=== PATIENT | female | born 1970 | race Caucasian/White ===

== ENCOUNTER → 2017-03-22 | Outpatient (CLI) | payer BC ==
--- NOTE | 2017-03-23 10:38 | MM ---
Reason for exam: screening (asymptomatic). Last mammogram was performed 1 year and 6 months ago. History: Family history of breast cancer in paternal aunt. Physical Findings: A clinical breast exam by your physician is recommended on an annual basis and results should be correlated with mammographic findings. MG Screening Mammo w CAD Bilateral CC and MLO view(s) were taken. Prior study comparison: September 10, 2015, bilateral MG screening mammo w CAD. February 26, 2014, bilateral MG screening mammo w CAD. The breast tissue is heterogeneously dense. This may lower the sensitivity of mammography. No significant changes when compared with prior studies. ASSESSMENT: Benign, BI-RAD 2 RECOMMENDATION: Routine screening mammogram of both breasts in 1 year.
== END | disposition home or self-care (01) ==
LOC: RADMAMWWP 16:04
PROVIDERS: ATTEND Obstetrics & Gynecology
DX: Z12.31 Encounter for screening mammogram for malignant neoplasm of breast (principal); Z80.3 Family history of malignant neoplasm of breast

== ENCOUNTER → 2018-05-26 | Outpatient (CLI) | payer BC ==
--- NOTE | 2018-05-31 09:01 | MM ---
Reason for exam: screening (asymptomatic). Last mammogram was performed 1 year and 2 months ago. History: Family history of breast cancer in paternal aunt. Physical Findings: A clinical breast exam by your physician is recommended on an annual basis and results should be correlated with mammographic findings. MG 3D Screening Mammo W/Cad Bilateral CC and MLO view(s) were taken. Prior study comparison: March 22, 2017, bilateral MG screening mammo w CAD. September 10, 2015, bilateral MG screening mammo w CAD. There are scattered fibroglandular densities. There is chronic nodularity in the right breast. No significant changes when compared with prior studies. ASSESSMENT: Negative, BI-RAD 1 RECOMMENDATION: Routine screening mammogram of both breasts in 1 year.
== END | disposition home or self-care (01) ==
LOC: RADMAMWWP 09:39
PROVIDERS: ATTEND Obstetrics & Gynecology
DX: Z12.31 Encounter for screening mammogram for malignant neoplasm of breast (principal); Z80.3 Family history of malignant neoplasm of breast
CPT/HCPCS: 77063; 77067

== ENCOUNTER → 2020-04-08 | Outpatient (CLI) | payer OTHER ==
--- NOTE | 2020-04-09 08:29 | MM ---
Reason for exam: screening (asymptomatic). Last mammogram was performed 1 year and 10 months ago. History: Family history of breast cancer in paternal aunt. Physical Findings: A clinical breast exam by your physician is recommended on an annual basis and results should be correlated with mammographic findings. MG 3D Screening Mammo W/Cad Bilateral CC and MLO view(s) were taken. Prior study comparison: May 26, 2018, bilateral MG 3d screening mammo w/cad. March 22, 2017, bilateral MG screening mammo w CAD. The breast tissue is heterogeneously dense. This may lower the sensitivity of mammography. There is no discrete abnormality. No significant changes when compared with prior studies. ASSESSMENT: Negative, BI-RAD 1 RECOMMENDATION: Routine screening mammogram of both breasts in 1 year.
== END | disposition home or self-care (01) ==
LOC: WWCWWP 09:13
PROVIDERS: ATTEND Obstetrics & Gynecology
DX: Z12.31 Encounter for screening mammogram for malignant neoplasm of breast (principal)
CPT/HCPCS: 77063; 77067

== ENCOUNTER → 2020-05-27 | Outpatient (CLI) | payer OTHER ==
--- NOTE | 2020-05-27 10:11 | P.HPOB ---
History of Present Illness H&P Date: 05/27/20 Chief Complaint: The patient is here for her routine gynecologic exam. This is a 49-year-old with an LMP of 05/21/2020. The patient states her menstrual periods have become more irregular over the past year. They previously were regular up until one year ago. She did have a 6 month period where she was amenorrheic except for infrequent spotting. The last 2 months have been fairly regular every month but have been heavier than usual. She is otherwise without complaints. She denies any significant hot flashes. Her is status post vasectomy. Review of Systems She has gained about 7 pounds over the past 5 years. She denies respiratory, cardiac, or GI problems. Past Medical History Past Medical History: GERD/Reflux Additional Past Medical History / Comment(s): PAST MONEY MANAGER HISTORY: She has no history of STDs. History of Any Multi-Drug Resistant Organisms: None Reported Additional Past Surgical History / Comment(s): oral surgery. Colonoscopy 2014(next age 52) Past Anesthesia/Blood Transfusion Reactions: Motion Sickness Past Psychological History: No Psychological Hx Reported Smoking Status: Never smoker Past Alcohol Use History: Occasional (0-1 per month) Past Drug Use History: None Reported Additional History: She has been since 1991 and works at [employer] with her . - Past Family History Brother(s) Family Medical History: Cancer Additional Family Medical History / Comment(s): Beavers sarcoma. Father Family Medical History: Cancer Additional Family Medical History / Comment(s): Lung cancer. An uncle had lung cancer as well. Aunt Family Medical History: Cancer Additional Family Medical History / Comment(s): Breast cancer. Medications and Allergies Home Medications Medication Instructions Recorded Confirmed Type Claritin(Dose Unknown) 1 tab PO DAILY 10/08/14 05/27/20 History Ascorbic Acid [Vitamin C] 500 mg PO DAILY 05/27/20 05/27/20 History Cholecalciferol [Vitamin D3 (25 1,000 unit PO DAILY 05/27/20 05/27/20 History Mcg = 1000 Iu)] Multivitamin [Multivitamins Adult 1 each PO DAILY 05/27/20 05/27/20 History Gummies] Zinc 50 mg PO DAILY 05/27/20 05/27/20 History atenoloL [Atenolol] 25 mg PO DAILY 05/27/20 05/27/20 History Allergies Allergy/AdvReac Type Severity Reaction Status Date / Time No Known Allergies Allergy Verified 05/27/20 09:18 Exam Vital Signs Temp Pulse Resp BP Pulse Ox 05/27/20 09:20 98.3 F 84 18 138/91 99 Intake and Output 05/26/20 05/27/20 05/27/20 22:59 06:59 14:59 Other: Weight 98.883 kg Height 5 feet 3-1/2 inches, weight 218 pounds, BMI 38.0. This is a well-developed well-nourished heavyset white female who is alert and oriented times 3 in no acute distress. HEENT: Within normal limits. NECK: Supple without mass or thyromegaly. CHEST AND LUNGS: Clear to auscultation. HEART: Regular rate and rhythm. BREASTS: Are without mass or discharge. AXILLARY EXAM: Negative for adenopathy. BACK: Negative for CVA tenderness. ABDOMEN: Soft, nontender, without palpable masses. PELVIC EXAM: Normal external genitalia. Cervix and vagina appear normal. There is a small amount of old menstrual blood at the cervix. There is no unusual discharge. There is no evidence of prolapse. The uterus is midposition, multiparous, nongravid size and nontender. There are no palpable adnexal masses or tenderness. RECTAL EXAM: Rectovaginal exam is negative for mass or tenderness and is negative for occult blood. EXTREMITIES: Nontender. IMPRESSION: 1. 49-year-old perimenopausal female with normal gynecologic exam whose is status post vasectomy. 2. Mildly elevated blood pressure. PLAN: 1. Pap smear cotest was performed. 2. Self breast awareness was discussed with the patient. 3. Screening mammogram was done on 04/08/2020 and was benign. 4. Osteoporosis prevention was discussed. I have stressed the importance of adequate calcium, vitamin D and regular exercise. Recommended amounts of calcium and vitamin D were also discussed. 5. The patient will keep a menstrual calendar and call if she is having menstrual problems. 6. I have recommended that she check her own blood pressure at home on a regular basis since she does have a blood pressure cuff. She will follow up with her primary health care provider for blood pressure elevations. 7. She was advised to return in one year for her annual well woman exam.
--- NOTE | 2020-06-04 12:51 | P.PN ---
Progress Note - Text Progress Note Date: 06/04/20 OUTPATIENT FOLLOW-UP NOTE TEST(S)/RESULTS: Test results from 05/27/2020 include negative Pap smear and negative high risk HPV testing. METHOD OF NOTIFICATION: The patient was notified by phone. PATIENT COMMENTS: The patient is happy to hear these results. DIAGNOSIS: Negative Pap smear coTest. DISCUSSION: PLAN: She was advised to return in one year for her annual well woman exam. Pap smear cotest will be done in approximately 4-5 years.
== END | disposition home or self-care (01) ==
DX: Z53.9 Procedure and treatment not carried out, unspecified reason (principal)

== ENCOUNTER 2020-06-23 19:41 | Emergency (ER) | payer OTHER ==
[2020-06-23 19:47] VITALS: RESP 18; TEMP 98.9
[2020-06-23] MEDS ORDERED: SODIUM CHLORIDE 0.9% 1,000 ML IV STA (20:07)
[2020-06-23] MEDS ORDERED: ONDANSETRON 4 MG/2 ML VIAL IVP STA (20:07)
--- NOTE | 2020-06-23 20:12 | ED ---
General Adult HPI - General Chief complaint: Nausea/Vomiting/Diarrhea Stated complaint: ABD pain,nausea Time Seen by Provider: 06/23/20 19:53 Source: patient, RN notes reviewed Mode of arrival: ambulatory Limitations: no limitations - History of Present Illness Initial comments: 49-year-old female with a past medical history of GERD presents to the emergency room for a chief complaint of nausea. Patient reports she has been nauseous for the past 1.5 weeks. States initially when she had the nausea she had diarrhea accompanied with this for about 3 days. She states since that time she really is unable to eat. She has not been vomiting. Patient has tried two oral Zofran it does not seem to help. She stands has some right upper quadrant pain r adiating to the right side of her back. She denies fevers or chills. She states she has seen her doctor who is treating her for anxiety. She had an ultrasound scheduled however states that it seems to be worsening so she wanted to be seen earlier. Patient does not have any abdominal surgeries.Patient has no other complaints at this time including shortness of breath, chest pain, headache, or visual changes. - Related Data Home Medications Medication Instructions Recorded Confirmed atenoloL [Atenolol] 25 mg PO DAILY 05/27/20 06/23/20 ALPRAZolam [Xanax] 0.5 mg PO BID PRN 06/23/20 06/23/20 Calcium Carbonate [Tums] 500 mg PO QID PRN 06/23/20 06/23/20 Ibuprofen [Motrin] 800 mg PO Q8H PRN 06/23/20 06/23/20 Omeprazole Magnesium [PriLOSEC OTC] 20 mg PO DAILY 06/23/20 06/23/20 Ondansetron [Zofran] 4 mg PO Q12HR PRN 06/23/20 06/23/20 Sertraline [Zoloft] 25 mg PO DAILY 06/23/20 06/23/20 Previous Rx's Medication Instructions Recorded Metoclopramide [Reglan] 10 mg PO TID PRN #12 tab 06/23/20 Allergies Allergy/AdvReac Type Severity Reaction Status Date / Time No Known Allergies Allergy Verified 06/23/20 20:44 Review of Systems ROS Statement: Those systems with pertinent positive or pertinent negative responses have been documented in the HPI. ROS Other: All systems not noted in ROS Statement are negative. Past Medical History Past Medical History: GERD/Reflux Additional Past Medical History / Comment(s): kidney stones History of Any Multi-Drug Resistant Organisms: None Reported Additional Past Surgical History / Comment(s): oral surgery. Colonoscopy 2015(next age 52) Past Anesthesia/Blood Transfusion Reactions: Motion Sickness Past Psychological History: Anxiety Smoking Status: Never smoker Past Alcohol Use History: Occasional Past Drug Use History: None Reported - Past Family History Father Family Medical History: Cancer Additional Family Medical History / Comment(s): Lung cancer. An uncle had lung cancer as well. Brother(s) Family Medical History: Cancer Additional Family Medical History / Comment(s): Beavers sarcoma. Aunt Family Medical History: Cancer Additional Family Medical History / Comment(s): Breast cancer. General Exam Limitations: no limitations General appearance: alert Head exam: Present: atraumatic Eye exam: Present: normal appearance, PERRL, EOMI. Absent: scleral icterus ENT exam: Present: normal exam, mucous membranes moist Neck exam: Present: normal inspection, full ROM. Absent: tenderness Respiratory exam: Present: normal lung sounds bilaterally. Absent: respiratory distress, wheezes Cardiovascular Exam: Present: regular rate, normal rhythm, normal heart sounds GI/Abdominal exam: Present: soft, tenderness (minimal RUQ tenderness), normal bowel sounds. Absent: distended, guarding, rebound, rigid Back exam: Absent: CVA tenderness (R) Neurological exam: Present: alert Course Vital Signs 06/23/20 06/23/20 19:42 22:00 Temperature 98.9 F Pulse Rate 89 79 Respiratory 18 18 Rate Blood Pressure 145/89 131/79 O2 Sat by Pulse 99 100 Oximetry Medical Decision Making - Medical Decision Making Vitals are stable. CBC CMP unremarkable. Urinalysis unremarkable. Ultrasound does show large gallstone at the gallbladder neck that measures 16 mm without dilated ducts. X-ray is nonacute. Patient was given Zofran and Reglan in the emergency room. She has not had any episodes of vomiting. She states Regranex and made her feel much better. Patient will be discharged home with Reglan and recommended she take Benadryl with this. She will follow up with general surgery. Referral given. She'll return here for any worsening symptoms. - Lab Data Result diagrams: 06/23/20 20:10 06/23/20 20:10 Lab Results 06/23/20 06/23/20 06/23/20 Range/Units 20:10 20:10 20:10 WBC 8.3 (3.8-10.6) k/uL RBC 4.70 (3.80-5.40) m/uL Hgb 14.6 (11.4-16.0) gm/dL Hct 41.5 (34.0-46.0) % MCV 88.3 (80.0-100.0) fL MCH 31.1 (25.0-35.0) pg MCHC 35.2 (31.0-37.0) g/dL RDW 12.5 (11.5-15.5) % Plt Count 277 (150-450) k/uL MPV 7.4 Neutrophils % 70 % Lymphocytes % 22 % Monocytes % 5 % Eosinophils % 1 % Basophils % 1 % Neutrophils # 5.8 (1.3-7.7) k/uL Lymphocytes # 1.8 (1.0-4.8) k/uL Monocytes # 0.4 (0-1.0) k/uL Eosinophils # 0.1 (0-0.7) k/uL Basophils # 0.1 (0-0.2) k/uL Sodium (137-145) mmol/L Potassium (3.5-5.1) mmol/L Chloride (98-107) mmol/L Carbon Dioxide (22-30) mmol/L Anion Gap mmol/L BUN (7-17) mg/dL Creatinine (0.52-1.04) mg/dL Est GFR (CKD-EPI)AfAm (>60 ml/min/1.73 sqM) Est GFR (CKD-EPI)NonAf (>60 ml/min/1.73 sqM) Glucose (74-99) mg/dL Calcium (8.4-10.2) mg/dL Total Bilirubin (0.2-1.3) mg/dL AST (14-36) U/L ALT (4-34) U/L Alkaline Phosphatase (38-126) U/L Total Protein (6.3-8.2) g/dL Albumin (3.5-5.0) g/dL Amylase (30-110) U/L Lipase (23-300) U/L Urine Color Yellow Urine Appearance Cloudy H (Clear) Urine pH 6.0 (5.0-8.0) Ur Specific [place] 1.019 (1.001-1.035) Urine Protein Trace H (Negative) Urine Glucose (UA) Negative (Negative) Urine Ketones 1+ H (Negative) Urine Blood Negative (Negative) Urine Nitrite Negative (Negative) Urine Bilirubin Negative (Negative) Urine Urobilinogen 2.0 (<2.0) mg/dL Ur Leukocyte Esterase Small H (Negative) Urine RBC 2 (0-5) /hpf Urine WBC 6 H (0-5) /hpf Ur Squamous Epith Cells 2 (0-4) /hpf Urine Bacteria Rare H (None) /hpf Hyaline Casts 7 H (0-2) /lpf Urine Mucus Many H (None) /hpf Urine HCG, Qual Not Detected (Not Detectd) 06/23/20 Range/Units 20:10 WBC (3.8-10.6) k/uL RBC (3.80-5.40) m/uL Hgb (11.4-16.0) gm/dL Hct (34.0-46.0) % MCV (80.0-100.0) fL MCH (25.0-35.0) pg MCHC (31.0-37.0) g/dL RDW (11.5-15.5) % Plt Count (150-450) k/uL MPV Neutrophils % % Lymphocytes % % Monocytes % % Eosinophils % % Basophils % % Neutrophils # (1.3-7.7) k/uL Lymphocytes # (1.0-4.8) k/uL Monocytes # (0-1.0) k/uL Eosinophils # (0-0.7) k/uL Basophils # (0-0.2) k/uL Sodium 139 (137-145) mmol/L Potassium 4.0 (3.5-5.1) mmol/L Chloride 101 (98-107) mmol/L Carbon Dioxide 26 (22-30) mmol/L Anion Gap 12 mmol/L BUN 7 (7-17) mg/dL Creatinine 0.65 (0.52-1.04) mg/dL Est GFR (CKD-EPI)AfAm >90 (>60 ml/min/1.73 sqM) Est GFR (CKD-EPI)NonAf >90 (>60 ml/min/1.73 sqM) Glucose 95 (74-99) mg/dL Calcium 9.8 (8.4-10.2) mg/dL Total Bilirubin 0.9 (0.2-1.3) mg/dL AST 30 (14-36) U/L ALT 20 (4-34) U/L Alkaline Phosphatase 67 (38-126) U/L Total Protein 8.2 (6.3-8.2) g/dL Albumin 4.9 (3.5-5.0) g/dL Amylase 48 (30-110) U/L Lipase 71 (23-300) U/L Urine Color Urine Appearance (Clear) Urine pH (5.0-8.0) Ur Specific [place] (1.001-1.035) Urine Protein (Negative) Urine Glucose (UA) (Negative) Urine Ketones (Negative) Urine Blood (Negative) Urine Nitrite (Negative) Urine Bilirubin (Negative) Urine Urobilinogen (<2.0) mg/dL Ur Leukocyte Esterase (Negative) Urine RBC (0-5) /hpf Urine WBC (0-5) /hpf Ur Squamous Epith Cells (0-4) /hpf Urine Bacteria (None) /hpf Hyaline Casts (0-2) /lpf Urine Mucus (None) /hpf Urine HCG, Qual (Not Detectd) Disposition Clinical Impression: Gallstones, Nausea Disposition: HOME SELF-CARE Condition: Good Instructions (If sedation given, give patient instructions): Gallstones (ED), Low Fat Diet (ED) Additional Instructions: Please take to a low-fat diet. Take Zofran and Reglan as needed for nausea. Take Benadryl with the Reglan. Follow-up with general surgery. Return to the emergency room for any worsening symptoms. Prescriptions: Metoclopramide [Reglan] 10 mg PO TID PRN #12 tab PRN Reason: Nausea Is patient prescribed a controlled substance at d/c from ED?: No Referrals: August Bermudez MD [Primary Care Provider] - 1-2 days Keyshawn Caldwell MD [STAFF PHYSICIAN] - 1-2 days Time of Disposition: 22:34
[2020-06-23 20:22] LABS: Appearance,Urine Cloudy (Clear); Bacteria,Urine Rare /hpf; Bilirubin,Urine Negative (Negative); Blood,Urine Negative (Negative); Color,Urine Yellow; Glucose,Urine (UA) Negative (Negative); Hyaline Casts,Urine 7 /lpf (0-2); Ketones,Urine 1+ (Negative); Leukocyte Esterase,Urine Small (Negative); Mucus,Urine Many /hpf; Nitrite,Urine Negative (Negative); Protein,Urine Trace (Negative); RBC,Urine 2 /hpf (0-5); Specific Gravity,Urine 1.019 (1.001-1.035); Squamous Epithelial Cell,Urine 2 /hpf (0-4); WBC,Urine 6 /hpf (0-5)
[2020-06-23 20:31] LABS: Basophils # (A) 0.1 k/uL (0-0.2); Basophils % (A) 1 %; Eosinophils # (A) 0.1 k/uL (0-0.7); Eosinophils % (A) 1 %; HCT 41.5 % (34.0-46.0); HGB 14.6 gm/dL (11.4-16.0); Lymphocytes # (A) 1.8 k/uL (1.0-4.8); Lymphocytes % (A) 22 %; MCH 31.1 pg (25.0-35.0); MCHC 35.2 g/dL (31.0-37.0); MCV 88.3 fL (80.0-100.0); Mean Platelet Volume 7.4; Monocytes # (A) 0.4 k/uL (0-1.0); Monocytes % (A) 5 %; Neutrophils # (A) 5.8 k/uL (1.3-7.7); Neutrophils % (A) 70 %; Platelet Count 277 k/uL (150-450); RDW 12.5 % (11.5-15.5); WBC 8.3 k/uL (3.8-10.6)
[2020-06-23 20:43] LABS: ALT 20 U/L (4-34); AST 30 U/L (14-36); African American GFR (CKD) >90 (>60 ml/min/1.73 sqM); Albumin 4.9 g/dL (3.5-5.0); Alkaline Phosphatase 67 U/L (38-126); Amylase 48 U/L (30-110); Anion Gap 12 mmol/L; Blood Urea Nitrogen 7 mg/dL (7-17); Calcium 9.8 mg/dL (8.4-10.2); Carbon Dioxide 26 mmol/L (22-30); Chloride 101 mmol/L (98-107); Glucose 95 mg/dL (74-99); Lipase 71 U/L (23-300); Non-African American GFR(CKD) >90 (>60 ml/min/1.73 sqM); Sodium 139 mmol/L (137-145); Total Bilirubin 0.9 mg/dL (0.2-1.3); Total Protein 8.2 g/dL (6.3-8.2)
[2020-06-23] MEDS ORDERED: METOCLOPRAMIDE 5 MG/ML 2 ML VIAL IVP STA (21:39)
[2020-06-23] MEDS ORDERED: diphenhydrAMINE 50 MG/ML 1 ML VIAL IVP STA (21:39)
--- NOTE | 2020-06-23 22:02 | XR ---
EXAMINATION TYPE: XR KUB DATE OF EXAM: 06/23/2020 COMPARISON: NONE HISTORY: Right upper quadrant pain TECHNIQUE: 2 views FINDINGS: Bowel gas pattern is normal. There is no sign of intestinal obstruction or pneumoperitoneum . Fecal pattern is no sign of a mass. Lung bases are clear. IMPRESSION: Nonacute abdomen.
[2020-06-23 22:03] VITALS: BP 131/79; PULSE 79
--- NOTE | 2020-06-23 22:04 | US ---
EXAMINATION TYPE: US abdomen limited DATE OF EXAM: 06/23/2020 COMPARISON: NONE CLINICAL HISTORY: ruq, . RUQ pain x 1 week. Hx kidney stones. EXAM MEASUREMENTS: Liver Length: 15.9 cm Gallbladder Wall: 0.24 cm CBD: 0.38 cm Right Kidney: 11.5 x 6.3 x 5.5 cm Limited due to gas. Pancreas: Tail not visualized. Liver: Hypoechoic area seen within the right lobe adjacent to the gallbladder measuring 2.4 x 1.8 x 1.0 cm. Gallbladder: Hyperechoic focus with posterior shadowing seen within the gallbladder measuring 1.6 x 1.3 x 0.7 cm. Gallbladder measures 4.07 cm in width. Evidence for sonographic Joyner's sign: Patient felt discomfort in RUQ while scanning. CBD: Portion seen appears wnl. Right Kidney: No hydronephrosis or masses seen IMPRESSION: There is large gallstone at the gallbladder neck that measures 16 mm. No dilated ducts. No focal live r defect. Gated hypoechoic area in the liver adjacent to the gallbladder is of doubtful significance.
== END 2020-06-23 22:43 | disposition home or self-care (01) ==
LOC: EC 19:41
DX: K80.20 Calculus of gallbladder without cholecystitis without obstruction (principal); R11.0 Nausea; K21.9 Gastro-esophageal reflux disease without esophagitis; F41.9 Anxiety disorder, unspecified; Z79.899 Other long term (current) drug therapy
CPT/HCPCS: 36415; 80053; 82150; 83690; 85025; 81001; 81025; 74018; 76705; 99284; 96374; 96375 ×2; 96361; J1200; J2765; J2405

== ENCOUNTER 2020-06-25 14:38 | Observation (INO) | payer OTHER ==
[2020-06-25] MEDS ORDERED: HYDROmorphone 0.5 MG/0.5 ML SYRINGE IVP STA (15:10)
[2020-06-25] MEDS ORDERED: SODIUM CHLORIDE 0.9% 2,000 ML IV STA (15:10)
[2020-06-25] MEDS ORDERED: ONDANSETRON 4 MG/2 ML VIAL IVP STA (15:10)
[2020-06-25 15:37] LABS: Basophils # (A) 0.1 k/uL (0-0.2); Basophils % (A) 1 %; Eosinophils # (A) 0.1 k/uL (0-0.7); Eosinophils % (A) 1 %; HCT 43.2 % (34.0-46.0); HGB 15.3 gm/dL (11.4-16.0); Lymphocytes # (A) 1.4 k/uL (1.0-4.8); Lymphocytes % (A) 17 %; MCH 31.2 pg (25.0-35.0); MCHC 35.5 g/dL (31.0-37.0); MCV 87.8 fL (80.0-100.0); Mean Platelet Volume 7.5; Monocytes # (A) 0.4 k/uL (0-1.0); Monocytes % (A) 5 %; Neutrophils # (A) 6.1 k/uL (1.3-7.7); Neutrophils % (A) 75 %; Platelet Count 257 k/uL (150-450); RBC 4.92 m/uL (3.80-5.40); RDW 12.4 % (11.5-15.5); WBC 8.1 k/uL (3.8-10.6)
[2020-06-25 15:46] LABS: ALT 26 U/L (4-34); AST 29 U/L (14-36); African American GFR (CKD) >90 (>60 ml/min/1.73 sqM); Albumin 4.8 g/dL (3.5-5.0); Alkaline Phosphatase 67 U/L (38-126); Anion Gap 13 mmol/L; Blood Urea Nitrogen 7 mg/dL (7-17); Calcium 10.1 mg/dL (8.4-10.2); Carbon Dioxide 25 mmol/L (22-30); Chloride 102 mmol/L (98-107); Glucose 91 mg/dL (74-99); Lipase 59 U/L (23-300); Non-African American GFR(CKD) >90 (>60 ml/min/1.73 sqM); Potassium 3.7 mmol/L (3.5-5.1); Sodium 140 mmol/L (137-145); Total Bilirubin 0.9 mg/dL (0.2-1.3); Total Protein 7.8 g/dL (6.3-8.2)
[2020-06-25 16:06] LABS: Appearance,Urine Clear (Clear); Bacteria,Urine Rare /hpf; Bilirubin,Urine Negative (Negative); Blood,Urine Trace (Negative); Color,Urine Yellow; Glucose,Urine (UA) Negative (Negative); Ketones,Urine 4+ (Negative); Leukocyte Esterase,Urine Small (Negative); Mucus,Urine Few /hpf; Nitrite,Urine Negative (Negative); PH, Urine 5.5 (5.0-8.0); Protein,Urine Negative (Negative); RBC,Urine 1 /hpf (0-5); Squamous Epithelial Cell,Urine 4 /hpf (0-4); WBC,Urine 4 /hpf (0-5)
--- NOTE | 2020-06-25 16:12 | ED ---
Abdominal Pain HPI - General Chief Complaint: Abdominal Pain Stated Complaint: Abd Pain Time Seen by Provider: 06/25/20 14:53 Source: patient, RN notes reviewed Mode of arrival: ambulatory Limitations: no limitations - History of Present Illness Initial Comments: Case discussed with Dr. Caldwell. Patient will be admitted for pain control, possible surgery. Patient with Antiemetics Will Be Given a Dose of IV Antibiotics. - Related Data Home Medications Medication Instructions Recorded Confirmed atenoloL [Atenolol] 25 mg PO DAILY 05/27/20 06/25/20 ALPRAZolam [Xanax] 0.5 mg PO BID PRN 06/23/20 06/25/20 Ibuprofen [Motrin] 800 mg PO Q8H PRN 06/23/20 06/25/20 Ondansetron [Zofran] 4 mg PO Q12HR PRN 06/23/20 06/25/20 Sertraline [Zoloft] 25 mg PO DAILY 06/23/20 06/25/20 Calcium Carbonate [Tums] 1,000 mg PO TID PRN 06/25/20 06/25/20 Omeprazole 40 mg PO DAILY 06/25/20 06/25/20 Allergies Allergy/AdvReac Type Severity Reaction Status Date / Time No Known Allergies Allergy Verified 06/25/20 15:52 Review of Systems ROS Statement: Those systems with pertinent positive or pertinent negative responses have been documented in the HPI. ROS Other: All systems not noted in ROS Statement are negative. Past Medical History Past Medical History: GERD/Reflux Additional Past Medical History / Comment(s): kidney stones History of Any Multi-Drug Resistant Organisms: None Reported Additional Past Surgical History / Comment(s): oral surgery. Colonoscopy 2014(next age 52) Past Anesthesia/Blood Transfusion Reactions: Motion Sickness Past Psychological History: Anxiety Smoking Status: Never smoker Past Alcohol Use History: Occasional Past Drug Use History: None Reported - Past Family History Father Family Medical History: Cancer Additional Family Medical History / Comment(s): Lung cancer. An uncle had lung cancer as well. Brother(s) Family Medical History: Cancer Additional Family Medical History / Comment(s): Beavers sarcoma. Aunt Family Medical History: Cancer Additional Family Medical History / Comment(s): Breast cancer. General Exam Limitations: no limitations Course Vital Signs 06/25/20 14:48 Temperature 98.7 F Pulse Rate 77 Respiratory 16 Rate Blood Pressure 143/82 O2 Sat by Pulse 99 Oximetry Medical Decision Making - Lab Data Result diagrams: 06/25/20 15:21 06/25/20 15:21 Lab Results 06/25/20 06/25/20 06/25/20 Range/Units 15:21 15:21 15:21 WBC 8.1 (3.8-10.6) k/uL RBC 4.92 (3.80-5.40) m/uL Hgb 15.3 (11.4-16.0) gm/dL Hct 43.2 (34.0-46.0) % MCV 87.8 (80.0-100.0) fL MCH 31.2 (25.0-35.0) pg MCHC 35.5 (31.0-37.0) g/dL RDW 12.4 (11.5-15.5) % Plt Count 257 (150-450) k/uL MPV 7.5 Neutrophils % 75 % Lymphocytes % 17 % Monocytes % 5 % Eosinophils % 1 % Basophils % 1 % Neutrophils # 6.1 (1.3-7.7) k/uL Lymphocytes # 1.4 (1.0-4.8) k/uL Monocytes # 0.4 (0-1.0) k/uL Eosinophils # 0.1 (0-0.7) k/uL Basophils # 0.1 (0-0.2) k/uL Sodium 140 (137-145) mmol/L Potassium 3.7 (3.5-5.1) mmol/L Chloride 102 (98-107) mmol/L Carbon Dioxide 25 (22-30) mmol/L Anion Gap 13 mmol/L BUN 7 (7-17) mg/dL Creatinine 0.64 (0.52-1.04) mg/dL Est GFR (CKD-EPI)AfAm >90 (>60 ml/min/1.73 sqM) Est GFR (CKD-EPI)NonAf >90 (>60 ml/min/1.73 sqM) Glucose 91 (74-99) mg/dL Plasma Lactic Acid R[place] (0.7-2.0) mmol/L Calcium 10.1 (8.4-10.2) mg/dL Total Bilirubin 0.9 (0.2-1.3) mg/dL AST 29 (14-36) U/L ALT 26 (4-34) U/L Alkaline Phosphatase 67 (38-126) U/L Total Protein 7.8 (6.3-8.2) g/dL Albumin 4.8 (3.5-5.0) g/dL Lipase 59 (23-300) U/L Urine Color Yellow Urine Appearance Clear (Clear) Urine pH 5.5 (5.0-8.0) Ur Specific [place] 1.020 (1.001-1.035) Urine Protein Negative (Negative) Urine Glucose (UA) Negative (Negative) Urine Ketones 4+ H (Negative) Urine Blood Trace H (Negative) Urine Nitrite Negative (Negative) Urine Bilirubin Negative (Negative) Urine Urobilinogen 2.0 (<2.0) mg/dL Ur Leukocyte Esterase Small H (Negative) Urine RBC 1 (0-5) /hpf Urine WBC 4 (0-5) /hpf Ur Squamous Epith Cells 4 (0-4) /hpf Urine Bacteria Rare H (None) /hpf Urine Mucus Few H (None) /hpf Urine HCG, Qual (Not Detectd) 06/25/20 06/25/20 Range/Units 15:21 15:30 WBC (3.8-10.6) k/uL RBC (3.80-5.40) m/uL Hgb (11.4-16.0) gm/dL Hct (34.0-46.0) % MCV (80.0-100.0) fL MCH (25.0-35.0) pg MCHC (31.0-37.0) g/dL RDW (11.5-15.5) % Plt Count (150-450) k/uL MPV Neutrophils % % Lymphocytes % % Monocytes % % Eosinophils % % Basophils % % Neutrophils # (1.3-7.7) k/uL Lymphocytes # (1.0-4.8) k/uL Monocytes # (0-1.0) k/uL Eosinophils # (0-0.7) k/uL Basophils # (0-0.2) k/uL Sodium (137-145) mmol/L Potassium (3.5-5.1) mmol/L Chloride (98-107) mmol/L Carbon Dioxide (22-30) mmol/L Anion Gap mmol/L BUN (7-17) mg/dL Creatinine (0.52-1.04) mg/dL Est GFR (CKD-EPI)AfAm (>60 ml/min/1.73 sqM) Est GFR (CKD-EPI)NonAf (>60 ml/min/1.73 sqM) Glucose (74-99) mg/dL Plasma Lactic Acid Rory 1.3 (0.7-2.0) mmol/L Calcium (8.4-10.2) mg/dL Total Bilirubin (0.2-1.3) mg/dL AST (14-36) U/L ALT (4-34) U/L Alkaline Phosphatase (38-126) U/L Total Protein (6.3-8.2) g/dL Albumin (3.5-5.0) g/dL Lipase (23-300) U/L Urine Color Urine Appearance (Clear) Urine pH (5.0-8.0) Ur Specific [place] (1.001-1.035) Urine Protein (Negative) Urine Glucose (UA) (Negative) Urine Ketones (Negative) Urine Blood (Negative) Urine Nitrite (Negative) Urine Bilirubin (Negative) Urine Urobilinogen (<2.0) mg/dL Ur Leukocyte Esterase (Negative) Urine RBC (0-5) /hpf Urine WBC (0-5) /hpf Ur Squamous Epith Cells (0-4) /hpf Urine Bacteria (None) /hpf Urine Mucus (None) /hpf Urine HCG, Qual Not Detected (Not Detectd) Disposition Clinical Impression: Symptomatic cholelithiasis Disposition: ADMITTED IP TO THIS [facility] Referrals: August Bermudez MD [Primary Care Provider] - 1-2 days
[2020-06-25] MEDS ORDERED: PIPERACILLIN-TAZOBACTAM 3.375 GM in SODIUM CHLORIDE 0.9% 100 ML IVPB STA (16:13)
[2020-06-25] MEDS ORDERED: NALOXONE 0.4 MG/ML 1 ML VIAL IV PRN (16:13)
[2020-06-25] MEDS: SODIUM CHLORIDE 0.9% 1,000 ML IV SCH (16:49)
[2020-06-25] MEDS ORDERED: atenoloL 25 MG TAB PO SCH (20:47)
[2020-06-25] MEDS ORDERED: ALPRAZolam 0.5 MG TAB PO PRN (20:50)
[2020-06-25] MEDS: ONDANSETRON 4 MG/2 ML VIAL IVP PRN (23:48)
[2020-06-26] MEDS: SODIUM CHLORIDE 0.9% 1,000 ML IV SCH ×3 (01:38→19:03)
[2020-06-26 08:44] LABS: Basophils % (A) 1 %; Eosinophils % (A) 1 %; HCT 40.7 % (34.0-46.0); HGB 14.2 gm/dL (11.4-16.0); Lymphocytes % (A) 16 %; MCH 31.3 pg (25.0-35.0); MCV 89.6 fL (80.0-100.0); Mean Platelet Volume 7.4; Monocytes # (A) 0.3 k/uL (0-1.0); Monocytes % (A) 5 %; Neutrophils % (A) 78 %; Platelet Count 229 k/uL (150-450); RBC 4.54 m/uL (3.80-5.40); RDW 12.4 % (11.5-15.5); WBC 6.5 k/uL (3.8-10.6)
[2020-06-26 08:54] LABS: ALT 23 U/L (4-34); AST 24 U/L (14-36); African American GFR (CKD) >90 (>60 ml/min/1.73 sqM); Albumin 4.4 g/dL (3.5-5.0); Alkaline Phosphatase 61 U/L (38-126); Anion Gap 11 mmol/L; Blood Urea Nitrogen 4 mg/dL (7-17); Calcium 9.1 mg/dL (8.4-10.2); Carbon Dioxide 24 mmol/L (22-30); Chloride 103 mmol/L (98-107); Glucose 94 mg/dL (74-99); Non-African American GFR(CKD) >90 (>60 ml/min/1.73 sqM); Potassium 4.3 mmol/L (3.5-5.1); Sodium 138 mmol/L (137-145); Total Bilirubin 0.9 mg/dL (0.2-1.3); Total Protein 7.3 g/dL (6.3-8.2)
[2020-06-26] MEDS: HYDROmorphone 0.5 MG/0.5 ML SYRINGE IVP PRN (08:54)
[2020-06-26] MEDS: ONDANSETRON 4 MG/2 ML VIAL IVP PRN (08:56)
[2020-06-26] MEDS: SERTRALINE 25 MG TAB PO SCH (08:56)
[2020-06-26] MEDS: PANTOPRAZOLE 40 MG/10 ML VIAL IV SCH (08:56)
[2020-06-26] MEDS: PIPERACILLIN-TAZOBACTAM 3.375 GM in SODIUM CHLORIDE 0.9% 100 ML IVPB SCH ×3 (09:38→23:41)
--- NOTE | 2020-06-26 09:46 | P.GSHP ---
History of Present Illness H&P Date: 06/26/20 CHIEF COMPLAINT: Right upper quadrant abdominal pain HISTORY OF PRESENT ILLNESS: This is a 49-year-old female with a known history of GERD, kidney stones, hypertension and anxiety. Patient presents to the hospital with complaints of right upper quadrant pain and nausea for the past 10 days. She initially had come in to the ER on Tuesday at that time she had an abdominal ultrasound completed that showed large gallstone at the gallbladder neck that measures 16 mm. No dilated ducts. No focal liver defect. Gated hypoechoic area in the liver adjacent to the gallbladder is doubtful of significance. And she was discharged home and have follow-up with surgeon outpatient. However, patient's symptoms continued to worsen and she presented back to the ER. Patient has had decreased appetite. She also reports having low-grade fevers and chills at home. She describes the pain is very severe in that right upper quadrant radiates the right side of her back. She denies any vomiting. PAST MEDICAL HISTORY: See list. PAST SURGICAL HISTORY: See list. MEDICATIONS: See list. ALLERGIES: See list. SOCIAL HISTORY: No illicit drug use. REVIEW OF SYSTEMS: CONSTITUTIONAL: Denies fever or chills. HEENT: Denies blurred vision, vision changes, or eye pain. Denies hemoptysis CARDIOVASCULAR: Denies chest pain or pressure. RESPIRATORY: No shortness of breath. GASTROINTESTINAL: See HPI for pertinent findings HEMATOLOGIC: Denies bleeding disorders. GENITOURINARY: Denies any blood in urine or increased urinary frequency. SKIN: Denies pruitis. Denies rash. PHYSICAL EXAM: VITAL SIGNS: Reviewed GENERAL: Well-developed in no acute distress. HEENT: No sclera icterus. Extraocular movements grossly intact. Moist buccal mucosa. Head is atraumatic, normocephalic. No nasal drainage. ABDOMEN: Soft. Nondistended. Right upper quadrant tenderness with palpation NEUROLOGIC: Alert and oriented. Cranial nerves II through XII grossly intact. LABORATORY DATA: WBC 6.5 hemoglobin 14.2 LFTs normal Lipase normal IMAGING: abdominal ultrasound completed that showed large gallstone at the gallbladder neck that measures 16 mm. No dilated ducts. No focal liver defect. Gated hypoechoic area in the liver adjacent to the gallbladder is doubtful of significance. ASSESSMENT: 1. Acute cholecystitis with abdominal ultrasound showing large gallstone at the gallbladder neck that measures 16 mm PLAN: -Patient scheduled for laparoscopic cholecystectomy today with Dr. Caldwell -Keep patient nothing by mouth -Continue IV antibiotics -Continue IV fluids -Continue pain medication as needed -Continue antiemetics as needed Physician Tufter note has been reviewed by physician. Signing provider agrees with the documented findings, assessment, and plan of care. Past Medical History Past Medical History: GERD/Reflux, Hypertension Additional Past Medical History / Comment(s): kidney stones History of Any Multi-Drug Resistant Organisms: None Reported Past Surgical History: No Surgical Hx Reported Additional Past Surgical History / Comment(s): oral surgery. Colonoscopy 2014(next age 52) Past Anesthesia/Blood Transfusion Reactions: Motion Sickness Past Psychological History: Anxiety Smoking Status: Never smoker Past Alcohol Use History: Occasional Past Drug Use History: None Reported - Past Family History Father Family Medical History: Cancer Additional Family Medical History / Comment(s): Lung cancer. An uncle had lung cancer as well. Brother(s) Family Medical History: Cancer Additional Family Medical History / Comment(s): Beavers sarcoma. Aunt Family Medical History: Cancer Additional Family Medical History / Comment(s): Breast cancer. Medications and Allergies Home Medications Medication Instructions Recorded Confirmed Type atenoloL [Atenolol] 25 mg PO DAILY 05/27/20 06/25/20 History ALPRAZolam [Xanax] 0.5 mg PO BID PRN 06/23/20 06/25/20 History Ibuprofen [Motrin] 800 mg PO Q8H PRN 06/23/20 06/25/20 History Ondansetron [Zofran] 4 mg PO Q12HR PRN 06/23/20 06/25/20 History Sertraline [Zoloft] 25 mg PO DAILY 06/23/20 06/25/20 History Calcium Carbonate [Tums] 1,000 mg PO TID PRN 06/25/20 06/25/20 History Omeprazole 40 mg PO DAILY 06/25/20 06/25/20 History Allergies Allergy/AdvReac Type Severity Reaction Status Date / Time No Known Allergies Allergy Verified 06/25/20 15:52 Surgical - Exam Vital Signs Temp Pulse Resp BP Pulse Ox 98.7 F 77 16 143/82 99 06/25/20 14:48 06/25/20 14:48 06/25/20 14:48 06/25/20 14:48 06/25/20 14:48 Results - Labs 06/26/20 08:25 06/26/20 08:25 Abnormal Lab Results - Last 24 Hours (Table) 06/25/20 06/26/20 Range/Units 15: 08:25 BUN 4 L (7-17) mg/dL Urine Ketones 4+ H (Negative) Urine Blood Trace H (Negative) Ur Leukocyte Esterase Small H (Negative) Urine Bacteria Rare H (None) /hpf Urine Mucus Few H (None) /hpf Diabetes panel 06/25/20 06/26/20 Range/Units 15:21 08:25 Sodium 140 138 (137-145) mmol/L Potassium 3.7 4.3 (3.5-5.1) mmol/L Chloride 102 103 (98-107) mmol/L Carbon Dioxide 25 24 (22-30) mmol/L BUN 7 4 L (7-17) mg/dL Creatinine 0.64 0.60 (0.52-1.04) mg/dL Glucose 91 94 (74-99) mg/dL Calcium 10.1 9.1 (8.4-10.2) mg/dL AST 29 24 (14-36) U/L ALT 26 23 (4-34) U/L Alkaline Phosphatase 67 61 (38-126) U/L Total Protein 7.8 7.3 (6.3-8.2) g/dL Albumin 4.8 4.4 (3.5-5.0) g/dL Calcium panel 06/25/20 06/26/20 Range/Units 15:21 08:25 Calcium 10.1 9.1 (8.4-10.2) mg/dL Albumin 4.8 4.4 (3.5-5.0) g/dL Pituitary panel 06/25/20 06/26/20 Range/Units 15:21 08:25 Sodium 140 138 (137-145) mmol/L Potassium 3.7 4.3 (3.5-5.1) mmol/L Chloride 102 103 (98-107) mmol/L Carbon Dioxide 25 24 (22-30) mmol/L BUN 7 4 L (7-17) mg/dL Creatinine 0.64 0.60 (0.52-1.04) mg/dL Glucose 91 94 (74-99) mg/dL Calcium 10.1 9.1 (8.4-10.2) mg/dL Adrenal panel 06/25/20 06/26/20 Range/Units 15:21 08:25 Sodium 140 138 (137-145) mmol/L Potassium 3.7 4.3 (3.5-5.1) mmol/L Chloride 102 103 (98-107) mmol/L Carbon Dioxide 25 24 (22-30) mmol/L BUN 7 4 L (7-17) mg/dL Creatinine 0.64 0.60 (0.52-1.04) mg/dL Glucose 91 94 (74-99) mg/dL Calcium 10.1 9.1 (8.4-10.2) mg/dL Total Bilirubin 0.9 0.9 (0.2-1.3) mg/dL AST 29 24 (14-36) U/L ALT 26 23 (4-34) U/L Alkaline Phosphatase 67 61 (38-126) U/L Total Protein 7.8 7.3 (6.3-8.2) g/dL Albumin 4.8 4.4 (3.5-5.0) g/dL
--- NOTE | 2020-06-26 10:55 | P.PN ---
Progress Note - Text Progress Note Date: 06/26/20 medically stable for surgery. full consult to follow
[2020-06-26] MEDS ORDERED: LORazepam 2 MG/ML INJ IV PRN (13:38)
[2020-06-26] MEDS: atenoloL 25 MG TAB PO SCH (17:23)
[2020-06-26] MEDS ORDERED: WATER FOR INJECTION, STERILE 10 ML IV ONE (22:20)
--- NOTE | 2020-06-26 23:49 | P.CONS ---
History of Present Illness - Reason for Consult Consult date: 06/26/20 Medical management Requesting physician: Keyshawn Caldwell - Chief Complaint Abdominal pain - History of Present Illness Consultation: This is a 49-year-old patient of Dr. Bermudez. Chronic stable medical conditions include GERD, hypertension, kidney stones. For about 2 weeks patient with having right upper quadrant pain. Progressively getting worse. Pain what she worked and radiated to the right back. Started developing nausea. Yesterday patient also developed fever. Normally has a bowel movement once a day. Admitted with acute cholecystitis. Patient pending to go down for surgery. This afternoon. No cardiac history. Review of systems: GEN.: Tired fever EYES: None HEENT: None NECK: None RESPIRATORY: None CARDIOVASCULAR: None GASTROINTESTINAL: As above] GENITOURINARY: None MUSCULOSKELETAL: None LYMPHATICS: None HEMATOLOGICAL: None PSYCHIATRY: None NEUROLOGICAL: None Past medical history to include: GERD, hypertension, kidney stones Social history: . Works as a legal secretary. Does not smoke or drink alcohol Physical examination: VITAL SIGNS: 98.7, 77, 16, 140 extremity 2, 99% room air GENERAL: BMI 35.2, laying in bed, awake. EYES: Pupils equal. Conjunctiva normal. HEENT: External appearance of nose and ears normal, oral cavity grossly normal. NECK: JVD not raised; masses not palpable. HEART: First and second heart sounds are normal; no edema. LUNGS: Respiratory rate normal; clear to auscultation. ABDOMEN: Soft, right upper quadrant tenderness with a positive Joyner sign, no guarding rigidity, liver spleen not palpable, no masses palpable. PSYCH: Alert and oriented x3; mood and affect normal. NEUROLOGICAL: Cranial nerves grossly intact; no facial asymmetry, power and sensation grossly intact. LYMPHATICS: No lymph nodes palpable in the axilla and neck INVESTIGATIONS, reviewed in the clinical context: White count 6.5 hemoglobin 14.2 platelets 2.9 potassium 4.3 creatinine 0.60 Urine hCG-not detected Abdominal ultrasound from June 23: Large gallstone in the neck of the gallbladder. No dilated ducts. Assessment: -Gallstones with acute cholecystitis -GERD -Essential hypertension -Kidney stones -Obesity BMI 35.2 Plan: Patient is nothing by mouth this morning. Getting IV fluids. Going on for surgery this afternoon. Home medications to be resumed. DVT prophylaxis. Patient is medically stable to proceed for surgery. Low cardiovascular risk Thank you Dr. Caldwell Past Medical History Past Medical History: GERD/Reflux, Hypertension Additional Past Medical History / Comment(s): kidney stones History of Any Multi-Drug Resistant Organisms: None Reported Past Surgical History: No Surgical Hx Reported Additional Past Surgical History / Comment(s): oral surgery. Colonoscopy 2015(next age 52) Past Anesthesia/Blood Transfusion Reactions: Motion Sickness Past Psychological History: Anxiety Smoking Status: Never smoker Past Alcohol Use History: Occasional Past Drug Use History: None Reported - Past Family History Father Family Medical History: Cancer Additional Family Medical History / Comment(s): Lung cancer. An uncle had lung cancer as well. Brother(s) Family Medical History: Cancer Additional Family Medical History / Comment(s): Beavers sarcoma. Aunt Family Medical History: Cancer Additional Family Medical History / Comment(s): Breast cancer. Medications and Allergies Home Medications Medication Instructions Recorded Confirmed Type atenoloL [Atenolol] 25 mg PO DAILY 05/27/20 06/25/20 History ALPRAZolam [Xanax] 0.5 mg PO BID PRN 06/23/20 06/25/20 History Ibuprofen [Motrin] 800 mg PO Q8H PRN 06/23/20 06/25/20 History Ondansetron [Zofran] 4 mg PO Q12HR PRN 06/23/20 06/25/20 History Sertraline [Zoloft] 25 mg PO DAILY 06/23/20 06/25/20 History Calcium Carbonate [Tums] 1,000 mg PO TID PRN 06/25/20 06/25/20 History Omeprazole 40 mg PO DAILY 06/25/20 06/25/20 History Allergies Allergy/AdvReac Type Severity Reaction Status Date / Time No Known Allergies Allergy Verified 06/25/20 15:52 Physical Exam Vitals: Vital Signs Temp Pulse Pulse Resp BP BP Pulse Ox 06/26/20 08:10 98.6 F 64 20 127/80 99 06/26/20 01:40 97.6 F 55 L 16 103/68 96 06/25/20 22:27 59 L 128/68 96 06/25/20 21:13 62 113/74 06/25/20 19:53 97.5 F L 58 L 20 126/84 95 06/25/20 17:28 98.3 F 57 L 20 133/83 99 06/25/20 16:57 98.3 F 76 18 119/83 98 06/25/20 14:48 98.7 F 77 16 143/82 99 Intake and Output 06/25/20 06/26/20 06/26/20 22:59 06:59 14:59 Intake Total 1000 Balance 1000 Intake: Intake, IV Titration 1000 Amount Sodium Chloride 0.9% 1, 1000 000 ml @ 100 mls/hr IV . Q10H [facility] Rx#:[id number] Other: Voiding Method Toilet # Voids 1 3 Weight 92.986 kg Results CBC & Chem 7: 06/26/20 08:25 06/26/20 08:25 Labs: Abnormal Lab Results - Last 24 Hours (Table) 06/25/20 06/26/20 Range/Units 15:21 08:25 BUN 4 L (7-17) mg/dL Urine Ketones 4+ H (Negative) Urine Blood Trace H (Negative) Ur Leukocyte Esterase Small H (Negative) Urine Bacteria Rare H (None) /hpf Urine Mucus Few H (None) /hpf
[2020-06-27] MEDS: HYDROmorphone 0.5 MG/0.5 ML SYRINGE IVP PRN (04:08)
[2020-06-27] MEDS: HYDROmorphone 1 MG/ML 1 ML SYRINGE IVP PRN ×2 (06:45→16:30)
[2020-06-27] MEDS: PANTOPRAZOLE 40 MG/10 ML VIAL IV SCH (08:24)
[2020-06-27] MEDS: PIPERACILLIN-TAZOBACTAM 3.375 GM in SODIUM CHLORIDE 0.9% 100 ML IVPB SCH ×3 (08:25→23:37)
[2020-06-27] MEDS ORDERED: LIDOCAINE 1% (10MG/ML) FOR IV START INTRADERMA PRN (09:06)
[2020-06-27] MEDS ORDERED: ONDANSETRON 4 MG/2 ML VIAL IVP ONE (09:06)
[2020-06-27] MEDS ORDERED: DEXAMETHASONE SOD PHOSPHATE 4 MG/ML 1 ML VIAL IV ONE (09:06)
[2020-06-27] MEDS ORDERED: IV FLUID CONTINUATION 1,000 ML IV ONE (10:48)
[2020-06-27] MEDS ORDERED: SCOPOLAMINE 1.5MG/72HR PATCH TRANSDERM ONE (11:13)
[2020-06-27] MEDS ORDERED: MIDAZOLAM 2 MG/2 ML VIAL IVP ONE (11:38)
[2020-06-27] MEDS ORDERED: BUPIVACAINE (PF) 0.25% 30 ML VIAL SQ ONE ×2 (12:38→13:24)
[2020-06-27] MEDS ORDERED: MIDAZOLAM 2 MG/2 ML VIAL ONE (13:01)
[2020-06-27] MEDS ORDERED: PROPOFOL 10 MG/ML 20 ML VIAL IV ONE (13:01)
[2020-06-27] MEDS ORDERED: SUCCINYLCHOLINE CHLORIDE 100 MG/5 ML SYR IV ONE (13:01)
[2020-06-27] MEDS ORDERED: KETOROLAC 15 MG/ML 1 ML VIAL ONE (13:01)
[2020-06-27] MEDS ORDERED: fentaNYL (PF) 50 MCG/ML 2 ML AMP ONE (13:01)
[2020-06-27] MEDS ORDERED: LIDOCAINE 1% INJ 10MG/ML (20 ML MDV) ONE (13:01)
[2020-06-27] MEDS ORDERED: ROCURONIUM 10 MG/ML (10 ML VIAL) IV ONE (13:01)
[2020-06-27] MEDS ORDERED: LACTATED RINGERS 1,000 ML IV ONE (13:24)
--- NOTE | 2020-06-27 13:53 | P.OP ---
Date of Procedure: 06/27/20 Preoperative Diagnosis: Cholecystitis Postoperative Diagnosis: Cholecystitis Procedure(s) Performed: Laparoscopic cholecystectomy Anesthesia: NEW Surgeon: Keyshawn Caldwell Estimated Blood Loss (ml): 10 Pathology: other (Gallbladder) Condition: stable Disposition: PACU Description of Procedure: The patient was placed on the operating table. The patient received a general endotracheal tube anesthesia. The patients abdomen was prepped and draped in the usual sterile fashion. Through an infraumbilical stab incision, the fascia of the anterior abdominal wall was grasped with a pair of Kochers and then the Veress needle was placed in the peritoneal cavity. Position of the Veress needle was confirmed with positive drop test. The abdomen was then insufflated. After adequate insufflation, the 10 mm trocar was placed in the peritoneal cavity. Following this the laparoscope was placed in the peritoneal cavity. The patient was placed in the head-up, right side up position and then a 5 mm trocar was placed in the right lateral and right subcostal position under direct visualization. A 8 mm trocar was placed in the epigastric position. The gallbladder was grasped in the fundus and infundibulum. Traction on the gallbladder was placed in the lateral and the cephalad positions. The triangle of Calot was visualized.. The cystic duct was bluntly dissected until the union of the cystic duct and common bile duct was seen. A critical view of safety was achieved. The cystic duct was then divided and sealed with the Harmonic scissors. A PDS Endoloop was then placed throughout the cystic duct stump. The cystic artery divided and sealed with the Harmonic scissors. The gallbladder was then removed from the liver bed using Harmonic scissors. The gallbladder was then extracted through the epigastric port site. Operative field was checked for any bleeding spots and Harmonic scissors was used to coagulate the liver bed. The abdomen was irrigated. The trocars were removed. The skin was closed using interrupted 3-0 Vicryl suture. Dermabond dressing were applied. The patient tolerated the procedure well.
[2020-06-27] MEDS: LACTATED RINGERS 1,000 ML IV SCH ×2 (14:10→14:58)
--- NOTE | 2020-06-27 14:45 | PN ---
PROGRESS NOTE DATE OF SERVICE: 06/27/2020. This 49-year-old woman was admitted with acute cholecystitis and cholelithiasis, being closely monitored. Dr. Caldwell is planning laparoscopic cholecystectomy today. No chest pain. No palpitations. No fever. PHYSICAL EXAMINATION: On exam, alert and oriented x3. Pulse 71, blood pressure 151/76, respiration 18, temperature 98.2 pulse ox 100% on room air. HEENT: Conjunctivae normal. NECK: No jugular venous distention. CARDIOVASCULAR: S1, S2 muffled. RESPIRATORY: Breath sounds are diminished at the bases. No rhonchi, no crackles. ABDOMEN: Soft, obese. Mild diffuse discomfort. No tenderness. No guarding or rigidity. LEGS: No edema. No swelling. NERVOUS SYSTEM: No focal deficits. LABS: CBC, CMP within normal limits. ASSESSMENT: 1. Acute cholelithiasis and cholecystitis for laparoscopic cholecystectomy. 2. History of gastroesophageal reflux disease. 3. Hypertension. 4. History of nephrolithiasis. 5. Obesity with body mass index of 35.2. RECOMMENDATIONS AND DISCUSSION: Continue the current medications, continue symptomatic treatment, incentive spirometry and DVT prophylaxis. Otherwise, closely follow with Surgery laparoscopic cholecystectomy. Further recommendations to follow. Resume the home medications. Empiric antibiotics. MMODL / IJN: [id number] /
[2020-06-27] MEDS: SODIUM CHLORIDE 0.9% 1,000 ML IV SCH ×2 (16:29→19:32)
[2020-06-27] MEDS: SERTRALINE 25 MG TAB PO SCH (16:30)
[2020-06-27] MEDS: atenoloL 25 MG TAB PO SCH (20:23)
[2020-06-27] MEDS: HEPARIN SODIUM,PORCINE 5,000 UNIT/ML 1 ML VIAL SQ SCH (20:23)
[2020-06-28] MEDS: SODIUM CHLORIDE 0.9% 1,000 ML IV SCH (04:03)
[2020-06-28] MEDS ORDERED: HYDROmorphone 0.5 MG/0.5 ML SYRINGE IVP PRN (07:00)
[2020-06-28 07:52] VITALS: BP 103/64; PULSE 57; RESP 16; TEMP 98
[2020-06-28] MEDS: SERTRALINE 25 MG TAB PO SCH (08:31)
[2020-06-28] MEDS: PIPERACILLIN-TAZOBACTAM 3.375 GM in SODIUM CHLORIDE 0.9% 100 ML IVPB SCH (08:31)
[2020-06-28] MEDS: HEPARIN SODIUM,PORCINE 5,000 UNIT/ML 1 ML VIAL SQ SCH (08:31)
[2020-06-28] MEDS: PANTOPRAZOLE 40 MG/10 ML VIAL IV SCH (08:31)
[2020-06-28] MEDS: LACTATED RINGERS 1,000 ML IV SCH (10:27)
--- NOTE | 2020-06-28 15:31 | PN ---
PROGRESS NOTE DATE OF SERVICE: 06/28/2020 49-year-old woman who was admitted with acute cholelithiasis underwent laparoscopic cholecystectomy. No chest pain. No palpitations. No fever. PHYSICAL EXAMINATION: Alert and oriented times three. Pulse 57, blood pressure 100/62, respirations 16. Temperature 98 degrees, pulse ox 99% on room air. HEENT: Conjunctivae normal. NECK: No JVD. CARDIOVASCULAR: S1, S2. RESPIRATORY: Breath sounds diminished in the bases. No rhonchi. No crackles. ABDOMEN: Soft, nontender. LEGS are no edema. No swelling. NERVOUS SYSTEM: No focal deficits. LABS: CBC, BMP noted. ASSESSMENT: 1. Acute cholelithiasis and cholecystitis, status post laparoscopic cholecystectomy. 2. History of gastroesophageal reflux disease. 3. Hypertension. 4. History of nephrolithiasis. 5. Obesity with body mass index 35.2. RECOMMENDATIONS AND DISCUSSION: I recommend to continue current medications, management and symptomatic treatment. Resume the home medications. Incentive spirometry. Closely follow with primary physician after discharge. The rest of the recommendations per Surgery. Further recommendations to follow. MMODL / IJN: [id number] /
== END 2020-06-28 11:42 | disposition home or self-care (01) ==
LOC: EC 14:38 → 6PED 16:23 → 6NMEDSUR 06-27 13:35
PROVIDERS: ADMIT Surgery; ATTEND Surgery
DX: K80.12 Calculus of gallbladder with acute and chronic cholecystitis without obstruction (principal); K21.9 Gastro-esophageal reflux disease without esophagitis; I10 Essential (primary) hypertension; F41.9 Anxiety disorder, unspecified; Z87.442 Personal history of urinary calculi; E66.9 Obesity, unspecified; Z68.35 Body mass index [BMI] 35.0-35.9, adult; Z79.899 Other long term (current) drug therapy; Z79.1 Long term (current) use of non-steroidal anti-inflammatories (NSAID); Z80.1 Family history of malignant neoplasm of trachea, bronchus and lung; Z80.8 Family history of malignant neoplasm of other organs or systems; Z80.3 Family history of malignant neoplasm of breast
CPT/HCPCS: 96366; 96376; 96361; 96365; 96375; 99284; 36415; 81025 ×2; 88304; 80053 ×2; 83605; 83690; 85025 ×2; 81001; 47562; G0378 ×4; J2543 ×4; J2250; J2060; J1644 ×2; J1100; J2405 ×3; J2001; J3010; J1170 ×4; J1885; J0330; J2704; C9113 ×3

== ENCOUNTER → 2020-10-10 | Outpatient (CLI) | payer OTHER ==
--- NOTE | 2020-10-10 19:12 | XR ---
EXAMINATION TYPE: XR Hip Complete RT DATE OF EXAM: 10/10/2020 COMPARISON: NONE HISTORY: Pain TECHNIQUE: 2 views submitted FINDINGS: There is no evidence of erosive change or acute fracture. IMPRESSION: 1. No evidence of acute fracture or dislocation.
== END | disposition home or self-care (01) ==
LOC: RADXRMAIN 15:52
PROVIDERS: ATTEND Internal Medicine
DX: M25.551 Pain in right hip (principal)
CPT/HCPCS: 73502

== ENCOUNTER 2021-01-25 09:14 | Emergency (ER) | payer OTHER ==
[2021-01-25 09:19] VITALS: RESP 18
[2021-01-25 09:55] LABS: Glucose,Whole Blood 88 mg/dL (75-99)
[2021-01-25] MEDS ORDERED: SODIUM CHLORIDE 0.9% 1,000 ML IV STA ×2 (10:07→10:51)
[2021-01-25] MEDS ORDERED: ONDANSETRON 4 MG/2 ML VIAL IVP STA (10:07)
[2021-01-25 10:23] LABS: Basophils % (A) 1 %; Eosinophils # (A) 0.1 k/uL (0-0.7); Eosinophils % (A) 1 %; Lymphocytes % (A) 15 %; MCH 31.4 pg (25.0-35.0); MCHC 34.6 g/dL (31.0-37.0); MCV 90.6 fL (80.0-100.0); Mean Platelet Volume 6.9; Monocytes # (A) 0.2 k/uL (0-1.0); Monocytes % (A) 3 %; Neutrophils # (A) 5.5 k/uL (1.3-7.7); Neutrophils % (A) 79 %; Platelet Count 180 k/uL (150-450); RBC 6.12 m/uL (3.80-5.40); RDW 12.9 % (11.5-15.5); WBC 6.9 k/uL (3.8-10.6)
[2021-01-25 10:36] LABS: ALT 12 U/L (4-34); African American GFR (CKD) >90 (>60 ml/min/1.73 sqM); Albumin 5.1 g/dL (3.5-5.0); Anion Gap 11 mmol/L; Blood Urea Nitrogen 8 mg/dL (7-17); Calcium 9.9 mg/dL (8.4-10.2); Carbon Dioxide 27 mmol/L (22-30); Chloride 101 mmol/L (98-107); Glucose 89 mg/dL (74-99); Lipase 60 U/L (23-300); Non-African American GFR(CKD) >90 (>60 ml/min/1.73 sqM); Sodium 139 mmol/L (137-145); Total Bilirubin 0.9 mg/dL (0.2-1.3); Total Protein 8.1 g/dL (6.3-8.2)
[2021-01-25 10:39] LABS: HCT 55.4 % (34.0-46.0); HGB 19.2 gm/dL (11.4-16.0)
--- NOTE | 2021-01-25 10:39 | ED ---
General Adult HPI - General Chief complaint: Nausea/Vomiting/Diarrhea Stated complaint: Nausea Time Seen by Provider: 01/25/21 09:29 Source: patient Mode of arrival: ambulatory Limitations: no limitations - History of Present Illness Initial comments: 50-year-old female with a past medical history of GERD, hypertension, kidney stones, cholecystectomy in May presents to the emergency room for a chief complaint of nausea. She reports that she has had mild nausea since her gallbladder was removed almost 9 months ago. However over the past 3 weeks her nausea has worsened. States she does not feel like eating as much but has been able to drink plenty of fluids. She denies any abdominal pain. She also had a headache yesterday but that has since resolved.Patient has no other complaints at this time including shortness of breath, chest pain, abdominal pain, headache, or visual changes. - Related Data Home Medications Medication Instructions Recorded Confirmed Sertraline [Zoloft] 25 mg PO DAILY 06/23/20 01/25/21 Previous Rx's Medication Instructions Recorded Metoclopramide [Reglan] 10 mg PO TID PRN #20 tab 01/25/21 Allergies Allergy/AdvReac Type Severity Reaction Status Date / Time No Known Allergies Allergy Verified 01/25/21 12:24 Review of Systems ROS Statement: Those systems with pertinent positive or pertinent negative responses have been documented in the HPI. ROS Other: All systems not noted in ROS Statement are negative. Past Medical History Past Medical History: GERD/Reflux, Hypertension Additional Past Medical History / Comment(s): kidney stones History of Any Multi-Drug Resistant Organisms: None Reported Past Surgical History: Cholecystectomy Additional Past Surgical History / Comment(s): oral surgery. Colonoscopy 2014(next age 52) Past Anesthesia/Blood Transfusion Reactions: Motion Sickness Past Psychological History: Anxiety Smoking Status: Never smoker Past Alcohol Use History: Occasional Past Drug Use History: None Reported - Past Family History Father Family Medical History: Cancer Additional Family Medical History / Comment(s): Lung cancer. An uncle had lung cancer as well. Brother(s) Family Medical History: Cancer Additional Family Medical History / Comment(s): Beavers sarcoma. Aunt Family Medical History: Cancer Additional Family Medical History / Comment(s): Breast cancer. General Exam Limitations: no limitations General appearance: alert, in no apparent distress Head exam: Present: atraumatic Eye exam: Present: normal appearance, PERRL, EOMI. Absent: scleral icterus ENT exam: Present: normal exam, mucous membranes moist Neck exam: Present: normal inspection, full ROM. Absent: tenderness Respiratory exam: Present: normal lung sounds bilaterally. Absent: respiratory distress, wheezes Cardiovascular Exam: Present: regular rate, normal rhythm, normal heart sounds GI/Abdominal exam: Present: soft, normal bowel sounds. Absent: distended, tenderness Course Vital Signs 01/25/21 01/25/21 09:15 11:56 Temperature 98.2 F Pulse Rate 82 77 Respiratory 18 18 Rate Blood Pressure 133/86 119/79 O2 Sat by Pulse 100 100 Oximetry Medical Decision Making - Medical Decision Making Vitals are stable. She is well-appearing. Episodes of vomiting in the emergency room. CBC does show a hemoglobin of 19.2 which is likely secondary to chemo concentration. Ketones are 1+ in the urine. Patient was given Reglan and Zofran and did have significant improvement in symptoms. She was given 2 L of fluid. At this time patient is stable for discharge home. She needs to follow up with Dr. Caldwell for her nausea as this started after her cholecystectomy. She will also follow up with primary care to repeat a CBC. She will return here for any worsening symptoms. - Lab Data Result diagrams: 01/25/21 10:09 01/25/21 10:09 Lab Results 01/25/21 01/25/21 01/25/21 Range/Units 09:46 10:09 10:09 WBC 6.9 (3.8-10.6) k/uL RBC 6.12 H (3.80-5.40) m/uL Hgb 19.2 H* D (11.4-16.0) gm/dL Hct 55.4 H (34.0-46.0) % MCV 90.6 (80.0-100.0) fL MCH 31.4 (25.0-35.0) pg MCHC 34.6 (31.0-37.0) g/dL RDW 12.9 (11.5-15.5) % Plt Count 180 (150-450) k/uL MPV 6.9 Neutrophils % 79 % Lymphocytes % 15 % Monocytes % 3 % Eosinophils % 1 % Basophils % 1 % Neutrophils # 5.5 (1.3-7.7) k/uL Lymphocytes # 1.0 (1.0-4.8) k/uL Monocytes # 0.2 (0-1.0) k/uL Eosinophils # 0.1 (0-0.7) k/uL Basophils # 0.0 (0-0.2) k/uL Sodium (137-145) mmol/L Potassium (3.5-5.1) mmol/L Chloride (98-107) mmol/L Carbon Dioxide (22-30) mmol/L Anion Gap mmol/L BUN (7-17) mg/dL Creatinine (0.52-1.04) mg/dL Est GFR (CKD-EPI)AfAm (>60 ml/min/1.73 sqM) Est GFR (CKD-EPI)NonAf (>60 ml/min/1.73 sqM) Glucose (74-99) mg/dL POC Glucose (mg/dL) 88 (75-99) mg/dL POC Glu Manager [employer] ID Nitin Cardenas Calcium (8.4-10.2) mg/dL Total Bilirubin (0.2-1.3) mg/dL AST (14-36) U/L ALT (4-34) U/L Alkaline Phosphatase (38-126) U/L Total Protein (6.3-8.2) g/dL Albumin (3.5-5.0) g/dL Lipase (23-300) U/L Urine Color Light Yellow Urine Appearance Clear (Clear) Urine pH 6.5 (5.0-8.0) Ur Specific [place] 1.010 (1.001-1.035) Urine Protein Negative (Negative) Urine Glucose (UA) Negative (Negative) Urine Ketones 1+ H (Negative) Urine Blood Negative (Negative) Urine Nitrite Negative (Negative) Urine Bilirubin Negative (Negative) Urine Urobilinogen <2.0 (<2.0) mg/dL Ur Leukocyte Esterase Negative (Negative) 01/25/21 Range/Units 10:09 WBC (3.8-10.6) k/uL RBC (3.80-5.40) m/uL Hgb (11.4-16.0) gm/dL Hct (34.0-46.0) % MCV (80.0-100.0) fL MCH (25.0-35.0) pg MCHC (31.0-37.0) g/dL RDW (11.5-15.5) % Plt Count (150-450) k/uL MPV Neutrophils % % Lymphocytes % % Monocytes % % Eosinophils % % Basophils % % Neutrophils # (1.3-7.7) k/uL Lymphocytes # (1.0-4.8) k/uL Monocytes # (0-1.0) k/uL Eosinophils # (0-0.7) k/uL Basophils # (0-0.2) k/uL Sodium 139 (137-145) mmol/L Potassium 4.1 (3.5-5.1) mmol/L Chloride 101 (98-107) mmol/L Carbon Dioxide 27 (22-30) mmol/L Anion Gap 11 mmol/L BUN 8 (7-17) mg/dL Creatinine 0.65 (0.52-1.04) mg/dL Est GFR (CKD-EPI)AfAm >90 (>60 ml/min/1.73 sqM) Est GFR (CKD-EPI)NonAf >90 (>60 ml/min/1.73 sqM) Glucose 89 (74-99) mg/dL POC Glucose (mg/dL) (75-99) mg/dL POC Glu Manager [employer] ID Calcium 9.9 (8.4-10.2) mg/dL Total Bilirubin 0.9 (0.2-1.3) mg/dL AST 24 (14-36) U/L ALT 12 (4-34) U/L Alkaline Phosphatase 83 (38-126) U/L Total Protein 8.1 (6.3-8.2) g/dL Albumin 5.1 H (3.5-5.0) g/dL Lipase 60 (23-300) U/L Urine Color Urine Appearance (Clear) Urine pH (5.0-8.0) Ur Specific [place] (1.001-1.035) Urine Protein (Negative) Urine Glucose (UA) (Negative) Urine Ketones (Negative) Urine Blood (Negative) Urine Nitrite (Negative) Urine Bilirubin (Negative) Urine Urobilinogen (<2.0) mg/dL Ur Leukocyte Esterase (Negative) Disposition Clinical Impression: Nausea & vomiting Disposition: HOME SELF-CARE Condition: Good Instructions (If sedation given, give patient instructions): Acute Nausea and Vomiting (ED) Additional Instructions: Take medications as directed. Please repeat your blood work including your CBC at your primary care doctors office. Return to the emergency room for any wor sening symptoms. Prescriptions: Metoclopramide [Reglan] 10 mg PO TID PRN #20 tab PRN Reason: Nausea Is patient prescribed a controlled substance at d/c from ED?: No Referrals: Hamzah Weeks MD [Primary Care Provider] - 1-2 days Time of Disposition: 12:45
[2021-01-25 10:47] LABS: AST 24 U/L (14-36); Alkaline Phosphatase 83 U/L (38-126); Potassium 4.1 mmol/L (3.5-5.1)
[2021-01-25 10:49] LABS: Appearance,Urine Clear (Clear); Bilirubin,Urine Negative (Negative); Blood,Urine Negative (Negative); Color,Urine Light Yellow; Glucose,Urine (UA) Negative (Negative); Ketones,Urine 1+ (Negative); Leukocyte Esterase,Urine Negative (Negative); Nitrite,Urine Negative (Negative); PH, Urine 6.5 (5.0-8.0); Protein,Urine Negative (Negative); Urobilinogen,Urine <2.0 mg/dL (<2.0)
[2021-01-25] MEDS ORDERED: METOCLOPRAMIDE 5 MG/ML 2 ML VIAL IVP STA (11:49)
[2021-01-25] MEDS ORDERED: diphenhydrAMINE 50 MG/ML 1 ML VIAL IVP STA (11:49)
[2021-01-25 13:01] VITALS: BP 118/73; PULSE 73; TEMP 98
== END 2021-01-25 13:01 | disposition home or self-care (01) ==
LOC: EC 09:14
DX: R11.2 Nausea with vomiting, unspecified (principal); I10 Essential (primary) hypertension; K21.9 Gastro-esophageal reflux disease without esophagitis; F41.9 Anxiety disorder, unspecified; Z87.442 Personal history of urinary calculi; Z90.49 Acquired absence of other specified parts of digestive tract
CPT/HCPCS: 99284; 96374; 96375 ×2; 96361 ×3; 36415; 80053; 83690; 85025; 81003; J1200; J2765; J2405

== ENCOUNTER → 2021-01-30 | Outpatient (CLI) | payer OTHER ==
[2021-01-30 18:28] LABS: Basophils # (A) 0.02 X 10*3/uL (0.00-0.10); Basophils % (A) 0.3 %; Eosinophils # (A) 0.02 X 10*3/uL (0.04-0.35); Eosinophils % (A) 0.3 %; HCT 42.5 % (37.2-46.3); HGB 14.3 g/dL (12.0-15.0); Lymphocytes # (A) 1.27 X 10*3/uL (0.90-5.00); Lymphocytes % (A) 18.5 %; MCH 30.5 pg (27.0-32.0); MCHC 33.6 g/dL (32.0-37.0); MCV 90.6 fL (80.0-97.0); Mean Platelet Volume 11.2 fL (9.5-12.2); Monocytes # (A) 0.41 X 10*3/uL (0.20-1.00); Neutrophils # (A) 5.12 X 10*3/uL (1.80-7.70); Neutrophils % (A) 74.5 %; Platelet Count 267 X 10*3/uL (140-440); RBC 4.69 X 10*6/uL (4.10-5.20); RDW 12.4 % (11.5-14.5); WBC 6.87 X 10*3/uL (4.50-10.00)
[2021-01-31 18:56] LABS: African American GFR (CKD) 118.7 (60.0-200.0); Albumin 5.4 g/dL (3.80-4.90); Albumin/Globulin Ratio 2.35 (1.60-3.17); Anion Gap 20.5 mmol/L (4.00-12.00); BUN/Creat Ratio 12.86 Ratio (12.00-20.00); Carbon Dioxide 17.5 mmol/L (21.6-31.8); Globulin 2.3 g/dL (1.6-3.3); Non-African American GFR(CKD) 102.5 (60.0-200.0); Total Bilirubin 0.6 mg/dL (0.3-1.2); Total Protein 7.7 g/dL (6.2-8.2)
== END | disposition home or self-care (01) ==
LOC: LABWHC1 10:10
PROVIDERS: ATTEND Internal Medicine
DX: R19.7 Diarrhea, unspecified (principal)
CPT/HCPCS: 36415; 80053; 85025

== ENCOUNTER 2021-02-01 09:03 | Emergency (ER) | payer OTHER ==
[2021-02-01 09:07] VITALS: TEMP 97.8
[2021-02-01] MEDS ORDERED: SODIUM CHLORIDE 0.9% 1,000 ML IV STA (09:23)
[2021-02-01] MEDS ORDERED: METOCLOPRAMIDE 5 MG/ML 2 ML VIAL IVP STA (09:23)
[2021-02-01 09:36] LABS: Basophils % (A) 0 %; Eosinophils # (A) 0.1 k/uL (0-0.7); Eosinophils % (A) 1 %; HCT 43.8 % (34.0-46.0); Lymphocytes # (A) 1.5 k/uL (1.0-4.8); Lymphocytes % (A) 19 %; MCH 31.2 pg (25.0-35.0); MCHC 34.9 g/dL (31.0-37.0); MCV 89.3 fL (80.0-100.0); Mean Platelet Volume 7.3; Monocytes # (A) 0.3 k/uL (0-1.0); Monocytes % (A) 4 %; Neutrophils % (A) 76 %; Platelet Count 252 k/uL (150-450); RDW 12.9 % (11.5-15.5)
[2021-02-01 09:38] LABS: HGB 15.3 gm/dL (11.4-16.0)
--- NOTE | 2021-02-01 09:40 | ED ---
Abdominal Pain HPI - General Chief Complaint: Abdominal Pain Stated Complaint: diarrhea, vomiting Time Seen by Provider: 02/01/21 09:11 Source: patient Mode of arrival: ambulatory Limitations: no limitations - History of Present Illness Initial Comments: Patient is a 50-year-old female with history of anxiety, presenting to emergency Department with complaints of nausea and right-sided abdominal discomfort over the past 2 weeks. She states she was started on new anxiety medication at the beginning of month, started having some nausea symptoms, it was switched back to Zoloft which she has been on the past however her nausea symptoms have continued . She has been going to see her PCP regarding this. She's had normal blood work, normal urine and stool sample was also normal. She was never tested for C. diff. She states over the past 2 days the pain in her right side has increased. The pain is described near her right flank which does wrap around underneath her right rib. She admits to history of cholecystectomy, no other abdominal surgeries. She is continuing to have nausea and about 5-6 stools daily. She denies any fevers or chills, no chest pain or shortness of breath, no dysuria. She has no further complaints at this time. Upon arrival to the ER, her vitals are stable. - Related Data Home Medications Medication Instructions Recorded Confirmed Sertraline [Zoloft] 25 mg PO DAILY 06/23/20 02/01/21 Allergies Allergy/AdvReac Type Severity Reaction Status Date / Time No Known Allergies Allergy Verified 02/01/21 10:13 Review of Systems ROS Statement: Those systems with pertinent positive or pertinent negative responses have been documented in the HPI. ROS Other: All systems not noted in ROS Statement are negative. Past Medical History Past Medical History: GERD/Reflux, Hypertension Additional Past Medical History / Comment(s): kidney stones History of Any Multi-Drug Resistant Organisms: None Reported Past Surgical History: Cholecystectomy Additional Past Surgical History / Comment(s): oral surgery. Colonoscopy 2015(next age 52) Past Anesthesia/Blood Transfusion Reactions: Motion Sickness Past Psychological History: Anxiety Smoking Status: Never smoker Past Alcohol Use History: None Reported Past Drug Use History: Marijuana - Past Family History Father Family Medical History: Cancer Additional Family Medical History / Comment(s): Lung cancer. An uncle had lung cancer as well. Brother(s) Family Medical History: Cancer Additional Family Medical History / Comment(s): Beavers sarcoma. Aunt Family Medical History: Cancer Additional Family Medical History / Comment(s): Breast cancer. General Exam - General Exam Comments Initial Comments: GENERAL: Patient is well-developed and well-nourished. Patient is nontoxic and in no acute distress. HEAD: Atraumatic, normocephalic. EYES: Pupils equal round and reactive to light, extraocular movements intact, sclera anicteric, conjunctiva are normal. Eyelids were unremarkable. ENT: Nares patent, oropharynx clear without exudates. Moist mucous membranes. NECK: Normal range of motion, supple without lymphadenopathy or JVD. LUNGS: Unlabored respirations. Breath sounds clear to auscultation bilaterally and equal. No wheezes rales or rhonchi. HEART: Regular rate and rhythm without murmurs, rubs or gallops. ABDOMEN: Soft, nontender, normoactive bowel sounds. No guarding, no rebound. No masses appreciated. : Deferred MUSCULOSKELETAL: Normal extremities with adequate strength and normal range of motion, no pitting or edema. No clubbing or cyanosis. NEUROLOGICAL: Patient is alert and oriented x 3. SKIN: Warm, Dry, normal turgor, no rashes or lesions noted. Limitations: no limitations Course Vital Signs 02/01/21 02/01/21 09:04 10:48 Temperature 97.8 F Pulse Rate 82 70 Respiratory 16 18 Rate Blood Pressure 139/85 137/86 O2 Sat by Pulse 98 100 Oximetry Medical Decision Making - Medical Decision Making Patient is a 42-year-old female here for nausea, right-sided flank pain over the past few days. The nausea has been going on for at least 2 weeks. She's had normal workup through her PCPs office including normal lab work, normal urine and normal stool culture. Vital signs are stable today. Labs are unremarkable including a normal lipase, urine shows no evidence of infection, C. diff is negative today. His CT of the abdomen and pelvis, no acute findings. Patient was given fluids and Zofran, does report improvement in her symptoms. I discussed the patient and she is to follow-up with her GI doctor, she has seen Dr. Dorantes in the past. She is agreeable to this and is stable for discharge. Return parameters were discussed with her and she verbalized understanding. Case discussed with Dr. Jones. - Lab Data Result diagrams: 02/01/21 09:28 02/01/21 09:28 Lab Results 02/01/21 02/01/21 02/01/21 Range/Units 09:28 09:28 09:38 WBC 8.0 (3.8-10.6) k/uL RBC 4.90 (3.80-5.40) m/uL Hgb 15.3 D (11.4-16.0) gm/dL Hct 43.8 (34.0-46.0) % MCV 89.3 (80.0-100.0) fL MCH 31.2 (25.0-35.0) pg MCHC 34.9 (31.0-37.0) g/dL RDW 12.9 (11.5-15.5) % Plt Count 252 (150-450) k/uL MPV 7.3 Neutrophils % 76 % Lymphocytes % 19 % Monocytes % 4 % Eosinophils % 1 % Basophils % 0 % Neutrophils # 6.0 (1.3-7.7) k/uL Lymphocytes # 1.5 (1.0-4.8) k/uL Monocytes # 0.3 (0-1.0) k/uL Eosinophils # 0.1 (0-0.7) k/uL Basophils # 0.0 (0-0.2) k/uL Sodium 139 (137-145) mmol/L Potassium 3.9 (3.5-5.1) mmol/L Chloride 102 (98-107) mmol/L Carbon Dioxide 23 (22-30) mmol/L Anion Gap 14 mmol/L BUN 7 (7-17) mg/dL Creatinine 0.61 (0.52-1.04) mg/dL Est GFR (CKD-EPI)AfAm >90 (>60 ml/min/1.73 sqM) Est GFR (CKD-EPI)NonAf >90 (>60 ml/min/1.73 sqM) Glucose 94 (74-99) mg/dL Calcium 9.6 (8.4-10.2) mg/dL Total Bilirubin 0.7 (0.2-1.3) mg/dL AST 22 (14-36) U/L ALT 12 (4-34) U/L Alkaline Phosphatase 71 (38-126) U/L Total Protein 7.5 (6.3-8.2) g/dL Albumin 4.6 (3.5-5.0) g/dL Amylase 54 (30-110) U/L Lipase 68 (23-300) U/L Urine Color Colorless Urine Appearance Clear (Clear) Urine pH 6.5 (5.0-8.0) Ur Specific Payette 1.002 (1.001-1.035) Urine Protein Negative (Negative) Urine Glucose (UA) Negative (Negative) Urine Ketones 1+ H (Negative) Urine Blood Negative (Negative) Urine Nitrite Negative (Negative) Urine Bilirubin Negative (Negative) Urine Urobilinogen <2.0 (<2.0) mg/dL Ur Leukocyte Esterase Negative (Negative) C. difficile (EIA) Intrp (Negative) 02/01/21 Range/Units 10:12 WBC (3.8-10.6) k/uL RBC (3.80-5.40) m/uL Hgb (11.4-16.0) gm/dL Hct (34.0-46.0) % MCV (80.0-100.0) fL MCH (25.0-35.0) pg MCHC (31.0-37.0) g/dL RDW (11.5-15.5) % Plt Count (150-450) k/uL MPV Neutrophils % % Lymphocytes % % Monocytes % % Eosinophils % % Basophils % % Neutrophils # (1.3-7.7) k/uL Lymphocytes # (1.0-4.8) k/uL Monocytes # (0-1.0) k/uL Eosinophils # (0-0.7) k/uL Basophils # (0-0.2) k/uL Sodium (137-145) mmol/L Potassium (3.5-5.1) mmol/L Chloride (98-107) mmol/L Carbon Dioxide (22-30) mmol/L Anion Gap mmol/L BUN (7-17) mg/dL Creatinine (0.52-1.04) mg/dL Est GFR (CKD-EPI)AfAm (>60 ml/min/1.73 sqM) Est GFR (CKD-EPI)NonAf (>60 ml/min/1.73 sqM) Glucose (74-99) mg/dL Calcium (8.4-10.2) mg/dL Total Bilirubin (0.2-1.3) mg/dL AST (14-36) U/L ALT (4-34) U/L Alkaline Phosphatase (38-126) U/L Total Protein (6.3-8.2) g/dL Albumin (3.5-5.0) g/dL Amylase (30-110) U/L Lipase (23-300) U/L Urine Color Urine Appearance (Clear) Urine pH (5.0-8.0) Ur Specific [place] (1.001-1.035) Urine Protein (Negative) Urine Glucose (UA) (Negative) Urine Ketones (Negative) Urine Blood (Negative) Urine Nitrite (Negative) Urine Bilirubin (Negative) Urine Urobilinogen (<2.0) mg/dL Ur Leukocyte Esterase (Negative) C. difficile (EIA) Intrp Negative (Negative) Disposition Clinical Impression: Nausea & vomiting, Right sided abdominal pain Disposition: HOME SELF-CARE Condition: Stable Instructions (If sedation given, give patient instructions): Abdominal Pain (ED) Additional Instructions: Please return to the Emergency Department if symptoms worsen or any other concerns. Continue to increase your fluid intake, may take a Benadryl, Reglan and/or Zofran for any nausea, every 8 hours as needed. Please follow up with your GI doctor. Is patient prescribed a controlled substance at d/c from ED?: No Referrals: Hamzah Weeks MD [Primary Care Provider] - 1-2 days Renae Dorantes MD [STAFF PHYSICIAN] - 1-2 days Time of Disposition: 11:41
[2021-02-01 09:49] LABS: Appearance,Urine Clear (Clear); Bilirubin,Urine Negative (Negative); Blood,Urine Negative (Negative); Color,Urine Colorless; Glucose,Urine (UA) Negative (Negative); Ketones,Urine 1+ (Negative); Leukocyte Esterase,Urine Negative (Negative); Nitrite,Urine Negative (Negative); PH, Urine 6.5 (5.0-8.0); Protein,Urine Negative (Negative); Specific Gravity,Urine 1.002 (1.001-1.035); Urobilinogen,Urine <2.0 mg/dL (<2.0)
[2021-02-01 09:51] LABS: ALT 12 U/L (4-34); AST 22 U/L (14-36); African American GFR (CKD) >90 (>60 ml/min/1.73 sqM); Albumin 4.6 g/dL (3.5-5.0); Alkaline Phosphatase 71 U/L (38-126); Amylase 54 U/L (30-110); Anion Gap 14 mmol/L; Blood Urea Nitrogen 7 mg/dL (7-17); Calcium 9.6 mg/dL (8.4-10.2); Carbon Dioxide 23 mmol/L (22-30); Chloride 102 mmol/L (98-107); Glucose 94 mg/dL (74-99); Lipase 68 U/L (23-300); Non-African American GFR(CKD) >90 (>60 ml/min/1.73 sqM); Potassium 3.9 mmol/L (3.5-5.1); Sodium 139 mmol/L (137-145); Total Bilirubin 0.7 mg/dL (0.2-1.3); Total Protein 7.5 g/dL (6.3-8.2)
[2021-02-01] MEDS ORDERED: KETOROLAC 15 MG/ML 1 ML VIAL IVP STA (09:57)
--- NOTE | 2021-02-01 10:28 | CT ---
EXAMINATION TYPE: CT abdomen pelvis w con DATE OF EXAM: 02/01/2021 COMPARISON: None HISTORY: Right sided pain with diarrhea and nausea CT DLP: 1073 mGycm Automated exposure control for dose reduction was used. TECHNIQUE: Helical acquisition of images was performed from the lung bases through the pelvis. CONTRAST: Performed without Oral Contrast and with IV Contrast, patient injected with 100 mL of Isovue 300. FINDINGS: LUNG BASES: No significant abnormality is appreciated. LIVER/GB: No significant abnormality is appreciated. Cholecystectomy. PANCREAS: No significant abnormality is seen. SPLEEN: No significant abnormality is seen. ADRENALS: No significant abnormality is seen. KIDNEYS: No significant abnormality is seen. FREE AIR: No free air is visualized. RETROPERITONEAL ADENOPATHY: None visualized REPRODUCTIVE ORGANS: No significant abnormality is seen URINARY BLADDER: No significant abnormality is seen. PELVIC ADENOPATHY: None visualized. OSSEOUS STRUCTURES: No significant abnormality is seen. BOWEL: Nondilated bowel. No wall thickening. The appendix is visualized and is normal. OTHER: None. IMPRESSION: NO ACUTE PROCESS IN THE ABDOMEN OR PELVIS.
[2021-02-01] MEDS ORDERED: diphenhydrAMINE 50 MG/ML 1 ML VIAL IVP STA (10:32)
[2021-02-01] MEDS ORDERED: ONDANSETRON 4 MG/2 ML VIAL IVP STA (10:32)
[2021-02-01 10:49] VITALS: BP 137/86; PULSE 70; RESP 18
== END 2021-02-01 11:48 | disposition home or self-care (01) ==
LOC: EC 09:03
DX: R11.2 Nausea with vomiting, unspecified (principal); R10.9 Unspecified abdominal pain; I10 Essential (primary) hypertension; Z90.49 Acquired absence of other specified parts of digestive tract; Z87.442 Personal history of urinary calculi
CPT/HCPCS: 36415; 80053; 82150; 83690; 85025; 81003; 87324; 74177; 99284; 96374; 96375; 96361; J1200; J2765; J2405; J1885; Q9967

== ENCOUNTER → 2021-03-24 | Outpatient (CLI) | payer OTHER ==
[2021-03-24 11:24] LABS: Basophils % (A) 0 %; Eosinophils # (A) 0.1 k/uL (0-0.7); Eosinophils % (A) 1 %; HCT 40.6 % (34.0-46.0); Lymphocytes # (A) 1.6 k/uL (1.0-4.8); Lymphocytes % (A) 23 %; MCH 30.6 pg (25.0-35.0); MCHC 34.4 g/dL (31.0-37.0); MCV 89.2 fL (80.0-100.0); Mean Platelet Volume 7.5; Monocytes # (A) 0.3 k/uL (0-1.0); Monocytes % (A) 4 %; Neutrophils # (A) 4.8 k/uL (1.3-7.7); Neutrophils % (A) 70 %; Platelet Count 299 k/uL (150-450); RBC 4.56 m/uL (3.80-5.40); RDW 13.4 % (11.5-15.5); WBC 6.8 k/uL (3.8-10.6)
== END | disposition home or self-care (01) ==
LOC: LABPAT 09:54
PROVIDERS: ATTEND Obstetrics & Gynecology
DX: Z01.812 Encounter for preprocedural laboratory examination (principal); N92.0 Excessive and frequent menstruation with regular cycle; N94.6 Dysmenorrhea, unspecified
CPT/HCPCS: 36415; 85025

== ENCOUNTER 2021-04-20 08:07 | Day surgery (SDC) | payer OTHER ==
[2021-04-16 08:51] VITALS: BMI 30.9
--- NOTE | 2021-04-16 10:47 | HP ---
HISTORY AND PHYSICAL DATE OF SURGERY: 04/20/2021 This is a 50-year-old, 4, para 4-0-0-4 whose partner has had a vasectomy. Patient presents for endometrial ablation and hysteroscopy for heavy crampy menstrual cycles. Endometrial biopsy has been performed in the office and reveals benign tissue. We have thoroughly discussed risks and benefits of the procedure. PAST MEDICAL HISTORY: Significant for renal lithiasis and anxiety. PAST SURGICAL HISTORY: Cholecystectomy 2020. CURRENT MEDICATIONS: Trazodone 50 mg daily. ALLERGIES: Environmental seasonal allergies only; NO KNOWN MEDICAL ALLERGIES. FAMILY HISTORY: Significant for lung cancer in the patient's father. OBSTETRIC HISTORY: Significant for normal spontaneous vaginal deliveries, no issues or concerns. SOCIAL HISTORY: Patient is a blood bank specialist. She has never been a smoker. She is . , as noted, has had a vasectomy. She denies alcohol or drug use. PHYSICAL EXAMINATION: Patient is 5 feet 4 inches, 193 pounds, pulse 75, blood pressure 128/84, BMI 33. HEENT exam reveals no thyromegaly, good dentition,. Trachea midline. Chest is clear to auscultation in all covington anteriorly and posteriorly. Cardiac exam reveals regular rate and rhythm with no murmur, click or rub. Abdomen is soft and non-tender, no organosplenomegaly, active bowel sounds. Extremities reveal normal reflexes, good peripheral pulses, no edema. Good range of motion. Pelvic exam reveals multiparous cervix, small anteverted anteflexed uterus, adnexa negative to palpation. Rectal is negative. IMPRESSION: Longstanding history of dysmenorrhea and menorrhagia, requesting endometrial ablation. Will proceed with hysteroscopy, endometrial ablation. Risks, benefits and alternatives have all been thoroughly discussed, all questions answered. Risks of anesthesia, bleeding, infection, perforation or damage to the uterus or cervix have all been reviewed. Second opinion is offered and declined. MMODL / IJN: [id number] /
[~2021-04-20 08:07] MED LIST: DEXAMETHASONE SOD PHOSPHATE 4 MG/ML 1 ML VIAL IV ONE; HYDROmorphone 0.5 MG/0.5 ML SYRINGE IVP PRN; LACTATED RINGERS 1,000 ML IV SCH; ONDANSETRON 4 MG/2 ML VIAL IVP ONE; Pre Op ABX Message 1 EACH MISC MISCELLANE ONE
[2021-04-20] MEDS ORDERED: LIDOCAINE 1% INJ 10MG/ML (20 ML MDV) ONE (10:08)
[2021-04-20] MEDS ORDERED: fentaNYL (PF) 50 MCG/ML 2 ML AMP ONE (10:08)
[2021-04-20] MEDS ORDERED: PROPOFOL 10 MG/ML 20 ML VIAL IV ONE (10:08)
[2021-04-20] MEDS ORDERED: MIDAZOLAM 2 MG/2 ML VIAL ONE (10:08)
[2021-04-20] MEDS ORDERED: KETOROLAC 15 MG/ML 1 ML VIAL ONE (10:08)
[2021-04-20 10:46] VITALS: RESP 16; TEMP 97.5
--- NOTE | 2021-04-20 10:46 | P.OP ---
Date of Procedure: 04/20/21 Preoperative Diagnosis: Menorrhagia, dysmenorrhea Postoperative Diagnosis: Same, grade 2-3 rectocele, grade 2-3 uterine prolapse Procedure(s) Performed: Hysteroscopy, uterine curettage, Keyana endometrial ablation Anesthesia: NEW Surgeon: Smita Rutherford Estimated Blood Loss (ml): 10 IV fluids (ml): 200 Urine output (ml): 150 Pathology: other (Uterine curettings) Condition: stable Disposition: PACU Operative Findings: Moderate amount of shaggy endometrial tissue, questionable polypoid material Description of Procedure: Patient is brought to the operating suite where a general anesthetic is administered without difficulty. She's placed in the dorsal lithotomy position. The cervix, vagina, perineal body are all prepped and draped in the usual sterile fashion. The appropriate timeout is performed to assure proper patient and procedural identification. Urine hCG is negative. Bladder is drained for approximately 150 mL of clear yellow urine. Weighted speculum was placed into the vagina. A grade 2-3 rectocele as well as a grade 2-3 uterine prolapse are noted. Anterior lip of the cervix is grasped with a double-tooth tenaculum. Uterus sounds to a depth of 9 cm in the anteverted position. The cervix is then gently and systematically dilated using Hanks dilators. Hysteroscope was placed and the cavity is infused with sterile saline. There is a moderate amount of shaggy-appearing tissue, possibly small polyps. For this reason a medium curette is used and the cavity is curettaged, specimen sent to pathology for evaluation. The cervical sound is then used and a cervical length of 3 cm is noted. The Keyana wand is prepared properly, suction removing air from the tip. The wand is placed to the fundus and opened. The cervical balloon is then insufflated with 10 mL's. The machine allows an adequate checked 2. The procedure is then carried out for 120 seconds. Upon completion the cervical balloon is deflated. The wand is removed. Hysteroscope was once again placed and the cavity appears to be uniformly blanched. Tenaculum is removed from the cervix which is clean and dry. All sponge needle and enhancement counts are correct. Patient is brought back to the recovery room in very good condition with stable vital signs including blood pressure 117/75, pulse 56. Toradol is given prior to leaving the operative suite. Patient will follow-up with me in the office in 2 weeks.
[2021-04-20 12:04] VITALS: BP 137/83; PULSE 62
== END 2021-04-20 12:16 | disposition home or self-care (01) ==
LOC: OR 08:07
PROVIDERS: ATTEND Obstetrics & Gynecology
DX: N92.0 Excessive and frequent menstruation with regular cycle (principal); N94.6 Dysmenorrhea, unspecified; F41.9 Anxiety disorder, unspecified; K21.9 Gastro-esophageal reflux disease without esophagitis; Z87.442 Personal history of urinary calculi; Z79.899 Other long term (current) drug therapy
CPT/HCPCS: 58563; 81025; 88305; J2250; J1100; J2405; J2001; J3010; J1885; J2704; J1170

== ENCOUNTER → 2021-05-04 | Outpatient (CLI) | payer OTHER ==
--- NOTE | 2021-05-05 14:19 | MM ---
Reason for exam: screening (asymptomatic). Last mammogram was performed 1 year and 1 month ago. History: Patient is postmenopausal. Family history of breast cancer in paternal aunt. Physical Findings: A clinical breast exam by your physician is recommended on an annual basis and results should be correlated with mammographic findings. MG 3D Screening Mammo W/Cad Bilateral CC and MLO view(s) were taken. Prior study comparison: April 08, 2020, bilateral MG 3d screening mammo w/cad. May 26, 2018, bilateral MG 3d screening mammo w/cad. There are scattered fibroglandular densities. No significant changes when compared with prior studies. ASSESSMENT: Benign, BI-RAD 2 RECOMMENDATION: Routine screening mammogram of both breasts in 1 year.
== END | disposition home or self-care (01) ==
LOC: RADMAMWWP 12:43
PROVIDERS: ATTEND Internal Medicine
DX: Z12.31 Encounter for screening mammogram for malignant neoplasm of breast (principal); Z78.0 Asymptomatic menopausal state; Z80.3 Family history of malignant neoplasm of breast
CPT/HCPCS: 77063; 77067

== ENCOUNTER → 2022-06-02 | Outpatient (CLI) | payer OTHER ==
--- NOTE | 2022-06-03 08:41 | MM ---
Reason for Exam: Screening (asymptomatic). Last mammogram was performed 1 year(s) and 1 month(s) ago. Patient History: Menarche at age 13. First Full-Term at age 21. Paternal aunt had breast cancer, age 68. Risk Values: Vaishnavi 5 year model risk: 0.7%. NCI Lifetime model risk: 7.3%. Prior Study Comparison: 04/08/2020 Bilateral Screening Mammogram, [facility]. 05/04/2021 Bilateral Screening Mammogram, [facility]. 07/20/2021 Left Diagnostic Mammogram, [facility]. Tissue Density: The breast tissue is heterogeneously dense. This may lower the sensitivity of mammography. Findings: Analyzed By CAD. There is no suspicious group of microcalcifications or new suspicious mass in either breast. No significant change from prior exams. Overall Assessment: Negative, BI-RAD 1 Management: Screening Mammogram of both breasts in 1 year. A clinical breast exam by your physician is recommended on an annual basis and results should be correlated with mammographic findings. Electronically signed and approved by: Tarun Graves D.O.
== END | disposition home or self-care (01) ==
LOC: RADMAMWWP 07:28
PROVIDERS: ATTEND Obstetrics & Gynecology
DX: Z12.31 Encounter for screening mammogram for malignant neoplasm of breast (principal); Z80.3 Family history of malignant neoplasm of breast
CPT/HCPCS: 77063; 77067

== ENCOUNTER → 2022-06-04 | Outpatient (CLI) | payer OTHER ==
[2022-06-04 14:56] LABS: Basophils # (A) 0.03 X 10*3/uL (0.00-0.10); Basophils % (A) 0.5 %; Eosinophils # (A) 0.05 X 10*3/uL (0.04-0.35); Eosinophils % (A) 0.8 %; HGB 14.7 g/dL (12.0-15.0); Immature Grans, Automated 0.3 %; Lymphocytes # (A) 1.72 X 10*3/uL (0.90-5.00); Lymphocytes % (A) 26.5 %; MCH 30.9 pg (27.0-32.0); MCHC 34.2 g/dL (32.0-37.0); MCV 90.5 fL (80.0-97.0); Mean Platelet Volume 10.7 fL (9.5-12.2); Monocytes # (A) 0.42 X 10*3/uL (0.20-1.00); Monocytes % (A) 6.5 %; NRBC Per 100 WBC 0 /100 WBCS (0.0-0.0); Neutrophils # (A) 4.25 X 10*3/uL (1.80-7.70); Neutrophils % (A) 65.4 %; Platelet Count 257 X 10*3/uL (140-440); RBC 4.75 X 10*6/uL (4.10-5.20); RDW 12.1 % (11.5-14.5); WBC 6.49 X 10*3/uL (4.50-10.00)
[2022-06-04 16:18] LABS: Chol/HDL Ratio 3.79 Ratio; LDL Cholesterol,Calculated 119.7 mg/dL (0.0-131.0)
== END | disposition home or self-care (01) ==
LOC: LABWHC1 07:28
PROVIDERS: ATTEND Internal Medicine
DX: K21.9 Gastro-esophageal reflux disease without esophagitis (principal); E53.8 Deficiency of other specified B group vitamins; E55.9 Vitamin D deficiency, unspecified
CPT/HCPCS: 36415; 80053; 80061; 82306; 82607; 82746; 83735; 84443; 85025

== ENCOUNTER → 2022-06-08 | Outpatient (CLI) | payer OTHER ==
[2022-06-08 14:44] LABS: African American GFR (CKD) 117.9 (60.0-200.0); Albumin/Globulin Ratio 2.17 (1.60-3.17); Anion Gap 11.6 mmol/L (10.00-18.00); BUN/Creat Ratio 8.86 Ratio (12.00-20.00); Blood Urea Nitrogen 6.2 mg/dL (9.0-27.0); Calcium 9.6 mg/dL (8.7-10.3); Carbon Dioxide 24.4 mmol/L (20.0-27.5); Globulin 2.3 g/dL (1.6-3.3); Non-African American GFR(CKD) 101.7 (60.0-200.0); Potassium 4.3 mmol/L (3.5-5.5); Total Bilirubin 0.5 mg/dL (0.30-1.20); Total Protein 7.3 g/dL (6.2-8.2)
== END | disposition home or self-care (01) ==
LOC: LABWHC1 09:45
PROVIDERS: ATTEND Internal Medicine
DX: E53.8 Deficiency of other specified B group vitamins (principal); E55.9 Vitamin D deficiency, unspecified; K21.9 Gastro-esophageal reflux disease without esophagitis
CPT/HCPCS: 36415; 80053; 83735

== ENCOUNTER → 2022-09-28 | Outpatient (CLI) | payer OTHER ==
[2022-09-28 15:00] LABS: Basophils # (A) 0.04 X 10*3/uL (0.00-0.10); Basophils % (A) 0.7 %; Eosinophils # (A) 0.06 X 10*3/uL (0.04-0.35); HCT 43.6 % (37.2-46.3); HGB 14.4 g/dL (12.0-15.0); Immature Grans, Automated 0.3 %; Lymphocytes # (A) 1.67 X 10*3/uL (0.90-5.00); Lymphocytes % (A) 28.5 %; MCH 29.9 pg (27.0-32.0); MCV 90.5 fL (80.0-97.0); Mean Platelet Volume 10.4 fL (9.5-12.2); Monocytes % (A) 6.8 %; NRBC Per 100 WBC 0 /100 WBCS (0.0-0.0); Neutrophils # (A) 3.67 X 10*3/uL (1.80-7.70); Neutrophils % (A) 62.7 %; Platelet Count 305 X 10*3/uL (140-440); RBC 4.82 X 10*6/uL (4.10-5.20); RDW 12.7 % (11.5-14.5); WBC 5.86 X 10*3/uL (4.50-10.00)
[2022-09-28 15:33] LABS: African American GFR (CKD) 111.7 (60.0-200.0); Blood Urea Nitrogen 6.8 mg/dL (9.0-27.0); Carbon Dioxide 27.2 mmol/L (20.0-27.5); Magnesium 1.8 mg/dL (1.5-2.4); Non-African American GFR(CKD) 96.4 (60.0-200.0); Potassium 4.2 mmol/L (3.5-5.5)
== END | disposition home or self-care (01) ==
LOC: LABPAT 08:44
PROVIDERS: ATTEND Obstetrics & Gynecology
DX: Z01.812 Encounter for preprocedural laboratory examination (principal); N81.4 Uterovaginal prolapse, unspecified
CPT/HCPCS: 80051; 82565; 82947; 83735; 84520; 85025; 87086

== ENCOUNTER → 2022-09-30 | Outpatient (CLI) | payer OTHER | END | disposition home or self-care (01) | LOC: LABPAT 14:08 | PROVIDERS: ATTEND Obstetrics & Gynecology | DX: Z01.812 Encounter for preprocedural laboratory examination (principal); R94.31 Abnormal electrocardiogram [ECG] [EKG] | CPT/HCPCS: 93005 ==

== ENCOUNTER 2022-10-04 06:11 | Observation (INO) | payer OTHER ==
[2022-09-29 08:37] VITALS: BMI 31.6
--- NOTE | 2022-09-30 13:38 | HP ---
HISTORY AND PHYSICAL For surgery next week on . HISTORY OF PRESENT ILLNESS: This is a 52-year-old female, 3, para 3-0-0-3, who presented to the office for evaluation of increasing vulvar pressure and bulge, needing to splint to fully defecate. Her examination was consistent with an advanced uterine prolapse, cystocele, and rectocele. After thorough consultation, the patient is requesting surgical repair. She denies unusual vaginal bleeding. No other issues to report. REVIEW OF SYMPTOMS: Otherwise, negative. PAST MEDICAL HISTORY: Significant for anxiety, kidney stones, uterine prolapse and rectocele evolving over the past several years. PAST SURGICAL HISTORY: Cholecystectomy in 2020, and Keyana endometrial ablation in 2020. CURRENT MEDICATIONS: 1. Multivitamin daily. 2. Pepcid 20 mg b.i.d. 3. Dicyclomine 10 mg twice a day. ALLERGIES: Seasonal allergies only. No known medical allergies. FAMILY HISTORY: Significant for lung cancer in her father. REPRODUCTIVE HISTORY: Normal spontaneous vaginal deliveries x3, 7-pound 2-ounce to 8-pound 5-ounce infants. SOCIAL HISTORY: The patient has never been a smoker. She denies alcohol or drug use. She is . PHYSICAL EXAMINATION: VITAL SIGNS: The patient is 184 pounds, pulse 87, blood pressure 120/70. She is 5 feet 4 inches. HEENT: Exam reveals no thyromegaly. No cervical lymphadenopathy. Trachea midline. CHEST: Clear to auscultation in all covington anteriorly and posteriorly. BREASTS: Exam reveals no discernible lesions or masses. No skin changes. No lymphadenopathy. No nipple discharge. CARDIAC: Reveals regular rate and rhythm with no murmur, click, or rub. ABDOMEN: Soft and nontender with active bowel sounds noted. EXTREMITIES: Reveal no edema. Good range of motion in all 4 extremities. Good peripheral pulses. PELVIC: There is a grade 3 to 4 uterine prolapse noted along with a grade 2 cystocele and a grade 3 rectocele. FIT exam reveals negative stool sample. Good rectal tone. Adnexa are negative bilaterally with no masses or tenderness to palpation. IMPRESSION: Increasingly symptomatic grade 3 to 4 uterine prolapse, grade 3 rectocele, and grade 2 cystocele. The patient is declining pessary use and wishing surgical palliation. PLAN: We will proceed with vaginal hysterectomy and anterior and posterior colporrhaphies. The risks of surgery including bleeding, infection, perforation or damage to the bowel, bladder, ureters, blood vessels all discussed. The risks of anesthesia, aspiration, nerve damage, or even again all discussed thoroughly. All questions were answered. The ACOG pamphlet on this procedure had been given to the patient for her review. MMMARCY / RAFAEL: [id number] /
[2022-10-04] MEDS ORDERED: LACTATED RINGERS 1,000 ML IV SCH (06:33)
[2022-10-04] MEDS ORDERED: DEXAMETHASONE SOD PHOSPHATE 4 MG/ML 1 ML VIAL IV ONE (06:33)
[2022-10-04] MEDS ORDERED: ONDANSETRON 4 MG/2 ML VIAL IVP ONE (06:33)
[2022-10-04] MEDS ORDERED: MIDAZOLAM 2 MG/2 ML VIAL IVP ONE (07:30)
[2022-10-04] MEDS ORDERED: diphenhydrAMINE 50 MG/ML 1 ML VIAL ONE (07:39)
[2022-10-04] MEDS ORDERED: SUCCINYLCHOLINE CHLORIDE 200 MG/10 ML VIAL IV ONE (07:54)
[2022-10-04] MEDS ORDERED: fentaNYL (PF) 50 MCG/ML 2 ML AMP ONE (07:54)
[2022-10-04] MEDS ORDERED: PROPOFOL 10 MG/ML 20 ML VIAL IV ONE (07:54)
[2022-10-04] MEDS ORDERED: LIDOCAINE 2% INJ 20 MG/ML (2 ML VIAL) ONE (07:54)
[2022-10-04] MEDS ORDERED: VASOPRESSIN 20 UNIT/ML 1 ML VIAL IM ONE ×2 (08:20)
[2022-10-04] MEDS ORDERED: BACITRACIN ZINC 500 UNIT/GM OINT 28.4 GM TUBE TOPICAL ONE ×2 (08:28→09:20)
[2022-10-04] MEDS ORDERED: METOCLOPRAMIDE 5 MG/ML 2 ML VIAL IVP PRN (09:54)
[2022-10-04] MEDS ORDERED: diphenhydrAMINE 50 MG/ML 1 ML VIAL IVP PRN (09:54)
[2022-10-04] MEDS ORDERED: ONDANSETRON 4 MG/2 ML VIAL IVP PRN (09:54)
[2022-10-04] MEDS ORDERED: SIMETHICONE 80 MG CHEWABLE PO PRN (09:54)
--- NOTE | 2022-10-04 09:54 | P.OP ---
Date of Procedure: 10/04/22 Preoperative Diagnosis: Symptomatic uterine prolapse, cystocele and rectocele Postoperative Diagnosis: Same, normal-appearing ovaries bilaterally Procedure(s) Performed: Vaginal hysterectomy, anterior and posterior colporrhaphy's Anesthesia: MAISHAA Surgeon: Smita Rutherford Aerial Tram Operator #1: Nikita Pedersen Estimated Blood Loss (ml): 150 IV fluids (ml): 600 Urine output (ml): 800 Pathology: other (Cervix and uterus) Condition: stable Disposition: PACU Operative Findings: Normal-appearing atrophic ovaries, high in the pelvis bilaterally Description of Procedure: Patient is brought to the operating suite where a general anesthetic is administered after the spinal with Duramorph was given preoperatively. Antibiotics given. Patient is placed in the dorsal lithotomy position. The cer vix, vagina, perineum, and lower abdominal areas are all prepped and draped in usual sterile fashion. HCG is negative. The appropriate timeout is performed to assure proper patient and procedural identification. Bladder is drained for approximately 700 mL of clear yellow urine. Weighted speculum was placed into the vagina. Anterior lip of the cervix is grasped with a double-tooth tenaculum. Cervix is injected circumferentially with a dilute Pitressin solution. A [place] blade scalpel is used to incise the mucosa circumferentially, with a V positioning at 6:00. Sponge rolled finger is used to sweep the mucosa at all times well from the operative field to avoid bladder and/or ureteral injury. Peritoneum is entered at 6:00 with Metzenbaum scissors, suture tied with 2-0 Vicryl. The large billed speculum is then placed into the peritoneal cavity. The right uterosacral ligament complex is identified, clamped cut and suture ligated, held with a hemostat laterally. Same procedure is carried out contralaterally. Again, mucosa is swept well away from our surgical field. Uterine vasculature is identified, clamped cut and suture ligated bilaterally. 2 additional pedicles are taken superior to the vessels. The peritoneum is entered at 12:00. Uterus is "walked out" posteriorly. Keesha clamps are used across the final pedicles and the cervix and uterus are removed and sent to pathology. 0 Vicryl sutures used to tie these pedicles, flashed, and retied for excellent hemostasis. Bilateral ovaries are inspected with a sponge stick and noted to be normal, left in situ per the patient's wishes. The 2-0 Vicryl suture at 6:00 is now brought around circumferentially to close the peritoneum. The uterosacral cardinal ligaments are brought across to incorporate the opposite ligament as well as vaginal mucosa. 2 additional [id number] sutures of 0 Vicryl are used in the vagina is closed. Allis clamps are used now anteriorly, the anterior vaginal wall is injected with the same dilute Pitressin solution and opened with Metzenbaum scissors in the midline to approximately 1.5 cm inferior to the urethra. A sponge rolled finger is used to sweep the mucosa off of the underlying fascial plane bilaterally, the mucosa held with Allis clamps and a fanlike fashion. 2-0 Vicryl suture is used now in the midline to bring the fascial edges together thereby completely michelle minating the cystocele after the Zamudio catheter is once again placed in the urine is noted to be clear. When the defect is resolved, Metzenbaum scissors are used to trim the redundant mucosa and 2-0 Vicryl suture is used in a running locking stitch to close the anterior vaginal mucosa. Rectocele repair is then commenced. A triangular portion of tissue is removed from the perineal body. The posterior vaginal mucosa is injected with the same dilute Pitressin solution in the midline. It is undermined and opened with Metzenbaum scissors, the edges held with Allis clamps and a fanlike fashion. Sponge rolled finger is used to sweep the mucosa from the underlying fascial planes. 2-0 Vicryl sutures used in the midline now to bring the fascial edges together in the midline to completely reduce the rectocele. This portion of the procedure is slightly bloody and surgical powder is used to assist with hemostasis with excellent results. Metzenbaum scissors are used to trim the redundant mucosa and a 2-0 Vicryl stitch is used now in a running locking manner to complete the repair with an episiotomy-like closure to complete. Vagina is clean and dry. It is packed with one-inch iodophor gauze with basic tracing. Zamudio is noted to be draining clear urine. Rectal exam reveals smooth mucosa with no defects. All sponge needle and enhancement counts are correct. Patient is brought back to recovery room in very good condition with stable vital signs including blood pressure 109/57, pulse 69, 98% O2 saturation. Total estimated blood loss 150 mL, fluid replacement 600 mL, total urine 800 mL's.
[2022-10-04] MEDS: HYDROmorphone 0.5 MG/0.5 ML SYRINGE IVP PRN ×2 (10:02→10:29)
[2022-10-04] MEDS ORDERED: HYDROmorphone 0.5 MG/0.5 ML SYRINGE IVP ONE (10:16)
[2022-10-04] MEDS: KETOROLAC 15 MG/ML 1 ML VIAL IVP PRN ×2 (12:24→20:20)
[2022-10-04 16:02] VITALS: RESP 16
--- NOTE | 2022-10-04 16:36 | P.ANPRN ---
Procedure Note - Anesthesia - Epidural/Spinal Spinal Time Out Performed: Yes Date of Procedure: 10/04/22 Procedure Start Time: :29 Procedure Stop Time: 07:35 Location of Patient: PreOp Indication: Acute Post-Operative Pain, Requested by Surgeon Sedation Type: Sedate with meaningful contact maintained Preparation: Sterile Prep Position: Sitting Needle Guage: 25 Blood Aspirated: No Pain Paresthesia on Injection Noted: No Events: Uneventful and Well Tolerated (duramorph 300 mics plus fentanyl 25 mics)
[2022-10-05] MEDS: KETOROLAC 15 MG/ML 1 ML VIAL IVP PRN (04:02)
[2022-10-05 07:56] VITALS: BP 104/70; PULSE 84; TEMP 98.4
--- NOTE | 2022-10-05 08:06 | P.DS ---
Providers Date of admission: 10/04/22 Expected date of discharge: 10/05/22 Attending physician: Smita Rutherford Primary care physician: Hamzah Weeks MD Hospital Course: This is a 52-year-old female who presented with increasingly symptomatic uterine prolapse, cystocele and rectocele, requesting surgical repair. Please see my dictated history and physical for details. Yesterday under my care she underwent a vaginal hysterectomy, anterior and posterior colporrhaphy. Vagina was packed with iodoform gauze, Zamudio catheter placed, patient did receive spinal with Duramorph prior to surgery. She did well intraoperatively with an estimated blood loss of 150 mL, ovaries appeared normal and were left in situ per her wishes. Please see my dictated operative note for details. This morning the patient is doing well. She is passing flatus, ambulating, vaginal packing and Zamudio catheter had been removed, we are awaiting spontaneous void. Pending successful void and postvoid residual of less than 100 mL, I plan is for discharge home later today. She will use [id number] Advil or Aleve, or Motrin as needed for pain. She will call me with any vaginal bleeding, issues with defecation or urination, with any issues or complaints. She is reminded no intercourse tampons or douching, no heavy lifting greater than a gallon of milk, no driving for 2 weeks. All questions answered, patient is judged to be in very good condition for discharge home later today. Assessment: Doing well postoperative day #1 Patient Condition at Discharge: Good Plan - Discharge Summary Discharge Rx Participant: No New Discharge Prescriptions: No Action Famotidine [Pepcid] 20 mg PO QAM Mirtazapine 7.5 mg PO HS Discharge Medication List Famotidine [Pepcid] 20 mg PO QAM 04/16/21 [History] Mirtazapine 7.5 mg PO HS 04/16/21 [History] Follow up Appointment(s)/Referral(s): Smita Rutherford MD [STAFF PHYSICIAN] - 2 Weeks Discharge Disposition: HOME SELF-CARE
[2022-10-05] MEDS ORDERED: FAMOTIDINE 20 MG TAB PO SCH (09:00)
[2022-10-05] MEDS ORDERED: ACETAMINOPHEN TAB 325 MG TAB PO PRN (09:56)
--- NOTE | 2022-10-06 12:59 | P.PN ---
Progress Note - Text 10/05/22 630am 52-year-old female status post vaginal hysterectomy with spinal Duramorph. Patient seen and evaluated postop pain control she has a VAS of 2 with complaints of mild pruritus. Doing well
== END 2022-10-05 09:48 | disposition home or self-care (01) ==
LOC: OR 06:11 → 4FBP 09:30 → OR 10-05 07:42
PROVIDERS: ADMIT Obstetrics & Gynecology; ATTEND Obstetrics & Gynecology
DX: N81.3 Complete uterovaginal prolapse (principal); N81.2 Incomplete uterovaginal prolapse; F41.9 Anxiety disorder, unspecified; Z87.442 Personal history of urinary calculi; Z90.49 Acquired absence of other specified parts of digestive tract; Z98.890 Other specified postprocedural states; Z80.1 Family history of malignant neoplasm of trachea, bronchus and lung; I10 Essential (primary) hypertension; K21.9 Gastro-esophageal reflux disease without esophagitis; Z79.899 Other long term (current) drug therapy; J30.2 Other seasonal allergic rhinitis
CPT/HCPCS: 58260; 57260; 81025; 62322; 86900; 86901; 86850; 88307; G0378; J2250; J0330; J1200; J1100; J0690; J2405; J3010; J1885 ×2; J2704; J1170; J2001

== ENCOUNTER 2022-10-08 22:41 | Observation (INO) | payer OTHER ==
[2022-10-08] MEDS ORDERED: SODIUM CHLORIDE 0.9% 1,000 ML IV STA (23:06)
[2022-10-08] MEDS ORDERED: ONDANSETRON 4 MG/2 ML VIAL IVP STA (23:23)
[2022-10-08] MEDS ORDERED: HYDROmorphone 0.5 MG/0.5 ML SYRINGE IVP STA (23:23)
[2022-10-09 00:11] LABS: HGB 10.6 gm/dL (11.4-16.0); MCH 30.3 pg (25.0-35.0); MCHC 34.3 g/dL (31.0-37.0); MCV 88.1 fL (80.0-100.0); Mean Platelet Volume 7.9; Platelet Count 333 k/uL (150-450); RBC 3.51 m/uL (3.80-5.40); RDW 13.2 % (11.5-15.5); WBC 11.9 k/uL (3.8-10.6)
[2022-10-09 00:21] LABS: Appearance,Urine Cloudy (Clear); Bacteria,Urine Rare /hpf; Bilirubin,Urine Negative (Negative); Blood,Urine Moderate (Negative); Color,Urine Yellow; Glucose,Urine (UA) Negative (Negative); Ketones,Urine Negative (Negative); Leukocyte Esterase,Urine Large (Negative); Mucus,Urine Many /hpf; Nitrite,Urine Negative (Negative); Protein,Urine 1+ (Negative); RBC,Urine 97 /hpf (0-5); Squamous Epithelial Cell,Urine 8 /hpf (0-4); Urobilinogen,Urine <2.0 mg/dL (<2.0); WBC,Urine 46 /hpf (0-5)
[2022-10-09 00:26] LABS: ALT 17 U/L (4-34); African American GFR (CKD) >90 (>60 ml/min/1.73 sqM); Albumin 4.3 g/dL (3.5-5.0); Anion Gap 14 mmol/L; Blood Urea Nitrogen 10 mg/dL (7-17); Calcium 8.7 mg/dL (8.4-10.2); Carbon Dioxide 22 mmol/L (22-30); Chloride 102 mmol/L (98-107); Glucose 112 mg/dL (74-99); Lipase 40 U/L (23-300); Non-African American GFR(CKD) >90 (>60 ml/min/1.73 sqM); Sodium 138 mmol/L (137-145); Total Protein 7.2 g/dL (6.3-8.2)
[2022-10-09 00:29] LABS: Band Neutrophils % 18 %; Lymphocytes # (M) 0.95 k/uL (1.0-4.8); Monocytes # (M) 0.83 k/uL (0-1.0); Neutrophils % (M) 67 %; Nucleated Red Blood Cells 0 /100 WBC (0-0)
[2022-10-09 00:30] LABS: AST 30 U/L (14-36); Alkaline Phosphatase 65 U/L (38-126); Potassium 4.2 mmol/L (3.5-5.1); Total Cells Counted 200
[2022-10-09 00:31] LABS: Toxic Vacuolation Present
--- NOTE | 2022-10-09 01:13 | CT ---
ADDENDUM - Added by Glendy Mehta M.D. on 10/09/2022 2:30 AM (-05:00) The curvilinear hyperdensity is overall nonspecific. While a small amount of active bleeding is a possibility, differential consideration includes radiodense material related to surgical technique. Continued clinical follow-up recommended, with repeat imaging as indicated. EXAM: CT Abdomen and Pelvis With Intravenous Contrast CLINICAL HISTORY: ITS.REASON CT Reason: pain s/p hysterectomy TECHNIQUE: Axial computed tomography images of the abdomen and pelvis with intravenous contrast. CTDI is 22.4 mGy and DLP is 1494.8 mGy-cm. This CT exam was performed using one or more of the following dose reduction techniques: automated exposure control, adjustment of the mA and/or kV according to patient size, and/or use of iterative reconstruction technique. COMPARISON: CT abdomen and pelvis 02/01/21 FINDINGS: Lung bases are clear. Gallbladder surgically absent. There is no biliary dilatation. Liver, spleen, pancreas, adrenal glands, and kidneys are unremarkable. Aorta is normal in caliber. There is no adenopathy. Patient is status post hysterectomy. There is hyperdense free fluid in the lower abdomen and pelvis compatible with hemorrhagic fluid. Hemorrhagic fluid extends to the right paracolic gutter to the inferior right hepatic lobe. Some curvilinear hyperdensity in the pelvis superior to the urinary bladder (sagittal images 57-62) may represent ongoing active bleeding. Small bilateral adnexal cyst/follicles are suggested. No free air is visible. Appendix is not identified. There is no bowel obstruction or inflammation. Urinary bladder is incompletely distended and suboptimally evaluated. Regional skeleton appears intact. IMPRESSION: Status post hysterectomy with hemorrhagic fluid in the lower abdomen and pelvis. Hemorrhagic fluid extends cephalad through the right paracolic gutter to the inferior right hepatic lobe. Volume of hemorrhagic fluid is greater than expected for postoperative state. There is possible subtle active bleeding near the vaginal cuff. Correlation with hemoglobin level is recommended. <MYCVCSECTION> Communications: 10/09/22 01:17 Call Doctor Regarding Other, called Dr. Dennis on 10/09 01:17 (-04:00) 10/09/22 02:[address] Rutherford on 10/09 01:46 (-04:00) 10/09/22 02:17 Call From [facility] DR Rutherford on 10/09 02:16 (-04:00)
[2022-10-09] MEDS ORDERED: HYDROmorphone 0.5 MG/0.5 ML SYRINGE IVP STA (01:32)
[2022-10-09] MEDS ORDERED: NALOXONE 0.4 MG/ML 1 ML VIAL IV PRN (01:49)
--- NOTE | 2022-10-09 02:10 | ED ---
Abdominal Pain HPI - General Source: patient, family Mode of arrival: wheelchair Limitations: no limitations <Sharona Jim - Last Filed: 10/09/22 01:58> <Earle Dennis - Last Filed: 10/09/22 06:17> - General Chief Complaint: Abdominal Pain Stated Complaint: Post Op complications - Pain Time Seen by Provider: 10/08/22 23:05 - History of Present Illness Initial Comments: Patient is a 52-year-old female who presents to the emergency department for abdominal pain. Patient had a transvaginal hysterectomy and repair of bladder/rectal prolapse on 10/[address] Rutherford. Patient states on Tuesday she started to have increased pain, mostly in her lower abdomen. Taking Tylenol and Motrin with little relief. Patient feels very nauseous no vomiting. States she was able to have a bowel movement on Tuesday but since then has only had diarrhea. She reports 5-10 episodes per day, watery, nonbloody. No recent antibiotic use. No history of c. diff. She denies fever and chills. Patient reports minimal vaginal bleeding which has been slowing down since surgery. She is not wearing any pads or tampons. (Sharona Jim) - Related Data Home Medications Medication Instructions Recorded Confirmed Famotidine [Pepcid] 20 mg PO QAM 04/16/21 09/29/22 Mirtazapine 7.5 mg PO HS 04/16/21 09/29/22 Allergies Allergy/AdvReac Type Severity Reaction Status Date / Time No Known Allergies Allergy Verified 10/08/22 22:50 Review of Systems ROS Other: All systems not noted in ROS Statement are negative. <Sharona Jim - Last Filed: 10/09/22 01:58> ROS Other: All systems not noted in ROS Statement are negative. <Earle Dennis - Last Filed: 10/09/22 06:17> ROS Statement: Those systems with pertinent positive or pertinent negative responses have been documented in the HPI. Past Medical History Past Medical History: GERD/Reflux, Hypertension Additional Past Medical History / Comment(s): kidney stones History of Any Multi-Drug Resistant Organisms: None Reported Past Surgical History: Cholecystectomy, Hysterectomy, Uterine Ablation Additional Past Surgical History / Comment(s): oral surgery. Colonoscopy 2014(next age 52) Past Anesthesia/Blood Transfusion Reactions: Motion Sickness Past Psychological History: Anxiety Smoking Status: Former smoker Past Alcohol Use History: None Reported Past Drug Use History: Marijuana - Past Family History Father Family Medical History: Cancer Additional Family Medical History / Comment(s): Lung cancer. An uncle had lung cancer as well. Brother(s) Family Medical History: Cancer Additional Family Medical History / Comment(s): Beavers sarcoma. Mother Family Medical History: Pulmonary Embolus Aunt Family Medical History: Cancer Additional Family Medical History / Comment(s): Breast cancer. <DiandraSharona - Last Filed: 10/09/22 01:58> General Exam Limitations: no limitations General appearance: alert, in no apparent distress Head exam: Present: atraumatic, normocephalic, normal inspection Respiratory exam: Present: normal lung sounds bilaterally. Absent: respiratory distress, wheezes, rales, rhonchi, stridor Cardiovascular Exam: Present: regular rate, normal rhythm, normal heart sounds. Absent: systolic murmur, diastolic murmur, rubs, gallop, clicks GI/Abdominal exam: Present: soft, tenderness (RUQ, RLQ, LLQ), rebound (lower abdomen), normal bowel sounds. Absent: distended, guarding, rigid Extremities exam: Present: normal inspection Neurological exam: Present: alert, oriented X3, CN II-XII intact Psychiatric exam: Present: normal affect, normal mood Skin exam: Present: warm, dry, intact, normal color. Absent: rash <DiandraSharona - Last Filed: 10/09/22 01:58> Course Vital Signs 10/08/22 10/09/22 10/09/22 22:50 00:30 01:30 Temperature 98.6 F Pulse Rate 91 103 H 98 Respiratory 18 16 16 Rate Blood Pressure 116/74 106/56 112/76 O2 Sat by Pulse 100 95 98 Oximetry 10/09/22 02:43 Temperature 98.3 F Pulse Rate 97 Respiratory 16 Rate Blood Pressure 115/78 O2 Sat by Pulse 98 Oximetry Medical Decision Making - Lab Data Result diagrams: 10/08/22 23:46 10/08/22 23:46 <DiandraSharona - Last Filed: 10/09/22 01:58> - Lab Data Result diagrams: 10/08/22 23:46 10/08/22 23:46 <Earle Dennis - Last Filed: 10/09/22 06:17> - Medical Decision Making Was pt. sent in by a medical professional or institution ([facility], [facility], urgent care, hospital, or shelter...) When possible be specific @ -No Did you speak to anyone other than the patient for history (EMS, parent, family, police, friend...)? What history was obtained from this source @ -No Did you review nursing and triage notes (agree or disagree)? Why? @ -I reviewed and agree with nursing and triage notes Were old charts reviewed (outside hosp., previous admission, EMS record, old EKG, old radiological studies, urgent care reports/EKG's, shelter records)? Report findings @ -No old charts were reviewed Differential Diagnosis (chest pain, altered mental status, abdominal pain women, abdominal pain men, vaginal bleeding, weakness, fever, dyspnea, syncope, headache, dizziness, GI bleed, back pain, seizure, CVA, palpatations, mental health)? @ -Differential Abdominal Pain Women: Postoperative problem, Appendicitis, Cholecystitis, diverticulosis, ischemic bowel, pancreatitis, hepatitis, UTI, gastroenteritis, AAA, incarcerated hernia, bowel obstruction, constipation, inflammatory bowel, hepatitis, peptic ulcer disease, splenic infarction, perforated viscus, vulvitis, ovarian torsion, PID, kidney stone, placenta abruption, this is not meant to be an all-inclusive list EKG interpreted by me (3pts min.). @ -As above X-rays interpreted by me (1pt min.). @ -None done CT interpreted by me (1pt min.). @ -Yes, CT shows status post hysterectomy with hemorrhagic fluid in the lower abdomen and pelvis. Volume is greater than expected of postop state. Possible subtle active bleeding in the vaginal cuff U/S interpreted by me (1pt. min.). @ -None done What testing was considered but not performed or refused? (CT, X-rays, U/S, labs)? Why? @ -None What meds were considered but not given or refused? Why? @ -None Did you discuss the management of the patient with other professionals (professionals i.e. [facility], MACHINE STUFFER, lab, RT, psych nurse, clinical social worker, virtual classroom manager, teacher, commissioned defence force officer, senior case manager)? Give summary @ -Yes, Dr. Rutherford. See hospital course. Was smoking cessation discussed for >3mins.? @ -No Was critical care preformed (if so, how long)? @ -No Were there social determinants of health that impacted care today? How? (Homelessness, low income, unemployed, alcoholism, drug addiction, transportation, low edu. Level, literacy, decrease access to med. care, prison, rehab)? @ -No Was there de-escalation of care discussed even if they declined (Discuss DNR or withdrawal of care, Hospice)? DNR status @ -No What co-morbidities impacted this encounter? (DM, HTN, Smoking, COPD, CAD, Cancer, CVA, ARF, Chemo, Hep., AIDS, mental health diagnosis, sleep apnea, morbid obesity)? @ -None Was patient admitted / discharged? Hospital course, mention meds given and route, prescriptions, significant lab abnormalities, going to OR and other pertinent info. @ -Patient presenting with abdominal pain status post surgical procedure with Dr. Rutherford. Patient appears to be in pain she is hemodynamically stable. There is rebound tenderness in the lower abdomen without guarding. The abdomen is soft no distention.Laboratory studies obtained. There is mild leukocytosis at 11.9. Hemoglobin is low at 10.6. There is no postsurgical hemoglobin to compare with. Last hemoglobin was 14.4 on 09/28. Lactate is elevated at 2.7. Urinalysis reveals 97 rbc's and 46 wbc's likely related to postsurgical state. There is rare bacteria. CT of the abdomen and pelvis shows hemorrhagic fluid in the lower abdomen and pelvis with a value greater than expected postop state. There is possible subtle active bleeding the vaginal cuff. Case discussed with Dr. Rutherford who suggests admission to mother-baby floor with repeat CBC at 8 AM. Patient is NPO and will be monitored closely. Kefzol given for possible urinary tract infection. Pain is controlled and patient is admitted in stable medical condition Undiagnosed new problem with uncertain prognosis? @ -No Drug Therapy requiring intensive monitoring for toxicity (Heparin, Nitro, In sulin, Cardizem)? @ -No Were any procedures done? @ -No Diagnosis/symptom? @ -Postop pain Acute, or Chronic, or Acute on Chronic? @ -Acute Uncomplicated (without systemic symptoms) or Complicated (systemic symptoms)? @ -Uncomplicated Side effects of treatment? @ -No Exacerbation, Progression, or Severe Exacerbation? @ -No Poses a threat to life or bodily function? How? (Chest pain, [place], [place], pneumonia, PE, COPD, DKA, ARF, appy, cholecystitis, CVA, Diverticulitis, Homicidal, Suicidal, threat to staff... and all critical care pts) @ -No Dr. Dennis is my attending (Sharona Jim) Discussed the case at length with both the mid-level provider Felisa as well as Dr. Rutherford. Personally updated the patient multiple times as well as Dr. Rutherford over the phone. Decision eventually made to observe the patient, repeat CBC in 8 hours, repeat lactic acid, and admit the patient for observation. Straight cath of the urine will also be obtained to evaluate for any hematuria v ersus vaginal bleeding. Vital signs remained within acceptable limits. Patient was in agreement this plan. Patient eventually admitted under Dr. Rutherford. Placed on maintenance fluids, and patient is nothing by mouth. (Earle Dennis) - Lab Data Lab Results 10/08/22 10/08/22 10/08/22 Range/Units 23:46 23:46 23:46 WBC 11.9 H (3.8-10.6) k/uL RBC 3.51 L (3.80-5.40) m/uL Hgb 10.6 L (11.4-16.0) gm/dL Hct 31.0 L (34.0-46.0) % MCV 88.1 (80.0-100.0) fL MCH 30.3 (25.0-35.0) pg MCHC 34.3 (31.0-37.0) g/dL RDW 13.2 (11.5-15.5) % Plt Count 333 (150-450) k/uL MPV 7.9 Neutrophils % Not Reportable Neutrophils % (Manual) 67 % Band Neuts % (Manual) 18 % Lymphocytes % Not Reportable Lymphocytes % (Manual) 8 % Monocytes % Not Reportable Monocytes % (Manual) 7 % Eosinophils % Not Reportable Basophils % Not Reportable Neutrophils # Not Reportable Neutrophils # (Manual) 10.10 H (1.3-7.7) k/uL Lymphocytes # Not Reportable Lymphocytes # (Manual) 0.95 L (1.0-4.8) k/uL Monocytes # Not Reportable Monocytes # (Manual) 0.83 (0-1.0) k/uL Eosinophils # Not Reportable Basophils # Not Reportable Nucleated RBCs 0 (0-0) /100 WBC Manual Slide Review Performed Toxic Vacuolation Present Sodium 138 (137-145) mmol/L Potassium 4.2 (3.5-5.1) mmol/L Chloride 102 (98-107) mmol/L Carbon Dioxide 22 (22-30) mmol/L Anion Gap 14 mmol/L BUN 10 (7-17) mg/dL Creatinine 0.50 L (0.52-1.04) mg/dL Est GFR (CKD-EPI)AfAm >90 (>60 ml/min/1.73 sqM) Est GFR (CKD-EPI)NonAf >90 (>60 ml/min/1.73 sqM) Glucose 112 H (74-99) mg/dL Lactic Ac Sepsis Rflx Plasma Lactic Acid Rory 2.7 H* (0.7-2.0) mmol/L Calcium 8.7 (8.4-10.2) mg/dL Total Bilirubin 1.0 (0.2-1.3) mg/dL AST 30 (14-36) U/L ALT 17 (4-34) U/L Alkaline Phosphatase 65 (38-126) U/L Total Protein 7.2 (6.3-8.2) g/dL Albumin 4.3 (3.5-5.0) g/dL Lipase 40 (23-300) U/L Urine Color Urine Appearance (Clear) Urine pH (5.0-8.0) Ur Specific [place] (1.001-1.035) Urine Protein (Negative) Urine Glucose (UA) (Negative) Urine Ketones (Negative) Urine Blood (Negative) Urine Nitrite (Negative) Urine Bilirubin (Negative) Urine Urobilinogen (<2.0) mg/dL Ur Leukocyte Esterase (Negative) Urine RBC (0-5) /hpf Urine WBC (0-5) /hpf Ur Squamous Epith Cells (0-4) /hpf Urine Bacteria (None) /hpf Urine Mucus (None) /hpf Blood Type Blood Type Recheck Bld Type Recheck Status Antibody Screen Spec Expiration Date 10/08/22 10/09/22 10/09/22 Range/Units 23:57 00:31 01:25 WBC (3.8-10.6) k/uL RBC (3.80-5.40) m/uL Hgb (11.4-16.0) gm/dL Hct (34.0-46.0) % MCV (80.0-100.0) fL MCH (25.0-35.0) pg MCHC (31.0-37.0) g/dL RDW (11.5-15.5) % Plt Count (150-450) k/uL MPV Neutrophils % Neutrophils % (Manual) % Band Neuts % (Manual) % Lymphocytes % Lymphocytes % (Manual) % Monocytes % Monocytes % (Manual) % Eosinophils % Basophils % Neutrophils # Neutrophils # (Manual) (1.3-7.7) k/uL Lymphocytes # Lymphocytes # (Manual) (1.0-4.8) k/uL Monocytes # Monocytes # (Manual) (0-1.0) k/uL Eosinophils # Basophils # Nucleated RBCs (0-0) /100 WBC Manual Slide Review Toxic Vacuolation Sodium (137-145) mmol/L Potassium (3.5-5.1) mmol/L Chloride (98-107) mmol/L Carbon Dioxide (22-30) mmol/L Anion Gap mmol/L BUN (7-17) mg/dL Creatinine (0.52-1.04) mg/dL Est GFR (CKD-EPI)AfAm (>60 ml/min/1.73 sqM) Est GFR (CKD-EPI)NonAf (>60 ml/min/1.73 sqM) Glucose (74-99) mg/dL Lactic Ac Sepsis Rflx Y Plasma Lactic Acid Rory (0.7-2.0) mmol/L Calcium (8.4-10.2) mg/dL Total Bilirubin (0.2-1.3) mg/dL AST (14-36) U/L ALT (4-34) U/L Alkaline Phosphatase (38-126) U/L Total Protein (6.3-8.2) g/dL Albumin (3.5-5.0) g/dL Lipase (23-300) U/L Urine Color Yellow Urine Appearance Cloudy H (Clear) Urine pH 6.0 (5.0-8.0) Ur Specific [place] 1.030 (1.001-1.035) Urine Protein 1+ H (Negative) Urine Glucose (UA) Negative (Negative) Urine Ketones Negative (Negative) Urine Blood Moderate H (Negative) Urine Nitrite Negative (Negative) Urine Bilirubin Negative (Negative) Urine Urobilinogen <2.0 (<2.0) mg/dL Ur Leukocyte Esterase Large H (Negative) Urine RBC 97 H (0-5) /hpf Urine WBC 46 H (0-5) /hpf Ur Squamous Epith Cells 8 H (0-4) /hpf Urine Bacteria Rare H (None) /hpf Urine Mucus Many H (None) /hpf Blood Type O Positive Blood Type Recheck O Pos Bld Type Recheck Status No Antibody Screen NEGATIVE Spec Expiration Date 10/12/20222319 Critical Care Time Critical Care Time: Yes Total Critical Care Time: 35 <Earle Dennis - Last Filed: 10/09/22 06:17> Disposition <Sharona Jim - Last Filed: 10/09/22 01:58> <Earle Dennis - Last Filed: 10/09/22 06:17> Clinical Impression: Post-op pain Disposition: ADMITTED IP TO THIS HOSP Condition: Stable
[2022-10-09] MEDS ORDERED: ONDANSETRON 4 MG/2 ML VIAL IVP PRN (02:11)
[2022-10-09] MEDS: SODIUM CHLORIDE 0.9% 1,000 ML IV SCH ×2 (02:57→17:30)
[2022-10-09 03:13] LABS: Appearance,Urine Clear (Clear); Bilirubin,Urine Negative (Negative); Blood,Urine Negative (Negative); Color,Urine Yellow; Glucose,Urine (UA) Negative (Negative); Ketones,Urine Negative (Negative); Leukocyte Esterase,Urine Negative (Negative); Nitrite,Urine Negative (Negative); Protein,Urine Trace (Negative); Urobilinogen,Urine <2.0 mg/dL (<2.0)
[2022-10-09 03:35] LABS: Specific Gravity,Urine >1.050 (1.001-1.035)
[2022-10-09] MEDS: HYDROmorphone 0.5 MG/0.5 ML SYRINGE IVP PRN ×3 (05:39→14:44)
[2022-10-09] MEDS ORDERED: FAMOTIDINE 20 MG TAB PO SCH (06:45)
[2022-10-09] MEDS: FAMOTIDINE 20 MG TAB PO SCH (06:59)
[2022-10-09 07:07] LABS: Basophils % (A) 0 %; Eosinophils % (A) 0 %; HCT 28.9 % (34.0-46.0); HGB 9.8 gm/dL (11.4-16.0); Lymphocytes # (A) 0.7 k/uL (1.0-4.8); Lymphocytes % (A) 6 %; MCH 29.9 pg (25.0-35.0); MCHC 33.9 g/dL (31.0-37.0); MCV 88.1 fL (80.0-100.0); Mean Platelet Volume 7.6; Monocytes # (A) 0.5 k/uL (0-1.0); Monocytes % (A) 4 %; Neutrophils # (A) 10.4 k/uL (1.3-7.7); Neutrophils % (A) 89 %; Platelet Count 307 k/uL (150-450); RBC 3.28 m/uL (3.80-5.40); RDW 13.4 % (11.5-15.5); WBC 11.7 k/uL (3.8-10.6)
[2022-10-09] MEDS ORDERED: HYDROmorphone 0.5 MG/0.5 ML SYRINGE IM STA (07:14)
--- NOTE | 2022-10-09 08:20 | P.HPOB ---
History of Present Illness H&P Date: 10/09/22 Chief Complaint: Abdominal pain This is a 52-year-old white female status post vaginal hysterectomy, anterior and posterior colporrhaphy's 5 days ago. Patient states that after discharge home 4 days ago, she felt well. However, 3 days ago on Tuesday she had a large bowel movement that was uncomfortable pelvic's pressing the stool. She had taken a stool softener 1. Since that time she has had mild diarrhea. No urinary complaints. No unusual vaginal bleeding. Yesterday patient began complaining of lower abdominal pain in the midline, slightly to the right. The pain intensified and therefore she presented to the emergency room. Computed tomography scan suggests a blood collection anterior to the vaginal cough, consistent with postoperative bleed. Admitting hemoglobin 10.6. Patient's pain is controlled with dilated 0.5-1 mg. She is passing flatus. She admits to weight of nausea, no emesis. Past medical history is significant for GERD, hypertension, kidney stones. Past surgical history status post vaginal hysterectomy, anterior and posterior colporrhaphy's 5 days ago, cholecystectomy in the past. Family history is significant for PE, Beavers's sarcoma. Current medications Prilosec, vitamin daily. Social history patient has never been a tobacco smoker, she does smoke marijuana. Minimal alcohol use, she is , she is employed locally. ALLERGIES none known. On exam patient is 5 foot 4 inches, 83 kg, vital signs are stable this morning blood pressure 110-120 over 70s to 80s, pulse 92. Chest is clear in all [place]. Extremities reveal no edema and no tenderness. Abdomen is soft, nondistended, no guarding, minimal rebound mostly in the right lower quadrant. No CVA tenderness noted. Hypoactive bowel sounds noted. Vaginal cuff appears clean and dry. Impression: Status post vaginal hysterectomy and anterior and posterior col porrhaphy's 5 days ago, intra-abdominal bleed. Repeat hemoglobin 9.8. Patient is tender and in mild to moderate distress. She is hemodynamically stable at this time. Catheterized urine specimen is negative for blood. Plan: We will proceed with serial CBCs. We will place an abdominal binder for support. Sequential MICHELLE stockings to the legs to prevent PE. Ancef 2 g IV piggyback given 1 prophylactically. Remain nothing by mouth at this time, likely advance of diet if hemoglobin remained stable. Continue observation today. Consider repeat visit to the operating room to evacuate the blood and potentially surgically correct and active bleed. At this point patient is stable, understands and agrees with our plan. Review of Systems Constitutional: Reports as per HPI Past Medical History Past Medical History: GERD/Reflux, Hypertension Additional Past Medical History / Comment(s): kidney stones History of Any Multi-Drug Resistant Organisms: None Reported Past Surgical History: Cholecystectomy, Hysterectomy, Uterine Ablation Additional Past Surgical History / Comment(s): oral surgery. Colonoscopy 2014 (next age 52) Past Anesthesia/Blood Transfusion Reactions: Motion Sickness Past Psychological History: Anxiety Smoking Status: Former smoker Past Alcohol Use History: None Reported Past Drug Use History: Marijuana Additional Drug Use History / Comment(s): Edibles for sleep, none in over 2 weeks. - Past Family History Father Family Medical History: Cancer Additional Family Medical History / Comment(s): Lung cancer. An uncle had lung cancer as well. Brother(s) Family Medical History: Cancer Additional Family Medical History / Comment(s): Beavers sarcoma. Mother Family Medical History: Pulmonary Embolus Aunt Family Medical History: Cancer Additional Family Medical History / Comment(s): Breast cancer. Medications and Allergies Home Medications Medication Instructions Recorded Confirmed Type Famotidine [Pepcid] 20 mg PO QAM 04/16/21 09/29/22 History Mirtazapine 7.5 mg PO HS 04/16/21 09/29/22 History Allergies Allergy/AdvReac Type Severity Reaction Status Date / Time No Known Allergies Allergy Verified 10/08/22 22:50 Exam Vital Signs Temp Pulse Pulse Resp BP BP Pulse Ox 10/09/22 03:11 99.1 F 99 16 110/72 97 10/09/22 02:43 98.3 F 97 16 115/78 98 10/09/22 01:30 98 16 112/76 98 10/09/22 00:30 103 H 16 106/56 95 10/08/22 22:50 98.6 F 91 18 116/74 100 Intake and Output 10/08/22 10/09/22 10/09/22 22:59 06:59 14:59 Other: # Voids 1 Weight 83.461 kg 83.461 kg See dictation under HPI please Results Result Diagrams: 10/09/22 06:42 10/08/22 23:46 Abnormal Lab Results - Last 24 Hours (Table) 10/08/22 10/08/22 10/08/22 Range/Units 23:46 23:46 23:46 WBC 11.9 H (3.8-10.6) k/uL RBC 3.51 L (3.80-5.40) m/uL Hgb 10.6 L (11.4-16.0) gm/dL Hct 31.0 L (34.0-46.0) % Neutrophils # (1.3-7.7) k/uL Neutrophils # (Manual) 10.10 H (1.3-7.7) k/uL Lymphocytes # (1.0-4.8) k/uL Lymphocytes # (Manual) 0.95 L (1.0-4.8) k/uL Creatinine 0.50 L (0.52-1.04) mg/dL Glucose 112 H (74-99) mg/dL Plasma Lactic Acid Rory 2.7 H* (0.7-2.0) mmol/L Urine Appearance (Clear) Ur Specific [place] (1.001-1.035) Urine Protein (Negative) Urine Blood (Negative) Ur Leukocyte Esterase (Negative) Urine RBC (0-5) /hpf Urine WBC (0-5) /hpf Ur Squamous Epith Cells (0-4) /hpf Urine Bacteria (None) /hpf Urine Mucus (None) /hpf 10/08/22 10/09/22 10/09/22 Range/Units 23:57 02:41 06:42 WBC 11.7 H (3.8-10.6) k/uL RBC 3.28 L (3.80-5.40) m/uL Hgb 9.8 L (11.4-16.0) gm/dL Hct 28.9 L (34.0-46.0) % Neutrophils # 10.4 H (1.3-7.7) k/uL Neutrophils # (Manual) (1.3-7.7) k/uL Lymphocytes # 0.7 L (1.0-4.8) k/uL Lymphocytes # (Manual) (1.0-4.8) k/uL Creatinine (0.52-1.04) mg/dL Glucose (74-99) mg/dL Plasma Lactic Acid Rory (0.7-2.0) mmol/L Urine Appearance Cloudy H (Clear) Ur Specific [place] >1.050 H (1.001-1.035) Urine Protein 1+ H Trace H (Negative) Urine Blood Moderate H (Negative) Ur Leukocyte Esterase Large H (Negative) Urine RBC 97 H (0-5) /hpf Urine WBC 46 H (0-5) /hpf Ur Squamous Epith Cells 8 H (0-4) /hpf Urine Bacteria Rare H (None) /hpf Urine Mucus Many H (None) /hpf Assessment and Plan Assessment: Status post vaginal hysterectomy, anterior and posterior colporrhaphy's 5 days ago. Suspect intra-abdominal bleed, clinically stable. Plan: Serial CBCs today. Remain nothing by mouth until next blood draw. Sequential teds to the legs to prevent PE. Abdominal binder for support. Dilated for pain management at this time. Possible return to operating room later today versus conservative management pending hemoglobin and clinical status. Patient is hemodynamically stable and understands our plan. Time with Patient: Greater than 30
[2022-10-09 12:01] LABS: Basophils % (A) 0 %; Eosinophils % (A) 0 %; HCT 28.2 % (34.0-46.0); HGB 9.7 gm/dL (11.4-16.0); Lymphocytes # (A) 1.2 k/uL (1.0-4.8); Lymphocytes % (A) 11 %; MCH 30.3 pg (25.0-35.0); MCHC 34.3 g/dL (31.0-37.0); MCV 88.4 fL (80.0-100.0); Mean Platelet Volume 7.3; Monocytes # (A) 0.4 k/uL (0-1.0); Monocytes % (A) 4 %; Neutrophils # (A) 8.9 k/uL (1.3-7.7); Neutrophils % (A) 83 %; Platelet Count 318 k/uL (150-450); RBC 3.19 m/uL (3.80-5.40); RDW 13.4 % (11.5-15.5); WBC 10.7 k/uL (3.8-10.6)
[2022-10-09] MEDS: HYDROcodone/APAP 5-325MG 1 EACH TAB PO PRN (18:25)
[2022-10-10] MEDS: HYDROcodone/APAP 5-325MG 1 EACH TAB PO PRN ×3 (00:17→10:56)
[2022-10-10 06:16] LABS: Basophils % (A) 0 %; Eosinophils % (A) 0 %; HCT 29.7 % (34.0-46.0); Lymphocytes # (A) 0.9 k/uL (1.0-4.8); Lymphocytes % (A) 7 %; MCH 29.9 pg (25.0-35.0); MCHC 33.7 g/dL (31.0-37.0); MCV 88.7 fL (80.0-100.0); Mean Platelet Volume 7.5; Monocytes # (A) 0.5 k/uL (0-1.0); Monocytes % (A) 4 %; Neutrophils # (A) 10.5 k/uL (1.3-7.7); Neutrophils % (A) 87 %; Platelet Count 312 k/uL (150-450); RBC 3.35 m/uL (3.80-5.40); RDW 13.3 % (11.5-15.5)
[2022-10-10] MEDS: FAMOTIDINE 20 MG TAB PO SCH (06:22)
[2022-10-10] MEDS: SODIUM CHLORIDE 0.9% 1,000 ML IV SCH (06:24)
[2022-10-10 07:42] VITALS: BP 108/70; PULSE 99; RESP 18; TEMP 100
--- NOTE | 2022-10-10 08:00 | P.DS ---
Providers Date of admission: 10/09/22 02:02 Expected date of discharge: 10/10/22 Attending physician: Smita Rutherford Primary care physician: Hamzah Weeks MD Hospital Course: This is a 52-year-old female who underwent vaginal hysterectomy, anterior and posterior colporrhaphy under my care on 10/04/2022. She did well intraoperatively and was discharged home on the first postoperative day. On 10/06/2022 she had a large slightly painful bowel movement. After this time she had probe progressively increased abdominal pain, and presented to the emergency room on 10/08/2021. Computed tomography scan revealed the presence of an intraperitoneal bleed. Patient was admitted with hemoglobin at 10.6, serial hemoglobins performed, 9.8, 9.7, and this morning 10.0. Please see my dictated history and physical for details. This morning the patient is feeling improved. Her pain is 2 out of 10. The abdomen is soft, active bowel sounds, no CVA tenderness. Straight cath urine analysis is negative. She is having only scant vaginal drainage. She is tolerating food this morning, and pain is well-controlled with [place] 5/325. She is judged to be in good condition for discharge home. She is reminded no heavy lifting, no intercourse, to keep the bowels moving with increased water, vegetables and fruits. I have given her prescription for [place] 5/325 to be used every 4-6 hours for pain. I've also given her prescription for Keflex 500 mg to be used twice daily for 1 week. The patient has occasional sweats while in bed, white count is 12. She will follow-up with me in the office next Tuesday. I've asked her to call me with any issues, fevers shakes or chills, pain not alleviated by the [place], or indeed with any additional concerns. Assessment: Intraperitoneal bleed status post hysterectomy, clinically stable Patient Condition at Discharge: Good Plan - Discharge Summary Discharge Rx Participant: No New Discharge Prescriptions: No Action Famotidine [Pepcid] 20 mg PO QAM Mirtazapine 7.5 mg PO HS Discharge Medication List Famotidine [Pepcid] 20 mg PO QAM 04/16/21 [History] Mirtazapine 7.5 mg PO HS 04/16/21 [History] Discharge Disposition: HOME SELF-CARE
[2022-10-10] MEDS ORDERED: ACETAMINOPHEN TAB 325 MG TAB PO PRN ×2 (10:41→10:43)
== END 2022-10-10 11:55 | disposition home or self-care (01) ==
LOC: EC 22:41 → 4FBP 10-09 02:02 → INTOOBSV 10-09 02:02 → UNDODISIN 10-10 11:55
PROVIDERS: ADMIT Obstetrics & Gynecology; ATTEND Obstetrics & Gynecology
DX: N99.89 Other postprocedural complications and disorders of genitourinary system (principal); K66.1 Hemoperitoneum; K21.9 Gastro-esophageal reflux disease without esophagitis; I10 Essential (primary) hypertension; Z87.442 Personal history of urinary calculi; Z90.710 Acquired absence of both cervix and uterus; Z90.49 Acquired absence of other specified parts of digestive tract; Z98.890 Other specified postprocedural states; F41.9 Anxiety disorder, unspecified; Z87.891 Personal history of nicotine dependence; Z80.1 Family history of malignant neoplasm of trachea, bronchus and lung; Z80.8 Family history of malignant neoplasm of other organs or systems; Z82.49 Family history of ischemic heart disease and other diseases of the circulatory system; Z80.3 Family history of malignant neoplasm of breast; Z79.899 Other long term (current) drug therapy
CPT/HCPCS: 96376 ×2; 96361 ×4; 96365; 96372; 96368; 96375; 99285; 36415; 86900; 86901; 80053; 83605; 83690; 85025 ×2; 86850; 81003; 81001; 74177; G0378 ×3; J0690; J2405; J1170 ×2; Q9967; 96367

== ENCOUNTER 2022-10-11 21:23 | Observation (INO) | payer OTHER ==
--- NOTE | 2022-10-11 22:00 | ED ---
Abdominal Pain HPI - General Source: patient, RN notes reviewed Mode of arrival: ambulatory Limitations: no limitations <Prasad Coughlin - Last Filed: 10/11/22 22:00> <Chin Senior - Last Filed: 10/12/22 00:19> - General Chief Complaint: Abdominal Pain Stated Complaint: ABD PAIN Time Seen by Provider: 10/11/22 22:00 - History of Present Illness Initial Comments: Patient is a 52-year-old female presenting with chief complaint of increasing abdominal pain. Patient had a transvaginal hysterectomy and repair of bladder/rectal prolapse performed on 10/[address] Rutherford. She was recently readmitted on 10/09 for possible postoperative bleeding. She was discharged on 514 on antibiotics and more close. States that she is having increasing right lower quadrant pain. (Prasad Coughlin) This is a 52-year-old female with a past medical history including recent hysterectomy presents emergency department for worsening abdominal pain. The patient did state that she was recently discharged from the hospital 2 days ago and was feeling improved however had worsening right-sided abdominal pain over the last 1 day. The patient stated that she now had moderate vaginal bleeding which was new. The patient stated that the narcotics that she has been taken at home is not helping her pain and she is in severe discomfort and playing about worsening abdominal pain. The patient denied nausea or vomiting as well as any fevers and chills but stated that the pain is become so severe that she needed to come to the emergency department. The patient denied any other acute pain or complaints at this time. The patient was however resting in bed comfortably. The patient stated that anytime she moves the pain becomes worse. (Chin Senior) - Related Data Home Medications Medication Instructions Recorded Confirmed Famotidine [Pepcid] 20 mg PO QAM 04/16/21 09/29/22 Mirtazapine 7.5 mg PO HS 04/16/21 09/29/22 Allergies Allergy/AdvReac Type Severity Reaction Status Date / Time No Known Allergies Allergy Verified 10/11/22 21:58 Review of Systems ROS Other: All systems not noted in ROS Statement are negative. <Prasad Coughlin - Last Filed: 10/11/22 22:00> ROS Other: All systems not noted in ROS Statement are negative. <Chin Senior - Last Filed: 10/12/22 00:19> ROS Statement: Those systems with pertinent positive or pertinent negative responses have been documented in the HPI. Past Medical History Past Medical History: GERD/Reflux, Hypertension Additional Past Medical History / Comment(s): kidney stones History of Any Multi-Drug Resistant Organisms: None Reported Past Surgical History: Cholecystectomy, Hysterectomy, Uterine Ablation Additional Past Surgical History / Comment(s): oral surgery. Colonoscopy 2015(next age 52) Past Anesthesia/Blood Transfusion Reactions: Motion Sickness Past Psychological History: Anxiety Smoking Status: Former smoker Past Alcohol Use History: None Reported Past Drug Use History: Marijuana - Past Family History Father Family Medical History: Cancer Additional Family Medical History / Comment(s): Lung cancer. An uncle had lung cancer as well. Brother(s) Family Medical History: Cancer Additional Family Medical History / Comment(s): Beavers sarcoma. Mother Family Medical History: Pulmonary Embolus Aunt Family Medical History: Cancer Additional Family Medical History / Comment(s): Breast cancer. <Prasad Coughlin - Last Filed: 10/11/22 22:00> General Exam Limitations: no limitations <Prasad Coughlin - Last Filed: 10/11/22 22:00> Limitations: no limitations General appearance: alert, in no apparent distress Head exam: Present: atraumatic, normocephalic, normal inspection Eye exam: Present: normal appearance, PERRL Pupils: Present: normal accommodation ENT exam: Present: normal exam, normal oropharynx, mucous membranes moist Neck exam: Present: normal inspection, full ROM Respiratory exam: Present: normal lung sounds bilaterally Cardiovascular Exam: Present: regular rate, normal rhythm, normal heart sounds GI/Abdominal exam: Present: soft, tenderness (Tenderness noted in all quadrants, worsening over the right upper and right lower quadrant), guarding, normal bowel sounds Extremities exam: Present: normal inspection, full ROM Back exam: Present: normal inspection, full ROM Neurological exam: Present: alert, oriented X3, CN II-XII intact Psychiatric exam: Present: normal affect, normal mood Skin exam: Present: warm, dry <Chin Senior - Last Filed: 10/12/22 00:19> - General Exam Comments Initial Comments: Visual Physical Exam Vital signs reviewed General: Well-appearing, nontoxic, no acute distress. Head: Normocephalic, atraumatic Eyes: PERRLA, EOMI ENT: Airway patent Chest: Nonlabored breathing Skin: No visual rash, normal skin tone Neuro: Alert and oriented 3 Musculoskeletal: No gross abnormalities (Prasad Coughlin) Course Vital Signs 10/11/22 10/11/22 21:54 23:08 Temperature 99.2 F Pulse Rate 101 H Respiratory 20 Rate Blood Pressure 126/70 130/80 O2 Sat by Pulse 98 Oximetry Medical Decision Making - Lab Data Result diagrams: 10/11/22 22:07 10/11/22 22:07 <Chin Senior - Last Filed: 10/12/22 00:19> - Medical Decision Making Was pt. sent in by a medical professional or institution (, PA, WAGE AND SALARY ADMINISTRATOR, urgent care, hospital, or assisted...) When possible be specific @ -No Did you speak to anyone other than the patient for history (EMS, parent, family, police, friend...)? What history was obtained from this source @ -No Did you review nursing and triage notes (agree or disagree)? Why? @ -I reviewed and agree with nursing and triage notes Were old charts reviewed (outside hosp., previous admission, EMS record, old EKG, old radiological studies, urgent care reports/EKG's, assisted records)? Report findings @ -No old charts were reviewed Differential Diagnosis (chest pain, altered mental status, abdominal pain women, abdominal pain men, vaginal bleeding, weakness, fever, dyspnea, syncope, headache, dizziness, GI bleed, back pain, seizure, CVA, palpatations, mental health)? @ -Intra-abdominal hemorrhage, intra-abdominal abscess, vaginal bleeding EKG interpreted by me (3pts min.). @ -None X-rays interpreted by me (1pt min.). @ -None done CT interpreted by me (1pt min.). @ -CT abdomen and pelvis with IV contrast was obtained and was interpreted by myself showing moderate to large amount of non-simple fluid or hemorrhage in the pelvis extending into the abdomen which is slightly more prominent from the previous CT. There was no source of active bleeding clearly seen. U/S interpreted by me (1pt. min.). @ -None done What testing was considered but not performed or refused? (CT, X-rays, U/S, labs)? Why? @ -None What meds were considered but not given or refused? Why? @ -None Did you discuss the management of the patient with other professionals (professionals i.e. , PA, WAGE AND SALARY ADMINISTRATOR, lab, RT, psych nurse, addiction social worker, investment advisor, teacher, forest fire management officer, nurse case management)? Give summary @ -Yes, Dr. Alba was contacted regarding the patient and she did recommend placement patient observation for Dr. Rutherford to see and evaluate the patient the morning. She did recommend continued pain control overnight. Was smoking cessation discussed for >3mins.? @ -No Was critical care preformed (if so, how long)? @ -No Were there social determinants of health that impacted care today? How? (Homele ssness, low income, unemployed, alcoholism, drug addiction, transportation, low edu. Level, literacy, decrease access to med. care, fpc, rehab)? @ -No Was there de-escalation of care discussed even if they declined (Discuss DNR or withdrawal of care, Hospice)? DNR status @ -No What co-morbidities impacted this encounter? (DM, HTN, Smoking, COPD, CAD, Cancer, CVA, ARF, Chemo, Hep., AIDS, mental health diagnosis, sleep apnea, morbid obesity)? @ -None Was patient admitted / discharged? Hospital course, mention meds given and route, prescriptions, significant lab abnormalities, going to OR and other pertinent info. @ -The patient was seen and evaluated emergency department. Physical exam, the patient was resting in bed without any acute complaints. Vital signs were stable. Laboratory workup was obtained and hemoglobin was stable. CT abdomen and pelvis with IV contrast was also obtained that showed worsening bleeding from previous exams. The patient was given morphine for pain control. Due to the patient's worsening pain, unresponsive to narcotics at home as well as worsening bleeding on computed tomography scan, MUNICIPAL SERVICES MANAGER on-call, was contacted and did accept the patient for observation in order to have the patient evaluated by Dr. Rutherford in the morning. The patient was agreeable to this plan and all of her questions were answered. The patient was placed in observation in stable condition. Undiagnosed new problem with uncertain prognosis? @ -No Drug Therapy requiring intensive monitoring for toxicity (Heparin, Nitro, Insulin, Cardizem)? @ -No Were any procedures done? @ -No Diagnosis/symptom? @ -Intractable abdominal pain, worsening abdominal bleeding status post hystere ctomy Acute, or Chronic, or Acute on Chronic? @ -Acute on chronic Uncomplicated (without systemic symptoms) or Complicated (systemic symptoms)? @ -Complicated Side effects of treatment? @ -No Exacerbation, Progression, or Severe Exacerbation? @ -No Poses a threat to life or bodily function? How? (Chest pain, [place], [place], pneumonia, PE, COPD, DKA, ARF, appy, cholecystitis, CVA, Diverticulitis, Homicidal, Suicidal, threat to staff... and all critical care pts) @ -Yes, continue bleeding can lead to permanent damage and possible . (Chin Senior) - Lab Data Lab Results 10/11/22 10/11/22 10/11/22 Range/Units 22:07 22:07 22:14 WBC 13.7 H (3.8-10.6) k/uL RBC 3.52 L (3.80-5.40) m/uL Hgb 10.7 L (11.4-16.0) gm/dL Hct 31.6 L (34.0-46.0) % MCV 89.8 (80.0-100.0) fL MCH 30.3 (25.0-35.0) pg MCHC 33.8 (31.0-37.0) g/dL RDW 12.7 (11.5-15.5) % Plt Count 485 H (150-450) k/uL MPV 7.0 Neutrophils % 86 % Lymphocytes % 7 % Monocytes % 4 % Eosinophils % 1 % Basophils % 1 % Neutrophils # 11.8 H (1.3-7.7) k/uL Lymphocytes # 1.0 (1.0-4.8) k/uL Monocytes # 0.5 (0-1.0) k/uL Eosinophils # 0.1 (0-0.7) k/uL Basophils # 0.1 (0-0.2) k/uL PT (9.0-12.0) sec INR (<1.2) APTT (22.0-30.0) sec Sodium 134 L (137-145) mmol/L Potassium 3.8 (3.5-5.1) mmol/L Chloride 95 L (98-107) mmol/L Carbon Dioxide 28 (22-30) mmol/L Anion Gap 11 mmol/L BUN 11 (7-17) mg/dL Creatinine 0.44 L (0.52-1.04) mg/dL Est GFR (CKD-EPI)AfAm >90 (>60 ml/min/1.73 sqM) Est GFR (CKD-EPI)NonAf >90 (>60 ml/min/1.73 sqM) Glucose 99 (74-99) mg/dL Plasma Lactic Acid Rory (0.7-2.0) mmol/L Calcium 8.4 (8.4-10.2) mg/dL Total Bilirubin 2.0 H (0.2-1.3) mg/dL AST 41 H (14-36) U/L ALT 19 (4-34) U/L Alkaline Phosphatase 101 (38-126) U/L Total Protein 6.6 (6.3-8.2) g/dL Albumin 3.7 (3.5-5.0) g/dL Urine Color Yellow Urine Appearance Cloudy H (Clear) Urine pH 6.0 (5.0-8.0) Ur Specific [place] 1.026 (1.001-1.035) Urine Protein 2+ H (Negative) Urine Glucose (UA) Negative (Negative) Urine Ketones 3+ H (Negative) Urine Blood Large H (Negative) Urine Nitrite Negative (Negative) Urine Bilirubin Negative (Negative) Urine Urobilinogen 6.0 (<2.0) mg/dL Ur Leukocyte Esterase Large H (Negative) Urine RBC 166 H (0-5) /hpf Urine WBC 136 H (0-5) /hpf Urine WBC Clumps Rare H (None) /hpf Ur Squamous Epith Cells 6 H (0-4) /hpf Urine Bacteria Occasional H (None) /hpf Hyaline Casts 13 H (0-2) /lpf Urine Mucus Many H (None) /hpf 10/11/22 10/11/22 Range/Units 22:34 22:40 WBC (3.8-10.6) k/uL RBC (3.80-5.40) m/uL Hgb (11.4-16.0) gm/dL Hct (34.0-46.0) % MCV (80.0-100.0) fL MCH (25.0-35.0) pg MCHC (31.0-37.0) g/dL RDW (11.5-15.5) % Plt Count (150-450) k/uL MPV Neutrophils % % Lymphocytes % % Monocytes % % Eosinophils % % Basophils % % Neutrophils # (1.3-7.7) k/uL Lymphocytes # (1.0-4.8) k/uL Monocytes # (0-1.0) k/uL Eosinophils # (0-0.7) k/uL Basophils # (0-0.2) k/uL PT 10.8 (9.0-12.0) sec INR 1.0 (<1.2) APTT 27.8 (22.0-30.0) sec Sodium (137-145) mmol/L Potassium (3.5-5.1) mmol/L Chloride (98-107) mmol/L Carbon Dioxide (22-30) mmol/L Anion Gap mmol/L BUN (7-17) mg/dL Creatinine (0.52-1.04) mg/dL Est GFR (CKD-EPI)AfAm (>60 ml/min/1.73 sqM) Est GFR (CKD-EPI)NonAf (>60 ml/min/1.73 sqM) Glucose (74-99) mg/dL Plasma Lactic Acid Rory 1.1 (0.7-2.0) mmol/L Calcium (8.4-10.2) mg/dL Total Bilirubin (0.2-1.3) mg/dL AST (14-36) U/L ALT (4-34) U/L Alkaline Phosphatase (38-126) U/L Total Protein (6.3-8.2) g/dL Albumin (3.5-5.0) g/dL Urine Color Urine Appearance (Clear) Urine pH (5.0-8.0) Ur Specific [place] (1.001-1.035) Urine Protein (Negative) Urine Glucose (UA) (Negative) Urine Ketones (Negative) Urine Blood (Negative) Urine Nitrite (Negative) Urine Bilirubin (Negative) Urine Urobilinogen (<2.0) mg/dL Ur Leukocyte Esterase (Negative) Urine RBC (0-5) /hpf Urine WBC (0-5) /hpf Urine WBC Clumps (None) /hpf Ur Squamous Epith Cells (0-4) /hpf Urine Bacteria (None) /hpf Hyaline Casts (0-2) /lpf Urine Mucus (None) /hpf Disposition <Prasad Coughlin - Last Filed: 10/11/22 22:00> Is patient prescribed a controlled substance at d/c from ED?: No Time of Disposition: 23:50 Decision to Admit Reason: Admit from EC Decision Date: 10/11/22 Decision Time: 23:50 <Chin Senior - Last Filed: 10/12/22 00:19> Clinical Impression: Abdominal pain, Intraabdominal hemorrhage Disposition: ADMITTED IP TO THIS HOSP Condition: Stable Referrals: Hamzah Weeks MD [Primary Care Provider] - 1-2 days
[2022-10-11 22:21] LABS: Basophils # (A) 0.1 k/uL (0-0.2); Basophils % (A) 1 %; Eosinophils # (A) 0.1 k/uL (0-0.7); Eosinophils % (A) 1 %; HCT 31.6 % (34.0-46.0); HGB 10.7 gm/dL (11.4-16.0); Lymphocytes % (A) 7 %; MCH 30.3 pg (25.0-35.0); MCHC 33.8 g/dL (31.0-37.0); MCV 89.8 fL (80.0-100.0); Monocytes # (A) 0.5 k/uL (0-1.0); Monocytes % (A) 4 %; Neutrophils # (A) 11.8 k/uL (1.3-7.7); Neutrophils % (A) 86 %; Platelet Count 485 k/uL (150-450); RBC 3.52 m/uL (3.80-5.40); RDW 12.7 % (11.5-15.5); WBC 13.7 k/uL (3.8-10.6)
[2022-10-11 22:45] LABS: Appearance,Urine Cloudy (Clear); Bacteria,Urine Occasional /hpf; Bilirubin,Urine Negative (Negative); Blood,Urine Large (Negative); Color,Urine Yellow; Glucose,Urine (UA) Negative (Negative); Hyaline Casts,Urine 13 /lpf (0-2); Ketones,Urine 3+ (Negative); Leukocyte Esterase,Urine Large (Negative); Mucus,Urine Many /hpf; Nitrite,Urine Negative (Negative); Protein,Urine 2+ (Negative); RBC,Urine 166 /hpf (0-5); Specific Gravity,Urine 1.026 (1.001-1.035); Squamous Epithelial Cell,Urine 6 /hpf (0-4); WBC,Urine 136 /hpf (0-5)
[2022-10-11 22:46] LABS: ALT 19 U/L (4-34); AST 41 U/L (14-36); African American GFR (CKD) >90 (>60 ml/min/1.73 sqM); Albumin 3.7 g/dL (3.5-5.0); Alkaline Phosphatase 101 U/L (38-126); Anion Gap 11 mmol/L; Blood Urea Nitrogen 11 mg/dL (7-17); Calcium 8.4 mg/dL (8.4-10.2); Carbon Dioxide 28 mmol/L (22-30); Chloride 95 mmol/L (98-107); Glucose 99 mg/dL (74-99); Non-African American GFR(CKD) >90 (>60 ml/min/1.73 sqM); Sodium 134 mmol/L (137-145); Total Protein 6.6 g/dL (6.3-8.2)
[2022-10-11 23:12] LABS: Potassium 3.8 mmol/L (3.5-5.1)
[2022-10-11] MEDS ORDERED: MORPHINE SULFATE 4 MG/ML SYRINGE IVP STA (23:16)
--- NOTE | 2022-10-11 23:22 | CT ---
EXAMINATION TYPE: CT abdomen pelvis w con DATE OF EXAM: 10/11/2022 HISTORY: Abdominal pain, recent hysterectomy CT DLP: 1091mGycm Automated Exposure Control for Dose Reduction was Utilized. CONTRAST: CT scan of the abdomen and pelvis is performed without oral but with IV Contrast, patient injected wi th 100 mL of Isovue 300. COMPARISON: Prior CT 2 days ago FINDINGS: LUNG BASES: New mild to moderate bibasilar linear atelectasis. LIVER/GB: Cholecystectomy clip is redemonstrated. Small amount of nonsimple fluid or hemorrhage adjac ent to the liver again seen similar to prior PANCREAS: No significant abnormality is seen. SPLEEN: No significant abnormality is seen. ADRENALS: No significant abnormality is seen. KIDNEYS: Symmetric cortical medullary uptake and excretion on current study with new beaf-vb-uvcimiae right-sided hydronephrosis. Unable to follow the distal right ureter. Proximal hydroureter is noted. BOWEL: Suboptimal evaluation without enteric contrast. No suspicious bowel dilatation is seen. UTERUS/ADNEXA: Uterus is surgically absent. Heterogeneous hyperdense fluid redemonstrated throughout the pelvis extending into the lower abdomen and through the mesentery. Fluid is slightly more promine nt from prior CT. Tiny focus of air axial image 71 is decreased in size from prior study LYMPH NODES: No greater than 1cm abdominal or pelvic lymph nodes are appreciated. OSSEOUS STRUCTURES: Spine remains straightened on sagittal images. OTHER: No significant additional abnormality is seen. IMPRESSION: Moderate to large amount of nonsimple fluid or hemorrhage in the pelvis extending into th e abdomen is slightly more prominent from prior CT. No source of active bleed clearly seen on this st udy.
[2022-10-11 23:40] LABS: Partial Thromboplastin Time 27.8 sec (22.0-30.0); Prothrombin Time 10.8 sec (9.0-12.0)
[2022-10-12] MEDS ORDERED: MORPHINE SULFATE 4 MG/ML SYRINGE IV PRN (00:08)
[2022-10-12] MEDS ORDERED: NALOXONE 0.4 MG/ML 1 ML VIAL IV PRN (00:08)
[2022-10-12] MEDS: SODIUM CHLORIDE 0.9% 1,000 ML IV SCH ×2 (00:17→19:33)
[2022-10-12] MEDS ORDERED: MORPHINE SULFATE 2 MG/ML SYRINGE IVP PRN (01:10)
[2022-10-12] MEDS: ACETAMINOPHEN TAB 500 MG TAB PO PRN ×3 (01:21→23:47)
[2022-10-12] MEDS: KETOROLAC 15 MG/ML 1 ML VIAL IVP SCH ×4 (04:00→21:10)
--- NOTE | 2022-10-12 08:15 | P.HPOB ---
History of Present Illness H&P Date: 10/12/22 Chief Complaint: Persistent abdominal pain This is a 52-year-old female status post vaginal hysterectomy with anterior and posterior colporrhaphy under my care 8 days ago at our institution. She was discharged home on postoperative day without issue. On the second postoperative day she had a rather forceful bowel movement at home, at which time abdominal pain commenced. The pain worsened and she was admitted over the weekend with a computed tomography scan diagnosis of pelvic hematoma, largest dimension 9 cm. Serial hemoglobins were followed and were stable. She was discharged home 2 days ago. Last night she was readmitted with abdominal pain not being alleviated by oral narcotics. Hemoglobin is stable, 10.7, pulse 92. After thorough discussion we have elected to proceed with diagnostic laparoscopy and suction irrigation of the pelvis to evacuate the hematoma. Past medical history is significant for kidney stones in the past, otherwise essentially negative. Past surgical history as above, cholecystectomy. Family history significant for PE in Beavers sarcoma. Social history patient is a nonsmoker, she denies alcohol or drug use. She is and lives locally. Current medications Fidelity 5/325 as needed for pain. On exam patient is 5 foot 4 inches, 84 kg, vital signs are stable and she is afebrile. Chest is clear in all [place]. Extremities are negative. Abdomen is softly distended, mild rebound, minimal guarding. No CVA tenderness. Scant vaginal bleeding noted. Impression: 8 days postop from vaginal hysterectomy anterior posterior colporrhaphy, with the pelvic hematoma. Second admission for abdominal pain. Patient is hemodynamically stable. Plan: After thorough discussion we've elected to proceed with diagnostic laparoscopy, irrigation of the pelvis and evacuation of any blood in the pelvis, and surgery as indicated. All risks benefits and alternatives of the surgery are discussed, including possible damage to the bowel, bladder, blood vessels, ureters. All questions answered. Anesthesia aware. Past Medical History Past Medical History: GERD/Reflux, Hypertension Additional Past Medical History / Comment(s): kidney stones 20 years ago, no medication for hypertension History of Any Multi-Drug Resistant Organisms: None Reported Past Surgical History: Cholecystectomy, Hysterectomy, Uterine Ablation Additional Past Surgical History / Comment(s): oral surgery. Colonoscopy 2 015(next age 52) Past Anesthesia/Blood Transfusion Reactions: Motion Sickness Past Psychological History: Anxiety Smoking Status: Former smoker Past Alcohol Use History: None Reported Past Drug Use History: Marijuana Additional Drug Use History / Comment(s): Edibles for sleep, none in over 3 weeks. - Past Family History Father Family Medical History: Cancer Additional Family Medical History / Comment(s): Lung cancer. An uncle had lung cancer as well. Brother(s) Family Medical History: Cancer Additional Family Medical History / Comment(s): Beavers sarcoma. Mother Family Medical History: Pulmonary Embolus Aunt Family Medical History: Cancer Additional Family Medical History / Comment(s): Breast cancer. Medications and Allergies Home Medications Medication Instructions Recorded Confirmed Type Famotidine [Pepcid] 20 mg PO QAM 04/16/21 09/29/22 History Mirtazapine 7.5 mg PO HS 04/16/21 09/29/22 History Allergies Allergy/AdvReac Type Severity Reaction Status Date / Time No Known Allergies Allergy Verified 10/11/22 21:58 Exam Vital Signs Temp Pulse Pulse Resp BP BP Pulse Ox 10/12/22 04:00 98.6 F 87 16 114/74 96 10/12/22 02:30 99.0 F 103 H 16 122/78 96 10/12/22 00:42 100.5 F H 113 H 16 120/83 98 10/11/22 23:08 130/80 10/11/22 21:54 99.2 F 101 H 20 126/70 98 Intake and Output 10/11/22 10/12/22 10/12/22 22:59 06:59 14:59 Other: # Voids 2 Weight 84.368 kg 84.368 kg See dictation under HPI please Results Result Diagrams: 10/11/22 22:07 10/11/22 22:07 Abnormal Lab Results - Last 24 Hours (Table) 10/11/22 10/11/22 10/11/22 Range/Units 22:07 22:07 22:14 WBC 13.7 H (3.8-10.6) k/uL RBC 3.52 L (3.80-5.40) m/uL Hgb 10.7 L (11.4-16.0) gm/dL Hct 31.6 L (34.0-46.0) % Plt Count 485 H (150-450) k/uL Neutrophils # 11.8 H (1.3-7.7) k/uL Sodium 134 L (137-145) mmol/L Chloride 95 L (98-107) mmol/L Creatinine 0.44 L (0.52-1.04) mg/dL Total Bilirubin 2.0 H (0.2-1.3) mg/dL AST 41 H (14-36) U/L Urine Appearance Cloudy H (Clear) Urine Protein 2+ H (Negative) Urine Ketones 3+ H (Negative) Urine Blood Large H (Negative) Ur Leukocyte Esterase Large H (Negative) Urine RBC 166 H (0-5) /hpf Urine WBC 136 H (0-5) /hpf Urine WBC Clumps Rare H (None) /hpf Ur Squamous Epith Cells 6 H (0-4) /hpf Urine Bacteria Occasional H (None) /hpf Hyaline Casts 13 H (0-2) /lpf Urine Mucus Many H (None) /hpf Assessment and Plan Assessment: 8 days status post vaginal hysterectomy and anterior and posterior colpo rrhaphy's, pelvic hematoma. Plan: For diagnostic laparoscopy, irrigation of the pelvis and evacuation of hematoma. All risks benefits and alternatives of surgery have been discussed in detail. All questions answered. Time with Patient: Less than 30
[2022-10-12] MEDS ORDERED: IV FLUID CONTINUATION 600 ML IV ONE (09:18)
[2022-10-12] MEDS ORDERED: ONDANSETRON 4 MG/2 ML VIAL ONE (09:28)
[2022-10-12] MEDS ORDERED: ONDANSETRON 4 MG/2 ML VIAL IVP ONE (09:32)
[2022-10-12] MEDS ORDERED: DEXAMETHASONE SOD PHOSPHATE 4 MG/ML 1 ML VIAL IVP ONE (09:32)
[2022-10-12] MEDS ORDERED: MIDAZOLAM 2 MG/2 ML VIAL IVP ONE (09:32)
[2022-10-12] MEDS ORDERED: LIDOCAINE 2% INJ 20 MG/ML (2 ML VIAL) ONE (10:19)
[2022-10-12] MEDS ORDERED: HYDROmorphone (PF) 1 MG/ML ONE (10:19)
[2022-10-12] MEDS ORDERED: fentaNYL (PF) 50 MCG/ML 2 ML AMP ONE (10:19)
[2022-10-12] MEDS ORDERED: NEOSTIGMINE 1 MG/ML 10 ML VIAL ONE (10:19)
[2022-10-12] MEDS ORDERED: PROPOFOL 10 MG/ML 20 ML VIAL IV ONE (10:19)
[2022-10-12] MEDS ORDERED: SUCCINYLCHOLINE CHLORIDE 200 MG/10 ML VIAL IV ONE (10:19)
[2022-10-12] MEDS ORDERED: GLYCOPYRROLATE 0.2 MG/ML 2 ML VIAL ONE (10:19)
[2022-10-12] MEDS ORDERED: MIDAZOLAM 2 MG/2 ML VIAL ONE (10:19)
[2022-10-12] MEDS ORDERED: ROCURONIUM 10 MG/ML (5 ML VIAL) IV ONE (10:19)
[2022-10-12] MEDS ORDERED: BUPIVACAINE (PF) 0.25% 30 ML VIAL SQ ONE ×2 (10:50)
[2022-10-12] MEDS ORDERED: LACTATED RINGERS 1,000 ML IV ONE ×2 (10:50→11:10)
[2022-10-12] MEDS ORDERED: IBUPROFEN 600 MG TAB PO PRN (11:19)
[2022-10-12] MEDS ORDERED: KETOROLAC 15 MG/ML 1 ML VIAL IVP PRN (11:19)
[2022-10-12] MEDS ORDERED: diphenhydrAMINE 50 MG/ML 1 ML VIAL IVP PRN (11:19)
[2022-10-12] MEDS ORDERED: ONDANSETRON 4 MG/2 ML VIAL IVP PRN (11:19)
[2022-10-12] MEDS ORDERED: METOCLOPRAMIDE 5 MG/ML 2 ML VIAL IVP PRN (11:19)
--- NOTE | 2022-10-12 11:19 | P.OP ---
Date of Procedure: 10/12/22 Preoperative Diagnosis: Hematoma in the pelvis, increased abdominal pain Postoperative Diagnosis: Same, normal-appearing tubes and ovaries, normal-appearing vaginal cough, no active bleeding. Procedure(s) Performed: Diagnostic laparoscopy, irrigation of pelvic hematoma. Partial evacuation of hematoma. Anesthesia: GETA Surgeon: Smita Rutherford Estimated Blood Loss (ml): 10 IV fluids (ml): 600 Urine output (ml): 50 Pathology: none sent Condition: stable Disposition: PACU Operative Findings: There was a broad based shallow hematoma noted along the lower pelvis. Generalized inflammation. No obvious bleeding from any source. Description of Procedure: Patient is brought to the operating room, 2 g of Ancef given preoperatively. She's placed in the dorsal lithotomy position after a general anesthetic is administered without difficulty. The pelvis and abdomen are prepped and draped in usual sterile fashion. Bladder is drained with a red Anaya catheter. A small Vernon speculum is used into the vagina to inspect the vaginal cough. The cuff appears intact with a small amount of bleeding. A [id number] suture is placed on the perineal body for a slight opening of tissue at that point. Attention is now drawn to the abdomen. Veress needle is placed and the abdomen is insufflated under low filling pressures of 6-12 mmHg for a total of 2 L of CO2 gas. Veress needle was removed. Trochars placed under direct visualization. A second incision is made in the right lower quadrant and a second trocar is placed under direct visualization. The pelvis is now inspected and noted to contain a shallow but broad-based collection of blood. There is no active bleeding noted from any source. Bilateral ovaries and tubes appear normal. The scope is brought into the upper abdomen as well, no defects or issues are noted to inspection. Bisque Grader is used to irrigate hematoma and partially break it up. It is then suctioned out. There is a layer of old blood that remains in situ. Surgical "smell" is placed over the vaginal cough and lower pelvis globally. This is done prophylactically. Trochars are removed under direct visualization. Fascial defects are clean and dry. 3-0 undyed Vicryl is used in a subcuticular manner and the 2 small incisions, Steri-Strips and Mastisol applied. Zamudio catheter is placed to direct drainage, urine is clear. All sponge needle and enhancement counts are correct. Patient brought back to recovery room in good condition with stable vital signs including blood pressure 101/61, pulse 89, 100% O2 saturation. Picture documentation is taken for reference. Complications: None
[2022-10-12] MEDS ORDERED: HYDROmorphone 0.5 MG/0.5 ML SYRINGE IVP ONE ×2 (11:36→11:46)
[2022-10-12] MEDS: SIMETHICONE 80 MG CHEWABLE PO PRN ×2 (16:33→21:10)
[2022-10-13] MEDS: KETOROLAC 15 MG/ML 1 ML VIAL IVP SCH (05:31)
[2022-10-13 07:21] LABS: Basophils % (A) 0 %; Eosinophils % (A) 0 %; HCT 28.4 % (34.0-46.0); HGB 9.5 gm/dL (11.4-16.0); Lymphocytes # (A) 1.2 k/uL (1.0-4.8); Lymphocytes % (A) 8 %; MCH 29.8 pg (25.0-35.0); MCHC 33.2 g/dL (31.0-37.0); MCV 89.8 fL (80.0-100.0); Mean Platelet Volume 7.6; Monocytes # (A) 0.7 k/uL (0-1.0); Monocytes % (A) 4 %; Neutrophils # (A) 13.1 k/uL (1.3-7.7); Neutrophils % (A) 86 %; Platelet Count 552 k/uL (150-450); RBC 3.17 m/uL (3.80-5.40); RDW 13.4 % (11.5-15.5); WBC 15.2 k/uL (3.8-10.6)
--- NOTE | 2022-10-13 07:30 | P.DS ---
Providers Date of admission: 10/12/22 00:08 Expected date of discharge: 10/13/22 Attending physician: Smita Rutherford Consults: 10/12/22 07:33 Consult Physician Routine Consulting Provider: [facility] Consult Reason/Comments: [facility] Do you want consulting provider notified?: Yes Primary care physician: Hamzah Weeks MD Hospital Course: This is a 52-year-old female status post vaginal hysterectomy, anterior and posterior colporrhaphy's who was readmitted for the second time early yesterday morning with abdominal pain. She had a postoperative intraperitoneal bleed that was noted per CAT scan. She was initially seen and evaluated, was judged to be hemodynamically stable and discharged home again over the weekend. She read presented complaining of abdominal pain and anxiety. Decision was made to proceed with diagnostic laparoscopy. This was performed yesterday, no active bleeding was noted, there was old blood in the pelvis that was irrigated and suctioned. Patient did well intraoperatively. Please see my dictated history and physical as well as operative notes. This morning the patient feels greatly improved. Her vital signs are stable and she is afebrile. Morning hemoglobin is pending, hemoglobin 10.7 on admission. Incisions are clean and dry. She is passing flatus and voiding. She is judged to be in good condition for discharge home. She has a prescription for [place] that was given over the weekend that she will use sparingly as needed, Motrin or Advil are preferred modalities at this point. She will call with any vaginal bleeding, pain not alleviated by [place] or Advil, with any difficulties urination or with defecation, or indeed with any concerns. She will follow-up with me in the office in 2 weeks. Assessment: Doing well postoperative day #1 Patient Condition at Discharge: Good Plan - Discharge Summary Discharge Rx Participant: No New Discharge Prescriptions: No Action Famotidine [Pepcid] 20 mg PO QAM Mirtazapine 7.5 mg PO HS Discharge Medication List Famotidine [Pepcid] 20 mg PO QAM 04/16/21 [History] Mirtazapine 7.5 mg PO HS 04/16/21 [History] Follow up Appointment(s)/Referral(s): Smita Rutherford MD [STAFF PHYSICIAN] - 2 Weeks Discharge Disposition: HOME SELF-CARE
[2022-10-13 08:26] VITALS: BP 120/77; PULSE 90; RESP 14; TEMP 98.7
== END 2022-10-13 08:28 | disposition home or self-care (01) ==
LOC: EC 21:23 → 4FBP 10-12 00:08
PROVIDERS: ADMIT Obstetrics & Gynecology; ATTEND Obstetrics & Gynecology
DX: N94.89 Other specified conditions associated with female genital organs and menstrual cycle (principal); K21.9 Gastro-esophageal reflux disease without esophagitis; F41.9 Anxiety disorder, unspecified; I10 Essential (primary) hypertension; J98.11 Atelectasis; N13.30 Unspecified hydronephrosis; Z90.710 Acquired absence of both cervix and uterus; Z79.899 Other long term (current) drug therapy; Z90.49 Acquired absence of other specified parts of digestive tract; Z80.1 Family history of malignant neoplasm of trachea, bronchus and lung; Z80.8 Family history of malignant neoplasm of other organs or systems; Z80.3 Family history of malignant neoplasm of breast; Z83.2 Family history of diseases of the blood and blood-forming organs and certain disorders involving the immune mechanism; Z87.442 Personal history of urinary calculi
CPT/HCPCS: 36415; 74177; 80053; 81001; 83605; 85025; 85610; 85730; 96365; 96375; 96376; 99285

== ENCOUNTER 2022-10-13 21:31 | Inpatient (IN) | payer OTHER ==
--- NOTE | 2022-10-13 22:28 | ED ---
General Adult HPI - General Stated complaint: Post-Op Vaginal Bleeding, Pain Time Seen by Provider: 10/13/22 22:26 Source: patient, RN notes reviewed Mode of arrival: ambulatory Limitations: no limitations - History of Present Illness Initial comments: Patient is a 52-year-old female who presents to the emergency department for abdominal pain. Patient had a hysterectomy with Dr. Rutherford on 10/04. This is patient's third visit for abdominal pain postoperative. Patient states during her last visit she was taken back into the OR where the bleed was addressed. She was discharged today. Since discharge she has had vaginal increased bleeding and pain soaking 4-5 pads. She reports nausea with multiple episodes of vomiting. No fever but does admit to chills. - Related Data Home Medications Medication Instructions Recorded Confirmed Famotidine [Pepcid] 20 mg PO QAM 04/16/21 09/29/22 Mirtazapine 7.5 mg PO HS 04/16/21 09/29/22 Allergies Allergy/AdvReac Type Severity Reaction Status Date / Time No Known Allergies Allergy Verified 10/13/22 22:26 Review of Systems ROS Statement: Those systems with pertinent positive or pertinent negative responses have been documented in the HPI. ROS Other: All systems not noted in ROS Statement are negative. Past Medical History Past Medical History: GERD/Reflux, Hypertension Additional Past Medical History / Comment(s): kidney stones 20 years ago, no medication for hypertension History of Any Multi-Drug Resistant Organisms: None Reported Past Surgical History: Cholecystectomy, Hysterectomy, Uterine Ablation Additional Past Surgical History / Comment(s): oral surgery. Colonoscopy 2014(next age 52) Past Anesthesia/Blood Transfusion Reactions: Motion Sickness Past Psychological History: Anxiety Smoking Status: Former smoker Past Alcohol Use History: None Reported Past Drug Use History: Marijuana - Past Family History Father Family Medical History: Cancer Additional Family Medical History / Comment(s): Lung cancer. An uncle had lung cancer as well. Brother(s) Family Medical History: Cancer Additional Family Medical History / Comment(s): Beavers sarcoma. Mother Family Medical History: Pulmonary Embolus Aunt Family Medical History: Cancer Additional Family Medical History / Comment(s): Breast cancer. General Exam - General Exam Comments Initial Comments: Visual Physical Exam Vital signs reviewed General: Well-appearing, nontoxic, appears to be in pain Head: Normocephalic, atraumatic Eyes: PERRLA, EOMI ENT: Airway patent Chest: Nonlabored breathing Skin: No visual rash, normal skin tone Neuro: Alert and oriented 3 Musculoskeletal: No gross abnormalities Limitations: no limitations General appearance: alert, in distress (pain) Head exam: Present: atraumatic, normocephalic, normal inspection Respiratory exam: Present: normal lung sounds bilaterally. Absent: respiratory distress, wheezes, rales, rhonchi, stridor Cardiovascular Exam: Present: regular rate, normal rhythm, normal heart sounds. Absent: systolic murmur, diastolic murmur, rubs, gallop, clicks GI/Abdominal exam: Present: soft, tenderness (Significant generalized worse in right abdomen), guarding, rebound (Right abdomen), normal bowel sounds. Absent: distended, rigid Neurological exam: Present: alert, oriented X3, CN II-XII intact Psychiatric exam: Present: normal affect, normal mood Skin exam: Present: warm, dry, intact, normal color. Absent: rash Course Vital Signs 10/13/22 10/14/22 22:22 02:18 Temperature 98.7 F 99.9 F H Pulse Rate 125 H 100 Respiratory 20 18 Rate Blood Pressure 117/70 140/60 O2 Sat by Pulse 96 95 Oximetry Medical Decision Making - Medical Decision Making Was pt. sent in by a medical professional or institution (, ROD, INFORMATION TECHNOLOGY COORDINATOR, urgent care, hospital, or skilled nursing...) When possible be specific @ -No Did you speak to anyone other than the patient for history (EMS, parent, family, police, friend...)? What history was obtained from this source @ -No Did you review nursing and triage notes (agree or disagree)? Why? @ -I reviewed and agree with nursing and triage notes Were old charts reviewed (outside hosp., previous admission, EMS record, old EKG, old radiological studies, urgent care reports/EKG's, skilled nursing records)? Report findings @ -Yes, but Dr. Rutherford's operative note. During the laparoscopic procedure there is no active bleeding and existing blood was suctioned. Differential Diagnosis (chest pain, altered mental status, abdominal pain women, abdominal pain men, vaginal bleeding, weakness, fever, dyspnea, syncope, headache, dizziness, GI bleed, back pain, seizure, CVA, palpatations, mental health)? @ -Differential Abdominal Pain Women: Appendicitis, Cholecystitis, diverticulosis, ischemic bowel, pancreatitis, hepatitis, UTI, gastroenteritis, AAA, incarcerated hernia, bowel obstruction, constipation, inflammatory bowel, hepatitis, peptic ulcer disease, splenic infarction, perforated viscus, vulvitis, ovarian torsion, PID, kidney stone, pl acenta abruption, abscess this is not meant to be an all-inclusive list EKG interpreted by me (3pts min.). @ -As above X-rays interpreted by me (1pt min.). @ -None done CT interpreted by me (1pt min.). @ -CT of the abdomen and pelvis with contrast shows a postoperative intra- abdominal abscess measuring at least 19 cm. No perforation. There is enteritis with reactive thickening secondary to abscess. U/S interpreted by me (1pt. min.). @ -None done What testing was considered but not performed or refused? (CT, X-rays, U/S, l abs)? Why? @ -None What meds were considered but not given or refused? Why? @ -None Did you discuss the management of the patient with other professionals (professionals i.e. , PA, INFORMATION TECHNOLOGY COORDINATOR, lab, RT, psych nurse, case management social worker, electric tool repairer, teacher, parole or probation officer, child welfare caseworker)? Give summary @ -No Was smoking cessation discussed for >3mins.? @ -[No] Was critical care preformed (if so, how long)? @ -[No] Were there social determinants of health that impacted care today? How? (Homelessness, low income, unemployed, alcoholism, drug addiction, transportation, low edu. Level, literacy, decrease access to med. care, care home, rehab)? @ -[No] Was there de-escalation of care discussed even if they declined (Discuss DNR or withdrawal of care, Hospice)? DNR status @ -[No] What co-morbidities impacted this encounter? (DM, HTN, Smoking, COPD, CAD, Cancer, CVA, ARF, Chemo, Hep., AIDS, mental health diagnosis, sleep apnea, morbid obesity)? @ -[None] Was patient admitted / discharged? Hospital course, mention meds given and route, prescriptions, significant lab abnormalities, going to OR and other pertinent info. @ Patient presenting for postoperative, pain and vaginal bleeding. Patient appears to be in significant pain. The abdomen is soft there is generalized tenderness with significant right-sided tenderness including rebound. Patient is tachycardic at 125. Initially afebrile. Blood cultures obtained.Labs obtained significant for leukocytosis at 17.3, increased from 15.2 this morning. Hemoglobin is actually increased from 9.5 this morning to 10.5 currently. There is thrombocytosis at 689, increased from 552 this morning. There is hypokalemia at 3.0, suspect secondary to poor oral intake and vomiting. Other laboratory studies are relatively unremarkable. Patient did spike a fever during visit which was treated with Offirmev. CT shows a postoperative intra-abdominal abscess measuring at least 19 cm. No perforation. IV Zosyn initiated. Sepsis diagnosis made at 02:00 secondary to postoperative abscess. Case discussed with Dr. Turner patient will be a dmitted to her for further evaluation and treatment of abscess. Interventional radiology consulted. Pain and vomiting controlled patient admitted in stable condition Undiagnosed new problem with uncertain prognosis? @ -[No] Drug Therapy requiring intensive monitoring for toxicity (Heparin, Nitro, Insulin, Cardizem)? @ -[No] Were any procedures done? @ -[No] Diagnosis/symptom? @ -Postoperative intra-abdominal abscess Acute, or Chronic, or Acute on Chronic? @ -Acute Uncomplicated (without systemic symptoms) or Complicated (systemic symptoms)? @ -complicated Side effects of treatment? @ -[No] Exacerbation, Progression, or Severe Exacerbation? @ -[No] Poses a threat to life or bodily function? How? (Chest pain, USA, ID, pneumonia, PE, COPD, DKA, ARF, appy, cholecystitis, CVA, Diverticulitis, Homicidal, Suicidal, threat to staff... and all critical care pts) @ -Yes Dr. Senior is my attending - Lab Data Result diagrams: 10/13/22 23:05 10/13/22 23:05 Lab Results 10/13/22 10/13/22 10/13/22 Range/Units 23:05 23:05 23:05 WBC 17.3 H (3.8-10.6) k/uL RBC 3.51 L (3.80-5.40) m/uL Hgb 10.5 L (11.4-16.0) gm/dL Hct 31.3 L (34.0-46.0) % MCV 89.3 (80.0-100.0) fL MCH 30.0 (25.0-35.0) pg MCHC 33.6 (31.0-37.0) g/dL RDW 13.3 (11.5-15.5) % Plt Count 689 H (150-450) k/uL MPV 6.8 Neutrophils % 87 % Lymphocytes % 7 % Monocytes % 3 % Eosinophils % 1 % Basophils % 0 % Neutrophils # 15.2 H (1.3-7.7) k/uL Lymphocytes # 1.3 (1.0-4.8) k/uL Monocytes # 0.6 (0-1.0) k/uL Eosinophils # 0.2 (0-0.7) k/uL Basophils # 0.0 (0-0.2) k/uL Sodium 136 L (137-145) mmol/L Potassium 3.0 L (3.5-5.1) mmol/L Chloride 95 L (98-107) mmol/L Carbon Dioxide 28 (22-30) mmol/L Anion Gap 13 mmol/L BUN 10 (7-17) mg/dL Creatinine 0.46 L (0.52-1.04) mg/dL Est GFR (CKD-EPI)AfAm >90 (>60 ml/min/1.73 sqM) Est GFR (CKD-EPI)NonAf >90 (>60 ml/min/1.73 sqM) Glucose 116 H (74-99) mg/dL Plasma Lactic Acid Rory 0.8 (0.7-2.0) mmol/L Calcium 8.5 (8.4-10.2) mg/dL Total Bilirubin 0.9 (0.2-1.3) mg/dL AST 26 (14-36) U/L ALT 17 (4-34) U/L Alkaline Phosphatase 128 H (38-126) U/L Total Protein 6.1 L (6.3-8.2) g/dL Albumin 3.4 L (3.5-5.0) g/dL Lipase 61 (23-300) U/L Blood Type Blood Type Recheck Bld Type Recheck Status Antibody Screen Spec Expiration Date 10/13/22 Range/Units 23:05 WBC (3.8-10.6) k/uL RBC (3.80-5.40) m/uL Hgb (11.4-16.0) gm/dL Hct (34.0-46.0) % MCV (80.0-100.0) fL MCH (25.0-35.0) pg MCHC (31.0-37.0) g/dL RDW (11.5-15.5) % Plt Count (150-450) k/uL MPV Neutrophils % % Lymphocytes % % Monocytes % % Eosinophils % % Basophils % % Neutrophils # (1.3-7.7) k/uL Lymphocytes # (1.0-4.8) k/uL Monocytes # (0-1.0) k/uL Eosinophils # (0-0.7) k/uL Basophils # (0-0.2) k/uL Sodium (137-145) mmol/L Potassium (3.5-5.1) mmol/L Chloride (98-107) mmol/L Carbon Dioxide (22-30) mmol/L Anion Gap mmol/L BUN (7-17) mg/dL Creatinine (0.52-1.04) mg/dL Est GFR (CKD-EPI)AfAm (>60 ml/min/1.73 sqM) Est GFR (CKD-EPI)NonAf (>60 ml/min/1.73 sqM) Glucose (74-99) mg/dL Plasma Lactic Acid Rory (0.7-2.0) mmol/L Calcium (8.4-10.2) mg/dL Total Bilirubin (0.2-1.3) mg/dL AST (14-36) U/L ALT (4-34) U/L Alkaline Phosphatase (38-126) U/L Total Protein (6.3-8.2) g/dL Albumin (3.5-5.0) g/dL Lipase (23-300) U/L Blood Type O Positive Blood Type Recheck O Pos Bld Type Recheck Status No Antibody Screen NEGATIVE Spec Expiration Date 10/16/20222304 Critical Care Time Critical Care Time: Yes Total Critical Care Time: 32 (sepsis workup, reading CT, reporting case to Dr. Turner, treatment) Disposition Clinical Impression: Postoperative intra-abdominal abscess Disposition: ADMITTED IP TO THIS HOSP Condition: Stable
[2022-10-13 23:23] LABS: Basophils % (A) 0 %; Eosinophils # (A) 0.2 k/uL (0-0.7); Eosinophils % (A) 1 %; HCT 31.3 % (34.0-46.0); HGB 10.5 gm/dL (11.4-16.0); Lymphocytes # (A) 1.3 k/uL (1.0-4.8); Lymphocytes % (A) 7 %; MCHC 33.6 g/dL (31.0-37.0); MCV 89.3 fL (80.0-100.0); Mean Platelet Volume 6.8; Monocytes # (A) 0.6 k/uL (0-1.0); Monocytes % (A) 3 %; Neutrophils # (A) 15.2 k/uL (1.3-7.7); Neutrophils % (A) 87 %; Platelet Count 689 k/uL (150-450); RBC 3.51 m/uL (3.80-5.40); RDW 13.3 % (11.5-15.5); WBC 17.3 k/uL (3.8-10.6)
[2022-10-13 23:37] LABS: ALT 17 U/L (4-34); AST 26 U/L (14-36); African American GFR (CKD) >90 (>60 ml/min/1.73 sqM); Albumin 3.4 g/dL (3.5-5.0); Alkaline Phosphatase 128 U/L (38-126); Anion Gap 13 mmol/L; Blood Urea Nitrogen 10 mg/dL (7-17); Calcium 8.5 mg/dL (8.4-10.2); Carbon Dioxide 28 mmol/L (22-30); Chloride 95 mmol/L (98-107); Glucose 116 mg/dL (74-99); Lipase 61 U/L (23-300); Non-African American GFR(CKD) >90 (>60 ml/min/1.73 sqM); Sodium 136 mmol/L (137-145); Total Bilirubin 0.9 mg/dL (0.2-1.3); Total Protein 6.1 g/dL (6.3-8.2)
[2022-10-14] MEDS ORDERED: SODIUM CHLORIDE 0.9% 1,000 ML IV STA ×2 (00:13→01:41)
[2022-10-14] MEDS ORDERED: HYDROmorphone 0.5 MG/0.5 ML SYRINGE IVP STA ×2 (00:13→01:17)
[2022-10-14] MEDS ORDERED: POTASSIUM CHLORIDE ER 20 MEQ TAB.ER PO STA (00:13)
[2022-10-14] MEDS ORDERED: ONDANSETRON 4 MG/2 ML VIAL IVP STA (00:23)
--- NOTE | 2022-10-14 02:03 | CT ---
EXAM: CT Abdomen and Pelvis With Intravenous Contrast CLINICAL HISTORY: ITS.REASON CT Reason: post op TECHNIQUE: Axial computed tomography images of the abdomen and pelvis with intravenous contrast. CTDI is 26 mGy and DLP is 1592 mGy-cm. This CT exam was performed using one or more of the following dose reduction techniques: automated exposure control, adjustment of the mA and/or kV according to patient size, and/or use of iterative reconstruction technique. COMPARISON: No relevant prior studies available. FINDINGS: Lung bases: Unremarkable. No mass. No consolidation. ABDOMEN: Liver: Unremarkable. No mass. Gallbladder and bile ducts: Unremarkable. No calcified stones. No ductal dilation. Pancreas: Unremarkable. No mass. No ductal dilation. Spleen: Unremarkable. No splenomegaly. Adrenals: Unremarkable. No mass. Kidneys and ureters: Unremarkable. No solid mass. No hydronephrosis. Stomach and bowel: Large collection of air and fluid within the anterior abdomen extending from the right mid abdomen in an oblique fashion towards the pelvis measuring roughly 6.8 x 19 cm. There are a number of hyperemic thick-walled loops of small bowel consistent with enteritis. The etiology of the above mentioned fluid collection is not clearly appreciated on this study. The appendix is unremarkable uterus is surgically absent. PELVIS: Appendix: See above. Bladder: Unremarkable. No mass. Reproductive: Unremarkable as visualized. ABDOMEN and PELVIS: Intraperitoneal space: Unremarkable. No free air. No significant fluid collection. Bones/joints: No acute fracture. No dislocation. Soft tissues: Unremarkable. Vasculature: Unremarkable. No abdominal aortic aneurysm. Lymph nodes: Unremarkable. No enlarged lymph nodes. IMPRESSION: 1. Postoperative intra-abdominal abscess as described above measuring at least 19 cm. This would be amenable to percutaneous drainage. 2. Enteritis with reactive wall thickening secondary to the above- mentioned fluid collection. 3. Normal appearing appendix
[2022-10-14] MEDS ORDERED: PIPERACILLIN-TAZOBACTAM 3.375 GM in SODIUM CHLORIDE 0.9% 100 ML IVPB STA (02:05)
[2022-10-14] MEDS ORDERED: PROCHLORPERAZINE INJ 10 MG/2 ML VIAL IVP STA (02:15)
[2022-10-14] MEDS ORDERED: HYDROmorphone 1 MG/ML 1 ML SYRINGE IVP PRN (02:21)
[2022-10-14] MEDS ORDERED: NALOXONE 0.4 MG/ML 1 ML VIAL IV PRN (02:22)
[2022-10-14] MEDS ORDERED: ONDANSETRON 4 MG/2 ML VIAL IVP PRN (02:22)
[2022-10-14] MEDS ORDERED: ACETAMINOPHEN IV (For NPO) 1,000 MG in EMPTY BAG 1 BAG IVPB STA (02:26)
[2022-10-14] MEDS: SODIUM CHLORIDE 0.9% 1,000 ML IV SCH ×3 (03:32→16:30)
[2022-10-14] MEDS: ACETAMINOPHEN IV (For NPO) 1,000 MG in EMPTY BAG 1 BAG IVPB SCH ×3 (08:41→21:02)
[2022-10-14] MEDS: HYDROmorphone 1 MG/ML 1 ML SYRINGE IVP PRN ×4 (08:42→20:58)
--- NOTE | 2022-10-14 08:47 | P.HPOB ---
History of Present Illness H&P Date: 10/14/22 Chief Complaint: Abdominal pain and vaginal bleeding This is a 52-year-old postop day 10 status post total vaginal hysterectomy with anterior and posterior colporrhaphy and postop day 2 status post exploratory laparoscopy with evacuation of hematoma with Dr. Rutherford who re-presents with worsening severe on right lower quadrant pain and generalized abdominal pain and vaginal bleeding. Computed tomography scan of the abdomen and pelvis show a 6.8 x 19 cm complex fluid and air collection in the abdomen of uncertain etiology but consistent with possible abscess. There is hyperemic thick walled loops of bowel consistent with enteritis. The appendix is unremarkable. The patient currently is complaining of nausea, vomiting and pain. She is having dark red vaginal bleeding. She is able to spontaneously void small amounts but has not had a bowel movement for several days. She has also not eaten consistently for several days and her appetite is decreased. Review of computed tomography scan in comparison dated 10/11/2022 also noted at that time right hydronephrosis and right hydroureter. The course of the ureter could not be followed on that study. Findings at the time of the laparoscopy did not show obvious source of postoperative bleeding abdominally or vaginally. This was not noted on current computed tomography scan. Her Bun and creatinine are normal. Her labs otherwise were significant for an elevated white blood cell count of 17.3, hemoglobin 10.5, potassium 3.0. Review of Systems Constitutional: Reports fatigue, Reports weakness Cardiovascular: Denies chest pain, Denies irregular heart beat, Denies shortness of breath Respiratory: Denies cough Gastrointestinal: Reports abdominal pain, Reports belching, Reports bloating, R eports diarrhea, Reports nausea, Reports vomiting, Denies hematemesis Genitourinary: Reports abnormal vaginal bleeding, Denies dysuria Neurological: Reports as per HPI Psychiatric: Reports as per HPI Past Medical History Past Medical History: GERD/Reflux, Hypertension Additional Past Medical History / Comment(s): kidney stones 20 years ago, no medication for hypertension History of Any Multi-Drug Resistant Organisms: None Reported Past Surgical History: Cholecystectomy, Hysterectomy, Uterine Ablation Additional Past Surgical History / Comment(s): oral surgery. Colonoscopy 2014( next age 52) Past Anesthesia/Blood Transfusion Reactions: Motion Sickness Past Psychological History: Anxiety Smoking Status: Former smoker Past Alcohol Use History: None Reported Past Drug Use History: Marijuana Additional Drug Use History / Comment(s): Edibles for sleep, none in over 3 weeks. - Past Family History Father Family Medical History: Cancer Additional Family Medical History / Comment(s): Lung cancer. An uncle had lung cancer as well. Brother(s) Family Medical History: Cancer Additional Family Medical History / Comment(s): Beavers sarcoma. Mother Family Medical History: Pulmonary Embolus Aunt Family Medical History: Cancer Additional Family Medical History / Comment(s): Breast cancer. Medications and Allergies Home Medications Medication Instructions Recorded Confirmed Type Famotidine [Pepcid] 20 mg PO QAM 04/16/21 09/29/22 History Mirtazapine 7.5 mg PO HS 04/16/21 09/29/22 History Allergies Allergy/AdvReac Type Severity Reaction Status Date / Time No Known Allergies Allergy Verified 10/13/22 22:26 Exam Vital Signs Temp Pulse Pulse Resp BP BP Pulse Ox 10/14/22 08:00 98.9 F 109 H 17 144/87 93 L 10/14/22 02:18 99.9 F H 100 18 140/60 95 10/13/22 22:22 98.7 F 125 H 20 117/70 96 Intake and Output 10/13/22 10/14/22 10/14/22 22:59 06:59 14:59 Other: Voiding Method Toilet # Voids 1 Weight 84.368 kg 84.368 kg This is an acutely ill appearing female in some distress. HEENT exam is unremarkable. Her breathing is unlabored and her heart is regular rhythm but mildly tachycardic. The abdomen is distended and tense in all 4 quadrants. She has intact dressings 2 from recent laparoscopy which are dry. On external pelvic examination she has a trickle of dark red vaginal bleeding. The extremities show no edema or erythema. Neurologically she is grossly intact alert and oriented. Results Result Diagrams: 10/13/22 23:05 10/13/22 23:05 Abnormal Lab Results - Last 24 Hours (Table) 10/13/22 10/13/22 Range/Units 23:05 23:05 WBC 17.3 H (3.8-10.6) k/uL RBC 3.51 L (3.80-5.40) m/uL Hgb 10.5 L (11.4-16.0) gm/dL Hct 31.3 L (34.0-46.0) % Plt Count 689 H (150-450) k/uL Neutrophils # 15.2 H (1.3-7.7) k/uL Sodium 136 L (137-145) mmol/L Potassium 3.0 L (3.5-5.1) mmol/L Chloride 95 L (98-107) mmol/L Creatinine 0.46 L (0.52-1.04) mg/dL Glucose 116 H (74-99) mg/dL Alkaline Phosphatase 128 H (38-126) U/L Total Protein 6.1 L (6.3-8.2) g/dL Albumin 3.4 L (3.5-5.0) g/dL CT scan - abdomen: report reviewed CT scan - pelvis: report reviewed Assessment and Plan (1) Postoperative intra-abdominal abscess Current Visit: Yes Status: Acute Code(s): T81.43XA - INFCT FOL A PROCEDURE, ORGAN AND SPACE SURGICAL SITE, INIT SNOMED Code(s): 7322682 (2) Abdominal pain Current Visit: No Status: Acute Code(s): R10.9 - UNSPECIFIED ABDOMINAL PAIN SNOMED Code(s): 41409480 (3) Ileus Current Visit: Yes Status: Acute Code(s): K56.7 - ILEUS, UNSPECIFIED SNOMED Code(s): 416747076 Plan: 52 year old woman postop day 10 status post total vaginal hysterectomy with anterior and posterior colporrhaphy, postop day 2 status post laparoscopy and evacuation of pelvic hematoma. Presents with reaccumulation of large intraperitoneal fluid collection consistent with possible hematoma and or abscess. This is amenable to percutaneous drainage and consultation with [facility] radiology has been made for drainage and cultures of the fluid. She is currently on Zosyn and blood cultures are pending. She is a probable postoperative ileus and will remain nothing by mouth with supportive care. consult sound physicians for additional medical management.
[2022-10-14] MEDS: PIPERACILLIN-TAZOBACTAM 3.375 GM in SODIUM CHLORIDE 0.9% 100 ML IVPB SCH ×2 (09:21→16:28)
[2022-10-14] MEDS: PANTOPRAZOLE 40 MG/10 ML VIAL IVP SCH ×2 (09:21→20:55)
[2022-10-14 09:33] LABS: HCT 31.3 % (34.0-46.0); HGB 10.2 gm/dL (11.4-16.0); Hypochromasia Slight; MCHC 32.7 g/dL (31.0-37.0); MCV 91.9 fL (80.0-100.0); Mean Platelet Volume 7.3; Platelet Count 657 k/uL (150-450); RDW 13.5 % (11.5-15.5); WBC 18.5 k/uL (3.8-10.6)
[2022-10-14 09:47] LABS: African American GFR (CKD) >90 (>60 ml/min/1.73 sqM); Anion Gap 13 mmol/L; Blood Urea Nitrogen 9 mg/dL (7-17); Calcium 7.8 mg/dL (8.4-10.2); Carbon Dioxide 24 mmol/L (22-30); Chloride 100 mmol/L (98-107); Glucose 108 mg/dL (74-99); Magnesium 1.9 mg/dL (1.6-2.3); Non-African American GFR(CKD) >90 (>60 ml/min/1.73 sqM); Phosphorus 4.3 mg/dL (2.5-4.5); Potassium 3.5 mmol/L (3.5-5.1); Sodium 137 mmol/L (137-145)
[2022-10-14 10:23] LABS: Appearance,Urine Cloudy (Clear); Bilirubin,Urine Negative (Negative); Blood,Urine Large (Negative); Color,Urine Red; Glucose,Urine (UA) Negative (Negative); Ketones,Urine 4+ (Negative); Leukocyte Esterase,Urine Large (Negative); Mucus,Urine Rare /hpf; Nitrite,Urine Negative (Negative); PH, Urine 6.5 (5.0-8.0); Protein,Urine 2+ (Negative); RBC,Urine >182 /hpf (0-5); Squamous Epithelial Cell,Urine 8 /hpf (0-4); Urobilinogen,Urine <2.0 mg/dL (<2.0); WBC,Urine >182 /hpf (0-5)
[2022-10-14 10:24] LABS: Specific Gravity,Urine >1.050 (1.001-1.035)
[2022-10-14] MEDS ORDERED: HYDROmorphone 0.5 MG/0.5 ML SYRINGE IVP PRN (10:36)
[2022-10-14] MEDS: ONDANSETRON 4 MG/2 ML VIAL IVP PRN ×3 (11:25→20:53)
[2022-10-14] MEDS ORDERED: CALCIUM CARBONATE 500 MG CHEWABLE PO PRN (11:35)
--- NOTE | 2022-10-14 11:39 | CT ---
EXAMINATION TYPE: CT guided abscess drainage DATE OF EXAM: 10/14/2022 COMPARISON: 10/14/2022 HISTORY: abscess drainage CT DLP: 2082 mGycm The procedure is discussed with the patient, the risks, complications, benefits and alternatives, wer e discussed and any questions were answered. Informed consent was obtained. The patient is placed s upine on the CT table, prepped and draped in the usual sterile fashion. Utilizing a 22-gauge Chiba needle access into the abdominal collection was achieved with digital 0.01 8 wire. There is conversion to a 0.035 system and serial dilation 8 Cymro and placement of an 8 Fren ch drainage catheter. Approximately 200 cc of bloody serous material was aspirated and sent to pathol crystal for analysis. Repeat imaging demonstrated placement of a drainage catheter. Pathology confirmed adequate sample. All elements of maximal barrier technique were utilized. The patient remained stab le throughout the procedure with no immediate postprocedural complication. IMPRESSION: 1. Successful CT guided drainage tube insertion for suspected postoperative abscess.
--- NOTE | 2022-10-14 12:27 | P.PN ---
Subjective Progress Note Date: 10/14/22 Principal diagnosis: Intra-abdominal abscess, postoperative ileus Patient underwent percutaneous drain placement this morning. Findings at the time of procedure were notable for drainage of approximate 200 mL of bloody serous fluid. The patient reports that her pain is significantly better. She also had an episode of emesis which also improved her pain. At this point she c omplains only of mild nausea. She described decreasing vaginal bleeding last up to the bathroom. Objective - Vital Signs Vital signs: Vital Signs Temp 98.9 F 10/14/22 08:00 Pulse 90 10/14/22 10:45 Resp 16 10/14/22 10:45 BP 123/75 10/14/22 10:45 Pulse Ox 95 10/14/22 10:45 FiO2 Intake & Output 10/13/22 10/14/22 10/14/22 18:59 06:59 18:59 Weight 84.368 kg Other: Voiding Method Toilet # Voids 1 - Exam Targeted exam performed: Abdomen is mildly distended and softer than previous. There is a central drain located that is draining scant dark bloody fluid. Perhaps 20 mL in the bag. External vaginal exam is negative for any active vagi nal bleeding at this time. - Labs CBC & Chem 7: 10/14/22 08:49 10/14/22 08:49 Labs: Abnormal Lab Results - Last 24 Hours (Table) 10/13/22 10/13/22 10/14/22 Range/Units 23:05 23:05 00:08 WBC 17.3 H (3.8-10.6) k/uL RBC 3.51 L (3.80-5.40) m/uL Hgb 10.5 L (11.4-16.0) gm/dL Hct 31.3 L (34.0-46.0) % Plt Count 689 H (150-450) k/uL Neutrophils # 15.2 H (1.3-7.7) k/uL Sodium 136 L (137-145) mmol/L Potassium 3.0 L (3.5-5.1) mmol/L Chloride 95 L (98-107) mmol/L Creatinine 0.46 L (0.52-1.04) mg/dL Glucose 116 H (74-99) mg/dL Calcium (8.4-10.2) mg/dL Alkaline Phosphatase 128 H (38-126) U/L Total Protein 6.1 L (6.3-8.2) g/dL Albumin 3.4 L (3.5-5.0) g/dL Urine Appearance Cloudy H (Clear) Ur Specific [place] >1.050 H (1.001-1.035) Urine Protein 2+ H (Negative) Urine Ketones 4+ H (Negative) Urine Blood Large H (Negative) Ur Leukocyte Esterase Large H (Negative) Urine RBC >182 H (0-5) /hpf Urine WBC >182 H (0-5) /hpf Urine WBC Clumps Many H (None) /hpf Ur Squamous Epith Cells 8 H (0-4) /hpf Urine Mucus Rare H (None) /hpf 10/14/22 10/14/22 Range/Units 08:49 08:49 WBC 18.5 H (3.8-10.6) k/uL RBC 3.40 L (3.80-5.40) m/uL Hgb 10.2 L (11.4-16.0) gm/dL Hct 31.3 L (34.0-46.0) % Plt Count 657 H (150-450) k/uL Neutrophils # (1.3-7.7) k/uL Sodium (137-145) mmol/L Potassium (3.5-5.1) mmol/L Chloride (98-107) mmol/L Creatinine 0.39 L (0.52-1.04) mg/dL Glucose 108 H (74-99) mg/dL Calcium 7.8 L (8.4-10.2) mg/dL Alkaline Phosphatase (38-126) U/L Total Protein (6.3-8.2) g/dL Albumin (3.5-5.0) g/dL Urine Appearance (Clear) Ur Specific [place] (1.001-1.035) Urine Protein (Negative) Urine Ketones (Negative) Urine Blood (Negative) Ur Leukocyte Esterase (Negative) Urine RBC (0-5) /hpf Urine WBC (0-5) /hpf Urine WBC Clumps (None) /hpf Ur Squamous Epith Cells (0-4) /hpf Urine Mucus (None) /hpf Assessment and Plan (1) Postoperative intra-abdominal abscess Current Visit: Yes Status: Acute Code(s): T81.43XA - INFCT FOL A PROCEDURE, ORGAN AND SPACE SURGICAL SITE, INIT SNOMED Code(s): 6894098 (2) Abdominal pain Current Visit: No Status: Acute Code(s): R10.9 - UNSPECIFIED ABDOMINAL PAIN SNOMED Code(s): 57327429 (3) Ileus Current Visit: Yes Status: Acute Code(s): K56.7 - ILEUS, UNSPECIFIED SNOMED Code(s): 351780790 Plan: 52 year old woman postop day 10 status post total vaginal hysterectomy with anterior and posterior colporrhaphy, postop day 2 status post laparoscopy and evacuation of pelvic hematoma. Presents with reaccumulation of large intraperit sawyer fluid collection consistent with possible hematoma and or abscess. This is amenable to percutaneous drainage and consultation with interventional radiology has been made for drainage and cultures of the fluid. She is currently on Zosyn and blood cultures are pending. She is a probable posto perative ileus and will remain nothing by mouth with supportive care. consult sound physicians for additional medical management. Interval history: 200 mL of bloody serous fluid drained via interventional radiology. Patient symptomatically somewhat improved. She did have a large emesis and is suspicious for postoperative ileus. We discussed the potential for NG tube. Repeats CBC this afternoon and tomorrow. Hospitalist consult pending. Will monitor closely for any signs of active intra-abdominal or pelvic bleeding that may necessitate return to the operating room. In this event, gene ral surgery will be consulted as well. All the above findings discussed again with the patient and her and questions are answered.
--- NOTE | 2022-10-14 13:59 | P.CONS ---
History of Present Illness - Reason for Consult Consult date: 10/14/22 (delayed charting seen at 1115) Sepsis Requesting physician: Laura Turner - Chief Complaint abdominal pain - History of Present Illness Patient is a 52-year-old female with GERD, hypertension not requiring medications, and recent hysterectomy complicated by pelvic hematoma who presented to the hospital due to increasing abdominal pain. In the ER she underwent an extensive evaluation. Initial laboratory analysis showed white blood cell count 17.3, hemoglobin 10.5, platelets 696, sodium 136, potassium 3, albumin 3.4. CT abdomen and pelvis demonstrated a postoperative intra-abdominal abscess at least 19 cm that would be amenable to percutaneous drainage as well as enteritis. She was given a dose of Zosyn. She was started on IV fluids. She was admitted to [facility] for management of her post hysterectomy associated abscess. We're consulted for medical management. Patient seen and examined at bedside. She has just returned from percutaneous drainage of the fluid collection. Per verbal report 250 mL were aspirated. She has a drain in place with serosanguineous fluid noted. She continues to have some lower pelvic abdominal pain but it is better than yesterday. She states she had mild fevers at home with a T-max of 99.9. She is having some nausea, she was having this at home but has not had any vomiting today. She did have 1 large emesis yesterday. She has had a low appetite for the last few days. She has not had a bowel movement in 5 days. She denies any chest pain or shortness of breath. She denies any dysuria but states it is hard to start her urinary stream. She does report significant complaints of heartburn. Vital signs reviewed General: nontoxic, no distress, appears at stated age Derm: warm, dry Eyes: EOMI, no lid lag, anicteric sclera ENT: Nose and ears atraumatic Cardiovascular: S1S2 reg, no murmur, positive posterior tibial pulse bilateral, no edema, capillary refill less than 2 seconds Lungs: clear to auscultation bilateral, no rhonchi, no rales, no wheeze, no accessory muscle use Abdominal: soft, + tender to palpation diffusely, no guarding, no appreciable organomegaly, normal bowel sounds-midline suprapubic drain with serosanguineous drainage Ext: no gross muscle atrophy, no contractures Neuro: CN II-XII grossly intact, no gross focal motor deficits Psych: Alert, oriented, appropriate affect Assessment: Postoperative intra-abdominal abscess with sepsis Acute blood loss anemia and his anticipated outcome of the procedure GERD Thrombocytosis, suspect reactive Possible postoperative ileus Hypokalemia Hypertension GERD Abnormal urinalysis, suspect related to post surgical state patient without dysuria. Imaging: As above per HPI Data Review: As above per HPI Pulse 90, respirations 16, blood pressure 123/75, O2 sat 95% on room air Plan: -Resume Zosyn 3.375 g every 8 hours -Await culture from fluid collection -Check CBC at 1700 and again in a.m. -Continue with Dilaudid 0.5-1 mg as needed for pain -Continue with Protonix 40 mg IV push twice daily. Add Tums patient may take one dose if she does have postoperative ileus but the Protonix is currently not controlling her acid reflux symptoms -Continue with normal saline at 130 mL/h - check iron studies Thank you for allowing us to participate in the care of this pleasant patient. Do not hesitate to contact us with questions. Someone can be reached from the [facility] hospitalist group all hours of the day at [phone] or via [employer]. This dictation was prepared using [employer] voice recognition software. Though every attempt is made to correct errors during during dictation some may still exist. Past Medical History Past Medical History: GERD/Reflux, Hypertension Additional Past Medical History / Comment(s): kidney stones 20 years ago, no medication for hypertension History of Any Multi-Drug Resistant Organisms: None Reported Past Surgical History: Cholecystectomy, Hysterectomy, Uterine Ablation Additional Past Surgical History / Comment(s): oral surgery. Colonoscopy 20 15(next age 52) Past Anesthesia/Blood Transfusion Reactions: Motion Sickness Past Psychological History: Anxiety Smoking Status: Former smoker Past Alcohol Use History: None Reported Past Drug Use History: Marijuana Additional Drug Use History / Comment(s): Edibles for sleep, none in over 3 weeks. - Past Family History Father Family Medical History: Cancer Additional Family Medical History / Comment(s): Lung cancer. An uncle had lung cancer as well. Brother(s) Family Medical History: Cancer Additional Family Medical History / Comment(s): Beavers sarcoma. Mother Family Medical History: Pulmonary Embolus Aunt Family Medical History: Cancer Additional Family Medical History / Comment(s): Breast cancer. Medications and Allergies Home Medications Medication Instructions Recorded Confirmed Type Famotidine [Pepcid] 20 mg PO DAILY 04/16/21 10/14/22 History Acetaminophen Tab [Tylenol] 325 mg PO Q6H PRN 10/14/22 10/14/22 History HYDROcodone/APAP 5-325MG [[place] 1 tab PO Q4-6H PRN 10/14/22 10/14/22 History 5-325] Allergies Allergy/AdvReac Type Severity Reaction Status Date / Time cephalexin [From Keflex] AdvReac Nausea & Verified 10/14/22 08:59 Vomiting Physical Exam Osteopathic Statement: *. No significant issues noted on an osteopathic structural exam other than those noted in the History and Physical/Consult. Vitals: Vital Signs Temp Pulse Pulse Resp BP BP Pulse Ox 10/14/22 13:42 98.9 F 93 17 134/80 94 L 10/14/22 13:08 75 185/90 95 10/14/22 13:07 71 142/82 93 L 10/14/22 13:06 99 125/85 93 L 10/14/22 12:55 99 125/85 93 L 10/14/22 12:45 98 122/83 90 L 10/14/22 12:30 96 131/83 93 L 10/14/22 12:15 121 H 140/83 93 L 10/14/22 12:00 100 137/90 98 10/14/22 10:45 90 16 123/75 95 10/14/22 10:30 89 16 133/73 95 10/14/22 10:15 68 16 134/76 97 10/14/22 08:00 98.9 F 109 H 17 144/87 93 L 10/14/22 02:18 99.9 F H 100 18 140/60 95 10/13/22 22:22 98.7 F 125 H 20 117/70 96 Intake and Output 10/13/22 10/14/22 10/14/22 22:59 06:59 14:59 Other: Voiding Method Toilet # Voids 1 Weight 84.368 kg 84.368 kg Results CBC & Chem 7: 10/14/22 08:49 10/14/22 08:49 Labs: Abnormal Lab Results - Last 24 Hours (Table) 10/13/22 10/13/22 10/14/22 Range/Units 23:05 23:05 00:08 WBC 17.3 H (3.8-10.6) k/uL RBC 3.51 L (3.80-5.40) m/uL Hgb 10.5 L (11.4-16.0) gm/dL Hct 31.3 L (34.0-46.0) % Plt Count 689 H (150-450) k/uL Neutrophils # 15.2 H (1.3-7.7) k/uL Sodium 136 L (137-145) mmol/L Potassium 3.0 L (3.5-5.1) mmol/L Chloride 95 L (98-107) mmol/L Creatinine 0.46 L (0.52-1.04) mg/dL Glucose 116 H (74-99) mg/dL Calcium (8.4-10.2) mg/dL Alkaline Phosphatase 128 H (38-126) U/L Total Protein 6.1 L (6.3-8.2) g/dL Albumin 3.4 L (3.5-5.0) g/dL Urine Appearance Cloudy H (Clear) Ur Specific [place] >1.050 H (1.001-1.035) Urine Protein 2+ H (Negative) Urine Ketones 4+ H (Negative) Urine Blood Large H (Negative) Ur Leukocyte Esterase Large H (Negative) Urine RBC >182 H (0-5) /hpf Urine WBC >182 H (0-5) /hpf Urine WBC Clumps Many H (None) /hpf Ur Squamous Epith Cells 8 H (0-4) /hpf Urine Mucus Rare H (None) /hpf 10/14/22 10/14/22 Range/Units 08:49 08:49 WBC 18.5 H (3.8-10.6) k/uL RBC 3.40 L (3.80-5.40) m/uL Hgb 10.2 L (11.4-16.0) gm/dL Hct 31.3 L (34.0-46.0) % Plt Count 657 H (150-450) k/uL Neutrophils # (1.3-7.7) k/uL Sodium (137-145) mmol/L Potassium (3.5-5.1) mmol/L Chloride (98-107) mmol/L Creatinine 0.39 L (0.52-1.04) mg/dL Glucose 108 H (74-99) mg/dL Calcium 7.8 L (8.4-10.2) mg/dL Alkaline Phosphatase (38-126) U/L Total Protein (6.3-8.2) g/dL Albumin (3.5-5.0) g/dL Urine Appearance (Clear) Ur Specific [place] (1.001-1.035) Urine Protein (Negative) Urine Ketones (Negative) Urine Blood (Negative) Ur Leukocyte Esterase (Negative) Urine RBC (0-5) /hpf Urine WBC (0-5) /hpf Urine WBC Clumps (None) /hpf Ur Squamous Epith Cells (0-4) /hpf Urine Mucus (None) /hpf
[2022-10-14 15:00] LABS: HGB 10.3 gm/dL (11.4-16.0); Hypochromasia Slight; MCH 29.6 pg (25.0-35.0); MCHC 32.3 g/dL (31.0-37.0); MCV 91.8 fL (80.0-100.0); Mean Platelet Volume 6.8; Platelet Count 708 k/uL (150-450); RBC 3.49 m/uL (3.80-5.40); RDW 13.6 % (11.5-15.5); WBC 14.5 k/uL (3.8-10.6)
[2022-10-14 16:10] LABS: Partial Thromboplastin Time 26.3 sec (22.0-30.0); Prothrombin Time 10.8 sec (9.0-12.0)
[2022-10-14 22:20] LABS: Appearance,Urine Clear (Clear); Bilirubin,Urine Negative (Negative); Blood,Urine Negative (Negative); Color,Urine Yellow; Glucose,Urine (UA) Negative (Negative); Leukocyte Esterase,Urine Negative (Negative); Mucus,Urine Rare /hpf; Nitrite,Urine Negative (Negative); Protein,Urine 1+ (Negative); RBC,Urine 2 /hpf (0-5); Specific Gravity,Urine 1.039 (1.001-1.035); Squamous Epithelial Cell,Urine <1 /hpf (0-4); Urobilinogen,Urine <2.0 mg/dL (<2.0); WBC,Urine 2 /hpf (0-5)
[2022-10-14 22:29] LABS: Ketones,Urine 4+ (Negative)
[2022-10-15] MEDS: HYDROmorphone 1 MG/ML 1 ML SYRINGE IVP PRN ×11 (00:01→23:00)
[2022-10-15] MEDS: PIPERACILLIN-TAZOBACTAM 3.375 GM in SODIUM CHLORIDE 0.9% 100 ML IVPB SCH ×4 (00:15→23:24)
[2022-10-15] MEDS: ONDANSETRON 4 MG/2 ML VIAL IVP PRN ×3 (00:50→09:40)
[2022-10-15] MEDS: SODIUM CHLORIDE 0.9% 1,000 ML IV SCH ×5 (04:07→23:24)
[2022-10-15] MEDS: ACETAMINOPHEN IV (For NPO) 1,000 MG in EMPTY BAG 1 BAG IVPB SCH (04:08)
[2022-10-15 07:49] LABS: HCT 29.2 % (34.0-46.0); HGB 9.4 gm/dL (11.4-16.0); Hypochromasia Slight; MCH 29.5 pg (25.0-35.0); MCHC 32.1 g/dL (31.0-37.0); Mean Platelet Volume 6.6; Platelet Count 728 k/uL (150-450); RBC 3.17 m/uL (3.80-5.40); RDW 13.9 % (11.5-15.5); WBC 11.4 k/uL (3.8-10.6)
--- NOTE | 2022-10-15 08:06 | XR ---
EXAMINATION TYPE: XR abdomen 2V DATE OF EXAM: 10/15/2022 CLINICAL DATA: 52-year-old female postoperative ileus, [facility] COMPARISON: 06/23/2020 FINDINGS: No evidence for free intraperitoneal air. Dilated small bowel loops with air-fluid levels. Dilatation measures up to 4.5 cm versus 3.3 cm on the patient's 10/14/2022 CT [place] image. Interval placement of a drainage catheter in the pelvis. IMPRESSION: Interval placement of a drainage catheter in the pelvis. Small bowel loops show progressi ve dilatation, now up to 4.5 cm versus 3.3 cm on 10/14/2022.
[2022-10-15 08:09] LABS: African American GFR (CKD) >90 (>60 ml/min/1.73 sqM); Anion Gap 10 mmol/L; Blood Urea Nitrogen 11 mg/dL (7-17); Calcium 7.9 mg/dL (8.4-10.2); Carbon Dioxide 28 mmol/L (22-30); Chloride 102 mmol/L (98-107); Glucose 91 mg/dL (74-99); Non-African American GFR(CKD) >90 (>60 ml/min/1.73 sqM); Potassium 3.4 mmol/L (3.5-5.1); Sodium 140 mmol/L (137-145)
--- NOTE | 2022-10-15 09:30 | P.PN ---
Subjective Progress Note Date: 10/15/22 Principal diagnosis: Intra-abdominal abscess, postoperative ileus Is feeling significantly better this morning. Pain improved. She is voiding without difficulty. Her vaginal bleeding has decreased significantly and is scant at this time. She passed gas yesterday evening however nothing since that time. She had 2 episodes of emesis last night but nothing this morning. A.m. x-ray reveals significant dilated loops of bowel consistent with ileus. Total approximately 100 mL's of dark serous sanguinous fluid in the abdominal drain since placement yesterday. Objective - Vital Signs Vital signs: Vital Signs Temp 98.0 F 10/15/22 07:11 Pulse 88 10/15/22 07:11 Resp 15 10/15/22 07:11 BP 148/84 10/15/22 07:11 Pulse Ox 96 10/15/22 07:11 FiO2 Intake & Output 10/14/22 10/15/22 10/15/22 18:59 06:59 18:59 Output Total 60 344 Balance -60 -344 Output: Drainage 60 42 Abdomen 60 42 Urine 302 Uretheral (Zamudio) 300 Other: # Voids 4 - Exam Pleasant and comfortable appearing female. Targeted physical exam is performed. The abdomen is soft with minimal distention. No rebound or gua rding. Nontender. Absent bowel sounds. The drainage site is intact with scant serosanguineous fluid in the bag. - Labs CBC & Chem 7: 10/15/22 07:21 10/15/22 07:21 Labs: Abnormal Lab Results - Last 24 Hours (Table) 10/14/22 10/14/22 10/14/22 Range/Units 00:08 08:49 08:49 WBC 18.5 H (3.8-10.6) k/uL RBC 3.40 L (3.80-5.40) m/uL Hgb 10.2 L (11.4-16.0) gm/dL Hct 31.3 L (34.0-46.0) % Plt Count 657 H (150-450) k/uL Fibrinogen (200-500) mg/dL Potassium (3.5-5.1) mmol/L Creatinine 0.39 L (0.52-1.04) mg/dL Glucose 108 H (74-99) mg/dL Calcium 7.8 L (8.4-10.2) mg/dL Urine Appearance Cloudy H (Clear) Ur Specific [place] >1.050 H (1.001-1.035) Urine Protein 2+ H (Negative) Urine Ketones 4+ H (Negative) Urine Blood Large H (Negative) Ur Leukocyte Esterase Large H (Negative) Urine RBC >182 H (0-5) /hpf Urine WBC >182 H (0-5) /hpf Urine WBC Clumps Many H (None) /hpf Ur Squamous Epith Cells 8 H (0-4) /hpf Urine Mucus Rare H (None) /hpf 10/14/22 10/14/22 10/14/22 Range/Units 14:41 14:41 21:25 WBC 14.5 H (3.8-10.6) k/uL RBC 3.49 L (3.80-5.40) m/uL Hgb 10.3 L (11.4-16.0) gm/dL Hct 32.0 L (34.0-46.0) % Plt Count 708 H (150-450) k/uL Fibrinogen 762 H (200-500) mg/dL Potassium (3.5-5.1) mmol/L Creatinine (0.52-1.04) mg/dL Glucose (74-99) mg/dL Calcium (8.4-10.2) mg/dL Urine Appearance (Clear) Ur Specific [place] 1.039 H (1.001-1.035) Urine Protein 1+ H (Negative) Urine Ketones 4+ H (Negative) Urine Blood (Negative) Ur Leukocyte Esterase (Negative) Urine RBC (0-5) /hpf Urine WBC (0-5) /hpf Urine WBC Clumps (None) /hpf Ur Squamous Epith Cells (0-4) /hpf Urine Mucus Rare H (None) /hpf 10/15/22 10/15/22 Range/Units 07:21 07:21 WBC 11.4 H (3.8-10.6) k/uL RBC 3.17 L (3.80-5.40) m/uL Hgb 9.4 L (11.4-16.0) gm/dL Hct 29.2 L (34.0-46.0) % Plt Count 728 H (150-450) k/uL Fibrinogen (200-500) mg/dL Potassium 3.4 L (3.5-5.1) mmol/L Creatinine (0.52-1.04) mg/dL Glucose (74-99) mg/dL Calcium 7.9 L (8.4-10.2) mg/dL Urine Appearance (Clear) Ur Specific [place] (1.001-1.035) Urine Protein (Negative) Urine Ketones (Negative) Urine Blood (Negative) Ur Leukocyte Esterase (Negative) Urine RBC (0-5) /hpf Urine WBC (0-5) /hpf Urine WBC Clumps (None) /hpf Ur Squamous Epith Cells (0-4) /hpf Urine Mucus (None) /hpf Microbiology - Last 24 Hours (Table) 10/14/22 11:00 Anaerobic Culture - Preliminary Aspirate Assessment and Plan (1) Postoperative intra-abdominal abscess Current Visit: Yes Status: Acute Code(s): T81.43XA - INFCT FOL A PROCEDURE, ORGAN AND SPACE SURGICAL SITE, INIT SNOMED Code(s): 3495546 (2) Abdominal pain Current Visit: No Status: Acute Code(s): R10.9 - UNSPECIFIED ABDOMINAL PAIN SNOMED Code(s): 80593503 (3) Ileus Current Visit: Yes Status: Acute Code(s): K56.7 - ILEUS, UNSPECIFIED SNOMED Code(s): 554307400 Plan: 10/15/22: Postop day 11 status post TVH, APR, postop day 3 status post exploratory laparoscopy with evacuation of pelvic hematoma. Intra-abdominal drain placed yesterday with total of 250 mL clear fluid at the time of procedure and approximate 100 mL's ongoing serosanguineous drainage since placement. No evidence of miladys bright red blood from the drain. Her white blood cell counts continues to improve on IV Zosyn and she is afebrile. Clinically she is feeling much improved however x-ray shows worsening dilated loops of bowel and ileus. She will remain nothing by mouth. With any further emesis will consider NG tube placement. 52 year old woman postop day 10 status post total vaginal hysterectomy with anterior and posterior colporrhaphy, postop day 2 status post laparoscopy and evacuation of pelvic hematoma. Presents with reaccumulation of large intraperitoneal fluid collection consistent with possible hematoma and or abscess. This is amenable to percutaneous drainage and consultation with interventional radiology has been made for drainage and cultures of the fluid. She is currently on Zosyn and blood cultures are pending. She is a probable postoperative ileus and will remain nothing by mouth with supportive care. consult sound physicians for additional medical management. Interval history: 200 mL of bloody serous fluid drained via interventional ra diology. Patient symptomatically somewhat improved. She did have a large emesis and is suspicious for postoperative ileus. We discussed the potential for NG tube. Repeats CBC this afternoon and tomorrow. Hospitalist consult pending. Will monitor closely for any signs of active intra-abdominal or pelvic bleeding that may necessitate return to the operating room. In this event, general surgery will be consulted as well. All the above findings discussed again with the patient and her and questions are answered. Time with Patient: Less than 30
[2022-10-15] MEDS: PANTOPRAZOLE 40 MG/10 ML VIAL IVP SCH ×2 (09:40→20:28)
[2022-10-15] MEDS ORDERED: POTASSIUM CHLORIDE 20 MEQ in WATER FOR INJECTION 1 100ML.BAG IVPB STA (15:44)
--- NOTE | 2022-10-15 19:03 | P.PN ---
Subjective Progress Note Date: 10/15/22 (delayed charting seen around 8 am ) Patient is a 52-year-old female with GERD, hypertension not requiring medications, and recent hysterectomy complicated by pelvic hematoma who presented to the hospital due to increasing abdominal pain. In the ER she underwent an extensive evaluation. Initial laboratory analysis showed white blood cell count 17.3, hemoglobin 10.5, platelets 696, sodium 136, potassium 3, albumin 3.4. CT abdomen and pelvis demonstrated a postoperative intra-abdominal abscess at least 19 cm that would be amenable to percutaneous drainage as well as enteritis. She was given a dose of Zosyn. She was started on IV fluids. She was admitted to [facility] services for management of her post hysterectomy associated abscess. We're consulted for medical management. She was considered on Zosyn and IV fluids. X-ray confirmed persistent ileus. Patient seen and examined at bedside. Feeling much better than yesterday. She denies any current nausea and had no additional episodes of vomiting overnight. She denies any chest pain or shortness of breath. She did pass a small amount of gas this morning. Vital signs reviewed General: nontoxic, no distress, appears at stated age Cardiovascular: S1S2 reg, no murmur, positive posterior tibial pulse bilateral, Lungs: CTA bilateral, no rhonchi, no rales , no accessory muscle use Abdominal: soft, tender to palpation diffusely, no guarding, no appreciable organomegaly, suprapubic drain with serosanganous fluid Ext: no gross muscle atrophy, no edema, no contractures Neuro: CN II-XI grossly intact, no focal neuro deficits Psych: Alert, oriented, appropriate affect Assessment: Postoperative intra-abdominal abscess with sepsis Acute blood loss anemia and his anticipated outcome of the procedure GERD Thrombocytosis, suspect reactive Possible postoperative ileus Hypokalemia Hypertension GERD Abnormal urinalysis, suspect related to post surgical state patient without dysuria. Imaging: Abdominal x-rays reviewed by myself and with continued ileus Data Review: Vitals reviewed and temperature 90.8, pulse 88, respirations 15, blood pressure 140/84, O2 sat 96% on room air Laboratory analysis reviewed 11.4, hemoglobin 9.4, hematocrit 29.2, sodium 140 potassium 3.4 Repeat urinalysis benign Plan: Patient was seen along with Dr. Turner at bedside. She will remain nothing by mouth. We'll continue on antibiotics and await cultures to come back. Likely will be able to discontinue the drain tomorrow. -Encourage patient to chew gum and ambulate as able -Zosyn 3 g IV every 8 hours d #2 -Repeat CBC and basic metabolic profile in a.m. given nothing by mouth status -Potassium 20 mEq IV piggyback -Recheck abdominal x-ray in a.m. -continue with Dilaudid 1 mg IV every 4 hours DVT prophylaxis: SCDs This dictation was prepared using [employer] voice recognition software. Though every attempt is made to correct errors during during dictation some may still exist. Objective - Vital Signs Vital signs: Vital Signs Temp 98.4 F 10/15/22 13:57 Pulse 94 10/15/22 13:57 Resp 16 10/15/22 13:57 BP 106/72 10/15/22 13:57 Pulse Ox 93 L 10/15/22 13:57 FiO2 Intake & Output 10/15/22 10/15/22 10/16/22 06:59 18:59 06:59 Output Total 344 Balance -344 Output: Drainage 42 Abdomen 42 Urine 302 Uretheral (Zamudio) 300 Other: # Voids 3 - Labs CBC & Chem 7: 10/15/22 07:21 10/15/22 07:21 Labs: Abnormal Lab Results - Last 24 Hours (Table) 10/14/22 10/15/22 10/15/22 Range/Units 21:25 07:21 07:21 WBC 11.4 H (3.8-10.6) k/uL RBC 3.17 L (3.80-5.40) m/uL Hgb 9.4 L (11.4-16.0) gm/dL Hct 29.2 L (34.0-46.0) % Plt Count 728 H (150-450) k/uL Potassium 3.4 L (3.5-5.1) mmol/L Calcium 7.9 L (8.4-10.2) mg/dL Ur Specific [place] 1.039 H (1.001-1.035) Urine Protein 1+ H (Negative) Urine Ketones 4+ H (Negative) Urine Mucus Rare H (None) /hpf Microbiology - Last 24 Hours (Table) 10/14/22 11:00 Gram Stain - Preliminary Aspirate Body Fluid Culture - Preliminary 10/14/22 11:00 Anaerobic Culture - Preliminary Aspirate
[2022-10-16] MEDS: HYDROmorphone 1 MG/ML 1 ML SYRINGE IVP PRN ×7 (02:13→23:45)
[2022-10-16 06:38] LABS: HCT 28.2 % (34.0-46.0); HGB 9.1 gm/dL (11.4-16.0); Hypochromasia Slight; MCH 29.9 pg (25.0-35.0); MCHC 32.2 g/dL (31.0-37.0); MCV 92.8 fL (80.0-100.0); Mean Platelet Volume 6.7; Platelet Count 732 k/uL (150-450); RBC 3.04 m/uL (3.80-5.40); WBC 12.1 k/uL (3.8-10.6)
[2022-10-16 06:50] LABS: African American GFR (CKD) >90 (>60 ml/min/1.73 sqM); Anion Gap 10 mmol/L; Blood Urea Nitrogen 7 mg/dL (7-17); Calcium 7.9 mg/dL (8.4-10.2); Carbon Dioxide 27 mmol/L (22-30); Chloride 103 mmol/L (98-107); Glucose 76 mg/dL (74-99); Non-African American GFR(CKD) >90 (>60 ml/min/1.73 sqM); Potassium 3.5 mmol/L (3.5-5.1); Sodium 140 mmol/L (137-145)
--- NOTE | 2022-10-16 07:00 | XR ---
EXAMINATION TYPE: XR abdomen 2V DATE OF EXAM: 10/16/2022 CLINICAL HISTORY: Ileus. TECHNIQUE: Supine and upright views of the abdomen are obtained. COMPARISON: Abdominal x-ray one day earlier. CT study 2 days earlier FINDINGS: Persistent gas prominent and dilated small bowel loops with air-fluid levels in the central abdomen. Nephrostomy tube or drainage catheter overlies the right pelvis similar to prior. New bibas ilar opacities consistent with small pleural effusions and developing atelectasis and/or infiltrate. No free air. Osseous structures are intact. IMPRESSION: Overall nonspecific bowel gas pattern remains present. Distal small bowel obstruction re rosa in the differential.
[2022-10-16] MEDS: PIPERACILLIN-TAZOBACTAM 3.375 GM in SODIUM CHLORIDE 0.9% 100 ML IVPB SCH ×3 (08:15→23:45)
[2022-10-16] MEDS: SODIUM CHLORIDE 0.9% 1,000 ML IV SCH ×3 (08:15→23:47)
[2022-10-16] MEDS: PANTOPRAZOLE 40 MG/10 ML VIAL IVP SCH ×2 (08:15→21:26)
[2022-10-16] MEDS: ONDANSETRON 4 MG/2 ML VIAL IVP PRN (08:15)
--- NOTE | 2022-10-16 08:57 | P.PN ---
Subjective Progress Note Date: 10/16/22 Principal diagnosis: Intra-abdominal abscess, postoperative ileus Patient is doing slightly better. She states she did feel better yesterday and some nausea has been increasing this morning. She denies vomiting. She notes flatus and belching. She continues to use Dilaudid for pain. Drainage catheter with dark serosanguineous fluid. Objective - Vital Signs Vital signs: Vital Signs Temp 98.7 F 10/16/22 07:25 Pulse 90 10/16/22 07:25 Resp 18 10/16/22 07:25 BP 130/81 10/16/22 07:25 Pulse Ox 94 L 10/16/22 07:25 FiO2 Intake & Output 10/15/22 10/16/22 10/16/22 18:59 06:59 18:59 Output Total 60 Balance -60 Output: Drainage 60 Abdomen 60 Other: # Voids 3 2 - Constitutional General appearance: Present: average body habitus, cooperative, no acute distress - Respiratory Respiratory: bilateral: CTA - Cardiovascular Rhythm: regular - Gastrointestinal General gastrointestinal: Present: decreased bowel sounds, distended - Psychiatric Psychiatric: Present: A&O x's 3, appropriate affect - Labs CBC & Chem 7: 10/16/22 06:07 10/16/22 06:07 Labs: Abnormal Lab Results - Last 24 Hours (Table) 10/16/22 10/16/22 Range/Units 06:07 06:07 WBC 12.1 H (3.8-10.6) k/uL RBC 3.04 L (3.80-5.40) m/uL Hgb 9.1 L (11.4-16.0) gm/dL Hct 28.2 L (34.0-46.0) % Plt Count 732 H (150-450) k/uL Creatinine 0.47 L (0.52-1.04) mg/dL Calcium 7.9 L (8.4-10.2) mg/dL Microbiology - Last 24 Hours (Table) 10/14/22 11:00 Gram Stain - Preliminary Aspirate Body Fluid Culture - Preliminary 10/14/22 11:00 Anaerobic Culture - Preliminary Aspirate Assessment and Plan (1) Ileus Current Visit: Yes Status: Acute Code(s): K56.7 - ILEUS, UNSPECIFIED SNOMED Code(s): 319662704 (2) Postoperative intra-abdominal abscess Current Visit: Yes Status: Acute Code(s): T81.43XA - INFCT FOL A PROCEDURE, ORGAN AND SPACE SURGICAL SITE, INIT SNOMED Code(s): 7491958 (3) Abdominal pain Current Visit: No Status: Acute Code(s): R10.9 - UNSPECIFIED ABDOMINAL PAIN SNOMED Code(s): 44903796 Plan: 52-year-old status post vaginal hysterectomy anterior colporrhaphy and posterior colporrhaphy day 12. Patient subsequently underwent operative laparoscopy with evacuation of postop hematoma. Significant inflammation and hematoma was appreciated, no active bleeding was appreciated. Patient was then subsequently readmitted for postoperative abscess, ileus. Patient notes slight improvement today. White count slightly elevated from yesterday 11-12.1. Hemoglobin remained stable 9.4 yesterday to 9.1 today. Flat plate of the abdomen is essentially unchanged from yesterday. She is noting increased flatus and belching therefore will continue with ice chips only. Plan is reviewed with patient, all labs and x-rays are reviewed from today. All questions are answered to patient's satisfaction. Plan to continue current care
--- NOTE | 2022-10-16 10:39 | P.PN ---
Subjective Progress Note Date: 10/16/22 Patient is a 52-year-old female with GERD, hypertension not requiring medications, and recent hysterectomy complicated by pelvic hematoma who presented to the hospital due to increasing abdominal pain. In the ER she underwent an extensive evaluation. Initial laboratory analysis showed white blood cell count 17.3, hemoglobin 10.5, platelets 696, sodium 136, potassium 3, albumin 3.4. CT abdomen and pelvis demonstrated a postoperative intra-abdominal abscess at least 19 cm that would be amenable to percutaneous drainage as well as enteritis. She was given a dose of Zosyn. She was started on IV fluids. She was admitted to [facility] services for management of her post hysterectomy a ssociated abscess. We're consulted for medical management. She was considered on Zosyn and IV fluids. X-ray confirmed persistent ileus. Patient seen and examined at bedside. Was passing some gas overnight, had an episode of nausea this morning but it is getting better now. Still with some pain, but is able to go longer between doses of pain medications. Vital signs reviewed General: nontoxic, no distress, appears at stated age Cardiovascular: S1S2 reg, no murmur, positive posterior tibial pulse bilateral, Lungs: CTA bilateral, no rhonchi, no rales , no accessory muscle use Abdominal: soft, tender to palpation diffusely, no guarding, no appreciable organomegaly, suprapubic drain with serosanganous fluid Ext: no gross muscle atrophy, no edema, no contractures Neuro: CN II-XI grossly intact, no focal neuro deficits Psych: Alert, oriented, appropriate affect Assessment: Postoperative intra-abdominal abscess/hemtoma with sepsis Acute blood loss anemia and his anticipated outcome of the procedure GERD Thrombocytosis, suspect reactive Possible postoperative ileus Hypokalemia, resolved Hypertension, not requiring medications GERD Abnormal urinalysis, suspect related to post surgical state patient without dysuria. Imaging: Abdominal x-ray reviewed by myself on 10/16 with continued ileus Data Review: Vital signs reviewed. T-max last 24 hours is 98.7, pulse 90, respirations 18, blood pressure 130/81, O2 sat 94% on room air Labs reviewed remarkable for white blood cell count 12.1 unchanged from yesterday, hemoglobin 9.1, consistent with yesterday, platelets 732 Plan: - FOX RAISER note reviewed: continue with NPO status and maintain drain. -Encourage patient to chew gum and ambulate as able -Zosyn 3 g IV every 8 hours d #3 -Repeat CBC and basic metabolic profile in a.m. given nothing by mouth status -Recheck abdominal x-ray in a.m. -continue with Dilaudid 1 mg IV every 2 hours DVT prophylaxis: SCDs This dictation was prepared using [employer] voice recognition software. Though every attempt is made to correct errors during during dictation some may still exist. Objective - Vital Signs Vital signs: Vital Signs Temp 98.7 F 10/16/22 07:25 Pulse 90 10/16/22 07:25 Resp 18 10/16/22 07:25 BP 130/81 10/16/22 07:25 Pulse Ox 94 L 10/16/22 07:25 FiO2 Intake & Output 10/15/22 10/16/22 10/16/22 18:59 06:59 18:59 Output Total 60 Balance -60 Output: Drainage 60 Abdomen 60 Other: # Voids 3 2 - Labs CBC & Chem 7: 10/16/22 06:07 10/16/22 06:07 Labs: Abnormal Lab Results - Last 24 Hours (Table) 10/16/22 10/16/22 Range/Units 06:07 06:07 WBC 12.1 H (3.8-10.6) k/uL RBC 3.04 L (3.80-5.40) m/uL Hgb 9.1 L (11.4-16.0) gm/dL Hct 28.2 L (34.0-46.0) % Plt Count 732 H (150-450) k/uL Creatinine 0.47 L (0.52-1.04) mg/dL Calcium 7.9 L (8.4-10.2) mg/dL Microbiology - Last 24 Hours (Table) 10/14/22 11:00 Gram Stain - Preliminary Aspirate Body Fluid Culture - Preliminary 10/14/22 11:00 Anaerobic Culture - Preliminary Aspirate
[2022-10-17] MEDS: HYDROmorphone 1 MG/ML 1 ML SYRINGE IVP PRN ×3 (03:35→11:28)
[2022-10-17] MEDS: PANTOPRAZOLE 40 MG/10 ML VIAL IVP SCH ×2 (07:49→22:25)
[2022-10-17] MEDS: PIPERACILLIN-TAZOBACTAM 3.375 GM in SODIUM CHLORIDE 0.9% 100 ML IVPB SCH ×2 (07:49→17:51)
--- NOTE | 2022-10-17 10:28 | P.PN ---
Subjective Progress Note Date: 10/17/22 Principal diagnosis: Intra-abdominal abscess, postoperative ileus 10/17 Patient is feeling well this morning, she states she did have nausea upon waking. She notes the nausea is worse with IV Dilaudid use. Patient continues to have spontaneous flatus and belching. Patient is tolerating popsicles and lemon drops at this time. Patient denies emesis. She continues to have abd ominal cramping and feels bloated. Patient is doing slightly better. She states she did feel better yesterday and some nausea has been increasing this morning. She denies vomiting. She notes flatus and belching. She continues to use Dilaudid for pain. Drainage catheter with dark serosanguineous fluid. Objective - Vital Signs Vital signs: Vital Signs Temp 98.8 F 10/17/22 07:06 Pulse 82 10/17/22 07:06 Resp 17 10/17/22 07:06 BP 148/90 10/17/22 07:06 Pulse Ox 95 10/17/22 07:06 FiO2 Intake & Output 10/16/22 10/17/22 10/17/22 18:59 06:59 18:59 Output Total 90 35 Balance -90 -35 Output: Drainage 90 35 Abdomen 90 35 Other: # Voids 3 2 - Constitutional General appearance: Present: average body habitus, cooperative, no acute distress - Gastrointestinal General gastrointestinal: Present: distended - Musculoskeletal Musculoskeletal: Present: gait normal - Psychiatric Psychiatric: Present: appropriate affect - Labs CBC & Chem 7: 10/16/22 06:07 10/16/22 06:07 Labs: Microbiology - Last 24 Hours (Table) 10/14/22 11:00 Gram Stain - Final Aspirate Body Fluid Culture - Final Escherichia coli 10/14/22 02:00 Blood Culture - Preliminary Blood 10/14/22 02:15 Blood Culture - Preliminary Blood Assessment and Plan (1) Ileus Current Visit: Yes Status: Acute Code(s): K56.7 - ILEUS, UNSPECIFIED SNOMED Code(s): 320379560 (2) Postoperative intra-abdominal abscess Current Visit: Yes Status: Acute Code(s): T81.43XA - INFCT FOL A PROCEDURE, ORGAN AND SPACE SURGICAL SITE, INIT SNOMED Code(s): 3481177 (3) Abdominal pain Current Visit: No Status: Acute Code(s): R10.9 - UNSPECIFIED ABDOMINAL PAIN SNOMED Code(s): 59567267 Plan: 52-year-old status post vaginal hysterectomy anterior colporrhaphy and posterior colporrhaphy day 12. Patient subsequently underwent operative laparoscopy wit h evacuation of postop hematoma. Significant inflammation and hematoma was appreciated, no active bleeding was appreciated. Patient was then subsequently readmitted for postoperative abscess, ileus. Patient notes slight improvement today. White count slightly elevated from yesterday 11-12.1. Hemoglobin remained stable 9.4 yesterday to 9.1 today. Flat plate of the abdomen is essentially unchanged from yesterday. She is noting increased flatus and belching therefore will continue with ice chips only. Plan is reviewed with patient, all labs and x-rays are reviewed from today. All questions are answered to patient's satisfaction. Plan to continue current care Patient continues to improve, awaiting abdominal x-ray and morning labs. We'll continue current plan of IV Zosyn, encouraged increase ambulation. Discussed with patient possibility of discontinuing IV Dilaudid and increasing Ofirmev/Caldalor use. Awaiting a.m. labs and abdominal x-ray. If improvement of ileus is appreciated will advance diet to clear liquid/soft. Patient is in agreement of plan all questions are answered.
--- NOTE | 2022-10-17 10:49 | XR ---
EXAMINATION TYPE: XR abdomen 2V DATE OF EXAM: 10/17/2022 10:38 AM INDICATION: Patient age:Female; 52 years old; Reason for study: ileus; COMPARISON: 10/16/2022 TECHNIQUE: Two views of the abdomen were obtained. FINDINGS: Persistent gaseous dilation of loops of small bowel in the upper abdomen with air-fluid lev els. This is not significantly changed from prior. Catheter is seen projecting over the right pelvis. IMPRESSION: Air-fluid levels with gaseous dilation of the bowel in the nondependent portion. Correlate for ileus versus small bowel obstruction. Consider dedicated small bowel follow-through.
[2022-10-17] MEDS: SODIUM CHLORIDE 0.9% 1,000 ML IV SCH ×3 (11:28→23:09)
[2022-10-17] MEDS: ACETAMINOPHEN IV (For NPO) 1,000 MG in EMPTY BAG 1 BAG IVPB SCH ×3 (13:23→23:29)
[2022-10-17 13:40] LABS: Basophils # (A) 0.1 k/uL (0-0.2); Basophils % (A) 0 %; Eosinophils # (A) 0.1 k/uL (0-0.7); Eosinophils % (A) 1 %; HCT 33.5 % (34.0-46.0); HGB 10.6 gm/dL (11.4-16.0); Hypochromasia Slight; Lymphocytes # (A) 1.8 k/uL (1.0-4.8); Lymphocytes % (A) 13 %; MCH 29.1 pg (25.0-35.0); MCHC 31.5 g/dL (31.0-37.0); MCV 92.2 fL (80.0-100.0); Mean Platelet Volume 6.8; Monocytes # (A) 0.5 k/uL (0-1.0); Monocytes % (A) 4 %; Neutrophils % (A) 82 %; Platelet Count 831 k/uL (150-450); RBC 3.64 m/uL (3.80-5.40); WBC 14.6 k/uL (3.8-10.6)
[2022-10-17 14:01] LABS: African American GFR (CKD) >90 (>60 ml/min/1.73 sqM); Anion Gap 14 mmol/L; Blood Urea Nitrogen <2 mg/dL (7-17); Calcium 8.1 mg/dL (8.4-10.2); Carbon Dioxide 24 mmol/L (22-30); Chloride 100 mmol/L (98-107); Glucose 86 mg/dL (74-99); Non-African American GFR(CKD) >90 (>60 ml/min/1.73 sqM); Sodium 138 mmol/L (137-145)
[2022-10-17] MEDS ORDERED: POTASSIUM CHLORIDE ER 20 MEQ TAB.ER PO STA (15:45)
[2022-10-17] MEDS ORDERED: POTASSIUM CHLORIDE 10 MEQ in WATER FOR INJECTION 1 100ML.BAG IVPB STA (15:45)
--- NOTE | 2022-10-17 15:53 | P.PN ---
Subjective Progress Note Date: 10/17/22 Principal diagnosis: pelvic abscess Still with abdominal pain and nausea when off the pain meds. No vomiting. No fevers or chills. Objective - Vital Signs Vital signs: Vital Signs Temp 98.6 F 10/17/22 13:50 Pulse 85 10/17/22 13:50 Resp 18 10/17/22 13:50 BP 136/90 10/17/22 13:50 Pulse Ox 95 10/17/22 13:50 FiO2 Intake & Output 10/16/22 10/17/22 10/17/22 18:59 06:59 18:59 Output Total 90 35 Balance -90 -35 Output: Drainage 90 35 Abdomen 90 35 Other: # Voids 3 2 - Exam Vital signs reviewed General: nontoxic, no distress, appears at stated age Cardiovascular: S1S2 reg, no murmur, positive posterior tibial pulse bilateral, Lungs: CTA bilateral, no rhonchi, no rales , no accessory muscle use Abdominal: soft, tender to palpation diffusely, no guarding, no appreciable organomegaly, suprapubic drain with serosanganous fluid Ext: no gross muscle atrophy, no edema, no contractures Neuro: CN II-XI grossly intact, no focal neuro deficits Psych: Alert, oriented, appropriate affect - Labs CBC & Chem 7: 10/17/22 13:17 10/17/22 13:17 Labs: Abnormal Lab Results - Last 24 Hours (Table) 10/17/22 10/17/22 Range/Units 13:17 13:17 WBC 14.6 H (3.8-10.6) k/uL RBC 3.64 L (3.80-5.40) m/uL Hgb 10.6 L (11.4-16.0) gm/dL Hct 33.5 L (34.0-46.0) % Plt Count 831 H (150-450) k/uL Neutrophils # 12.0 H (1.3-7.7) k/uL Potassium 3.0 L (3.5-5.1) mmol/L BUN <2 L (7-17) mg/dL Creatinine 0.41 L (0.52-1.04) mg/dL Calcium 8.1 L (8.4-10.2) mg/dL Microbiology - Last 24 Hours (Table) 10/14/22 02:00 Blood Culture - Preliminary Blood 10/14/22 02:15 Blood Culture - Preliminary Blood 10/14/22 11:00 Gram Stain - Final Aspirate Body Fluid Culture - Final Escherichia coli Assessment and Plan Plan: Assessment: Postoperative intra-abdominal abscess/hemtoma with sepsis Acute blood loss anemia and his anticipated outcome of the procedure GERD Thrombocytosis, suspect reactive Postoperative ileus Hypokalemia Hypertension, not requiring medications GERD Abnormal urinalysis, suspect related to post surgical state patient without dysuria. Imaging: Abdominal x-ray reviewed by myself on 10/17 with continued ileus Data Review: Vital signs reviewed. Labs reviewed K is 3.0 today. WBC, 14.6, Hgb 10, rest of labs unremarkable Plan: - [employer] note reviewed: continue with NPO status and maintain drain. -Encourage patient to chew gum and ambulate as able -Zosyn 3 g IV every 8 hours d #4 -Repeat CBC and basic metabolic profile in a.m. given nothing by mouth status -Recheck abdominal x-ray in a.m. -continue with Dilaudid 1 mg IV every 2 hours, adding tylenol and ibuprofen IV to see if it helps weaning down dilaudid.
[2022-10-17] MEDS: IBUPROFEN IV 800 MG in SODIUM CHLORIDE 0.9% 250 ML IV SCH ×2 (16:43→23:58)
[2022-10-17] MEDS: ONDANSETRON 4 MG/2 ML VIAL IVP PRN (20:36)
[2022-10-17] MEDS ORDERED: MELATONIN 5 MG TABLET PO SCH (21:00)
[2022-10-18] MEDS: PIPERACILLIN-TAZOBACTAM 3.375 GM in SODIUM CHLORIDE 0.9% 100 ML IVPB SCH ×3 (00:42→16:36)
[2022-10-18] MEDS: ONDANSETRON 4 MG/2 ML VIAL IVP PRN ×4 (03:38→18:27)
[2022-10-18] MEDS: SODIUM CHLORIDE 0.9% 1,000 ML IV SCH ×3 (05:42→22:18)
[2022-10-18] MEDS: ACETAMINOPHEN IV (For NPO) 1,000 MG in EMPTY BAG 1 BAG IVPB SCH (05:45)
[2022-10-18] MEDS: HYDROmorphone 1 MG/ML 1 ML SYRINGE IVP PRN ×2 (06:29→15:38)
--- NOTE | 2022-10-18 08:12 | XR ---
EXAMINATION TYPE: XR abdomen 1V DATE OF EXAM: 10/18/2022 Comparison: 10/17/2022 Clinical History: 52-year-old female follow-up ileus Findings: Drainage catheter remains in the pelvis. Ongoing markedly dilated small bowel loops with air-fluid le vels. Dilatation of the 4.3 cm versus 5.2 cm, previously. Upright view shows no convincing findings o f free intraperitoneal air. There is some patchy right basilar opacity which persists. Impression: Ongoing prominently dilated small bowel loops with air-fluid levels. The degree of dilatation shows s light improvement now measuring up to 4.3 cm versus 5.2 cm, previously. Ongoing patchy opacity, proba jorge luis atelectasis, at the right base.
[2022-10-18] MEDS: PANTOPRAZOLE 40 MG/10 ML VIAL IVP SCH ×2 (08:29→22:17)
[2022-10-18 09:09] LABS: HCT 28.4 % (37.2-46.3); MCH 29.3 pg (27.0-32.0); MCHC 31.7 g/dL (32.0-37.0); MCV 92.5 fL (80.0-97.0); Mean Platelet Volume 8.8 fL (9.5-12.2); NRBC Per 100 WBC 0 /100 WBCS (0.0-0.0); Platelet Count 757 X 10*3/uL (140-440); RBC 3.07 X 10*6/uL (4.10-5.20); RDW 14.1 % (11.5-14.5); WBC 13.48 X 10*3/uL (4.50-10.00)
[2022-10-18 09:14] LABS: African American GFR (CKD) 140.8 (60.0-200.0); Anion Gap 16.8 mmol/L (10.00-18.00); BUN/Creat Ratio 4.75 Ratio (12.00-20.00); Blood Urea Nitrogen 1.9 mg/dL (9.0-27.0); Carbon Dioxide 21.2 mmol/L (20.0-27.5); Non-African American GFR(CKD) 121.4 (60.0-200.0); Potassium 3.4 mmol/L (3.5-5.5)
[2022-10-18] MEDS ORDERED: LORazepam 2 MG/ML INJ IV PRN (09:14)
--- NOTE | 2022-10-18 09:21 | P.PN ---
Subjective Progress Note Date: 10/18/22 Principal diagnosis: Intra-abdominal abscess, postoperative ileus Events over the weekend reviewed. Patient reports feeling somewhat worse this morning. She has significant increase in her nausea. She did have a small amount of popsicles by mouth yesterday and had a small bowel movement. Since that time she has had no further gas or bowel movement and is feeling nauseated. Her pain is overall much better controlled except for when she has nausea and emesis. She is ambulating without difficulty and denies feeling lightheaded. She she is ending her bladder without difficulty. She has scant vaginal bleeding. Final culture results from intraperitoneal fluid positive for E. coli. Blood cultures are negative. Abdominal x-ray this morning shows persistent dilated l oops of small bowel but no definitive intraperitoneal free air. Objective - Vital Signs Vital signs: Vital Signs Temp 98.1 F 10/18/22 07:29 Pulse 79 10/18/22 07:29 Resp 17 10/18/22 07:29 BP 130/77 10/18/22 07:29 Pulse Ox 95 10/18/22 07:29 FiO2 Intake & Output 10/17/22 10/18/22 10/18/22 18:59 06:59 18:59 Intake Total 350 Output Total 35 5 Balance 315 -5 Intake: Intake, IV Titration 350 Amount Ibuprofen IV 800 mg In 250 Sodium Chloride 0.9% 250 ml @ 500 mls/hr IV Q8HR [facility] Rx#:[id number] Piperacillin-Tazobactam 3 100 .375 gm In Sodium Chloride 0.9% 100 ml @ 25 mls/hr IVPB Q8HR [facility] Rx# :[id number] Output: Drainage 35 5 Abdomen 35 5 Other: # Voids 4 2 - Constitutional Constitutional Comment(s): Pale and ill-appearing female in no acute distress General appearance: Present: no acute distress - Gastrointestinal Gastrointestinal Comment(s): Intraperitoneal drain with scant greeny dark brownish red fluid. General gastrointestinal: Present: absent bowel sounds, distended. Absent: rigid, tenderness - Integumentary Integumentary: Present: pale - Neurologic Neurologic: Absent: focal deficits - Psychiatric Psychiatric: Present: A&O x's 3, appropriate affect - Labs CBC & Chem 7: 10/18/22 05:39 10/17/22 13:17 Labs: Abnormal Lab Results - Last 24 Hours (Table) 10/17/22 10/17/22 10/18/22 Range/Units 13:17 13:17 05:39 WBC 14.6 H 13.48 H (3.8-10.6) k/uL RBC 3.64 L 3.07 L (3.80-5.40) m/uL Hgb 10.6 L 9.0 L (11.4-16.0) gm/dL Hct 33.5 L 28.4 L (34.0-46.0) % MCHC 31.7 L (32.0-37.0) g/dL Plt Count 831 H 757 H (150-450) k/uL MPV 8.8 L (9.5-12.2) fL Neutrophils # 12.0 H (1.3-7.7) k/uL Potassium 3.0 L (3.5-5.1) mmol/L BUN <2 L (7-17) mg/dL Creatinine 0.41 L (0.52-1.04) mg/dL Calcium 8.1 L (8.4-10.2) mg/dL Microbiology - Last 24 Hours (Table) 10/14/22 02:00 Blood Culture - Preliminary Blood 10/14/22 02:15 Blood Culture - Preliminary Blood 10/14/22 11:00 Gram Stain - Final Aspirate Body Fluid Culture - Final Escherichia coli - Imaging and Cardiology Abdominal x-ray: report reviewed Assessment and Plan (1) Postoperative intra-abdominal abscess Narrative/Plan: Intraperitoneal fluid culture positive for E. coli. This is suspicious for possible occult bowel injury or perforation. We will consult general surgery. She is on Zosyn with the elevated white blood cell count. Consider infectious disease consultation. Current Visit: Yes Status: Acute Code(s): T81.43XA - INFCT FOL A PROCEDURE, ORGAN AND SPACE SURGICAL SITE, INIT SNOMED Code(s): 0005394 (2) Abdominal pain Current Visit: No Status: Acute Code(s): R10.9 - UNSPECIFIED ABDOMINAL PAIN SNOMED Code(s): 42924130 (3) Ileus Narrative/Plan: Continue nothing by mouth. Current Visit: Yes Status: Acute Code(s): K56.7 - ILEUS, UNSPECIFIED SNOMED Code(s): 030865253 Plan: Postop day 14 status post TVH, AP R and postop day 6 status post exploratory laparoscopy with evacuation of pelvic hematoma. Hospital day 5 status post readmission for possible intraperitoneal abscess, abdominal pain and ileus. She has a pelvic drain in place that is draining scant fluid at this time. Intraperitoneal fluid cultures are positive for E. coli. Currently on day 5 of IV Zosyn. Her WBCs remain elevated and she is anemic. Findings of E. coli in the peritoneal fluid are concerning for occult bowel injury. There is no free air noted on abdominal x-ray. Plan is to consult general surgery and consider infectious disease consultation for antibiotic management. I discussed the above findings with the patient in detail and all questions were answered. Time with Patient: Greater than 30
[2022-10-18 09:38] LABS: Basophils # (M) 0 X 10*3/uL (0.00-0.10); Eosinophils # (M) 0 X 10*3/uL (0.04-0.35); Lymphocytes # (M) 1.48 X 10*3/uL (0.90-5.00); Metamyelocytes % 2 % (0-0); Monocytes # (M) 0.67 X 10*3/uL (0.20-1.00); Neutrophils # (M) 10.92 X 10*3/uL (2.00-8.90); Neutrophils % (M) 81 %; Promyelocytes # (M) 0.13 k/uL (0); Promyelocytes % 1 % (0-0); RBC Morphology NORMAL
[2022-10-18] MEDS: IBUPROFEN IV 800 MG in SODIUM CHLORIDE 0.9% 250 ML IV SCH ×2 (10:04→15:46)
--- NOTE | 2022-10-18 12:20 | CT ---
EXAMINATION TYPE: CT abdomen pelvis w con DATE OF EXAM: 10/18/2022 COMPARISON: 10/14/2022 HISTORY: pelvis abscess, hysterectomy x2 weeks ago. Rectal contrast per ordering Dr. Banda CT DLP: 1496.2 mGycm CONTRAST: CT scan of the abdomen and pelvis is performed and with IV Contrast, patient injected with 100 mL of Isovue 300. Technologist reports extravasated IV contrast therefore the examination is limited with v shirley little contrast identified. Rectal contrast was also utilized. FINDINGS: LUNG BASES-: No visible nodule. No infiltrate. Trace bilateral pleural effusions noted. LIVER/GB: The gallbladder is surgically absent. No space occupying hepatic lesion. Biliary tree is of normal caliber. PANCREAS: No inflammation. No distinct mass. SPLEEN: No splenic enlargement. No lesion seen. ADRENALS: No nodule. No thickening. KIDNEYS/BLADDER: No hydronephrosis. No nephrolithiasis. No distinct renal mass. Urinary bladder g rossly unremarkable. BOWEL: Contrast is seen within the colon without any extravasated contrast identified at this time. R ecently noted large pelvic abscess seen anteriorly is significantly smaller in size with drainage cat heter noted within its lumen. Residual abscess is estimated at 2.3 x 2.3 cm. No evidence for new absc ess. Progressive dilatation of small bowel measuring up to 3.7 cm may reflect postoperative ileus lupe edy distal small bowel obstruction. Again noted are several small foci of free air within the abdomen slightly improved from prior study. Subcutaneous air and strandy attenuation noted anterior abdomen. GENITAL ORGANS: Postoperative changes of hysterectomy. Free fluid redemonstrated within the pelvis m ay reflect postoperative seroma . Several foci of air at the vaginal cuff. LYMPH NODES: No greater than 1cm abdominal or pelvic lymph nodes are appreciated. AORTA: No significant abnormality. OSSEOUS STRUCTURES: No significant abnormality is seen. OTHER: No significant additional abnormality is seen. IMPRESSION: 1. Recently noted large pelvic abscess seen anteriorly is significantly smaller in size with drainage catheter noted within its lumen. Residual abscess is estimated at 2.3 x 2.3 cm. No evidence for new abscess. 2. Contrast is seen within opacified loops of large bowel without evidence for extravasation to sugge st large bowel injury at this time. 3. Progressive dilatation of small bowel may reflect postoperative ileus however distal small bowel o bstruction is difficult to exclude. Continued progress studies are advised. 4. Free fluid within the pelvis may reflect postoperative seroma. Several foci of air in this region could reflect air within the vaginal cuff. 5. Small foci of pneumoperitoneum persist although appear slightly improved relative to the prior thomas dy.
--- NOTE | 2022-10-18 12:49 | P.PN ---
Subjective Progress Note Date: 10/18/22 (delayed charting seen at 0845) Patient is a 52-year-old female with GERD, hypertension not requiring medications, and recent hysterectomy complicated by pelvic hematoma who presented to the hospital due to increasing abdominal pain. In the ER she underwent an extensive evaluation. Initial laboratory analysis showed white blood cell count 17.3, hemoglobin 10.5, platelets 696, sodium 136, potassium 3, albumin 3.4. CT abdomen and pelvis demonstrated a postoperative intra-abdominal abscess at least 19 cm that would be amenable to percutaneous drainage as well as enteritis. She was given a dose of Zosyn. She was started on IV fluids. She was admitted to [facility] for management of her post hysterectomy associated abscess. We're consulted for medical management. She was considered on Zosyn and IV fluids. X-ray confirmed persistent ileus. Patient seen and examined at bedside. present at bedside. She continues to have abdominal pain, has been nauseated since last night. Has passed gas no bowel movement. No chest pain/SOB. Vital signs reviewed General: nontoxic, no distress, appears at stated age Cardiovascular: S1S2 reg, no murmur, positive posterior tibial pulse bilateral, Lungs: CTA bilateral, no rhonchi, no rales , no accessory muscle use Abdominal: soft, +tender to palpation epigastric, no guarding, no appreciable organomegaly, suprapubic drain with scant serosanganous fluid Ext: no gross muscle atrophy, no edema, no contractures Neuro: CN II-XI grossly intact, no focal neuro deficits Psych: Alert, oriented, appropriate affect Assessment: Postoperative intra-abdominal abscess/hemtoma with sepsis Acute blood loss anemia and his anticipated outcome of the procedure GERD Thrombocytosis, suspect reactive Possible postoperative ileus Hypokalemia, resolved Hypertension, not requiring medications GERD4 Abnormal urinalysis, suspect related to post surgical state patient without dysuria. Imaging: Abdominal x-rays reviewed by myself on 10/18/22 shows continued dilated bowel loops. With multiple air-fluid levels Data Review: Vitals reviewed temperature 98.1, T-max the last 24 hours 98.6, pulse 79, respirations 17, blood pressure 130/77, O2 sat 95% on room air Labs reviewed from today White blood cell count 13.47, hemoglobin 9, platelets 757, potassium 3.4, BUN 1.9 Plan: - Continue with nothing by mouth status -Await general surgery recommendations, Await CT abd and pelvis -Continue with Zosyn until anaerobic cultures are verified -Consult ID for peritonitis -We will need to consider TPN if patient needs to maintain nothing by mouth status much longer. Patient has been nothing by mouth for 5 days. -Repeat CBC and basic metabolic profile, mg, phos in a.m. given nothing by mouth status -continue with Dilaudid 1 mg IV every 2 hours DVT prophylaxis: SCDs This dictation was prepared using [employer] voice recognition software. Though every attempt is made to correct errors during during dictation some may still exist. Objective - Vital Signs Vital signs: Vital Signs Temp 98.1 F 10/18/22 07:29 Pulse 79 10/18/22 07:29 Resp 17 10/18/22 07:29 BP 130/77 10/18/22 07:29 Pulse Ox 95 10/18/22 07:29 FiO2 Intake & Output 10/17/22 10/18/22 10/18/22 18:59 06:59 18:59 Intake Total 350 Output Total 35 5 Balance 315 -5 Intake: Intake, IV Titration 350 Amount Ibuprofen IV 800 mg In 250 Sodium Chloride 0.9% 250 ml @ 500 mls/hr IV Q8HR [facility] Rx#:[id number] Piperacillin-Tazobactam 3 100 .375 gm In Sodium Chloride 0.9% 100 ml @ 25 mls/hr IVPB Q8HR [facility] Rx# :[id number] Output: Drainage 35 5 Abdomen 35 5 Other: # Voids 4 2 - Labs CBC & Chem 7: 10/18/22 05:39 10/18/22 05:39 Labs: Abnormal Lab Results - Last 24 Hours (Table) 10/17/22 10/17/22 10/18/22 Range/Units 13:17 13:17 05:39 WBC 14.6 H 13.48 H (3.8-10.6) k/uL RBC 3.64 L 3.07 L (3.80-5.40) m/uL Hgb 10.6 L 9.0 L (11.4-16.0) gm/dL Hct 33.5 L 28.4 L (34.0-46.0) % MCHC 31.7 L (32.0-37.0) g/dL Plt Count 831 H 757 H (150-450) k/uL Plt Count Comment INCREASED A MPV 8.8 L (9.5-12.2) fL Metamyelocytes % 2 H (0-0) % Promyelocytes % 1 H (0-0) % Neutrophils # 12.0 H (1.3-7.7) k/uL Neutrophils # (Manual) 10.92 H (2.00-8.90) X 10*3/uL Eosinophils # (Manual) 0 L (0.04-0.35) X 10*3/uL Potassium 3.0 L (3.5-5.1) mmol/L BUN <2 L (7-17) mg/dL Creatinine 0.41 L (0.52-1.04) mg/dL BUN/Creatinine Ratio (12.00-20.00) Ratio Calcium 8.1 L (8.4-10.2) mg/dL 10/18/22 Range/Units 05:39 WBC (3.8-10.6) k/uL RBC (3.80-5.40) m/uL Hgb (11.4-16.0) gm/dL Hct (34.0-46.0) % MCHC (32.0-37.0) g/dL Plt Count (150-450) k/uL Plt Count Comment MPV (9.5-12.2) fL Metamyelocytes % (0-0) % Promyelocytes % (0-0) % Neutrophils # (1.3-7.7) k/uL Neutrophils # (Manual) (2.00-8.90) X 10*3/uL Eosinophils # (Manual) (0.04-0.35) X 10*3/uL Potassium 3.4 L (3.5-5.1) mmol/L BUN 1.9 L (7-17) mg/dL Creatinine 0.4 L (0.52-1.04) mg/dL BUN/Creatinine Ratio 4.75 L (12.00-20.00) Ratio Calcium 8.0 L (8.4-10.2) mg/dL Microbiology - Last 24 Hours (Table) 10/14/22 02:00 Blood Culture - Preliminary Blood 10/14/22 02:15 Blood Culture - Preliminary Blood 10/14/22 11:00 Gram Stain - Final Aspirate Body Fluid Culture - Final Escherichia coli
[2022-10-18] MEDS: POTASSIUM CHLORIDE 10 MEQ in WATER FOR INJECTION 1 100ML.BAG IVPB SCH ×2 (13:41→16:35)
--- NOTE | 2022-10-18 14:14 | P.GSCN ---
History of Present Illness Consult date: 10/18/22 Reason for Consult: Infected abdominal hematoma History of present illness: 52-year-old female underwent recent vaginal hysterectomy. Patient was readmitted with discomfort and underwent laparoscopic evacuation of pelvic hematoma last week on 10/12. 2 days later CAT scan was performed showing a persistent pelvic fluid collection. A percutaneous drainage catheter was then placed. Old bloody fluid was evacuated approximate 200 mL. Since that time the patient is been maintained on IV antibiotics. She has remained afebrile with no significant tachycardic episodes. White blood cell count remains mildly elevated although slightly improved from yesterday. Cultures from the pelvic drainage procedure revealed E. coli. Patient has had complaints of nausea and anorexia. She did have a small bowel movement yesterday. She says she is not passing much gas. We were then consulted today because of the concern for possible enteric leak. Patient says she hasn't minimal pain only with moving or coughing. Patient has had serial abdominal x-ray showing small bowel dilation. Review of Systems The patient denies any acute changes in vision or hearing, no dysphagia or odynophagia, no chest pain or shortness of breath, no dysuria or hematuria, no headache, no runny nose, no rectal bleeding or melena, no unexplained weight loss Past Medical History Past Medical History: GERD/Reflux, Hypertension Additional Past Medical History / Comment(s): kidney stones 20 years ago, no medication for hypertension History of Any Multi-Drug Resistant Organisms: None Reported Past Surgical History: Cholecystectomy, Hysterectomy, Uterine Ablation Additional Past Surgical History / Comment(s): oral surgery. Colonoscopy 2014(next age 52) Past Anesthesia/Blood Transfusion Reactions: Motion Sickness Past Psychological History: Anxiety Smoking Status: Former smoker Past Alcohol Use History: None Reported Past Drug Use History: Marijuana Additional Drug Use History / Comment(s): Edibles for sleep, none in over 3 weeks. - Past Family History Father Family Medical History: Cancer Additional Family Medical History / Comment(s): Lung cancer. An uncle had lung cancer as well. Brother(s) Family Medical History: Cancer Additional Family Medical History / Comment(s): Beavers sarcoma. Mother Family Medical History: Pulmonary Embolus Aunt Family Medical History: Cancer Additional Family Medical History / Comment(s): Breast cancer. Medications and Allergies Home Medications Medication Instructions Recorded Confirmed Type Famotidine [Pepcid] 20 mg PO DAILY 04/16/21 10/14/22 History Acetaminophen Tab [Tylenol] 325 mg PO Q6H PRN 10/14/22 10/14/22 History HYDROcodone/APAP 5-325MG [Chilo 1 tab PO Q4-6H PRN 10/14/22 10/14/22 History 5-325] Allergies Allergy/AdvReac Type Severity Reaction Status Date / Time cephalexin [From Keflex] AdvReac Nausea & Verified 10/14/22 08:59 Vomiting Surgical - Exam Vital Signs Temp Pulse Resp BP Pulse Ox 98.7 F 125 H 20 117/70 96 10/13/22 22:22 10/13/22 22:22 10/13/22 22:22 10/13/22 22:22 10/13/22 22:22 Physical exam: General: Well-developed, well-nourished HEENT: Normocephalic, sclerae nonicteric Abdomen: Mild distention, mild lower abdominal tenderness, drain in place, recent incisions clean and dry Extremities: No edema Neuro: Alert and oriented Results - Labs 10/18/22 05:39 10/18/22 05:39 Abnormal Lab Results - Last 24 Hours (Table) 10/18/22 10/18/22 Range/Units 05:39 05:39 WBC 13.48 H (4.50-10.00) X 10*3/uL RBC 3.07 L (4.10-5.20) X 10*6/uL Hgb 9.0 L (12.0-15.0) g/dL Hct 28.4 L (37.2-46.3) % MCHC 31.7 L (32.0-37.0) g/dL Plt Count 757 H (140-440) X 10*3/uL Plt Count Comment INCREASED A MPV 8.8 L (9.5-12.2) fL Metamyelocytes % 2 H (0-0) % Promyelocytes % 1 H (0-0) % Neutrophils # (Manual) 10.92 H (2.00-8.90) X 10*3/uL Eosinophils # (Manual) 0 L (0.04-0.35) X 10*3/uL Potassium 3.4 L (3.5-5.5) mmol/L BUN 1.9 L (9.0-27.0) mg/dL Creatinine 0.4 L (0.6-1.5) mg/dL BUN/Creatinine Ratio 4.75 L (12.00-20.00) Ratio Calcium 8.0 L (8.7-10.3) mg/dL Microbiology - Last 24 Hours (Table) 10/14/22 02:00 Blood Culture - Preliminary Blood 10/14/22 02:15 Blood Culture - Preliminary Blood 10/14/22 11:00 Gram Stain - Final Aspirate Body Fluid Culture - Final Escherichia coli Diabetes panel 10/18/22 Range/Units 05:39 Sodium 138 (135-145) mmol/L Potassium 3.4 L (3.5-5.5) mmol/L Chloride 100 (96-109) mmol/L Carbon Dioxide 21.2 (20.0-27.5) mmol/L BUN 1.9 L (9.0-27.0) mg/dL Creatinine 0.4 L (0.6-1.5) mg/dL Glucose 76 (70-110) mg/dL Calcium 8.0 L (8.7-10.3) mg/dL Calcium panel 10/18/22 Range/Units 05:39 Calcium 8.0 L (8.7-10.3) mg/dL Pituitary panel 10/18/22 Range/Units 05:39 Sodium 138 (135-145) mmol/L Potassium 3.4 L (3.5-5.5) mmol/L Chloride 100 (96-109) mmol/L Carbon Dioxide 21.2 (20.0-27.5) mmol/L BUN 1.9 L (9.0-27.0) mg/dL Creatinine 0.4 L (0.6-1.5) mg/dL Glucose 76 (70-110) mg/dL Calcium 8.0 L (8.7-10.3) mg/dL Adrenal panel 10/18/22 Range/Units 05:39 Sodium 138 (135-145) mmol/L Potassium 3.4 L (3.5-5.5) mmol/L Chloride 100 (96-109) mmol/L Carbon Dioxide 21.2 (20.0-27.5) mmol/L BUN 1.9 L (9.0-27.0) mg/dL Creatinine 0.4 L (0.6-1.5) mg/dL Glucose 76 (70-110) mg/dL Calcium 8.0 L (8.7-10.3) mg/dL Assessment and Plan (1) Postoperative intra-abdominal abscess Narrative/Plan: 52-year-old female with infected pelvic hematoma. Patient had drain placed last . She has had some persistent nausea since that time. Cultures are now showing E. coli. Options reviewed with the patient and her at the bedside. We decided to proceed first with CT abdomen pelvis with rectal contrast. These films were reviewed with Dr. Zayas. The patient's pelvic abscesses significantly improved on today's study. There is no evidence of contrast extravasation with the administration of rectal contrast. The patient still has proximal small bowel dilation likely on the basis of PSBO however ileus not excluded. Options reviewed with the patient and her after the CAT scan was performed. She has noticed some increased drainage from the drainage catheter after the CAT scan was performed. We will quickly perform a bedside x-ray of the drainage container to make sure there is no contrast prese nt. Assuming that we'll be negative options of conservative management versus exploratory laparotomy reviewed. I do think I would continue a conservative approach given the significant improvement in today's CAT scan and the possibility that this will continue to improve with a nonsurgical approach. Risks and benefits of both options reviewed in detail. All questions answered. Case was discussed also with Dr. Turner and Dr. Rutherford by phone. Agree with plans for infectious disease consultation. Anticipate need for home IV antibiotics. Current Visit: Yes Status: Acute Code(s): T81.43XA - INFCT FOL A PROCEDURE, ORGAN AND SPACE SURGICAL SITE, INIT SNOMED Code(s): 7495558
--- NOTE | 2022-10-18 17:35 | XR ---
EXAMINATION TYPE: XR pelvis AP view DATE OF EXAM: 10/18/2022 COMPARISON: None HISTORY: Pelvic drain and drainage bag TECHNIQUE: AP pelvis FINDINGS: There is a pigtail catheter in the right lower quadrant. There appears to be some contrast within the distal sigmoid colon to the rectum. Some contrast within the urinary bladder. Nonspecific small bowel gas within the midabdomen. IMPRESSION: 1. Drainage catheter right lower quadrant.
[2022-10-18] MEDS: MIRTAZAPINE 15 MG TAB PO SCH (22:17)
--- NOTE | 2022-10-18 22:26 | P.CONS ---
History of Present Illness - Reason for Consult Consult date: 10/18/22 - History of Present Illness Patient is a 52-year-old female with a past medical history pertinent for hypertension reflux, patient recently did have a total abdominal hysterectomy, postop day 2 patient did have a exploratory laparoscopic with evacuation of hematoma, patient is now presenting back to the hospital 5 days ago on 10/13/2022 for evaluation of worsening right lower quadrant abdominal pain along with vaginal bleeding patient's symptom has been getting worse for few days before presentation to the hospital was described repeat to be sharp almost 10 out of 10 on presentation to the hospital patient did have a low-grade fever and on admission the hospital temperature was 99.9 patient did have a white count of 17.3 on admission with a left shift patient did have a CT of abdominal pelvis on admission. It shows postoperative intra-abdominal abscess measuring at least 19 cm enteritis with reactive wall thickening patient is status post CT-guided drainage of this abscess on 10/14/2022 and placement of a drainage catheter, culture subsequently grew E. coli and the patient has been treated with Zosyn with concern for possible bowel injury patient did have a repeat CT abdominal pelvis completed this afternoon radiation was overall decrease in the size of the residual abscess and there was no evidence of any extravasation of the contrast to suggest bowel injury and possible ileus small foci of pneumoperitoneum infectious he was consulted for further management of antibiotic therapy and consult to the general surgery Past Medical History Past Medical History: GERD/Reflux, Hypertension Additional Past Medical History / Comment(s): kidney stones 20 years ago, no medication for hypertension History of Any Multi-Drug Resistant Organisms: None Reported Past Surgical History: Cholecystectomy, Hysterectomy, Uterine Ablation Additional Past Surgical History / Comment(s): oral surgery. Colonoscopy 2014(next age 52) Past Anesthesia/Blood Transfusion Reactions: Motion Sickness Past Psychological History: Anxiety Smoking Status: Former smoker Past Alcohol Use History: None Reported Past Drug Use History: Marijuana Additional Drug Use History / Comment(s): Edibles for sleep, none in over 3 weeks. - Past Family History Father Family Medical History: Cancer Additional Family Medical History / Comment(s): Lung cancer. An uncle had lung cancer as well. Brother(s) Family Medical History: Cancer Additional Family Medical History / Comment(s): Beavers sarcoma. Mother Family Medical History: Pulmonary Embolus Aunt Family Medical History: Cancer Additional Family Medical History / Comment(s): Breast cancer. Medications and Allergies Home Medications Medication Instructions Recorded Confirmed Type Famotidine [Pepcid] 20 mg PO DAILY 04/16/21 10/14/22 History Acetaminophen Tab [Tylenol] 325 mg PO Q6H PRN 10/14/22 10/14/22 History HYDROcodone/APAP 5-325MG [[place] 1 tab PO Q4-6H PRN 10/14/22 10/14/22 History 5-325] Allergies Allergy/AdvReac Type Severity Reaction Status Date / Time cephalexin [From Keflex] AdvReac Nausea & Verified 10/14/22 08:59 Vomiting Physical Exam Vitals: Vital Signs Temp Pulse Resp BP Pulse Ox 10/18/22 07:29 98.1 F 79 17 130/77 95 10/18/22 02:00 98.2 F 87 18 129/84 96 10/17/22 19:44 98.3 F 86 18 138/87 96 10/17/22 13:50 98.6 F 85 18 136/90 95 Intake and Output 10/17/22 10/18/22 10/18/22 22:59 06:59 14:59 Intake Total 350 Output Total 5 Balance 350 -5 Intake: Intake, IV Titration 350 Amount Ibuprofen IV 800 mg In 250 Sodium Chloride 0.9% 250 ml @ 500 mls/hr IV Q8HR [facility] Rx#:[id number] Piperacillin-Tazobactam 3 100 .375 gm In Sodium Chloride 0.9% 100 ml @ 25 mls/hr IVPB Q8HR [facility] Rx# :[id number] Output: Drainage 5 Abdomen 5 Other: # Voids 4 2 Results CBC & Chem 7: 10/18/22 05:39 10/18/22 05:39 Labs: Abnormal Lab Results - Last 24 Hours (Table) 10/17/22 10/17/22 10/18/22 Range/Units 13:17 13:17 05:39 WBC 14.6 H 13.48 H (3.8-10.6) k/uL RBC 3.64 L 3.07 L (3.80-5.40) m/uL Hgb 10.6 L 9.0 L (11.4-16.0) gm/dL Hct 33.5 L 28.4 L (34.0-46.0) % MCHC 31.7 L (32.0-37.0) g/dL Plt Count 831 H 757 H (150-450) k/uL Plt Count Comment INCREASED A MPV 8.8 L (9.5-12.2) fL Metamyelocytes % 2 H (0-0) % Promyelocytes % 1 H (0-0) % Neutrophils # 12.0 H (1.3-7.7) k/uL Neutrophils # (Manual) 10.92 H (2.00-8.90) X 10*3/uL Eosinophils # (Manual) 0 L (0.04-0.35) X 10*3/uL Potassium 3.0 L (3.5-5.1) mmol/L BUN <2 L (7-17) mg/dL Creatinine 0.41 L (0.52-1.04) mg/dL BUN/Creatinine Ratio (12.00-20.00) Ratio Calcium 8.1 L (8.4-10.2) mg/dL 10/18/22 Range/Units 05:39 WBC (3.8-10.6) k/uL RBC (3.80-5.40) m/uL Hgb (11.4-16.0) gm/dL Hct (34.0-46.0) % MCHC (32.0-37.0) g/dL Plt Count (150-450) k/uL Plt Count Comment MPV (9.5-12.2) fL Metamyelocytes % (0-0) % Promyelocytes % (0-0) % Neutrophils # (1.3-7.7) k/uL Neutrophils # (Manual) (2.00-8.90) X 10*3/uL Eosinophils # (Manual) (0.04-0.35) X 10*3/uL Potassium 3.4 L (3.5-5.1) mmol/L BUN 1.9 L (7-17) mg/dL Creatinine 0.4 L (0.52-1.04) mg/dL BUN/Creatinine Ratio 4.75 L (12.00-20.00) Ratio Calcium 8.0 L (8.4-10.2) mg/dL Microbiology - Last 24 Hours (Table) 10/14/22 02:00 Blood Culture - Preliminary Blood 10/14/22 02:15 Blood Culture - Preliminary Blood 10/14/22 11:00 Gram Stain - Final Aspirate Body Fluid Culture - Final Escherichia coli Assessment and Plan Plan: 1patient with infected intra-abdominal hematoma/abscess in this patient who did have a history of total vaginal hysterectomy followed by laparoscopic drainage of hematoma subsequent presented to hospital with abdominal pain and evidence of large fluid collection that has been drained on 10/14/2022 culture now growing E. coli patient did have a CT abdominal pelvis with rectal contrast completed this afternoon and did not show any leakage of the bowel content and surgery has seen the patient recommending conservative approach and possible outpatient antibiotic therapy, cultures currently growing E. coli and anaerobic gram- negative bacilli 2-we will keep the patient on Zosyn while inpatient however keeping in mind the E. coli sensitive pathogen option can be Rocephin 2 g daily along with oral Flagyl on discharge for 2 weeks with repeat CAT scan at that point We will follow on clinical condition and cultures to further adjust medication if needed Thank you for this consultation we will follow the patient along with you Time with Patient: Greater than 30
[2022-10-19] MEDS: IBUPROFEN IV 800 MG in SODIUM CHLORIDE 0.9% 250 ML IV SCH ×3 (00:17→20:09)
[2022-10-19] MEDS: PIPERACILLIN-TAZOBACTAM 3.375 GM in SODIUM CHLORIDE 0.9% 100 ML IVPB SCH ×4 (00:48→23:53)
[2022-10-19] MEDS: SODIUM CHLORIDE 0.9% 1,000 ML IV SCH ×2 (05:56→14:06)
--- NOTE | 2022-10-19 08:05 | P.PN ---
Subjective Progress Note Date: 10/19/22 Principal diagnosis: 2 weeks status post vaginal hysterectomy A&P repair, with pelvic hematoma. Currently rehospitalized day number 6 Positive flatus. Mild nausea this morning, no emesis 24 hours. Scant vaginal drainage. Objective - Vital Signs Vital signs: Vital Signs Temp 98.8 F 10/19/22 07:20 Pulse 103 H 10/19/22 07:20 Resp 16 10/19/22 07:20 BP 128/80 10/19/22 07:20 Pulse Ox 99 10/19/22 07:20 FiO2 Intake & Output 10/18/22 10/19/22 10/19/22 18:59 06:59 18:59 Other: # Voids 2 2 - Constitutional General appearance: Present: average body habitus, cooperative - EENT Eyes: Present: PERRLA - Respiratory Respiratory: bilateral: CTA - Cardiovascular Rhythm: regular - Gastrointestinal General gastrointestinal: Present: normal bowel sounds - Genitourinary Genitourinary Comment(s): Abdomen softly distended, incisions clean and dry. Active bowel sounds, very mild guarding lower quadrants. Pigtail catheter with 30 mL over the past 12 hours. - Integumentary Integumentary: Present: normal - Neurologic Neurologic: Present: CNII-XII intact - Musculoskeletal Musculoskeletal: Present: gait normal, strength equal bilaterally - Psychiatric Psychiatric: Present: A&O x's 3, appropriate affect, intact judgment & insight - Labs CBC & Chem 7: 10/18/22 05:39 10/18/22 05:39 Labs: Abnormal Lab Results - Last 24 Hours (Table) 10/18/22 10/18/22 Range/Units 05:39 05:39 WBC 13.48 H (4.50-10.00) X 10*3/uL RBC 3.07 L (4.10-5.20) X 10*6/uL Hgb 9.0 L (12.0-15.0) g/dL Hct 28.4 L (37.2-46.3) % MCHC 31.7 L (32.0-37.0) g/dL Plt Count 757 H (140-440) X 10*3/uL Plt Count Comment INCREASED A MPV 8.8 L (9.5-12.2) fL Metamyelocytes % 2 H (0-0) % Promyelocytes % 1 H (0-0) % Neutrophils # (Manual) 10.92 H (2.00-8.90) X 10*3/uL Eosinophils # (Manual) 0 L (0.04-0.35) X 10*3/uL Promyelocytes # (Man) 0.13 H (0) k/uL Potassium 3.4 L (3.5-5.5) mmol/L BUN 1.9 L (9.0-27.0) mg/dL Creatinine 0.4 L (0.6-1.5) mg/dL BUN/Creatinine Ratio 4.75 L (12.00-20.00) Ratio Calcium 8.0 L (8.7-10.3) mg/dL Microbiology - Last 24 Hours (Table) 10/14/22 11:00 Anaerobic Culture - Final Aspirate Anaerobic Gm Negative Bacilli Assessment and Plan Assessment: 2 weeks status post vaginal hysterectomy, A&P repair, day #6 of rehosp italization. Plan: Appreciate Dr. Banda following. Continue Zosyn daily, consider IV antibiotics upon eventual discharge home. Consider shower this morning, advanced diet per Dr. Banda's recommendations. Time with Patient: Greater than 30
[2022-10-19 08:57] LABS: HCT 26.3 % (37.2-46.3); HGB 8.4 g/dL (12.0-15.0); MCH 29.4 pg (27.0-32.0); MCHC 31.9 g/dL (32.0-37.0); Mean Platelet Volume 8.7 fL (9.5-12.2); NRBC Per 100 WBC 0 /100 WBCS (0.0-0.0); Platelet Count 682 X 10*3/uL (140-440); RBC 2.86 X 10*6/uL (4.10-5.20); RDW 14.2 % (11.5-14.5); WBC 12.42 X 10*3/uL (4.50-10.00)
[2022-10-19 09:05] LABS: Magnesium 1.8 mg/dL (1.5-2.4)
[2022-10-19 09:34] LABS: African American GFR (CKD) 140.8 (60.0-200.0); Blood Urea Nitrogen <1.4 mg/dL (9.0-27.0); Calcium 8.2 mg/dL (8.7-10.3); Carbon Dioxide 18.3 mmol/L (20.0-27.5); Chloride 103 mmol/L (96-109); Glucose 63 mg/dL (70-110); Non-African American GFR(CKD) 121.4 (60.0-200.0); Potassium 3.4 mmol/L (3.5-5.5); Sodium 138 mmol/L (135-145)
[2022-10-19] MEDS: PANTOPRAZOLE 40 MG/10 ML VIAL IVP SCH ×2 (09:43→20:09)
[2022-10-19] MEDS: POTASSIUM CHLORIDE 10 MEQ in WATER FOR INJECTION 1 100ML.BAG IVPB SCH ×2 (09:43→11:29)
[2022-10-19] MEDS: HYDROmorphone 1 MG/ML 1 ML SYRINGE IVP PRN (09:56)
[2022-10-19 13:36] VITALS: BMI 31.9
--- NOTE | 2022-10-19 14:16 | P.PN ---
Subjective Progress Note Date: 10/19/22 Principal diagnosis: Infected abdominal hematoma Patient doing better today. She is passing flatus. She feels less bloated. No nausea or vomiting. She is tolerating ice chips. White blood cell count is improved. She is afebrile. Heart rate was 103 while she was brushing her teeth apparently. Drain remains brownish in color. Objective - Vital Signs Vital signs: Vital Signs Temp 98.8 F 10/19/22 13:54 Pulse 86 10/19/22 13:54 Resp 16 10/19/22 13:54 BP 125/79 10/19/22 13:54 Pulse Ox 99 10/19/22 13:54 FiO2 Intake & Output 10/18/22 10/19/22 10/19/22 18:59 06:59 18:59 Weight 84.368 kg Other: # Voids 2 2 - Exam Abdomen: Soft, less distended, mild lower abdominal tenderness, incisions clean and dry - Labs CBC & Chem 7: 10/19/22 04:19 10/19/22 04:19 Labs: Abnormal Lab Results - Last 24 Hours (Table) 10/18/22 10/19/22 10/19/22 Range/Units 05:39 04:19 04:19 WBC 12.42 H (4.50-10.00) X 10*3/uL RBC 2.86 L (4.10-5.20) X 10*6/uL Hgb 8.4 L (12.0-15.0) g/dL Hct 26.3 L (37.2-46.3) % MCHC 31.9 L (32.0-37.0) g/dL Plt Count 682 H (140-440) X 10*3/uL MPV 8.7 L (9.5-12.2) fL Promyelocytes # (Man) 0.13 H (0) k/uL Potassium 3.4 L (3.5-5.5) mmol/L Carbon Dioxide 18.3 L (20.0-27.5) mmol/L BUN <1.4 L (9.0-27.0) mg/dL Creatinine 0.4 L (0.6-1.5) mg/dL Glucose 63 L (70-110) mg/dL Calcium 8.2 L (8.7-10.3) mg/dL Microbiology - Last 24 Hours (Table) 10/14/22 02:00 Blood Culture - Preliminary Blood 10/14/22 02:15 Blood Culture - Preliminary Blood 10/14/22 11:00 Anaerobic Culture - Final Aspirate Anaerobic Gm Negative Bacilli Assessment and Plan (1) Postoperative intra-abdominal abscess Narrative/Plan: Overall patient seems to be slowly improving. Begin clear liquids. Recheck labs tomorrow. Ambulate. May shower. Current Visit: Yes Status: Acute Code(s): T81.43XA - INFCT FOL A PROCEDURE, ORGAN AND SPACE SURGICAL SITE, INIT SNOMED Code(s): 9457333
--- NOTE | 2022-10-19 14:19 | P.PN ---
Subjective Progress Note Date: 10/19/22 Subjective: Seen and examined at bedside. No acute events overnight. Currently nothing by mouth. Passing gas. Bowel movement yesterday. Still has abdominal pain. No urinary complaints. Pertinent positives and negatives as discussed above, a complete review of systems was performed and all other systems are negative. Vitals Signs Reviewed. General: nontoxic, no distress, appears at stated age Cardiovascular: S1S2 reg, no murmur, positive posterior tibial pulse bilateral, Lungs: CTA bilateral, no rhonchi, no rales , no accessory muscle use Abdominal: soft, +tender to palpation epigastric, no guarding, no appreciable organomegaly, suprapubic drain with scant serosanganous fluid Ext: no gross muscle atrophy, no edema, no contractures Neuro: CN II-XI grossly intact, no focal neuro deficits Psych: Alert, oriented, appropriate affect Data Reviewed Today: Pertinent Labs: WBC 12.42, hemoglobin 8.4, platelets 682, potassium 3.4, creatinine 0.4 Imaging: None today Assessment and Plan: Postoperative intra-abdominal abscess/hemtoma with sepsis Acute blood loss anemia and his anticipated outcome of the procedure GERD Thrombocytosis, suspect reactive Possible postoperative ileus Hypokalemia Hypertension, now controlled GERD Abnormal urinalysis, suspect related to post surgical state patient without dysuria. - Surgery following, advance diet to clear liquid -ID following, on Zosyn, will likely need IV antibiotics at home -aspirate positive for E. coli, pansensitive -Hemoglobin slowly down trending -IV Protonix 40 mg twice a day -Pain control with IV Dilaudid as needed, IV ibuprofen as needed -Continue normal saline 1 30 mL an hour -Given 20 mEq potassium chloride Thank you for allowing us to participate in the care of this pleasant patient. Do not hesitate to contact us with questions. Someone can be reached from the [facility] hospitalist group all hours of the day at [phone] or via [email or web address]. Objective - Vital Signs Vital signs: Vital Signs Temp 98.8 F 10/19/22 13:54 Pulse 86 10/19/22 13:54 Resp 16 10/19/22 13:54 BP 125/79 10/19/22 13:54 Pulse Ox 99 10/19/22 13:54 FiO2 Intake & Output 05/22/23 05/23/23 05/23/23 18:59 06:59 18:59 Weight 84.368 kg Other: # Voids 2 2 - Labs CBC & Chem 7: 10/19/22 04:19 10/19/22 04:19 Labs: Abnormal Lab Results - Last 24 Hours (Table) 10/18/22 10/19/22 10/19/22 Range/Units 05:39 04:19 04:19 WBC 12.42 H (4.50-10.00) X 10*3/uL RBC 2.86 L (4.10-5.20) X 10*6/uL Hgb 8.4 L (12.0-15.0) g/dL Hct 26.3 L (37.2-46.3) % MCHC 31.9 L (32.0-37.0) g/dL Plt Count 682 H (140-440) X 10*3/uL MPV 8.7 L (9.5-12.2) fL Promyelocytes # (Man) 0.13 H (0) k/uL Potassium 3.4 L (3.5-5.5) mmol/L Carbon Dioxide 18.3 L (20.0-27.5) mmol/L BUN <1.4 L (9.0-27.0) mg/dL Creatinine 0.4 L (0.6-1.5) mg/dL Glucose 63 L (70-110) mg/dL Calcium 8.2 L (8.7-10.3) mg/dL Microbiology - Last 24 Hours (Table) 10/14/22 02:00 Blood Culture - Preliminary Blood 10/14/22 02:15 Blood Culture - Preliminary Blood 10/14/22 11:00 Anaerobic Culture - Final Aspirate Anaerobic Gm Negative Bacilli
--- NOTE | 2022-10-19 19:09 | P.PN ---
Subjective Progress Note Date: 10/19/22 Principal diagnosis: Intra-abdominal abscess Patient is a 52-year-old female with a past medical history pertinent for hypertension reflux, patient recently did have a total abdominal hysterectomy, postop day 2 patient did have a exploratory laparoscopic with evacuation of hematoma, patient subsequently presenting back to the hospital on 10/13/2022 for evaluation of worsening right lower quadrant abdominal pain, patient did have a abnormal CT concerning for possible abscess status post CT- guided drainage culture did grew E. coli and anaerobes, concern for possible bowel trauma repeat CAT scan with rectal contrast did not show any leakage. On today's evaluation that is 10/19/2022, the patient denies having any fever or any chills, the patient is breathing comfortably patient abdominal pain is controlled with the current medication patient denies having any urinary burning or frequency some nausea but no vomiting Objective - Vital Signs Vital signs: Vital Signs Temp 98.8 F 10/19/22 07:20 Pulse 103 H 10/19/22 07:20 Resp 16 10/19/22 07:20 BP 128/80 10/19/22 07:20 Pulse Ox 99 10/19/22 07:20 FiO2 Intake & Output 10/18/22 10/19/22 10/19/22 18:59 06:59 18:59 Other: # Voids 2 2 - Exam GENERAL DESCRIPTION: Middle-age female lying in bed in no distress RESPIRATORY SYSTEM: Unlabored breathing , decreased breath sounds at bases HEART: S1 S2 regular rate and rhythm , ABDOMEN: Soft , mild distention and tenderness EXTREMITIES: No edema feet - Labs CBC & Chem 7: 10/19/22 04:19 10/19/22 04:19 Labs: Abnormal Lab Results - Last 24 Hours (Table) 10/18/22 10/19/22 10/19/22 Range/Units 05:39 04:19 04:19 WBC 12.42 H (4.50-10.00) X 10*3/uL RBC 2.86 L (4.10-5.20) X 10*6/uL Hgb 8.4 L (12.0-15.0) g/dL Hct 26.3 L (37.2-46.3) % MCHC 31.9 L (32.0-37.0) g/dL Plt Count 682 H (140-440) X 10*3/uL MPV 8.7 L (9.5-12.2) fL Promyelocytes # (Man) 0.13 H (0) k/uL Potassium 3.4 L (3.5-5.5) mmol/L Carbon Dioxide 18.3 L (20.0-27.5) mmol/L BUN <1.4 L (9.0-27.0) mg/dL Creatinine 0.4 L (0.6-1.5) mg/dL Glucose 63 L (70-110) mg/dL Calcium 8.2 L (8.7-10.3) mg/dL Microbiology - Last 24 Hours (Table) 10/14/22 02:00 Blood Culture - Preliminary Blood 10/14/22 02:15 Blood Culture - Preliminary Blood 10/14/22 11:00 Anaerobic Culture - Final Aspirate Anaerobic Gm Negative Bacilli Assessment and Plan (1) Postoperative intra-abdominal abscess Current Visit: Yes Status: Acute Code(s): T81.43XA - INFCT FOL A PROCEDURE, ORGAN AND SPACE SURGICAL SITE, INIT SNOMED Code(s): 9225386 Plan: 1patient with infected intra-abdominal hematoma/abscess in this patient who did have a history of total vaginal hysterectomy followed by laparoscopic drainage of hematoma subsequent presented to hospital with abdominal pain and evidence of large fluid collection that has been drained on 10/14/2022 culture now growing E. coli patient did have a CT abdominal pelvis with rectal contrast completed this afternoon and did not show any leakage of the bowel content and surgery has seen the patient recommending conservative approach and possible outpatient antibiotic therapy, cultures currently growing E. coli and anaerobic gram- negative bacilli 2-Patient slowly clinically improving we will continue the patient on Zosyn with the plan for Rocephin and Flagyl on discharge the patient chart documenting cephalexin allergy however the patient is not aware of any allergy to Keflex possible air this has been confirmed with the pharmacist and Keflex allergy has been taken of the patient chart Patient has multiple questions concerns were answered Time with Patient: Greater than 30
[2022-10-19] MEDS: MIRTAZAPINE 15 MG TAB PO SCH (20:09)
[2022-10-20] MEDS: IBUPROFEN IV 800 MG in SODIUM CHLORIDE 0.9% 250 ML IV SCH ×4 (04:00→22:03)
[2022-10-20] MEDS: SODIUM CHLORIDE 0.9% 1,000 ML IV SCH ×2 (04:47→23:00)
--- NOTE | 2022-10-20 07:50 | P.PN ---
Subjective Progress Note Date: 10/20/22 Principal diagnosis: Postoperative pelvic abscess Positive flatus. Minimal pain. Scant vaginal bleeding. Mild nausea. No emesis. Objective - Vital Signs Vital signs: Vital Signs Temp 98.4 F 10/20/22 07:12 Pulse 89 10/20/22 07:12 Resp 18 10/20/22 07:12 BP 144/80 10/20/22 07:12 Pulse Ox 97 10/20/22 07:12 FiO2 Intake & Output 10/19/22 10/20/22 10/20/22 18:59 06:59 18:59 Intake Total 2210 Balance 2210 Weight 84.368 kg Intake: Intake, IV Titration 2210 Amount Ibuprofen IV 800 mg In 250 Sodium Chloride 0.9% 250 ml @ 500 mls/hr IV Q8HR [facility] Rx#:[id number] Piperacillin-Tazobactam 3 200 .375 gm In Sodium Chloride 0.9% 100 ml @ 25 mls/hr IVPB Q8HR [facility] Rx# :[id number] Potassium Chloride 10 meq 200 In Water For Injection 1 100ml.bag @ 100 mls/hr IVPB Q1H [facility] Rx#: [id number] Sodium Chloride 0.9% 1, 1560 000 ml @ 130 mls/hr IV . Q7H42M [facility] Rx#:[id number] Other: Voiding Method Toilet # Voids 3 - Constitutional General appearance: Present: average body habitus, cooperative - EENT Eyes: Present: PERRLA ENT: Present: hearing grossly normal - Neck Neck: Present: normal ROM - Respiratory Respiratory: bilateral: CTA - Cardiovascular Rhythm: regular - Gastrointestinal Gastrointestinal Comment(s): Abdomen is softly distended, laparoscopic incisions clean and dry. Active bowel sounds. Mild tenderness in the lower pelvis, no rebound or guarding. Drained with 50 mL noted over the past 12 hours. - Integumentary Integumentary: Present: normal - Neurologic Neurologic: Present: CNII-XII intact - Musculoskeletal Musculoskeletal: Present: gait normal - Psychiatric Psychiatric: Present: A&O x's 3, appropriate affect, intact judgment & insight - Labs CBC & Chem 7: 10/19/22 04:19 10/19/22 04:19 Labs: Abnormal Lab Results - Last 24 Hours (Table) 10/19/22 10/19/22 Range/Units 04:19 04:19 WBC 12.42 H (4.50-10.00) X 10*3/uL RBC 2.86 L (4.10-5.20) X 10*6/uL Hgb 8.4 L (12.0-15.0) g/dL Hct 26.3 L (37.2-46.3) % MCHC 31.9 L (32.0-37.0) g/dL Plt Count 682 H (140-440) X 10*3/uL MPV 8.7 L (9.5-12.2) fL Potassium 3.4 L (3.5-5.5) mmol/L Carbon Dioxide 18.3 L (20.0-27.5) mmol/L BUN <1.4 L (9.0-27.0) mg/dL Creatinine 0.4 L (0.6-1.5) mg/dL Glucose 63 L (70-110) mg/dL Calcium 8.2 L (8.7-10.3) mg/dL Microbiology - Last 24 Hours (Table) 10/14/22 11:00 Anaerobic Culture - Final Aspirate Anaerobic Gm Negative Bacilli Anaerobic Gm Negative Bacilli#2 10/14/22 02:00 Blood Culture - Preliminary Blood 10/14/22 02:15 Blood Culture - Preliminary Blood Assessment and Plan Assessment: 2 weeks status post vaginal surgery with pelvic abscess. Positive E. coli noted, sensitive to antibiotics chosen. Plan: Discussion with our pathologist suggests that the pelvic abscess fluid contains microscopic fecal matter. This, along with positive E. coli, height is our concerns for a bowel injury. After thorough discussion with Dr. Meyers and the patient, we are electing to proceed today with exploratory laparotomy such that the bowel can be thoroughly evaluated. This is been explained to the patient wh o understands and agrees with the procedure. She will remain nothing by mouth at this time. Time with Patient: Less than 30
[2022-10-20] MEDS: PIPERACILLIN-TAZOBACTAM 3.375 GM in SODIUM CHLORIDE 0.9% 100 ML IVPB SCH ×3 (08:12→23:46)
[2022-10-20] MEDS: PANTOPRAZOLE 40 MG/10 ML VIAL IVP SCH ×2 (08:12→23:46)
[2022-10-20 10:48] LABS: Basophils # (A) 0.05 X 10*3/uL (0.00-0.10); Basophils % (A) 0.5 %; Eosinophils # (A) 0.14 X 10*3/uL (0.04-0.35); Eosinophils % (A) 1.4 %; HCT 27.6 % (37.2-46.3); Immature Grans, Automated 4.1 %; Lymphocytes # (A) 1.79 X 10*3/uL (0.90-5.00); Lymphocytes % (A) 18.4 %; MCH 29.1 pg (27.0-32.0); MCHC 32.6 g/dL (32.0-37.0); MCV 89.3 fL (80.0-97.0); Mean Platelet Volume 8.7 fL (9.5-12.2); Monocytes # (A) 0.66 X 10*3/uL (0.20-1.00); Monocytes % (A) 6.8 %; NRBC Per 100 WBC 0 /100 WBCS (0.0-0.0); Neutrophils # (A) 6.71 X 10*3/uL (1.80-7.70); Neutrophils % (A) 68.8 %; Platelet Count 684 X 10*3/uL (140-440); RBC 3.09 X 10*6/uL (4.10-5.20); RDW 14.4 % (11.5-14.5); WBC 9.75 X 10*3/uL (4.50-10.00)
[2022-10-20 11:11] LABS: ALT 10 U/L (8-44); AST 16 U/L (13-35); African American GFR (CKD) 140.8 (60.0-200.0); Albumin 3.1 g/dL (3.8-4.9); Albumin/Globulin Ratio 1.24 (1.60-3.17); Alkaline Phosphatase 73 U/L (41-126); Blood Urea Nitrogen <1.4 mg/dL (9.0-27.0); Calcium 8.2 mg/dL (8.7-10.3); Carbon Dioxide 21.5 mmol/L (20.0-27.5); Chloride 102 mmol/L (96-109); Globulin 2.5 g/dL (1.6-3.3); Glucose 80 mg/dL (70-110); Non-African American GFR(CKD) 121.4 (60.0-200.0); Potassium 3.2 mmol/L (3.5-5.5); Sodium 139 mmol/L (135-145); Total Protein 5.6 g/dL (6.2-8.2)
[2022-10-20] MEDS: ONDANSETRON 4 MG/2 ML VIAL IVP PRN (13:39)
--- NOTE | 2022-10-20 15:33 | P.PN ---
Subjective Progress Note Date: 10/20/22 Subjective: Seen and examined at bedside. No acute events overnight. Currently nothing by mouth. Still has abdominal pain. No urinary complaints. Pertinent positives and negatives as discussed above, a complete review of systems was performed and all other systems are negative. Vitals Signs Reviewed. General: nontoxic, no distress, appears at stated age Cardiovascular: S1S2 reg, no murmur, positive posterior tibial pulse bilateral, Lungs: CTA bilateral, no rhonchi, no rales , no accessory muscle use Abdominal: soft, +tender to palpation epigastric, no guarding, no appreciable organomegaly, suprapubic drain with scant serosanganous fluid Ext: no gross muscle atrophy, no edema, no contractures Neuro: CN II-XI grossly intact, no focal neuro deficits Psych: Alert, oriented, appropriate affect Data Reviewed Today: Pertinent Labs: WBC 9.75, hemoglobin 9, platelets 684, potassium 2.2, creatinine 0.4 Imaging: None today Assessment and Plan: Postoperative intra-abdominal abscess/hemtoma with sepsis Acute blood loss anemia and his anticipated outcome of the procedure GERD Thrombocytosis, suspect reactive Possible postoperative ileus Hypokalemia Hypertension, now controlled GERD Abnormal urinalysis, suspect related to post surgical state patient without dysuria. -OB note reviewed, patient may need exploratory laparotomy - Surgery following -ID following, on Zosyn, will likely need IV antibiotics at home -aspirate positive for E. coli, pansensitive -Hemoglobin stable -IV Protonix 40 mg twice a day -Pain control with IV Dilaudid as needed, IV ibuprofen as needed -Continue normal saline 1 30 mL an hour -Given 30 mEq potassium chloride IV Thank you for allowing us to participate in the care of this pleasant patient. Do not hesitate to contact us with questions. Someone can be reached from the [facility] hospitalist group all hours of the day at [phone] or via [employer]. Objective - Vital Signs Vital signs: Vital Signs Temp 98.3 F 10/20/22 14:14 Pulse 89 10/20/22 14:14 Resp 16 10/20/22 14:14 BP 146/90 10/20/22 14:14 Pulse Ox 99 10/20/22 14:14 FiO2 Intake & Output 10/19/22 10/20/22 10/20/22 18:59 06:59 18:59 Intake Total 2210 Balance 2210 Weight 84.368 kg Intake: Intake, IV Titration 2210 Amount Ibuprofen IV 800 mg In 250 Sodium Chloride 0.9% 250 ml @ 500 mls/hr IV Q8HR [facility] Rx#:[id number] Piperacillin-Tazobactam 3 200 .375 gm In Sodium Chloride 0.9% 100 ml @ 25 mls/hr IVPB Q8HR [facility] Rx# :[id number] Potassium Chloride 10 meq 200 In Water For Injection 1 100ml.bag @ 100 mls/hr IVPB Q1H [facility] Rx#: [id number] Sodium Chloride 0.9% 1, 1560 000 ml @ 130 mls/hr IV . Q7H42M [facility] Rx#:[id number] Other: Voiding Method Toilet Toilet # Voids 3 - Labs CBC & Chem 7: 10/20/22 05:53 10/20/22 05:53 Labs: Abnormal Lab Results - Last 24 Hours (Table) 10/20/22 10/20/22 Range/Units 05:53 05:53 RBC 3.09 L (4.10-5.20) X 10*6/uL Hgb 9.0 L (12.0-15.0) g/dL Hct 27.6 L (37.2-46.3) % Plt Count 684 H (140-440) X 10*3/uL MPV 8.7 L (9.5-12.2) fL Immature Gran # 0.40 H (0.00-0.04) X 10*3/uL Potassium 3.2 L (3.5-5.5) mmol/L BUN <1.4 L (9.0-27.0) mg/dL Creatinine 0.4 L (0.6-1.5) mg/dL Calcium 8.2 L (8.7-10.3) mg/dL Total Protein 5.6 L (6.2-8.2) g/dL Albumin 3.1 L (3.8-4.9) g/dL Albumin/Globulin Ratio 1.24 L (1.60-3.17) g/dL Microbiology - Last 24 Hours (Table) 10/14/22 02:00 Blood Culture - Final Blood 10/14/22 02:15 Blood Culture - Final Blood 10/14/22 11:00 Anaerobic Culture - Final Aspirate Anaerobic Gm Negative Bacilli Anaerobic Gm Negative Bacilli#2
[2022-10-20] MEDS: HYDROmorphone 0.5 MG/0.5 ML SYRINGE IVP ONE ×4 (16:05→20:23)
[2022-10-20] MEDS ORDERED: LACTATED RINGERS 1,000 ML IV ONE ×2 (16:22→19:15)
[2022-10-20] MEDS ORDERED: DEXAMETHASONE SOD PHOSPHATE 4 MG/ML 1 ML VIAL IVP ONE (16:40)
[2022-10-20] MEDS ORDERED: ONDANSETRON 4 MG/2 ML VIAL IVP ONE (16:40)
[2022-10-20] MEDS ORDERED: MIDAZOLAM 2 MG/2 ML VIAL IVP ONE (16:44)
[2022-10-20] MEDS ORDERED: fentaNYL (PF) 50 MCG/ML 2 ML AMP IVP ONE (16:44)
--- NOTE | 2022-10-20 16:49 | P.PN ---
Progress Note - Text Progress Note Date: 10/20/22 Yesterday afternoon I spoke with pathology after hearing from gynecology. Apparently fluid was sent for cytologic/microscopic evaluation when the initial drain was placed. Fibrous material was found within the fluid that pathology states is coming from a bowel source. Overnight patient did about the same. Complaining of mild nausea today. She did have a small amount of clot vaginally. No vaginal flatus or stool. She is afebrile. Patient's drain is still brownish in color overnight. White blood cell count is actually improved. I spoke with the patient by phone this morning and also with Dr. Rutherford who was present at the bedside at the time. Given the definitive findings of bowel content material on recent drain aspirate I do think it is reasonable to reconsider laparotomy. This was reviewed with the patient and gynecology and we have decided to proceed with exploratory laparotomy to eliminate the possibility of an ongoing bowel leak. The patient and her are agreeable. We'll proceed with exploratory laparotomy, possible bowel resection, possible ostomy. We'll remove the recently placed drain and plan at this time to leave a pelvic CASIE drain intraoperatively. Risks of bleeding, infection, possible need for bowel resection and/or ostomy, leak, abscess, bladder bowel and ureteral injury, hernia, wound infection, dehiscence. Patient and her are agreeable and would like to proceed.
--- NOTE | 2022-10-20 17:00 | P.ANPRN ---
Procedure Note - Anesthesia - Nerve Block Performed Bilateral Rectus Abdominis Single Time Out Performed: Yes ([id number]) Date of Procedure: 10/20/22 Procedure Start Time: 16:45 Procedure Stop Time: 16:51 Location of Patient: Phase I Indication: Acute Post-Operative Pain, Requested by Surgeon Specifically requested for management of pain by DrMoiz: Joni Banda Sedation Type: Sedate with meaningful contact maintained Preparation: Sterile Prep Position: Supine Catheter: None Needle Types: Pajunk Needle Gauge: 21 Ultrasound used to visualize needle placement: Yes Ultrasound used to observe medication spread: Yes Injectate: 0.5% Ropivacaine (see comment for volume) (15cc + 10cc nacl pf each side) Blood Aspirated: No Pain Paresthesia on Injection Noted: No Resistance on Injection: Normal Image Stored and Saved: Yes Events: Uneventful and Well Tolerated
[2022-10-20] MEDS ORDERED: ceFAZolin 1,000 MG VIAL ONE (17:31)
[2022-10-20] MEDS ORDERED: ROPIVACAINE 5 MG/ML 30 ML VIAL ONE (17:31)
[2022-10-20] MEDS ORDERED: SODIUM CHLORIDE 0.9% 100 ML BAG ONE (17:31)
[2022-10-20] MEDS ORDERED: LIDOCAINE 2% INJ 20 MG/ML (2 ML VIAL) ONE (17:31)
[2022-10-20] MEDS ORDERED: NEOSTIGMINE 1 MG/ML 10 ML VIAL ONE (17:31)
[2022-10-20] MEDS ORDERED: ROCURONIUM 10 MG/ML (5 ML VIAL) IV ONE (17:31)
[2022-10-20] MEDS ORDERED: SODIUM CHLORIDE 0.9% (PF) 10 ML VIAL ONE (17:31)
[2022-10-20] MEDS ORDERED: GLYCOPYRROLATE 0.2 MG/ML 2 ML VIAL ONE (17:31)
[2022-10-20] MEDS ORDERED: fentaNYL (PF) 50 MCG/ML 2 ML AMP ONE (17:31)
[2022-10-20] MEDS ORDERED: SUCCINYLCHOLINE CHLORIDE 200 MG/10 ML VIAL IV ONE (17:31)
[2022-10-20] MEDS ORDERED: HYDROmorphone (PF) 1 MG/ML ONE (17:31)
[2022-10-20] MEDS ORDERED: MIDAZOLAM 2 MG/2 ML VIAL ONE (17:31)
[2022-10-20] MEDS ORDERED: PROPOFOL 10 MG/ML 20 ML VIAL IV ONE (17:31)
[2022-10-20] MEDS ORDERED: SODIUM CHLORIDE 0.9% 100 ML with ceFAZolin 2,000 MG IV ONE ×2 (17:34)
[2022-10-20] MEDS: POTASSIUM CHLORIDE 10 MEQ in WATER FOR INJECTION 1 100ML.BAG IVPB SCH ×2 (19:00→23:00)
[2022-10-20] MEDS ORDERED: NALOXONE 0.4 MG/ML 1 ML VIAL IV PRN (20:00)
--- NOTE | 2022-10-20 20:11 | P.OP ---
Date of Procedure: 10/20/22 Procedure(s) Performed: PREOPERATIVE DIAGNOSIS: Infected pelvic hematoma POSTOPERATIVE DIAGNOSIS: Infected pelvic hematoma, intra-abdominal adhesions, small bowel obstruction PROCEDURE: Exploratory laparotomy with lysis of adhesions SURGEON: Solo EBL: 50 mL ANESTHESIA: Gen. COMPLICATIONS: None OPERATIVE PROCEDURE: Patient was placed in the supine position. Zamudio catheter were placed. Abdomen was prepped and draped sterilely with the drain included in our prep. A midline incision was made using the scalpel. The drain was present in the midline and this drain entrance site was incorporated into our midline incision. Later this incision was lengthened superiorly just superior to the recent supra umbilical laparoscopy incision. The fascia was divided. Entrance into the perineal cavity occurred. There was a hematoma present in the pelvis that was walled off. Structures making up the wall of this infected cavity were multiple small bowel loops, omentum, cecum, sigmoid colon, and bilateral adnexa. The drain was removed without difficulty. There was no evidence of iatrogenic injury from the drain placement. A large amount of organized clot was evacuated both using suction and manually. The patient had a deep cul-de-sac. Majority of the organized clot was present here. It should be noted that there was no foul odor identified at all during this procedure. There was no evidence of enteric contents or bile seen. As I was lysing the small bowel adhesions manually we encountered one of the first loops of bowel making up a portion of the abscess cavity wall. It was noted that at this small bowel loop there was a very tight kink present causing a significant obstruction proximally. During the course of the procedure the small bowel contents were milked back to the stomach where the gastric tube was used to evacuate the succus. There was 1.5 L of gastric fluid evacuated during the entirety of this case. Once we had the small bowel fully mobilized the small bowel was run and inspected carefully. There was a single small serosal tear present likely related to our manual lysis of adhesions. This was repaired using 3 separate 3- 0 GI silk sutures. The cecum ascending transverse and descending colon showed no evidence of injury or leak. The patient's appendix was noted to be adherent to the surrounding fat and was fairly short but there was no acute inflammation seen there. The sigmoid colon loop made up the majority of the abscess cavity. Careful compression of the sigmoid colon descending colon and proximal rectum took place without any evidence of identifiable leak. I was able to identify a stitch at the vaginal cuff that appeared consistent with a Vicryl stitch. This was not adherent to the surrounding bowel loops or colon. At that time for liters of saline was used to irrigate and evacuate any residual hematoma. A CASIE drain was brought into the left side of the abdomen brought down into the cul-de-sac and then along the medial aspect of the cecum. This was sutured in place using a 20 and 3-0 silk stitch. The midline fascia was then reap proximated using a running double-stranded #1 PDS suture 2. Subcutaneous tissues were irrigated. An additional CASIE drain was then laid along the anterior aspect of the fascial closure exiting from the most inferior aspect of the incision. This was sutured in place using another 2-0 silk stitch. The subcutaneous tissues were then closed using 2-0 Vicryl sutures. The skin was reapproximated using josh. Sterile dressings were applied. DISPOSITION: Stable to recovery room. Operative findings discussed in detail with the patient's and also Dr. Rutherford by phone.
[2022-10-20] MEDS ORDERED: HYDROmorphone PCA 10 MG/50 ML BAG IV PRN (20:30)
[2022-10-20] MEDS ORDERED: HYDROmorphone 0.5 MG/0.5 ML SYRINGE IVP ONE (21:07)
[2022-10-20] MEDS: MIRTAZAPINE 15 MG TAB PO SCH (22:23)
--- NOTE | 2022-10-20 22:39 | P.PN ---
Subjective Progress Note Date: 10/20/22 Principal diagnosis: Intra-abdominal abscess Patient is a 52-year-old female with a past medical history pertinent for hypertension reflux, patient recently did have a total abdominal hysterectomy, postop day 2 patient did have a exploratory laparoscopic with evacuation of hematoma, patient subsequently presenting back to the hospital on 10/13/2022 for evaluation of worsening right lower quadrant abdominal pain, patient did have a abnormal CT concerning for possible abscess status post CT- guided drainage culture did grew E. coli and anaerobes, concern for possible bowel trauma repeat CAT scan with rectal contrast did not show any leakage. On today's evaluation that is 10/20/2022, the patient remains to be afebrile, the patient is breathing comfortably on room air, patient abdominal pain is controlled with the current medication patient denies having any urinary burning or frequency , no nausea and no vomiting Objective - Vital Signs Vital signs: Vital Signs Temp 98.4 F 10/20/22 07:12 Pulse 89 10/20/22 07:35 Resp 18 10/20/22 07:35 BP 144/80 10/20/22 07:12 Pulse Ox 97 10/20/22 07:12 FiO2 Intake & Output 10/19/22 10/20/22 10/20/22 18:59 06:59 18:59 Intake Total 2210 Balance 2210 Weight 84.368 kg Intake: Intake, IV Titration 2210 Amount Ibuprofen IV 800 mg In 250 Sodium Chloride 0.9% 250 ml @ 500 mls/hr IV Q8HR [facility] Rx#:[id number] Piperacillin-Tazobactam 3 200 .375 gm In Sodium Chloride 0.9% 100 ml @ 25 mls/hr IVPB Q8HR [facility] Rx# :[id number] Potassium Chloride 10 meq 200 In Water For Injection 1 100ml.bag @ 100 mls/hr IVPB Q1H [facility] Rx#: [id number] Sodium Chloride 0.9% 1, 1560 000 ml @ 130 mls/hr IV . Q7H42M [facility] Rx#:[id number] Other: Voiding Method Toilet Toilet # Voids 3 - Exam GENERAL DESCRIPTION: Middle-age female lying in bed in no distress RESPIRATORY SYSTEM: Unlabored breathing , decreased breath sounds at bases HEART: S1 S2 regular rate and rhythm , ABDOMEN: Soft , mild distention and tenderness EXTREMITIES: No edema feet - Labs CBC & Chem 7: 05/24/23 05:53 10/20/22 05:53 Labs: Abnormal Lab Results - Last 24 Hours (Table) 10/20/22 10/20/22 Range/Units 05:53 05:53 RBC 3.09 L (4.10-5.20) X 10*6/uL Hgb 9.0 L (12.0-15.0) g/dL Hct 27.6 L (37.2-46.3) % Plt Count 684 H (140-440) X 10*3/uL MPV 8.7 L (9.5-12.2) fL Immature Gran # 0.40 H (0.00-0.04) X 10*3/uL Potassium 3.2 L (3.5-5.5) mmol/L BUN <1.4 L (9.0-27.0) mg/dL Creatinine 0.4 L (0.6-1.5) mg/dL Calcium 8.2 L (8.7-10.3) mg/dL Total Protein 5.6 L (6.2-8.2) g/dL Albumin 3.1 L (3.8-4.9) g/dL Albumin/Globulin Ratio 1.24 L (1.60-3.17) g/dL Microbiology - Last 24 Hours (Table) 10/14/22 02:00 Blood Culture - Final Blood 10/14/22 02:15 Blood Culture - Final Blood 10/14/22 11:00 Anaerobic Culture - Final Aspirate Anaerobic Gm Negative Bacilli Anaerobic Gm Negative Bacilli#2 Assessment and Plan (1) Postoperative intra-abdominal abscess Current Visit: Yes Status: Acute Code(s): T81.43XA - INFCT FOL A PROCEDURE, ORGAN AND SPACE SURGICAL SITE, INIT SNOMED Code(s): 7809715 Plan: 1patient with infected intra-abdominal hematoma/abscess in this patient who did have a history of total vaginal hysterectomy followed by laparoscopic drainage of hematoma subsequent presented to hospital with abdominal pain and evidence of large fluid collection that has been drained on 10/14/2022 culture now growing E. coli patient did have a CT abdominal pelvis with rectal contrast completed this afternoon and did not show any leakage of the bowel content and surgery has seen the patient recommending conservative approach and possible outpatient antibiotic therapy, cultures currently growing E. coli and anaerobic gram- negative bacilli 2-Patient has shown clinical improvement with concern for bowl injury , pt is scheduled for laprotomy this afternoon , for now will continue with zosyn and monitor clinical course closely , questions answered Time with Patient: Less than 30
[2022-10-20] MEDS: ACETAMINOPHEN IV (For NPO) 1,000 MG in EMPTY BAG 1 BAG IVPB SCH (23:45)
[2022-10-21] MEDS: HEPARIN SODIUM,PORCINE/PF 5,000 UNIT/0.5 ML SYRINGE SQ SCH ×3 (00:05→15:45)
[2022-10-21] MEDS: POTASSIUM CHLORIDE 10 MEQ in WATER FOR INJECTION 1 100ML.BAG IVPB SCH (04:38)
[2022-10-21] MEDS: SODIUM CHLORIDE 0.9% 1,000 ML IV SCH ×4 (04:38→20:22)
[2022-10-21] MEDS: ACETAMINOPHEN IV (For NPO) 1,000 MG in EMPTY BAG 1 BAG IVPB SCH ×3 (04:53→17:49)
--- NOTE | 2022-10-21 08:15 | P.PN ---
Subjective Progress Note Date: 10/21/22 Principal diagnosis: Status post exploratory surgery and evacuation of pelvic abscess/hematoma. Minimal nausea. No overt complaints. Objective - Vital Signs Vital signs: Vital Signs Temp 97.4 F L 10/21/22 03:02 Pulse 89 10/21/22 03:02 Resp 18 10/21/22 03:02 BP 113/72 10/21/22 03:02 Pulse Ox 97 10/21/22 03:02 FiO2 Intake & Output 10/20/22 10/21/22 10/21/22 18:59 06:59 18:59 Intake Total 1000 900 Output Total 1860 Balance 1000 -960 Intake: IV 1000 900 Output: Drainage 110 Left Abdomen 100 Right Abdomen 10 Urine 1700 Estimated Blood Loss 50 Other: Voiding Method Toilet Toilet # Voids 2 - Constitutional General appearance: Present: cooperative - EENT Eyes: Present: PERRLA ENT: Present: hearing grossly normal - Neck Neck: Present: normal ROM Thyroid: bilateral: normal size - Respiratory Respiratory: bilateral: CTA - Cardiovascular Rhythm: regular - Gastrointestinal Gastrointestinal Comment(s): Abdominal binder in place. Minimal bowel sounds. CASIE drain on the right with 10 mL over 12 hours. CASIE drain on the left with 100 mL past 12 hours. NG tube 75 mL output in the past 12 hours. Urine clear, good urinary output. Localized gastrointestinal: tender: diffuse - Integumentary Integumentary: Present: normal - Neurologic Neurologic: Present: CNII-XII intact - Musculoskeletal Musculoskeletal: Present: generalized weakness, strength equal bilaterally - Psychiatric Psychiatric: Present: A&O x's 3, appropriate affect, intact judgment & insight - Labs CBC & Chem 7: 10/20/22 05:53 10/20/22 05:53 Labs: Abnormal Lab Results - Last 24 Hours (Table) 10/20/22 10/20/22 Range/Units 05:53 05:53 RBC 3.09 L (4.10-5.20) X 10*6/uL Hgb 9.0 L (12.0-15.0) g/dL Hct 27.6 L (37.2-46.3) % Plt Count 684 H (140-440) X 10*3/uL MPV 8.7 L (9.5-12.2) fL Immature Gran # 0.40 H (0.00-0.04) X 10*3/uL Potassium 3.2 L (3.5-5.5) mmol/L BUN <1.4 L (9.0-27.0) mg/dL Creatinine 0.4 L (0.6-1.5) mg/dL Calcium 8.2 L (8.7-10.3) mg/dL Total Protein 5.6 L (6.2-8.2) g/dL Albumin 3.1 L (3.8-4.9) g/dL Albumin/Globulin Ratio 1.24 L (1.60-3.17) g/dL Microbiology - Last 24 Hours (Table) 10/14/22 02:00 Blood Culture - Final Blood 10/14/22 02:15 Blood Culture - Final Blood Assessment and Plan Assessment: Status post exploratory laparotomy and evacuation of pelvic abscess/hematoma. Plan: DC nasal cannula oxygen this morning. Management of drains and NG tube per general surgical service. Morning labs pending. Will continue to follow closely. Thank you Time with Patient: Less than 30
[2022-10-21] MEDS: IBUPROFEN IV 800 MG in SODIUM CHLORIDE 0.9% 250 ML IV SCH ×2 (08:44→15:45)
[2022-10-21] MEDS: PANTOPRAZOLE 40 MG/10 ML VIAL IVP SCH ×2 (08:45→20:19)
[2022-10-21] MEDS: PIPERACILLIN-TAZOBACTAM 3.375 GM in SODIUM CHLORIDE 0.9% 100 ML IVPB SCH ×2 (09:34→15:44)
[2022-10-21 10:54] LABS: Basophils # (A) 0.04 X 10*3/uL (0.00-0.10); Basophils % (A) 0.2 %; Eosinophils # (A) 0 X 10*3/uL (0.04-0.35); Eosinophils % (A) 0 %; HCT 31.1 % (37.2-46.3); HGB 9.9 g/dL (12.0-15.0); Immature Grans, Automated 1.7 %; Lymphocytes # (A) 1.24 X 10*3/uL (0.90-5.00); MCH 28.9 pg (27.0-32.0); MCHC 31.8 g/dL (32.0-37.0); MCV 90.7 fL (80.0-97.0); Mean Platelet Volume 8.8 fL (9.5-12.2); Monocytes # (A) 1.41 X 10*3/uL (0.20-1.00); Monocytes % (A) 6.8 %; NRBC Per 100 WBC 0 /100 WBCS (0.0-0.0); Neutrophils # (A) 17.75 X 10*3/uL (1.80-7.70); Neutrophils % (A) 85.3 %; Platelet Count 820 X 10*3/uL (140-440); RBC 3.43 X 10*6/uL (4.10-5.20); RDW 14.6 % (11.5-14.5); WBC 20.79 X 10*3/uL (4.50-10.00)
[2022-10-21 11:11] LABS: African American GFR (CKD) 140.8 (60.0-200.0); Anion Gap 15.3 mmol/L (10.00-18.00); BUN/Creat Ratio 4.75 Ratio (12.00-20.00); Blood Urea Nitrogen 1.9 mg/dL (9.0-27.0); Calcium 8.3 mg/dL (8.7-10.3); Carbon Dioxide 19.7 mmol/L (20.0-27.5); Non-African American GFR(CKD) 121.4 (60.0-200.0); Potassium 3.6 mmol/L (3.5-5.5)
[2022-10-21] MEDS: HYDROmorphone 1 MG/ML 1 ML SYRINGE IVP PRN ×4 (13:02→22:07)
--- NOTE | 2022-10-21 13:21 | P.PN ---
Subjective Progress Note Date: 10/21/22 Principal diagnosis: Intra-abdominal abscess Patient is a 52-year-old female with a past medical history pertinent for hypertension reflux, patient recently did have a total abdominal hysterectomy, postop day 2 patient did have a exploratory laparoscopic with evacuation of hematoma, patient subsequently presenting back to the hospital on 10/13/2022 for evaluation of worsening right lower quadrant abdominal pain, patient did have a abnormal CT concerning for possible abscess status post CT- guided drainage culture did grew E. coli and anaerobes, concern for possible bowel trauma repeat CAT scan with rectal contrast did not show any leakage. Patient is status post laparotomy on 10/20/2022. No evidence of any perforation patient is status post lysis of adhesion On today's evaluation that is 10/21/2022, the patient denies any fever or any chills, the patient is breathing comfortably on room air, patient abdominal bloating and discomfort has improved complaining of some incisional pain today patient did have an NG no vomiting has been reported the chest pain shortness of breath or cough Objective - Vital Signs Vital signs: Vital Signs Temp 97.6 F 10/21/22 07:15 Pulse 87 10/21/22 08:00 Resp 17 10/21/22 08:00 BP 112/73 10/21/22 07:15 Pulse Ox 96 10/21/22 08:57 FiO2 Intake & Output 10/20/22 10/21/22 10/21/22 18:59 06:59 18:59 Intake Total 1000 900 Output Total 1860 Balance 1000 -960 Intake: IV 1000 900 Output: Drainage 110 Left Abdomen 100 Right Abdomen 10 Urine 1700 Estimated Blood Loss 50 Other: Voiding Method Toilet Toilet Indwelling Catheter # Voids 2 - Exam GENERAL DESCRIPTION: Middle-age female lying in bed in no distress RESPIRATORY SYSTEM: Unlabored breathing , decreased breath sounds at bases HEART: S1 S2 regular rate and rhythm , ABDOMEN: Soft , mild distention and tenderness EXTREMITIES: No edema feet - Labs CBC & Chem 7: 10/21/22 07:23 10/21/22 07:23 Labs: Abnormal Lab Results - Last 24 Hours (Table) 10/21/22 10/21/22 Range/Units 07:23 07:23 WBC 20.79 H (4.50-10.00) X 10*3/uL RBC 3.43 L (4.10-5.20) X 10*6/uL Hgb 9.9 L (12.0-15.0) g/dL Hct 31.1 L (37.2-46.3) % MCHC 31.8 L (32.0-37.0) g/dL RDW 14.6 H (11.5-14.5) % Plt Count 820 H (140-440) X 10*3/uL MPV 8.8 L (9.5-12.2) fL Immature Gran # 0.35 H (0.00-0.04) X 10*3/uL Neutrophils # 17.75 H (1.80-7.70) X 10*3/uL Monocytes # 1.41 H (0.20-1.00) X 10*3/uL Eosinophils # 0 L (0.04-0.35) X 10*3/uL Carbon Dioxide 19.7 L (20.0-27.5) mmol/L BUN 1.9 L (9.0-27.0) mg/dL Creatinine 0.4 L (0.6-1.5) mg/dL BUN/Creatinine Ratio 4.75 L (12.00-20.00) Ratio Calcium 8.3 L (8.7-10.3) mg/dL Microbiology - Last 24 Hours (Table) 10/14/22 02:00 Blood Culture - Final Blood 10/14/22 02:15 Blood Culture - Final Blood Assessment and Plan (1) Postoperative intra-abdominal abscess Current Visit: Yes Status: Acute Code(s): T81.43XA - INFCT FOL A PROCEDURE, ORGAN AND SPACE SURGICAL SITE, INIT SNOMED Code(s): 0659738 Plan: 1patient with infected intra-abdominal hematoma/abscess in this patient who did have a history of total vaginal hysterectomy followed by laparoscopic drainage of hematoma subsequent presented to hospital with abdominal pain and evidence of large fluid collection that has been drained on 10/14/2022 culture now growing E. coli patient did have a CT abdominal pelvis with rectal contrast completed this afternoon and did not show any leakage of the bowel content and surgery has seen the patient recommending conservative approach and possible outpatient antibiotic therapy, cultures currently growing E. coli and anaerobic gram- negative bacilli 2-Patient remains to be afebrile the patient did have a jump in her white count to 20,000 possibly related to her surgery yesterday and will be monitored closely. Continue the patient on Zosyn patient and family has questions concerned were answered in Layman terms Time with Patient: Less than 30
--- NOTE | 2022-10-21 13:33 | P.PN ---
Subjective Progress Note Date: 10/21/22 Subjective: Seen and examined at bedside. No acute events overnight. Currently nothing by mouth. Has an NG tube in place. Still has abdominal pain, on M[employer] pump. No urinary complaints. Pertinent positives and negatives as discussed above, a complete review of systems was performed and all other systems are negative. Vitals Signs Reviewed. General: nontoxic, no distress, appears at stated age Cardiovascular: S1S2 reg, no murmur, positive posterior tibial pulse bilateral, Lungs: CTA bilateral, no rhonchi, no rales , no accessory muscle use Abdominal: soft, +tender to palpation epigastric, no guarding, no appreciable organomegaly, [address], NG tube Ext: no gross muscle atrophy, no edema, no contractures Neuro: CN II-XI grossly intact, no focal neuro deficits Psych: Alert, oriented, appropriate affect Data Reviewed Today: Pertinent Labs: WBC 20.79, hemoglobin 9.9, platelet 820, Na 140, K 3.6, Cr 0.4 Imaging: None today Assessment and Plan: Postoperative intra-abdominal abscess/hemtoma with sepsis status post surgery Acute blood loss anemia and his anticipated outcome of the procedure GERD Thrombocytosis, suspect reactive Possible postoperative ileus Hypokalemia, resolved Hypertension, now controlled GERD Abnormal urinalysis, suspect related to post surgical state patient without dysuria. -OB note reviewed, dc nasal cannula -Surgery following -ID following, on Zosyn, will likely need IV antibiotics at home -Inpatient Zosyn reordered -aspirate positive for E. coli, pansensitive -Hemoglobin stable -IV Protonix 40 mg twice a day -IV Tylenol, Pain control with IV Dilaudid as needed, IV ibuprofen -Continue normal saline 1 30 mL an hour Thank you for allowing us to participate in the care of this pleasant patient. Do not hesitate to contact us with questions. Someone can be reached from the [facility] hospitalist group all hours of the day at [phone] or via [employer]. Objective - Vital Signs Vital signs: Vital Signs Temp 97.6 F 10/21/22 07:15 Pulse 87 10/21/22 08:00 Resp 17 10/21/22 08:00 BP 112/73 10/21/22 07:15 Pulse Ox 96 10/21/22 08:57 FiO2 Intake & Output 10/20/22 10/21/22 10/21/22 18:59 06:59 18:59 Intake Total 1000 900 Output Total 1860 Balance 1000 -960 Weight 84.368 kg Intake: IV 1000 900 Output: Drainage 110 Left Abdomen 100 Right Abdomen 10 Urine 1700 Estimated Blood Loss 50 Other: Voiding Method Toilet Toilet Indwelling Catheter # Voids 2 - Labs CBC & Chem 7: 10/21/22 07:23 10/21/22 07:23 Labs: Abnormal Lab Results - Last 24 Hours (Table) 10/21/22 10/21/22 Range/Units 07:23 07:23 WBC 20.79 H (4.50-10.00) X 10*3/uL RBC 3.43 L (4.10-5.20) X 10*6/uL Hgb 9.9 L (12.0-15.0) g/dL Hct 31.1 L (37.2-46.3) % MCHC 31.8 L (32.0-37.0) g/dL RDW 14.6 H (11.5-14.5) % Plt Count 820 H (140-440) X 10*3/uL MPV 8.8 L (9.5-12.2) fL Immature Gran # 0.35 H (0.00-0.04) X 10*3/uL Neutrophils # 17.75 H (1.80-7.70) X 10*3/uL Monocytes # 1.41 H (0.20-1.00) X 10*3/uL Eosinophils # 0 L (0.04-0.35) X 10*3/uL Carbon Dioxide 19.7 L (20.0-27.5) mmol/L BUN 1.9 L (9.0-27.0) mg/dL Creatinine 0.4 L (0.6-1.5) mg/dL BUN/Creatinine Ratio 4.75 L (12.00-20.00) Ratio Calcium 8.3 L (8.7-10.3) mg/dL
--- NOTE | 2022-10-21 15:20 | P.PN ---
Subjective Progress Note Date: 10/21/22 CHIEF COMPLAINT: Infected pelvic hematoma HISTORY OF PRESENT ILLNESS: Patient is postop day #1 status post exploratory laparotomy with lysis of adhesions for infected pelvic hematoma, intra-abdominal he effusions and small bowel obstruction. Patient has NG tube in place. CASIE drain output 32 mL serosanguineous output on the left and right drain 9 mL serosanguineous output. Patient complaining with the SEW OUT OPERATOR pump is not controlling her pain. Patient denies any nausea. Denies any bowel activity. Afebrile. WBC did go up to 20.79 HgB9.9 sodium is 140 potassium 3.6 creatinine 0.4 PHYSICAL EXAM: VITAL SIGNS: Reviewed. GENERAL: Well-developed in no acute distress. ABDOMEN: Soft. Nondistended. Incisional dressing clean dry and intact. Abdominal binder in place. 2 CASIE drains noted NEUROLOGIC: Alert and oriented. Cranial nerves II through XII grossly intact. ASSESSMENT: 1. Infected pelvic hematoma, intra-abdominal adhesions, small bowel obstruction status post exploratory laparotomy with lysis of adhesions 2. Leukocytosis PLAN: -Continue NG tube for decompression -Continue CASIE drains -Keep patient nothing by mouth except for ice chips -Discontinue Dilaudid SEW OUT OPERATOR pump -Place patient on Dilaudid 1 mg IV every 3 hours as needed for pain. Continue the IV Tylenol and IV ibuprofen -Continue to monitor antibiotics -Incentive spirometer ordered -Initially PICC line ordered for TPN for nutrition support. However, at this time patient is refusing the PICC line. -Repeat CBC in a.m. -DVT prophylaxis subcu heparin and GI prophylaxis Protonix Physician Glassworker note has been reviewed by physician. Signing provider agrees with the documented findings, assessment, and plan of care. Objective - Vital Signs Vital signs: Vital Signs Temp 97.4 F L 10/21/22 13:41 Pulse 102 H 10/21/22 13:41 Resp 19 10/21/22 13:41 BP 102/68 10/21/22 13:41 Pulse Ox 96 10/21/22 13:41 FiO2 Intake & Output 10/20/22 10/21/22 10/21/22 18:59 06:59 18:59 Intake Total 1000 900 Output Total 1860 441 Balance 1000 -960 -441 Weight 84.368 kg Intake: IV 1000 900 Output: Drainage 110 41 Left Abdomen 100 32 Right Abdomen 10 9 Urine 1700 400 Estimated Blood Loss 50 Other: Voiding Method Toilet Toilet Indwelling Catheter # Voids 2 - Labs CBC & Chem 7: 10/21/22 07:23 10/21/22 07:23 Labs: Abnormal Lab Results - Last 24 Hours (Table) 10/21/22 10/21/22 Range/Units 07:23 07:23 WBC 20.79 H (4.50-10.00) X 10*3/uL RBC 3.43 L (4.10-5.20) X 10*6/uL Hgb 9.9 L (12.0-15.0) g/dL Hct 31.1 L (37.2-46.3) % MCHC 31.8 L (32.0-37.0) g/dL RDW 14.6 H (11.5-14.5) % Plt Count 820 H (140-440) X 10*3/uL MPV 8.8 L (9.5-12.2) fL Immature Gran # 0.35 H (0.00-0.04) X 10*3/uL Neutrophils # 17.75 H (1.80-7.70) X 10*3/uL Monocytes # 1.41 H (0.20-1.00) X 10*3/uL Eosinophils # 0 L (0.04-0.35) X 10*3/uL Carbon Dioxide 19.7 L (20.0-27.5) mmol/L BUN 1.9 L (9.0-27.0) mg/dL Creatinine 0.4 L (0.6-1.5) mg/dL BUN/Creatinine Ratio 4.75 L (12.00-20.00) Ratio Calcium 8.3 L (8.7-10.3) mg/dL
[2022-10-21] MEDS: MIRTAZAPINE 15 MG TAB PO SCH (20:38)
[2022-10-22] MEDS: ACETAMINOPHEN IV (For NPO) 1,000 MG in EMPTY BAG 1 BAG IVPB SCH ×4 (00:18→18:24)
[2022-10-22] MEDS: PIPERACILLIN-TAZOBACTAM 3.375 GM in SODIUM CHLORIDE 0.9% 100 ML IVPB SCH ×3 (00:18→15:36)
[2022-10-22] MEDS: HEPARIN SODIUM,PORCINE/PF 5,000 UNIT/0.5 ML SYRINGE SQ SCH ×3 (00:22→15:37)
[2022-10-22] MEDS: IBUPROFEN IV 800 MG in SODIUM CHLORIDE 0.9% 250 ML IV SCH ×3 (00:39→16:39)
[2022-10-22] MEDS: HYDROmorphone 1 MG/ML 1 ML SYRINGE IVP PRN ×7 (00:59→21:00)
[2022-10-22] MEDS: SODIUM CHLORIDE 0.9% 1,000 ML IV SCH ×3 (04:08→18:30)
[2022-10-22] MEDS: PANTOPRAZOLE 40 MG/10 ML VIAL IVP SCH ×2 (08:31→21:00)
--- NOTE | 2022-10-22 09:16 | P.PN ---
Subjective Progress Note Date: 10/22/22 Principal diagnosis: Status post exploratory laparotomy and evacuation of pelvic hematoma/abscess. Negative flatus. No nausea. Pain well tolerated. No vaginal discharge or blee ding. Objective - Vital Signs Vital signs: Vital Signs Temp 98.9 F 10/22/22 07:21 Pulse 99 10/22/22 07:21 Resp 16 10/22/22 07:21 BP 128/80 10/22/22 07:21 Pulse Ox 97 10/22/22 07:21 FiO2 Intake & Output 10/21/22 10/22/22 10/22/22 18:59 06:59 18:59 Intake Total 1430 Output Total 802 1175 Balance -802 255 Weight 84.368 kg Intake: IV 1430 Sodium Chloride 0.9% 1, 1430 000 ml @ 130 mls/hr IV . Q7H42M [facility] Rx#:[id number] Oral 0 Output: Gastric Drainage 200 300 Drainage 52 25 Left Abdomen 42 10 Right Abdomen 10 15 Urine 550 850 Other: Voiding Method Indwelling Catheter Indwelling Catheter - Constitutional General appearance: Present: average body habitus, cooperative - EENT Eyes: Present: PERRLA ENT: Present: hearing grossly normal - Neck Neck: Present: normal ROM - Respiratory Respiratory: bilateral: CTA - Cardiovascular Rhythm: regular - Gastrointestinal Gastrointestinal Comment(s): Incision clean and dry, intact. Hypoactive bowel sounds. CASIE drains with decreasing drainage. General gastrointestinal: Present: decreased bowel sounds - Genitourinary Genitourinary Comment(s): No vaginal drainage. - Integumentary Integumentary: Present: normal - Neurologic Neurologic: Present: CNII-XII intact - Musculoskeletal Musculoskeletal: Present: generalized weakness - Psychiatric Psychiatric: Present: A&O x's 3, appropriate affect, intact judgment & insight - Labs CBC & Chem 7: 10/21/22 07:23 10/21/22 07:23 Labs: Abnormal Lab Results - Last 24 Hours (Table) 10/21/22 10/21/22 Range/Units 07:23 07:23 WBC 20.79 H (4.50-10.00) X 10*3/uL RBC 3.43 L (4.10-5.20) X 10*6/uL Hgb 9.9 L (12.0-15.0) g/dL Hct 31.1 L (37.2-46.3) % MCHC 31.8 L (32.0-37.0) g/dL RDW 14.6 H (11.5-14.5) % Plt Count 820 H (140-440) X 10*3/uL MPV 8.8 L (9.5-12.2) fL Immature Gran # 0.35 H (0.00-0.04) X 10*3/uL Neutrophils # 17.75 H (1.80-7.70) X 10*3/uL Monocytes # 1.41 H (0.20-1.00) X 10*3/uL Eosinophils # 0 L (0.04-0.35) X 10*3/uL Carbon Dioxide 19.7 L (20.0-27.5) mmol/L BUN 1.9 L (9.0-27.0) mg/dL Creatinine 0.4 L (0.6-1.5) mg/dL BUN/Creatinine Ratio 4.75 L (12.00-20.00) Ratio Calcium 8.3 L (8.7-10.3) mg/dL Assessment and Plan Assessment: Postoperative day #2, status post exploratory laparotomy and evacuation of pelvic hematoma/abscess. Plan: EDC Zamudio catheter. Encourage ambulation. Central venous line team to evaluate right upper extremity Central line this morning. Continue postoperative care. Time with Patient: Less than 30
--- NOTE | 2022-10-22 10:12 | P.PN ---
Progress Note - Text Progress Note Date: 10/22/22 The patient remains essentially unchanged. She's had no significant flatus. She has minimal complaints of abdominal pain. Her some incisional pain. On exam vital signs are stable. Abdomen soft. Incisions clean dry intact. CASIE drain has some serosanguineous output. Status post exploratory laparotomy for intraperitoneal abscess causing small small bowel obstruction. Patient also has postoperative ileus. She'll remain with NG tube. Her Zamudio catheter will be removed today. She was encouraged and blood.
[2022-10-22 10:48] LABS: Basophils # (A) 0.02 X 10*3/uL (0.00-0.10); Basophils % (A) 0.2 %; Eosinophils # (A) 0.11 X 10*3/uL (0.04-0.35); Eosinophils % (A) 0.9 %; HCT 25.5 % (37.2-46.3); HGB 8.1 g/dL (12.0-15.0); Immature Grans, Automated 1.8 %; Lymphocytes # (A) 1.97 X 10*3/uL (0.90-5.00); Lymphocytes % (A) 16.5 %; MCH 29.2 pg (27.0-32.0); MCHC 31.8 g/dL (32.0-37.0); MCV 92.1 fL (80.0-97.0); Mean Platelet Volume 8.9 fL (9.5-12.2); Monocytes # (A) 0.81 X 10*3/uL (0.20-1.00); Monocytes % (A) 6.8 %; NRBC Per 100 WBC 0 /100 WBCS (0.0-0.0); Neutrophils # (A) 8.82 X 10*3/uL (1.80-7.70); Neutrophils % (A) 73.8 %; Platelet Count 685 X 10*3/uL (140-440); RBC 2.77 X 10*6/uL (4.10-5.20); WBC 11.95 X 10*3/uL (4.50-10.00)
[2022-10-22 11:22] LABS: African American GFR (CKD) 130.8 (60.0-200.0); Anion Gap 14.6 mmol/L (10.00-18.00); BUN/Creat Ratio 8.2 Ratio (12.00-20.00); Blood Urea Nitrogen 4.1 mg/dL (9.0-27.0); Carbon Dioxide 20.4 mmol/L (20.0-27.5); Non-African American GFR(CKD) 112.9 (60.0-200.0); Potassium 3.3 mmol/L (3.5-5.5)
--- NOTE | 2022-10-22 13:15 | P.PN ---
Subjective Progress Note Date: 10/22/22 Principal diagnosis: Intra-abdominal abscess Patient is a 52-year-old female with a past medical history pertinent for hypertension reflux, patient recently did have a total abdominal hysterectomy, postop day 2 patient did have a exploratory laparoscopic with evacuation of hematoma, patient subsequently presenting back to the hospital on 10/13/2022 for evaluation of worsening right lower quadrant abdominal pain, patient did have a abnormal CT concerning for possible abscess status post CT- guided drainage culture did grew E. coli and anaerobes, concern for possible bowel trauma repeat CAT scan with rectal contrast did not show any leakage. Patient is status post laparotomy on 10/20/2022. No evidence of any perforation patient is status post lysis of adhesion On today's evaluation that is 10/22/2022, the patient remains to be febrile, the patient is breathing comfortably on room air, patient has been complaining of some incisional pain however overall abdominal pain has improved, patient did have an NG no vomiting has been reported the chest pain shortness of breath or cough Objective - Vital Signs Vital signs: Vital Signs Temp 98.9 F 10/22/22 07:21 Pulse 99 10/22/22 07:21 Resp 16 10/22/22 07:21 BP 128/80 10/22/22 07:21 Pulse Ox 97 10/22/22 07:21 FiO2 Intake & Output 10/21/22 10/22/22 10/22/22 18:59 06:59 18:59 Intake Total 1430 Output Total 802 1175 Balance -802 255 Weight 84.368 kg Intake: IV 1430 Sodium Chloride 0.9% 1, 1430 000 ml @ 130 mls/hr IV . Q7H42M [facility] Rx#:[id number] Oral 0 Output: Gastric Drainage 200 300 Drainage 52 25 Left Abdomen 42 10 Right Abdomen 10 15 Urine 550 850 Other: Voiding Method Indwelling Catheter Indwelling Catheter - Exam GENERAL DESCRIPTION: Middle-age female lying in bed in no distress RESPIRATORY SYSTEM: Unlabored breathing , decreased breath sounds at bases HEART: S1 S2 regular rate and rhythm , ABDOMEN: Soft , mild distention and tenderness EXTREMITIES: No edema feet - Labs CBC & Chem 7: 10/22/22 06:03 10/22/22 06:03 Labs: Abnormal Lab Results - Last 24 Hours (Table) 10/22/22 10/22/22 Range/Units 06:03 06:03 WBC 11.95 H (4.50-10.00) X 10*3/uL RBC 2.77 L (4.10-5.20) X 10*6/uL Hgb 8.1 L (12.0-15.0) g/dL Hct 25.5 L (37.2-46.3) % MCHC 31.8 L (32.0-37.0) g/dL RDW 15.0 H (11.5-14.5) % Plt Count 685 H (140-440) X 10*3/uL MPV 8.9 L (9.5-12.2) fL Immature Gran # 0.22 H (0.00-0.04) X 10*3/uL Neutrophils # 8.82 H (1.80-7.70) X 10*3/uL Potassium 3.3 L (3.5-5.5) mmol/L BUN 4.1 L (9.0-27.0) mg/dL Creatinine 0.5 L (0.6-1.5) mg/dL BUN/Creatinine Ratio 8.20 L (12.00-20.00) Ratio Calcium 8.0 L (8.7-10.3) mg/dL Assessment and Plan (1) Postoperative intra-abdominal abscess Current Visit: Yes Status: Acute Code(s): T81.43XA - INFCT FOL A PROCEDURE, ORGAN AND SPACE SURGICAL SITE, INIT SNOMED Code(s): 1893230 Plan: 1patient with infected intra-abdominal hematoma/abscess in this patient who did have a history of total vaginal hysterectomy followed by laparoscopic drainage of hematoma subsequent presented to hospital with abdominal pain and evidence of large fluid collection that has been drained on 10/14/2022 culture now growing E. coli patient did have a CT abdominal pelvis with rectal contrast completed this afternoon and did not show any leakage of the bowel content and surgery has seen the patient recommending conservative approach and possible outpatient antibiotic therapy, cultures currently growing E. coli and anaerobic gram- negative bacilli 2-Patient remains to be afebrile the patient white count is down to 11,000 today, the patient will be continued on Zosyn patient and family questions concerned were answered in Layman terms Time with Patient: Less than 30
--- NOTE | 2022-10-22 13:36 | P.PN ---
Subjective Progress Note Date: 10/22/22 Subjective: Seen and examined at bedside. No acute events overnight. Currently nothing by mouth. Has an NG tube in place. Abdominal pain improved. Zamudio catheter taken out today Pertinent positives and negatives as discussed above, a complete review of systems was performed and all other systems are negative. Vitals Signs Reviewed. General: nontoxic, no distress, appears at stated age Cardiovascular: S1S2 reg, no murmur, positive posterior tibial pulse bilateral, Lungs: CTA bilateral, no rhonchi, no rales , no accessory muscle use Abdominal: soft, +tender to palpation epigastric, no guarding, no appreciable organomegaly, [address], NG tube Ext: no gross muscle atrophy, no edema, no contractures Neuro: CN II-XI grossly intact, no focal neuro deficits Psych: Alert, oriented, appropriate affect Data Reviewed Today: Pertinent Labs: WBC 11.95, hemoglobin 8.1, platelets 685, potassium 3.3, creatinine 0.5 Imaging: None today Assessment and Plan: Postoperative intra-abdominal abscess/hemtoma with sepsis status post surgery Acute blood loss anemia and his anticipated outcome of the procedure GERD Thrombocytosis, suspect reactive Possible postoperative ileus Hypokalemia Hypertension, now controlled GERD Abnormal urinalysis, suspect related to post surgical state patient without dysuria. -OB note reviewed, dc urinary catheter -Surgery following -ID following, on Zosyn, will likely need IV antibiotics at home -aspirate positive for E. coli, pansensitive -Hemoglobin stable -IV Protonix 40 mg twice a day -IV Tylenol, Pain control with IV Dilaudid as needed, IV ibuprofen -Continue normal saline 1 30 mL an hour Thank you for allowing us to participate in the care of this pleasant patient. Do not hesitate to contact us with questions. Someone can be reached from the [place] hospitalist group all hours of the day at [phone] or via [employer]. Objective - Vital Signs Vital signs: Vital Signs Temp 98.9 F 10/22/22 07:21 Pulse 99 10/22/22 07:21 Resp 16 10/22/22 07:21 BP 128/80 10/22/22 07:21 Pulse Ox 97 10/22/22 07:21 FiO2 Intake & Output 10/21/22 10/22/22 10/22/22 18:59 06:59 18:59 Intake Total 1430 Output Total 802 1175 Balance -802 255 Weight 84.368 kg Intake: IV 1430 Sodium Chloride 0.9% 1, 1430 000 ml @ 130 mls/hr IV . Q7H42M [facility] Rx#:[id number] Oral 0 Output: Gastric Drainage 200 300 Drainage 52 25 Left Abdomen 42 10 Right Abdomen 10 15 Urine 550 850 Other: Voiding Method Indwelling Catheter Indwelling Catheter Indwelling Catheter - Labs CBC & Chem 7: 10/22/22 06:03 10/22/22 06:03 Labs: Abnormal Lab Results - Last 24 Hours (Table) 10/22/22 10/22/22 Range/Units 06:03 06:03 WBC 11.95 H (4.50-10.00) X 10*3/uL RBC 2.77 L (4.10-5.20) X 10*6/uL Hgb 8.1 L (12.0-15.0) g/dL Hct 25.5 L (37.2-46.3) % MCHC 31.8 L (32.0-37.0) g/dL RDW 15.0 H (11.5-14.5) % Plt Count 685 H (140-440) X 10*3/uL MPV 8.9 L (9.5-12.2) fL Immature Gran # 0.22 H (0.00-0.04) X 10*3/uL Neutrophils # 8.82 H (1.80-7.70) X 10*3/uL Potassium 3.3 L (3.5-5.5) mmol/L BUN 4.1 L (9.0-27.0) mg/dL Creatinine 0.5 L (0.6-1.5) mg/dL BUN/Creatinine Ratio 8.20 L (12.00-20.00) Ratio Calcium 8.0 L (8.7-10.3) mg/dL
[2022-10-22] MEDS: POTASSIUM CHLORIDE 10 MEQ in WATER FOR INJECTION 1 100ML.BAG IVPB SCH ×2 (14:04→15:37)
[2022-10-22] MEDS: MIRTAZAPINE 15 MG TAB PO SCH (20:49)
[2022-10-23] MEDS: ACETAMINOPHEN IV (For NPO) 1,000 MG in EMPTY BAG 1 BAG IVPB SCH ×4 (00:17→18:08)
[2022-10-23] MEDS: HYDROmorphone 1 MG/ML 1 ML SYRINGE IVP PRN ×7 (00:17→21:53)
[2022-10-23] MEDS: PIPERACILLIN-TAZOBACTAM 3.375 GM in SODIUM CHLORIDE 0.9% 100 ML IVPB SCH ×3 (00:18→16:47)
[2022-10-23] MEDS: HEPARIN SODIUM,PORCINE/PF 5,000 UNIT/0.5 ML SYRINGE SQ SCH ×3 (00:18→15:56)
[2022-10-23] MEDS: IBUPROFEN IV 800 MG in SODIUM CHLORIDE 0.9% 250 ML IV SCH ×3 (00:43→17:25)
[2022-10-23] MEDS: SODIUM CHLORIDE 0.9% 1,000 ML IV SCH ×3 (02:00→17:33)
--- NOTE | 2022-10-23 07:13 | P.PN ---
Subjective Progress Note Date: 10/23/22 Principal diagnosis: Status post evacuation pelvic hematoma/abscess. No further nausea. No emesis. Pain slightly improved. No flatus. Patient feels hungry. Objective - Vital Signs Vital signs: Vital Signs Temp 98.4 F 10/23/22 01:17 Pulse 93 10/23/22 01:17 Resp 16 10/23/22 01:17 BP 131/81 10/23/22 01:17 Pulse Ox 94 L 10/23/22 01:17 FiO2 Intake & Output 10/22/22 10/23/22 10/23/22 18:59 06:59 18:59 Intake Total 1240 Output Total 1610 560 Balance -370 -560 Weight 84.368 kg Intake: IV 1040 Sodium Chloride 0.9% 1, 1040 000 ml @ 130 mls/hr IV . Q7H42M [facility] Rx#:[id number] Intake, IV Titration 200 Amount Piperacillin-Tazobactam 3 100 .375 gm In Sodium Chloride 0.9% 100 ml @ 25 mls/hr IVPB Q8HR [facility] Rx# :[id number] Potassium Chloride 10 meq 100 In Water For Injection 1 100ml.bag @ 100 mls/hr IVPB Q1H [facility] Rx#: [id number] Output: Gastric Drainage 400 375 Drainage 50 185 Left Abdomen 10 180 Right Abdomen 40 5 Urine 1160 Other: Voiding Method Indwelling Catheter Indwelling Catheter # Voids 1 - Constitutional General appearance: Present: average body habitus, cooperative - EENT Eyes: Present: PERRLA ENT: Present: hearing grossly normal - Neck Neck: Present: normal ROM Thyroid: negative: normal size - Respiratory Respiratory: bilateral: CTA - Cardiovascular Rhythm: regular - Gastrointestinal Gastrointestinal Comment(s): Incision clean and dry, intact, slightly ecchymotic. Abdomen softly distended, no rebound or guarding. General gastrointestinal: Present: decreased bowel sounds - Integumentary Integumentary: Present: normal - Neurologic Neurologic: Present: CNII-XII intact - Musculoskeletal Musculoskeletal: Present: generalized weakness, strength equal bilaterally - Psychiatric Psychiatric: Present: A&O x's 3, appropriate affect, intact judgment & insight - Labs CBC & Chem 7: 10/22/22 06:03 10/22/22 06:03 Labs: Abnormal Lab Results - Last 24 Hours (Table) 10/22/22 10/22/22 Range/Units 06:03 06:03 WBC 11.95 H (4.50-10.00) X 10*3/uL RBC 2.77 L (4.10-5.20) X 10*6/uL Hgb 8.1 L (12.0-15.0) g/dL Hct 25.5 L (37.2-46.3) % MCHC 31.8 L (32.0-37.0) g/dL RDW 15.0 H (11.5-14.5) % Plt Count 685 H (140-440) X 10*3/uL MPV 8.9 L (9.5-12.2) fL Immature Gran # 0.22 H (0.00-0.04) X 10*3/uL Neutrophils # 8.82 H (1.80-7.70) X 10*3/uL Potassium 3.3 L (3.5-5.5) mmol/L BUN 4.1 L (9.0-27.0) mg/dL Creatinine 0.5 L (0.6-1.5) mg/dL BUN/Creatinine Ratio 8.20 L (12.00-20.00) Ratio Calcium 8.0 L (8.7-10.3) mg/dL Assessment and Plan Assessment: Continued slow clinical improvement, status post evacuation of pelvic hematoma/abscess. Plan: Consider discontinuation of right CASIE today. Would hope to clamp the NG tube and allow patient to shower. Awaiting assessment of right central line function, team notified 3. Continue postoperative care per Dr. Juarez's recomme ndations. Time with Patient: Less than 30
[2022-10-23] MEDS: PANTOPRAZOLE 40 MG/10 ML VIAL IVP SCH ×2 (08:04→21:53)
--- NOTE | 2022-10-23 10:04 | P.PN ---
Progress Note - Text Progress Note Date: 10/23/22 The patient is resting comfortably in her bed. She's not had any significant bowel function. She denies any nausea. She's had decreased output from one of her CASIE drains. On exam vital signs are stable. Abdomen soft. Incisions clean dry tach. Status post sigmoid laparotomy with drainage of perineal abscess. Patient will remain with her NG tube. We will keep her CASIE drains presents for now. Once she has significant bowel function we will remove her nasogastric tube and start clear liquids.
[2022-10-23 10:18] LABS: Basophils # (A) 0.03 X 10*3/uL (0.00-0.10); Basophils % (A) 0.2 %; Eosinophils # (A) 0.14 X 10*3/uL (0.04-0.35); Eosinophils % (A) 1.1 %; HGB 7.8 g/dL (12.0-15.0); Immature Grans, Automated 1.3 %; Lymphocytes # (A) 1.74 X 10*3/uL (0.90-5.00); Lymphocytes % (A) 14.2 %; MCH 28.9 pg (27.0-32.0); MCHC 31.2 g/dL (32.0-37.0); MCV 92.6 fL (80.0-97.0); Mean Platelet Volume 9.5 fL (9.5-12.2); Monocytes # (A) 0.66 X 10*3/uL (0.20-1.00); Monocytes % (A) 5.4 %; NRBC Per 100 WBC 0 /100 WBCS (0.0-0.0); Neutrophils # (A) 9.56 X 10*3/uL (1.80-7.70); Neutrophils % (A) 77.8 %; Platelet Count 721 X 10*3/uL (140-440); RDW 15.2 % (11.5-14.5); WBC 12.29 X 10*3/uL (4.50-10.00)
[2022-10-23 11:06] LABS: African American GFR (CKD) 140.8 (60.0-200.0); Albumin 2.8 g/dL (3.8-4.9); Albumin/Globulin Ratio 1.27 (1.60-3.17); Anion Gap 17.6 mmol/L (10.00-18.00); Calcium 8.2 mg/dL (8.7-10.3); Carbon Dioxide 16.4 mmol/L (20.0-27.5); Globulin 2.2 g/dL (1.6-3.3); Non-African American GFR(CKD) 121.4 (60.0-200.0); Potassium 2.8 mmol/L (3.5-5.5); Total Bilirubin 0.2 mg/dL (0.30-1.20)
[2022-10-23] MEDS: POTASSIUM CHLORIDE 10 MEQ in WATER FOR INJECTION 1 100ML.BAG IVPB SCH ×4 (12:39→21:54)
--- NOTE | 2022-10-23 13:34 | P.PN ---
Subjective Progress Note Date: 10/23/22 Subjective: Seen and examined at bedside. No acute events overnight. Currently nothing by mouth. Has an NG tube in place. Abdominal pain improved. Urinating well. Pertinent positives and negatives as discussed above, a complete review of systems was performed and all other systems are negative. Vitals Signs Reviewed. General: nontoxic, no distress, appears at stated age Cardiovascular: S1S2 reg, no murmur, positive posterior tibial pulse bilateral, Lungs: CTA bilateral, no rhonchi, no rales , no accessory muscle use Abdominal: soft, +tender to palpation epigastric, no guarding, no appreciable organomegaly, [address], NG tube Ext: no gross muscle atrophy, no edema, no contractures Neuro: CN II-XI grossly intact, no focal neuro deficits Psych: Alert, oriented, appropriate affect Data Reviewed Today: Pertinent Labs: WBC 12.29, hemoglobin 7.8, platelets 721, potassium 2.8, creatinine 0.4 Imaging: None today Assessment and Plan: Postoperative intra-abdominal abscess/hemtoma with sepsis status post surgery Acute blood loss anemia and his anticipated outcome of the procedure GERD Thrombocytosis, suspect reactive Possible postoperative ileus Hypokalemia GERD Abnormal urinalysis, suspect related to post surgical state patient without dysuria. -OB note reviewed, possiblity of taking out one of the CASIE drains -Surgery note reviewed, awaiting bowel function, and then start clear and remove NG tube -ID following, on Zosyn, will likely need IV antibiotics at home -aspirate positive for E. coli, pansensitive -Hemoglobin stable -IV Protonix 40 mg twice a day -IV Tylenol, Pain control with IV Dilaudid as needed, IV ibuprofen -Continue normal saline 1 30 mL an hour -Potassium 60 mEq IV ordered -Repeat BMP and magnesium tomorrow Thank you for allowing us to participate in the care of this pleasant patient. Do not hesitate to contact us with questions. Someone can be reached from the [facility] hospitalist group all hours of the day at [phone] or via [employer]. Objective - Vital Signs Vital signs: Vital Signs Temp 97.8 F 10/23/22 07:55 Pulse 94 10/23/22 07:55 Resp 19 10/23/22 07:55 BP 152/91 10/23/22 07:55 Pulse Ox 96 10/23/22 08:05 FiO2 Intake & Output 10/22/22 10/23/22 10/23/22 18:59 06:59 18:59 Intake Total 1240 Output Total 1610 560 30 Balance -370 -560 -30 Weight 84.368 kg Intake: IV 1040 Sodium Chloride 0.9% 1, 1040 000 ml @ 130 mls/hr IV . Q7H42M [facility] Rx#:[id number] Intake, IV Titration 200 Amount Piperacillin-Tazobactam 3 100 .375 gm In Sodium Chloride 0.9% 100 ml @ 25 mls/hr IVPB Q8HR [facility] Rx# :[id number] Potassium Chloride 10 meq 100 In Water For Injection 1 100ml.bag @ 100 mls/hr IVPB Q1H [facility] Rx#: [id number] Output: Gastric Drainage 400 375 Drainage 50 185 30 Left Abdomen 10 180 30 Right Abdomen 40 5 Urine 1160 Other: Voiding Method Indwelling Catheter Indwelling Catheter # Voids 1 - Labs CBC & Chem 7: 10/23/22 04:13 10/23/22 04:13 Labs: Abnormal Lab Results - Last 24 Hours (Table) 10/23/22 10/23/22 Range/Units 04:13 04:13 WBC 12.29 H (4.50-10.00) X 10*3/uL RBC 2.70 L (4.10-5.20) X 10*6/uL Hgb 7.8 L (12.0-15.0) g/dL Hct 25.0 L (37.2-46.3) % MCHC 31.2 L (32.0-37.0) g/dL RDW 15.2 H (11.5-14.5) % Plt Count 721 H (140-440) X 10*3/uL Immature Gran # 0.16 H (0.00-0.04) X 10*3/uL Neutrophils # 9.56 H (1.80-7.70) X 10*3/uL Potassium 2.8 L (3.5-5.5) mmol/L Chloride 111 H (96-109) mmol/L Carbon Dioxide 16.4 L (20.0-27.5) mmol/L BUN 2.0 L (9.0-27.0) mg/dL Creatinine 0.4 L (0.6-1.5) mg/dL BUN/Creatinine Ratio 5.00 L (12.00-20.00) Ratio Calcium 8.2 L (8.7-10.3) mg/dL Total Bilirubin 0.20 L (0.30-1.20) mg/dL Total Protein 5.0 L (6.2-8.2) g/dL Albumin 2.8 L (3.8-4.9) g/dL Albumin/Globulin Ratio 1.27 L (1.60-3.17) g/dL
[2022-10-23] MEDS: MIRTAZAPINE 15 MG TAB PO SCH (21:46)
[2022-10-24] MEDS: HEPARIN SODIUM,PORCINE/PF 5,000 UNIT/0.5 ML SYRINGE SQ SCH ×4 (00:29→23:18)
[2022-10-24] MEDS: ACETAMINOPHEN IV (For NPO) 1,000 MG in EMPTY BAG 1 BAG IVPB SCH ×5 (00:30→23:18)
[2022-10-24] MEDS: IBUPROFEN IV 800 MG in SODIUM CHLORIDE 0.9% 250 ML IV SCH ×4 (00:31→23:18)
[2022-10-24] MEDS: PIPERACILLIN-TAZOBACTAM 3.375 GM in SODIUM CHLORIDE 0.9% 100 ML IVPB SCH ×4 (00:32→23:18)
[2022-10-24] MEDS: POTASSIUM CHLORIDE 10 MEQ in WATER FOR INJECTION 1 100ML.BAG IVPB SCH ×6 (01:33→16:16)
[2022-10-24] MEDS: HYDROmorphone 1 MG/ML 1 ML SYRINGE IVP PRN ×7 (01:38→23:19)
[2022-10-24] MEDS: SODIUM CHLORIDE 0.9% 1,000 ML IV SCH ×4 (01:50→23:56)
[2022-10-24 06:39] LABS: Basophils % (A) 0 %; Eosinophils # (A) 0.2 k/uL (0-0.7); Eosinophils % (A) 2 %; HCT 27.4 % (34.0-46.0); Hypochromasia Moderate; Lymphocytes # (A) 1.5 k/uL (1.0-4.8); Lymphocytes % (A) 17 %; MCH 29.3 pg (25.0-35.0); MCHC 31.8 g/dL (31.0-37.0); MCV 92.1 fL (80.0-100.0); Mean Platelet Volume 6.8; Monocytes # (A) 0.4 k/uL (0-1.0); Monocytes % (A) 5 %; Neutrophils # (A) 6.7 k/uL (1.3-7.7); Neutrophils % (A) 74 %; Platelet Count 770 k/uL (150-450); Poikilocytosis Slight; RBC 2.97 m/uL (3.80-5.40); RDW 14.9 % (11.5-15.5)
[2022-10-24 06:46] LABS: HGB 8.7 gm/dL (11.4-16.0)
[2022-10-24 06:48] LABS: African American GFR (CKD) >90 (>60 ml/min/1.73 sqM); Anion Gap 13 mmol/L; Blood Urea Nitrogen <2 mg/dL (7-17); Calcium 8.3 mg/dL (8.4-10.2); Carbon Dioxide 19 mmol/L (22-30); Chloride 107 mmol/L (98-107); Glucose 74 mg/dL (74-99); Magnesium 1.7 mg/dL (1.6-2.3); Non-African American GFR(CKD) >90 (>60 ml/min/1.73 sqM); Sodium 139 mmol/L (137-145)
[2022-10-24] MEDS: PANTOPRAZOLE 40 MG/10 ML VIAL IVP SCH ×2 (08:40→20:01)
--- NOTE | 2022-10-24 10:16 | P.PN ---
Subjective Progress Note Date: 10/24/22 History reports feeling well with minimal abdominal pain or pelvic pain. She denies flatus at this point but feels that she is close. She does feel hungry. She is up and ambulating routinely and able to use the restroom without difficulty for urination. Objective - Vital Signs Vital signs: Vital Signs Temp 97.7 F 10/24/22 07:33 Pulse 89 10/24/22 07:33 Resp 19 10/24/22 07:33 BP 151/91 10/24/22 07:33 Pulse Ox 96 10/24/22 07:57 FiO2 Intake & Output 10/23/22 10/24/22 10/24/22 18:59 06:59 18:59 Intake Total 0 Output Total 200 215 Balance -200 -215 Intake: Oral 0 Output: Gastric Drainage 125 150 Drainage 75 65 Left Abdomen 70 60 Right Abdomen 5 5 Other: Voiding Method Toilet # Voids 3 5 - Exam In general, this is a well-developed, well-nourished white female in no acute distress. The NG tube remained in place. All of the abdominal wounds are covered with no apparent drainage visible. Her abdomen is otherwise soft and minimally tender. Her extremities without any cyanosis, clubbing, or edema and are nontender to palpation bilaterally. Currently no SCDs in place but they have been so on her continuous basis prior to this morning. - Labs CBC & Chem 7: 10/24/22 06:20 10/24/22 06:20 Labs: Abnormal Lab Results - Last 24 Hours (Table) 10/23/22 10/23/22 10/24/22 Range/Units 04:13 04:13 06:20 WBC 12.29 H (4.50-10.00) X 10*3/uL RBC 2.70 L 2.97 L (4.10-5.20) X 10*6/uL Hgb 7.8 L 8.7 L D (12.0-15.0) g/dL Hct 25.0 L 27.4 L (37.2-46.3) % MCHC 31.2 L (32.0-37.0) g/dL RDW 15.2 H (11.5-14.5) % Plt Count 721 H 770 H (140-440) X 10*3/uL Immature Gran # 0.16 H (0.00-0.04) X 10*3/uL Neutrophils # 9.56 H (1.80-7.70) X 10*3/uL Potassium 2.8 L (3.5-5.5) mmol/L Chloride 111 H (96-109) mmol/L Carbon Dioxide 16.4 L (20.0-27.5) mmol/L BUN 2.0 L (9.0-27.0) mg/dL Creatinine 0.4 L (0.6-1.5) mg/dL BUN/Creatinine Ratio 5.00 L (12.00-20.00) Ratio Calcium 8.2 L (8.7-10.3) mg/dL Total Bilirubin 0.20 L (0.30-1.20) mg/dL Total Protein 5.0 L (6.2-8.2) g/dL Albumin 2.8 L (3.8-4.9) g/dL Albumin/Globulin Ratio 1.27 L (1.60-3.17) g/dL 10/24/22 Range/Units 06:20 WBC (4.50-10.00) X 10*3/uL RBC (4.10-5.20) X 10*6/uL Hgb (12.0-15.0) g/dL Hct (37.2-46.3) % MCHC (32.0-37.0) g/dL RDW (11.5-14.5) % Plt Count (140-440) X 10*3/uL Immature Gran # (0.00-0.04) X 10*3/uL Neutrophils # (1.80-7.70) X 10*3/uL Potassium 3.0 L (3.5-5.5) mmol/L Chloride (96-109) mmol/L Carbon Dioxide 19 L (20.0-27.5) mmol/L BUN <2 L (9.0-27.0) mg/dL Creatinine 0.37 L (0.6-1.5) mg/dL BUN/Creatinine Ratio (12.00-20.00) Ratio Calcium 8.3 L (8.7-10.3) mg/dL Total Bilirubin (0.30-1.20) mg/dL Total Protein (6.2-8.2) g/dL Albumin (3.8-4.9) g/dL Albumin/Globulin Ratio (1.60-3.17) g/dL Assessment and Plan (1) Ileus Current Visit: Yes Status: Acute Code(s): K56.7 - ILEUS, UNSPECIFIED SNOMED Code(s): 838531288 (2) Postoperative intra-abdominal abscess Current Visit: Yes Status: Acute Code(s): T81.43XA - INFCT FOL A PROCEDURE, ORGAN AND SPACE SURGICAL SITE, INIT SNOMED Code(s): 2322373 Plan: Vital signs are stable and the patient appears well. We await the resolution of the ileus. The drains continued to drain less fluid per shift. Management of the NG and CASIE drains will be left in the hands of general surgery. I have encouraged her to continue to ambulate regularly as it will encourage return of bowel function. We will continue to follow at a distance. Please let me know should there be any gynecologic concerns.
--- NOTE | 2022-10-24 10:44 | P.PN ---
Progress Note - Text Progress Note Date: 10/24/22 The patient remained stable. She's had some decreased output through her NG tube. She has had no significant bowel function. On exam vital signs are stable. Abdomen soft. CASIE drain has some serosanguineous output. Postoperative ileus after drainage which peritoneal abscess. Patient has had no significant bowel function. We will keep her NG tube in position until she does pass flatus. Anticipate she'll have a nasogastric tube for another day or so.
[2022-10-24] MEDS: MAGNESIUM SULFATE-D5W PMX 1 GM in DEXTROSE/WATER 1 100ML.BAG IVPB SCH ×3 (11:28→13:26)
--- NOTE | 2022-10-24 13:08 | P.PN ---
Subjective Progress Note Date: 10/24/22 Subjective: Seen and examined at bedside. No acute events overnight. Currently nothing by mouth. Has an NG tube in place. Abdominal pain improved. Urinating well. Ambulating well. Pertinent positives and negatives as discussed above, a complete review of systems was performed and all other systems are negative. Vitals Signs Reviewed. General: nontoxic, no distress, appears at stated age Cardiovascular: S1S2 reg, no murmur, positive posterior tibial pulse bilateral, Lungs: CTA bilateral, no rhonchi, no rales , no accessory muscle use Abdominal: soft, +tender to palpation epigastric, no guarding, no appreciable organomegaly, CASIE drain in place, NG tube Ext: no gross muscle atrophy, no edema, no contractures Neuro: CN II-XI grossly intact, no focal neuro deficits Psych: Alert, oriented, appropriate affect Data Reviewed Today: Pertinent Labs: WBC 9, hemoglobin 8.7, platelets 770, potassium 3, creatinine 0.37, magnesium 1.7 Imaging: None today Assessment and Plan: Postoperative intra-abdominal abscess/hemtoma with sepsis status post surgery Acute blood loss anemia and his anticipated outcome of the procedure, improving GERD Thrombocytosis, suspect reactive Postoperative ileus Hypokalemia Hypomagnesemia GERD Abnormal urinalysis, suspect related to post surgical state patient without dysuria. -OB note reviewed, no current gynecological concerns -Surgery note reviewed, awaiting bowel function, likely remove NG tube within a day -ID following, on Zosyn, will likely need IV antibiotics at home -aspirate positive for E. coli, pansensitive -Hemoglobin stable -IV Protonix 40 mg twice a day -IV Tylenol, Pain control with IV Dilaudid as needed, IV ibuprofen -Continue normal saline 1 30 mL an hour -Potassium 40 mEq IV ordered, magnesium 3 g IV sulfate ordered -Repeat BMP and magnesium tomorrow Thank you for allowing us to participate in the care of this pleasant patient. Do not hesitate to contact us with questions. Someone can be reached from the [facility] hospitalist group all hours of the day at [phone] or via perfect serve. Objective - Vital Signs Vital signs: Vital Signs Temp 97.7 F 10/24/22 07:33 Pulse 89 10/24/22 07:33 Resp 19 10/24/22 07:33 BP 151/91 10/24/22 07:33 Pulse Ox 96 10/24/22 07:57 FiO2 Intake & Output 10/23/22 10/24/22 10/24/22 18:59 06:59 18:59 Intake Total 0 Output Total 200 215 Balance -200 -215 Intake: Oral 0 Output: Gastric Drainage 125 150 Drainage 75 65 Left Abdomen 70 60 Right Abdomen 5 5 Other: Voiding Method Toilet # Voids 3 5 - Labs CBC & Chem 7: 10/24/22 06:20 10/24/22 06:20 Labs: Abnormal Lab Results - Last 24 Hours (Table) 10/24/22 10/24/22 Range/Units 06:20 06:20 RBC 2.97 L (3.80-5.40) m/uL Hgb 8.7 L D (11.4-16.0) gm/dL Hct 27.4 L (34.0-46.0) % Plt Count 770 H (150-450) k/uL Potassium 3.0 L (3.5-5.1) mmol/L Carbon Dioxide 19 L (22-30) mmol/L BUN <2 L (7-17) mg/dL Creatinine 0.37 L (0.52-1.04) mg/dL Calcium 8.3 L (8.4-10.2) mg/dL
[2022-10-24] MEDS: MIRTAZAPINE 15 MG TAB PO SCH (20:01)
[2022-10-25] MEDS: HYDROmorphone 1 MG/ML 1 ML SYRINGE IVP PRN ×5 (04:54→23:04)
[2022-10-25] MEDS: ACETAMINOPHEN IV (For NPO) 1,000 MG in EMPTY BAG 1 BAG IVPB SCH ×4 (04:56→23:03)
--- NOTE | 2022-10-25 07:03 | P.PN ---
Subjective Progress Note Date: 10/25/22 Principal diagnosis: Status post surgical evacuation postoperative hematoma/abscess No nausea. Pain well managed. No vaginal drainage. No flatus. Objective - Vital Signs Vital signs: Vital Signs Temp 98.1 F 10/25/22 01:37 Pulse 93 10/25/22 01:37 Resp 18 10/25/22 01:37 BP 128/84 10/25/22 01:37 Pulse Ox 96 10/25/22 01:37 FiO2 Intake & Output 10/24/22 10/25/22 10/25/22 18:59 06:59 18:59 Intake Total 0 Output Total 395 Balance 0 -395 Weight 84.368 kg Intake: Oral 0 Output: Gastric Drainage 350 Drainage 45 Left Abdomen 40 Right Abdomen 5 Other: Voiding Method Toilet # Voids 3 4 - Constitutional General appearance: Present: average body habitus, cooperative - EENT Eyes: Present: PERRLA ENT: Present: hearing grossly normal - Neck Neck: Present: normal ROM - Respiratory Respiratory: bilateral: CTA - Cardiovascular Rhythm: regular - Gastrointestinal Gastrointestinal Comment(s): Abdomen is softly distended. No rebound or guarding. Active bowel noted per auscultation. Incision clean and dry, intact, josh in situ General gastrointestinal: Present: decreased bowel sounds, soft - Integumentary Integumentary: Present: normal - Musculoskeletal Musculoskeletal: Present: strength equal bilaterally - Psychiatric Psychiatric: Present: A&O x's 3, appropriate affect, intact judgment & insight - Labs CBC & Chem 7: 10/24/22 06:20 10/24/22 06:20 Assessment and Plan Assessment: Continued slow progress, status post surgical evacuation pelvic hematoma/abscess Plan: Patient ambulated yesterday for over one hour with the NG tube clamped, no nausea. Consider trial of cramping NG tube with clear liquid, pending Dr. Gaxiola is evaluation. Morning labs pending. Potassium supplementation yesterday. Consider removal of CASIE drains has minimal output is noted. Again, appreciate general surgery involvement and management. Time with Patient: Less than 30
[2022-10-25] MEDS: PANTOPRAZOLE 40 MG/10 ML VIAL IVP SCH ×2 (08:25→19:44)
[2022-10-25] MEDS: PIPERACILLIN-TAZOBACTAM 3.375 GM in SODIUM CHLORIDE 0.9% 100 ML IVPB SCH ×2 (08:25→15:39)
[2022-10-25] MEDS: HEPARIN SODIUM,PORCINE/PF 5,000 UNIT/0.5 ML SYRINGE SQ SCH ×3 (08:25→23:04)
[2022-10-25] MEDS: IBUPROFEN IV 800 MG in SODIUM CHLORIDE 0.9% 250 ML IV SCH ×2 (08:55→15:38)
[2022-10-25] MEDS: SODIUM CHLORIDE 0.9% 1,000 ML IV SCH ×3 (09:25→22:40)
--- NOTE | 2022-10-25 09:48 | P.PN ---
Progress Note - Text Progress Note Date: 10/25/22 Patient remains the same as yesterday. She has had no flatus. Patient has been and bleeding. She states her pain is manageable. On exam vital signs appear stable. NG tube has been putting out approximately 150 mL per shift. The output is bilious. Abdomen soft. Incision is clean dry intact. CASIE drains have some serosanguineous output. Status post exploratory laparotomy with drainage of peritoneal abscess related to infected hematoma. The patient has a postoperative ileus. Recommend continuing NG tube decompression. Once the patient has resolution of her ileus we will start clear liquids. Her CASIE drains will remain for now.
--- NOTE | 2022-10-25 11:24 | P.PN ---
Subjective Progress Note Date: 10/25/22 Subjective: Seen and examined at bedside. No acute events overnight. Currently nothing by mouth. Has an NG tube in place. Abdominal pain improved. Urinating well. Ambulating well. Still no bowel movement. Pertinent positives and negatives as discussed above, a complete review of s ystems was performed and all other systems are negative. Vitals Signs Reviewed. General: nontoxic, no distress, appears at stated age Cardiovascular: S1S2 reg, no murmur, positive posterior tibial pulse bilateral, Lungs: CTA bilateral, no rhonchi, no rales , no accessory muscle use Abdominal: soft, +tender to palpation epigastric, no guarding, no appreciable organomegaly, CASIE drain in place, NG tube Ext: no gross muscle atrophy, no edema, no contractures Neuro: CN II-XI grossly intact, no focal neuro deficits Psych: Alert, oriented, appropriate affect Data Reviewed Today: Pertinent Labs: CBC and BMP and magnesium pending, will be reviewed when available Imaging: None today Assessment and Plan: Postoperative intra-abdominal abscess/hemtoma with sepsis status post surgery Acute blood loss anemia and his anticipated outcome of the procedure, improving GERD Thrombocytosis, suspect reactive Postoperative ileus Hypokalemia Hypomagnesemia GERD Abnormal urinalysis, suspect related to post surgical state patient without dysuria. -OB note reviewed, management per surgery -Surgery note reviewed, awaiting bowel function, likely remove NG tube after that -ID following, on Zosyn, will likely need IV antibiotics at home -aspirate positive for E. coli, pansensitive -Hemoglobin stable -IV Protonix 40 mg twice a day -IV Tylenol, Pain control with IV Dilaudid as needed, IV ibuprofen -Continue normal saline 1 30 mL an hour -Repeat BMP and magnesium tomorrow Thank you for allowing us to participate in the care of this pleasant patient. Do not hesitate to contact us with questions. Someone can be reached from the [facility] hospitalist group all hours of the day at [phone] or via perfect serve. Objective - Vital Signs Vital signs: Vital Signs Temp 97.8 F 10/25/22 07:15 Pulse 85 10/25/22 07:15 Resp 18 10/25/22 07:15 BP 127/82 10/25/22 07:15 Pulse Ox 96 10/25/22 07:15 FiO2 Intake & Output 10/24/22 10/25/22 10/25/22 18:59 06:59 18:59 Intake Total 0 Output Total 395 Balance 0 -395 Weight 84.368 kg Intake: Oral 0 Output: Gastric Drainage 350 Drainage 45 Left Abdomen 40 Right Abdomen 5 Other: Voiding Method Toilet Toilet # Voids 3 4 1 - Labs CBC & Chem 7: 10/24/22 06:20 10/24/22 06:20
[2022-10-25 11:44] LABS: HCT 27.1 % (37.2-46.3); HGB 8.8 g/dL (12.0-15.0); MCH 28.9 pg (27.0-32.0); MCHC 32.5 g/dL (32.0-37.0); MCV 89.1 fL (80.0-97.0); NRBC Per 100 WBC 0 /100 WBCS (0.0-0.0); Platelet Count 744 X 10*3/uL (140-440); RBC 3.04 X 10*6/uL (4.10-5.20); RDW 15.1 % (11.5-14.5)
[2022-10-25 12:51] LABS: African American GFR (CKD) 142.3 (60.0-200.0); Blood Urea Nitrogen <1.4 mg/dL (9.0-27.0); Calcium 8.3 mg/dL (8.7-10.3); Carbon Dioxide 19.8 mmol/L (20.0-27.5); Chloride 105 mmol/L (96-109); Glucose 85 mg/dL (70-110); Non-African American GFR(CKD) 122.8 (60.0-200.0); Potassium 3.1 mmol/L (3.5-5.5); Sodium 141 mmol/L (135-145)
--- NOTE | 2022-10-25 14:11 | P.PN ---
Subjective Progress Note Date: 10/25/22 Principal diagnosis: Intra-abdominal abscess Patient is a 52-year-old female with a past medical history pertinent for hypertension reflux, patient recently did have a total abdominal hysterectomy, postop day 2 patient did have a exploratory laparoscopic with evacuation of hematoma, patient subsequently presenting back to the hospital on 10/13/2022 for evaluation of worsening right lower quadrant abdominal pain, patient did have a abnormal CT concerning for possible abscess status post CT- guided drainage culture did grew E. coli and anaerobes, concern for possible bowel trauma repeat CAT scan with rectal contrast did not show any leakage. Patient is status post laparotomy on 10/20/2022. No evidence of any perforation patient is status post lysis of adhesion On today's evaluation that is 10/25/2022, the patient denies any fever or any chills, the patient is breathing comfortably on room air, patient abdominal/incisional pain has decreased in intensity, patient did have an NG no vomiting has been reported , the patient denies having any bowel movement and not passing any gas, the pt denies any chest pain shortness of breath or cough, Objective - Vital Signs Vital signs: Vital Signs Temp 97.8 F 10/25/22 07:15 Pulse 85 10/25/22 07:15 Resp 18 10/25/22 07:15 BP 127/82 10/25/22 07:15 Pulse Ox 96 10/25/22 07:15 FiO2 Intake & Output 10/24/22 10/25/22 10/25/22 18:59 06:59 18:59 Intake Total 0 Output Total 395 Balance 0 -395 Weight 84.368 kg Intake: Oral 0 Output: Gastric Drainage 350 Drainage 45 Left Abdomen 40 Right Abdomen 5 Other: Voiding Method Toilet Toilet # Voids 3 4 1 - Exam GENERAL DESCRIPTION: Middle-age female up in bed in no distress RESPIRATORY SYSTEM: Unlabored breathing , decreased breath sounds at bases HEART: S1 S2 regular rate and rhythm , ABDOMEN: Soft , no distention did have bowel sounds EXTREMITIES: No edema feet - Labs CBC & Chem 7: 10/25/22 06:58 10/25/22 06:58 Labs: Abnormal Lab Results - Last 24 Hours (Table) 10/25/22 Range/Units 06:58 RBC 3.04 L (4.10-5.20) X 10*6/uL Hgb 8.8 L (12.0-15.0) g/dL Hct 27.1 L (37.2-46.3) % RDW 15.1 H (11.5-14.5) % Plt Count 744 H (140-440) X 10*3/uL MPV 9.0 L (9.5-12.2) fL Assessment and Plan (1) Postoperative intra-abdominal abscess Current Visit: Yes Status: Acute Code(s): T81.43XA - INFCT FOL A PROCEDURE, ORGAN AND SPACE SURGICAL SITE, INIT SNOMED Code(s): 9546581 Plan: 1patient with infected intra-abdominal hematoma/abscess in this patient who did have a history of total vaginal hysterectomy followed by laparoscopic drainage of hematoma subsequent presented to hospital with abdominal pain and evidence of large fluid collection that has been drained on 10/14/2022 culture now growing E. coli patient did have a CT abdominal pelvis with rectal contrast completed this afternoon and did not show any leakage of the bowel content and surgery has seen the patient recommending conservative approach and possible outpatient antibiotic therapy, cultures currently growing E. coli and anaerobic gram- negative bacilli 2-Patient remains to be afebrile the patient white count has normalized, and the patient has shown clinical improvement 3-with the patient remains to be afebrile and white count is normal there is no need for any cultures to be obtained from the CASIE which is more likely colonized at this point plan is to continue with the Zosyn and transitioned to Rocephin and Flagyl on discharge Time with Patient: Less than 30
[2022-10-25] MEDS: POTASSIUM CHLORIDE 10 MEQ in WATER FOR INJECTION 1 100ML.BAG IVPB SCH ×4 (15:41→22:44)
[2022-10-25] MEDS: MIRTAZAPINE 15 MG TAB PO SCH (21:47)
[2022-10-26] MEDS: IBUPROFEN IV 800 MG in SODIUM CHLORIDE 0.9% 250 ML IV SCH ×4 (00:45→23:19)
[2022-10-26] MEDS: PIPERACILLIN-TAZOBACTAM 3.375 GM in SODIUM CHLORIDE 0.9% 100 ML IVPB SCH ×3 (00:46→18:18)
[2022-10-26] MEDS: HYDROmorphone 1 MG/ML 1 ML SYRINGE IVP PRN ×4 (02:59→20:16)
[2022-10-26] MEDS: SODIUM CHLORIDE 0.9% 1,000 ML IV SCH ×3 (04:17→20:24)
[2022-10-26] MEDS: ACETAMINOPHEN IV (For NPO) 1,000 MG in EMPTY BAG 1 BAG IVPB SCH ×4 (05:49→23:58)
--- NOTE | 2022-10-26 06:54 | P.PN ---
Subjective Progress Note Date: 10/26/22 (Pelvic) Principal diagnosis: Pelvic hematoma/abscess continuing on antibiotics. Continued postoperative ileus, clinically improved overall. No vaginal drainage. Minimal abdominal pain. Abdominal "Rumbling", but no flatus. Objective - Vital Signs Vital signs: Vital Signs Temp 98.8 F 10/26/22 00:59 Pulse 86 10/26/22 00:59 Resp 16 10/26/22 00:59 BP 123/78 10/26/22 00:59 Pulse Ox 95 10/26/22 00:59 FiO2 Intake & Output 10/25/22 10/25/22 10/26/22 06:59 18:59 06:59 Output Total 395 255 575 Balance -395 -133 -576 Output: Gastric Drainage 350 225 525 Drainage 45 30 50 Left Abdomen 40 30 40 Right Abdomen 5 10 Other: Voiding Method Toilet Toilet Toilet # Voids 4 6 3 - Constitutional General appearance: Present: average body habitus, cooperative - EENT Eyes: Present: PERRLA ENT: Present: hearing grossly normal - Neck Neck: Present: normal ROM - Respiratory Respiratory: bilateral: CTA - Cardiovascular Rhythm: regular - Gastrointestinal Gastrointestinal Comment(s): Abdomen soft, no rebound or guarding. Week. Incision clean and dry. General gastrointestinal: Present: normal bowel sounds - Integumentary Integumentary: Present: normal - Neurologic Neurologic: Present: CNII-XII intact - Musculoskeletal Musculoskeletal: Present: generalized weakness - Psychiatric Psychiatric: Present: A&O x's 3, appropriate affect, intact judgment & insight - Labs CBC & Chem 7: 10/25/22 06:58 10/25/22 06:58 Labs: Abnormal Lab Results - Last 24 Hours (Table) 10/25/22 10/25/22 Range/Units 06:58 06:58 RBC 3.04 L (4.10-5.20) X 10*6/uL Hgb 8.8 L (12.0-15.0) g/dL Hct 27.1 L (37.2-46.3) % RDW 15.1 H (11.5-14.5) % Plt Count 744 H (140-440) X 10*3/uL MPV 9.0 L (9.5-12.2) fL Potassium 3.1 L (3.5-5.5) mmol/L Carbon Dioxide 19.8 L (20.0-27.5) mmol/L BUN <1.4 L (9.0-27.0) mg/dL Creatinine 0.4 L (0.6-1.5) mg/dL Calcium 8.3 L (8.7-10.3) mg/dL Assessment and Plan Assessment: Pelvic hematoma/abscess evacuated via exploratory laparotomy, status post vaginal hysterectomy, anterior and colporrhaphy 3 weeks ago. Plan: Management of ileus per Gen. surgical team. Potassium supplementation this morning. Continue encouraging ambulation and supportive care. Time with Patient: Less than 30
[2022-10-26] MEDS: HEPARIN SODIUM,PORCINE/PF 5,000 UNIT/0.5 ML SYRINGE SQ SCH ×3 (09:08→23:19)
[2022-10-26] MEDS: PANTOPRAZOLE 40 MG/10 ML VIAL IVP SCH ×2 (09:09→20:16)
--- NOTE | 2022-10-26 10:59 | P.PN ---
Subjective Progress Note Date: 10/26/22 No new complaints. No flatus or BM yet. has appetite. Burning pain at incision site, but well controlled. Drain output is serous Gen: awake, alert HEENT: normocephalic, atraumatic, good hearing acuity, moist mucous membranes Resp: good air exchange, breathing comfortably with no accessory muscle use CVS: good distal perfusion x 4, GI: soft, NTTP, ND : no SPT, no CVAT, siegel catheter not present MSK: no pitting edema, no clubbing Neuro: non-focal, moving all extremities Psych: cooperative, euthymic mood Assessment: Postoperative intra-abdominal abscess/hemtoma with sepsis status post surgery Acute blood loss anemia and his anticipated outcome of the procedure, improving GERD Thrombocytosis, suspect reactive Postoperative ileus Hypokalemia Hypomagnesemia GERD Abnormal urinalysis, suspect related to post surgical state patient without dysuria. Plan: Today, patient is afebrile, 128/83, heart rate 81, 97% on room air. Hemoglobin is 8.8, platelets are 744 Potassium is 3.1, BUN is less than 1.4 CBC, basic metabolic panel, magnesium ordered for tomorrow OB note reviewed from 10/26, management per surgery Continue NG tube Continue CASIE drain Continue Dilaudid 1 mg every 3 hours when necessary, 1000 mg Tylenol every 6 hours Continue Zosyn 3.375 g every 8 hours Continue normal saline at 130 mL per hour Patient is full code Objective - Vital Signs Vital signs: Vital Signs Temp 98.3 F 10/26/22 07:34 Pulse 81 10/26/22 07:34 Resp 17 10/26/22 07:34 BP 128/83 10/26/22 07:34 Pulse Ox 97 10/26/22 08:56 FiO2 21 10/26/22 08:56 Intake & Output 10/25/22 10/26/22 10/26/22 18:59 06:59 18:59 Output Total 486 575 110 Balance -116 -668 -110 Output: Gastric Drainage 225 525 100 Drainage 30 50 10 Left Abdomen 30 40 10 Right Abdomen 10 Other: Voiding Method Toilet Toilet Toilet # Voids 6 3 1 - Labs CBC & Chem 7: 10/25/22 06:58 10/25/22 06:58 Labs: Abnormal Lab Results - Last 24 Hours (Table) 10/25/22 10/25/22 Range/Units 06:58 06:58 RBC 3.04 L (4.10-5.20) X 10*6/uL Hgb 8.8 L (12.0-15.0) g/dL Hct 27.1 L (37.2-46.3) % RDW 15.1 H (11.5-14.5) % Plt Count 744 H (140-440) X 10*3/uL MPV 9.0 L (9.5-12.2) fL Potassium 3.1 L (3.5-5.5) mmol/L Carbon Dioxide 19.8 L (20.0-27.5) mmol/L BUN <1.4 L (9.0-27.0) mg/dL Creatinine 0.4 L (0.6-1.5) mg/dL Calcium 8.3 L (8.7-10.3) mg/dL
[2022-10-26 11:09] LABS: Magnesium 1.7 mg/dL (1.5-2.4)
[2022-10-26 11:17] LABS: African American GFR (CKD) 140.8 (60.0-200.0); Blood Urea Nitrogen <1.4 mg/dL (9.0-27.0); Calcium 8.4 mg/dL (8.7-10.3); Carbon Dioxide 21.2 mmol/L (20.0-27.5); Chloride 102 mmol/L (96-109); Glucose 75 mg/dL (70-110); Non-African American GFR(CKD) 121.4 (60.0-200.0); Potassium 3.2 mmol/L (3.5-5.5); Sodium 141 mmol/L (135-145)
[2022-10-26] MEDS ORDERED: POTASSIUM CHLORIDE ER 20 MEQ TAB.ER PO STA ×2 (11:44→12:40)
[2022-10-26] MEDS: ONDANSETRON 4 MG/2 ML VIAL IVP PRN (11:45)
--- NOTE | 2022-10-26 12:22 | P.PN ---
Subjective Progress Note Date: 10/26/22 Principal diagnosis: Intra-abdominal abscess Patient is a 52-year-old female with a past medical history pertinent for hypertension reflux, patient recently did have a total abdominal hysterectomy, postop day 2 patient did have a exploratory laparoscopic with evacuation of hematoma, patient subsequently presenting back to the hospital on 10/13/2022 for evaluation of worsening right lower quadrant abdominal pain, patient did have a abnormal CT concerning for possible abscess status post CT- guided drainage culture did grew E. coli and anaerobes, concern for possible bowel trauma repeat CAT scan with rectal contrast did not show any leakage. Patient is status post laparotomy on 10/20/2022. No evidence of any perforation patient is status post lysis of adhesion On today's evaluation that is 10/26/2022, the patient remains to be afebrile, the patient is breathing comfortably on room air, patient abdominal/incisional pain is controlled with current pain medication, patient did have an NG no vomiting has been reported , the patient denies having any bowel movement and may have passed gas, the patient denies any chest pain shortness of breath or cough, Objective - Vital Signs Vital signs: Vital Signs Temp 98.3 F 10/26/22 07:34 Pulse 81 10/26/22 07:34 Resp 17 10/26/22 07:34 BP 128/83 10/26/22 07:34 Pulse Ox 97 10/26/22 08:56 FiO2 21 10/26/22 08:56 Intake & Output 10/25/22 10/26/22 10/26/22 18:59 06:59 18:59 Output Total 255 575 110 Balance -255 -575 -110 Output: Gastric Drainage 225 525 100 Drainage 30 50 10 Left Abdomen 30 40 10 Right Abdomen 10 Other: Voiding Method Toilet Toilet Toilet # Voids 6 3 1 - Exam GENERAL DESCRIPTION: Middle-age female up in bed in no distress RESPIRATORY SYSTEM: Unlabored breathing , decreased breath sounds at bases HEART: S1 S2 regular rate and rhythm , ABDOMEN: Soft , no distention did have bowel sounds EXTREMITIES: No edema feet - Labs CBC & Chem 7: 10/25/22 06:58 10/26/22 05:40 Labs: Abnormal Lab Results - Last 24 Hours (Table) 10/25/22 10/25/22 Range/Units 06:58 06:58 RBC 3.04 L (4.10-5.20) X 10*6/uL Hgb 8.8 L (12.0-15.0) g/dL Hct 27.1 L (37.2-46.3) % RDW 15.1 H (11.5-14.5) % Plt Count 744 H (140-440) X 10*3/uL MPV 9.0 L (9.5-12.2) fL Potassium 3.1 L (3.5-5.5) mmol/L Carbon Dioxide 19.8 L (20.0-27.5) mmol/L BUN <1.4 L (9.0-27.0) mg/dL Creatinine 0.4 L (0.6-1.5) mg/dL Calcium 8.3 L (8.7-10.3) mg/dL Assessment and Plan (1) Postoperative intra-abdominal abscess Current Visit: Yes Status: Acute Code(s): T81.43XA - INFCT FOL A PROCEDURE, ORGAN AND SPACE SURGICAL SITE, INIT SNOMED Code(s): 0950882 Plan: 1patient with infected intra-abdominal hematoma/abscess in this patient who did have a history of total vaginal hysterectomy followed by laparoscopic drainage of hematoma subsequent presented to hospital with abdominal pain and evidence of large fluid collection that has been drained on 10/14/2022 culture now growing E. coli patient did have a CT abdominal pelvis with rectal contrast completed this afternoon and did not show any leakage of the bowel content and surgery has seen the patient recommending conservative approach and possible outpatient antibiotic therapy, cultures currently growing E. coli and anaerobic gram- negative bacilli 2-Patient remains to be afebrile the patient white count has normalized, and the patient has shown clinical improvement , patient to continue with the Zosyn and monitor clinical course closely Time with Patient: Less than 30
--- NOTE | 2022-10-26 12:31 | P.PN ---
Subjective Progress Note Date: 10/26/22 CHIEF COMPLAINT: Infected pelvic hematoma HISTORY OF PRESENT ILLNESS: Patient is postop day #6 status post exploratory laparotomy with lysis of adhesions for infected pelvic hematoma, intra-abdominal adhesions and small bowel obstruction. Patient has NG tube in place. She has had 525ml bilious output recorded. Some of the output is red due to red popsicles. CASIE drain on the left with 40 mL serosanguineous output and CASIE drain on right with 10ml serosanguineous output. Afebrile. Sodium 141 potassium is 3.2 creatinine 0.4 magnesium 1.6. Magnesium and potassium replacement medicine service. PHYSICAL EXAM: VITAL SIGNS: Reviewed. GENERAL: Well-developed in no acute distress. ABDOMEN: Soft. Nondistended. Incisional dressing clean dry and intact. Abdominal binder in place. 2 CASIE drains noted NEUROLOGIC: Alert and oriented. Cranial nerves II through XII grossly intact. ASSESSMENT: 1. Infected pelvic hematoma, intra-abdominal adhesions, small bowel obstruction status post exploratory laparotomy with lysis of adhesions PLAN: -Continue NG tube for decompression -Continue CASIE drains -Continue to monitor and replace electrolytes -Keep patient nothing by mouth except for ice chips and popsicles -Continue pain management -Encourage patient to ambulate -Encourage patient to use incentive spirometer -DVT prophylaxis subcu heparin and GI prophylaxis Protonix Physician Manager Plumbing note has been reviewed by physician. Signing provider agrees with the documented findings, assessment, and plan of care. I have personally seen and examined the patient, reviewed the SUPERVISOR INSULATION /PAs history, e xam and MDM and agree with the assessment and plan as written. Based on total visit time, I have performed more than 50% of the visit. As above: Patient says she is slowly improving. She did have some nausea earlier today after oral potassium was provided. NG output moderate however she is taking some water and a popsicle today. Mild crampy abdominal pain earlier this morning. She did have a tiny amount of flatus she believes. Continue nasogastric tube to suction. Further potassium supplementation through IV. We discussed the options of PICC line placement. She will consider. Continue antibiotics. Objective - Vital Signs Vital signs: Vital Signs Temp 98.3 F 10/26/22 07:34 Pulse 81 10/26/22 07:34 Resp 17 10/26/22 07:34 BP 128/83 10/26/22 07:34 Pulse Ox 97 10/26/22 08:56 FiO2 21 10/26/22 08:56 Intake & Output 10/25/22 10/26/22 10/26/22 18:59 06:59 18:59 Output Total 323 837 110 Balance -858 -575 -110 Output: Gastric Drainage 225 525 100 Drainage 30 50 10 Left Abdomen 30 40 10 Right Abdomen 10 Other: Voiding Method Toilet Toilet Toilet # Voids 6 3 1 - Labs CBC & Chem 7: 10/25/22 06:58 10/26/22 05:40 Labs: Abnormal Lab Results - Last 24 Hours (Table) 10/25/22 10/25/22 Range/Units 06:58 06:58 RBC 3.04 L (4.10-5.20) X 10*6/uL Hgb 8.8 L (12.0-15.0) g/dL Hct 27.1 L (37.2-46.3) % RDW 15.1 H (11.5-14.5) % Plt Count 744 H (140-440) X 10*3/uL MPV 9.0 L (9.5-12.2) fL Potassium 3.1 L (3.5-5.5) mmol/L Carbon Dioxide 19.8 L (20.0-27.5) mmol/L BUN <1.4 L (9.0-27.0) mg/dL Creatinine 0.4 L (0.6-1.5) mg/dL Calcium 8.3 L (8.7-10.3) mg/dL
[2022-10-26] MEDS: POTASSIUM BICARBONATE/CIT AC 20 MEQ TABLET.EFF PO ONE ×2 (12:33→13:59)
[2022-10-26] MEDS: MAGNESIUM SULFATE-D5W PMX 1 GM in DEXTROSE/WATER 1 100ML.BAG IVPB SCH ×2 (12:34→13:56)
[2022-10-26] MEDS: MIRTAZAPINE 15 MG TAB PO SCH ×2 (20:17→20:19)
[2022-10-27] MEDS: PIPERACILLIN-TAZOBACTAM 3.375 GM in SODIUM CHLORIDE 0.9% 100 ML IVPB SCH ×3 (00:16→17:03)
[2022-10-27] MEDS: ZOLPIDEM 5 MG TAB PO PRN ×2 (00:16→22:25)
[2022-10-27] MEDS: ACETAMINOPHEN IV (For NPO) 1,000 MG in EMPTY BAG 1 BAG IVPB SCH ×4 (05:28→23:46)
[2022-10-27] MEDS: SODIUM CHLORIDE 0.9% 1,000 ML IV SCH ×2 (05:32→12:56)
--- NOTE | 2022-10-27 07:11 | P.PN ---
Subjective Progress Note Date: 10/27/22 Principal diagnosis: Postoperative day #7, status post exploratory laparotomy and evacuation of pelvic hematoma, lysis of adhesions. Positive bowel movement 3 yesterday. No nausea or emesis with NG tube removed. Objective - Vital Signs Vital signs: Vital Signs Temp 98.4 F 10/27/22 01:24 Pulse 90 10/27/22 01:24 Resp 19 10/27/22 01:24 BP 126/82 10/27/22 01:24 Pulse Ox 97 10/27/22 01:24 FiO2 21 10/26/22 08:56 Intake & Output 10/26/22 10/27/22 10/27/22 18:59 06:59 18:59 Intake Total 2110 Output Total 460 40 Balance -460 2070 Weight 84.368 kg Intake: IV 1560 Sodium Chloride 0.9% 1, 1560 000 ml @ 130 mls/hr IV . Q7H42M [facility] Rx#:[id number] Intake, IV Titration 550 Amount ACETAMINOPHEN IV (For NPO 200 ) 1,000 mg In Empty Bag 1 bag @ 400 mls/hr IVPB Q6HR [facility] Rx#:[id number] Ibuprofen IV 800 mg In 250 Sodium Chloride 0.9% 250 ml @ 500 mls/hr IV Q8HR [facility] Rx#:[id number] Piperacillin-Tazobactam 3 100 .375 gm In Sodium Chloride 0.9% 100 ml @ 25 mls/hr IVPB Q8HR [facility] Rx# :[id number] Output: Gastric Drainage 400 Drainage 60 40 Left Abdomen 40 20 Right Abdomen 20 20 Other: Voiding Method Toilet Toilet # Voids 6 2 # Bowel Movements 1 - Constitutional General appearance: Present: average body habitus, cooperative - EENT Eyes: Present: PERRLA ENT: Present: hearing grossly normal - Neck Neck: Present: normal ROM Thyroid: bilateral: normal size - Respiratory Respiratory: bilateral: CTA - Cardiovascular Rhythm: regular - Gastrointestinal Gastrointestinal Comment(s): Incision clean and dry, intact. CASIE drains with less than 20 mL drainage over the past 24 hours. Abdomen is softly distended, active bowel sounds. General gastrointestinal: Present: normal bowel sounds - Integumentary Integumentary: Present: normal - Musculoskeletal Musculoskeletal: Present: gait normal, strength equal bilaterally - Psychiatric Psychiatric: Present: A&O x's 3, appropriate affect, intact judgment & insight - Labs CBC & Chem 7: 10/25/22 06:58 10/26/22 05:40 Labs: Abnormal Lab Results - Last 24 Hours (Table) 10/26/22 Range/Units 05:40 Potassium 3.2 L (3.5-5.5) mmol/L BUN <1.4 L (9.0-27.0) mg/dL Creatinine 0.4 L (0.6-1.5) mg/dL Calcium 8.4 L (8.7-10.3) mg/dL Assessment and Plan Assessment: Postoperative day #7 status post exploratory laparotomy, evacuation pelvic hematoma and lysis of adhesions. Significant clinical improvement noted over the past 24 hours. Plan: Advance diet per Dr. Banda's recommendations. CASIE drain removal per his assessment as well. Continue supportive care and activity/diet advancement as appropriate. Time with Patient: Less than 30
[2022-10-27] MEDS: HEPARIN SODIUM,PORCINE/PF 5,000 UNIT/0.5 ML SYRINGE SQ SCH ×3 (07:40→23:46)
[2022-10-27] MEDS: PANTOPRAZOLE 40 MG/10 ML VIAL IVP SCH ×2 (07:40→20:48)
[2022-10-27] MEDS: HYDROmorphone 1 MG/ML 1 ML SYRINGE IVP PRN ×3 (07:49→20:47)
[2022-10-27] MEDS: IBUPROFEN IV 800 MG in SODIUM CHLORIDE 0.9% 250 ML IV SCH ×2 (08:56→16:21)
--- NOTE | 2022-10-27 10:00 | P.PN ---
Subjective Progress Note Date: 10/27/22 No new complaints. Had several BMs yesterday, NGT removed. Now on CLD. Gen: awake, alert HEENT: normocephalic, atraumatic, good hearing acuity, moist mucous membranes Resp: good air exchange, breathing comfortably with no accessory muscle use CVS: good distal perfusion x 4, GI: soft, NTTP, ND : no SPT, no CVAT, siegel catheter not present MSK: no pitting edema, no clubbing Neuro: non-focal, moving all extremities Psych: cooperative, euthymic mood Assessment: Postoperative intra-abdominal abscess/hemtoma with sepsis status post surgery Acute blood loss anemia and his anticipated outcome of the procedure, improving GERD Thrombocytosis, suspect reactive Postoperative ileus Hypokalemia Hypomagnesemia GERD Abnormal urinalysis, suspect related to post surgical state patient without dysuria. Plan: Today, patient is afebrile, 129/84, heart rate 90, 99% on room air CBC, basic metabolic panel, magnesium ordered for tomorrow OB note reviewed from 10/27, management per surgery Continue CASIE drain Continue Dilaudid 1 mg every 3 hours when necessary, 1000 mg Tylenol every 6 hours Continue Zosyn 3.375 g every 8 hours Continue normal saline at 130 mL per hour Patient is full code Objective - Vital Signs Vital signs: Vital Signs Temp 97.8 F 10/27/22 07:27 Pulse 90 10/27/22 07:27 Resp 14 10/27/22 07:27 BP 129/84 10/27/22 07:27 Pulse Ox 99 10/27/22 07:27 FiO2 21 10/26/22 08:56 Intake & Output 10/26/22 10/27/22 10/27/22 18:59 06:59 18:59 Intake Total 2110 Output Total 460 40 Balance -460 2070 Weight 84.368 kg Intake: IV 1560 Sodium Chloride 0.9% 1, 1560 000 ml @ 130 mls/hr IV . Q7H42M [facility] Rx#:[id number] Intake, IV Titration 550 Amount ACETAMINOPHEN IV (For NPO 200 ) 1,000 mg In Empty Bag 1 bag @ 400 mls/hr IVPB Q6HR [facility] Rx#:[id number] Ibuprofen IV 800 mg In 250 Sodium Chloride 0.9% 250 ml @ 500 mls/hr IV Q8HR [facility] Rx#:[id number] Piperacillin-Tazobactam 3 100 .375 gm In Sodium Chloride 0.9% 100 ml @ 25 mls/hr IVPB Q8HR [facility] Rx# :[id number] Output: Gastric Drainage 400 Drainage 60 40 Left Abdomen 40 20 Right Abdomen 20 20 Other: Voiding Method Toilet Toilet Toilet # Voids 6 2 # Bowel Movements 1 - Labs CBC & Chem 7: 10/25/22 06:58 10/26/22 05:40 Labs: Abnormal Lab Results - Last 24 Hours (Table) 10/26/22 Range/Units 05:40 Potassium 3.2 L (3.5-5.5) mmol/L BUN <1.4 L (9.0-27.0) mg/dL Creatinine 0.4 L (0.6-1.5) mg/dL Calcium 8.4 L (8.7-10.3) mg/dL
--- NOTE | 2022-10-27 11:34 | P.PN ---
Subjective Progress Note Date: 10/27/22 CHIEF COMPLAINT: Infected pelvic hematoma HISTORY OF PRESENT ILLNESS: Patient is postop day #7 status post exploratory laparotomy with lysis of adhesions for infected pelvic hematoma, intra-abdominal adhesions and small bowel obstruction. Patient had a bowel movement last night and NG tube was removed. Since then she's had multiple bowel movements. She is having flatus. Denies any nausea or vomiting. She did have some crampy abdominal pain with nausea earlier that has now resolved after pain medication. She is requesting advancement of diet. She's currently on ice chips and popsicles. Afebrile. Both CASIE drains with 20 mL serosanguineous output through the night. Labs for today pending PHYSICAL EXAM: VITAL SIGNS: Reviewed. GENERAL: Well-developed in no acute distress. ABDOMEN: Soft. Nondistended. Incisional dressing clean dry and intact. Abdominal binder in place. 2 CASIE drains noted NEUROLOGIC: Alert and oriented. Cranial nerves II through XII grossly intact. ASSESSMENT: 1. Infected pelvic hematoma, intra-abdominal adhesions, small bowel obstruction status post exploratory laparotomy with lysis of adhesions PLAN: -Advance diet to clear liquids -Continue CASIE drains -Continue to monitor and replace electrolytes -Continue pain management -Encourage patient to ambulate -Encourage patient to use incentive spirometer -DVT prophylaxis subcu heparin and GI prophylaxis Protonix Physician Risk Control Consultant note has been reviewed by physician. Signing provider agrees with the documented findings, assessment, and plan of care. I have personally seen and examined the patient, reviewed the WINCH STRIPPER /PAs history, exam and MDM and agree with the assessment and plan as written. Based on total visit time, I have performed more than 50% of the visit. As above: Patient doing well today. Having multiple loose stools. Some mild cramps and nausea have improved. Continue clear liquids. I clearly advance to full liquids tomorrow. Continue antibiotics. Agree with plans for outpatient oral antibiotic regimen. Objective - Vital Signs Vital signs: Vital Signs Temp 97.8 F 10/27/22 07:27 Pulse 90 10/27/22 07:27 Resp 14 10/27/22 07:27 BP 129/84 10/27/22 07:27 Pulse Ox 99 10/27/22 07:27 FiO2 21 10/26/22 08:56 Intake & Output 05/30/23 05/31/23 05/31/23 18:59 06:59 18:59 Intake Total 2110 Output Total 460 40 Balance -460 2070 Weight 84.368 kg Intake: IV 1560 Sodium Chloride 0.9% 1, 1560 000 ml @ 130 mls/hr IV . Q7H42M [facility]S [facility]CLUDE 234 BEDS AT THE [facility] Rx#:[id number] Intake, IV Titration 550 Amount ACETAMINOPHEN IV (For NPO 200 ) 1,000 mg In Empty Bag 1 bag @ 400 mls/hr IVPB Q6HR [facility] Rx#:[id number] Ibuprofen IV 800 mg In 250 Sodium Chloride 0.9% 250 ml @ 500 mls/hr IV Q8HR [facility] Rx#:[id number] Piperacillin-Tazobactam 3 100 .375 gm In Sodium Chloride 0.9% 100 ml @ 25 mls/hr IVPB Q8HR COUNTS INCLUDE 234 BEDS AT THE [facility] Rx# :[id number] Output: Gastric Drainage 400 Drainage 60 40 Left Abdomen 40 20 Right Abdomen 20 20 Other: Voiding Method Toilet Toilet Toilet # Voids 6 2 # Bowel Movements 1 - Labs CBC & Chem 7: 10/25/22 06:58 10/26/22 05:40
[2022-10-27 13:58] LABS: Basophils # (A) 0.03 X 10*3/uL (0.00-0.10); Basophils % (A) 0.4 %; Eosinophils # (A) 0.16 X 10*3/uL (0.04-0.35); Eosinophils % (A) 2.2 %; HCT 25.9 % (37.2-46.3); HGB 8.4 g/dL (12.0-15.0); Immature Grans, Automated 1.1 %; Lymphocytes # (A) 1.62 X 10*3/uL (0.90-5.00); Lymphocytes % (A) 22.1 %; MCH 28.6 pg (27.0-32.0); MCHC 32.4 g/dL (32.0-37.0); MCV 88.1 fL (80.0-97.0); Monocytes # (A) 0.63 X 10*3/uL (0.20-1.00); Monocytes % (A) 8.6 %; NRBC Per 100 WBC 0 /100 WBCS (0.0-0.0); Neutrophils # (A) 4.81 X 10*3/uL (1.80-7.70); Neutrophils % (A) 65.6 %; Platelet Count 652 X 10*3/uL (140-440); RBC 2.94 X 10*6/uL (4.10-5.20); RDW 15.3 % (11.5-14.5); WBC 7.33 X 10*3/uL (4.50-10.00)
--- NOTE | 2022-10-27 14:16 | P.PN ---
Subjective Progress Note Date: 10/27/22 Principal diagnosis: Intra-abdominal abscess Patient is a 52-year-old female with a past medical history pertinent for hypertension reflux, patient recently did have a total abdominal hysterectomy, postop day 2 patient did have a exploratory laparoscopic with evacuation of hematoma, patient subsequently presenting back to the hospital on 10/13/2022 for evaluation of worsening right lower quadrant abdominal pain, patient did have a abnormal CT concerning for possible abscess status post CT- guided drainage culture did grew E. coli and anaerobes, concern for possible bowel trauma repeat CAT scan with rectal contrast did not show any leakage. Patient is status post laparotomy on 10/20/2022. No evidence of any perforation patient is status post lysis of adhesion On today's evaluation that is 10/27/2022, the patient continues to be afebrile, the patient is breathing comfortably on room air, patient abdominal/incisional pain is controlled with current pain medication, patient did have a few bowel movements and the patient and she has been discontinued and the patient has been cleared for a clear liquid diet by surgery this afternoon per the nursing staff Objective - Vital Signs Vital signs: Vital Signs Temp 97.8 F 10/27/22 07:27 Pulse 90 10/27/22 07:27 Resp 14 10/27/22 07:27 BP 129/84 10/27/22 07:27 Pulse Ox 99 10/27/22 07:27 FiO2 21 10/26/22 08:56 Intake & Output 10/26/22 10/27/22 10/27/22 18:59 06:59 18:59 Intake Total 2110 Output Total 460 40 Balance -460 2070 Weight 84.368 kg Intake: IV 1560 Sodium Chloride 0.9% 1, 1560 000 ml @ 130 mls/hr IV . Q7H42M [facility] Rx#:[id number] Intake, IV Titration 550 Amount ACETAMINOPHEN IV (For NPO 200 ) 1,000 mg In Empty Bag 1 bag @ 400 mls/hr IVPB Q6HR [facility] Rx#:[id number] Ibuprofen IV 800 mg In 250 Sodium Chloride 0.9% 250 ml @ 500 mls/hr IV Q8HR [facility] Rx#:[id number] Piperacillin-Tazobactam 3 100 .375 gm In Sodium Chloride 0.9% 100 ml @ 25 mls/hr IVPB Q8HR [facility] Rx# :[id number] Output: Gastric Drainage 400 Drainage 60 40 Left Abdomen 40 20 Right Abdomen 20 20 Other: Voiding Method Toilet Toilet Toilet # Voids 6 2 # Bowel Movements 1 - Exam GENERAL DESCRIPTION: Middle-age female up in bed in no distress RESPIRATORY SYSTEM: Unlabored breathing , decreased breath sounds at bases HEART: S1 S2 regular rate and rhythm , ABDOMEN: Soft , no distention did have bowel sounds EXTREMITIES: No edema feet - Labs CBC & Chem 7: 10/27/22 05:23 10/26/22 05:40 Labs: Abnormal Lab Results - Last 24 Hours (Table) 10/26/22 Range/Units 05:40 Potassium 3.2 L (3.5-5.5) mmol/L BUN <1.4 L (9.0-27.0) mg/dL Creatinine 0.4 L (0.6-1.5) mg/dL Calcium 8.4 L (8.7-10.3) mg/dL Assessment and Plan (1) Postoperative intra-abdominal abscess Current Visit: Yes Status: Acute Code(s): T81.43XA - INFCT FOL A PROCEDURE, ORGAN AND SPACE SURGICAL SITE, INIT SNOMED Code(s): 2013624 Plan: 1patient with infected intra-abdominal hematoma/abscess in this patient who did have a history of total vaginal hysterectomy followed by laparoscopic drainage of hematoma subsequent presented to hospital with abdominal pain and evidence of large fluid collection that has been drained on 10/14/2022 culture now growing E. coli patient did have a CT abdominal pelvis with rectal contrast completed this afternoon and did not show any leakage of the bowel content and surgery has seen the patient recommending conservative approach and possible outpatient antibiotic therapy, cultures currently growing E. coli and anaerobic gram-nega tive bacilli 2-Patient remains to be afebrile the patient white count has normalized, patient has received almost 2 weeks of IV antibiotic therapy, which should be adequate for her underlying infection and will transition to oral Cipro and Flagyl on discharge and the close outpatient follow-up patient did have multiple questions concerning those were answered and will discuss with her CRACKER DOUGH MIXER Time with Patient: Less than 30
[2022-10-27 15:04] LABS: African American GFR (CKD) 141.8 (60.0-200.0); Blood Urea Nitrogen <1.4 mg/dL (9.0-27.0); Calcium 8.2 mg/dL (8.7-10.3); Carbon Dioxide 19.3 mmol/L (20.0-27.5); Chloride 104 mmol/L (96-109); Glucose 66 mg/dL (70-110); Non-African American GFR(CKD) 122.4 (60.0-200.0); Sodium 142 mmol/L (135-145)
[2022-10-27] MEDS ORDERED: POTASSIUM CHLORIDE ER 20 MEQ TAB.ER PO SCH (16:00)
[2022-10-27] MEDS: POTASSIUM CHLORIDE 10 MEQ in WATER FOR INJECTION 1 100ML.BAG IVPB SCH ×5 (16:25→23:47)
[2022-10-27] MEDS: MIRTAZAPINE 15 MG TAB PO SCH (20:52)
[2022-10-28] MEDS: IBUPROFEN IV 800 MG in SODIUM CHLORIDE 0.9% 250 ML IV SCH ×3 (00:52→17:15)
[2022-10-28] MEDS: PIPERACILLIN-TAZOBACTAM 3.375 GM in SODIUM CHLORIDE 0.9% 100 ML IVPB SCH ×3 (00:52→16:12)
[2022-10-28] MEDS: SODIUM CHLORIDE 0.9% 1,000 ML IV SCH ×3 (01:33→19:33)
[2022-10-28] MEDS: POTASSIUM CHLORIDE 10 MEQ in WATER FOR INJECTION 1 100ML.BAG IVPB SCH (01:45)
[2022-10-28] MEDS: ACETAMINOPHEN IV (For NPO) 1,000 MG in EMPTY BAG 1 BAG IVPB SCH ×3 (06:17→18:08)
[2022-10-28] MEDS: HYDROmorphone 1 MG/ML 1 ML SYRINGE IVP PRN ×4 (06:29→18:27)
--- NOTE | 2022-10-28 07:40 | P.PN ---
Subjective Progress Note Date: 10/28/22 Principal diagnosis: Hospital day #8 status post exploratory laparotomy and evacuation of pelvic hematoma/abscess. Postoperative ileus. Positive flatus. Several small bowel movements. Tolerating clear liquids with no nausea or emesis. Scant vaginal discharge. Objective - Vital Signs Vital signs: Vital Signs Temp 97.8 F 10/28/22 01:39 Pulse 85 10/28/22 01:39 Resp 18 10/28/22 01:39 BP 127/83 10/28/22 01:39 Pulse Ox 98 10/28/22 01:39 FiO2 21 10/26/22 08:56 Intake & Output 10/27/22 10/28/22 10/28/22 18:59 06:59 18:59 Output Total 40 50 Balance -40 -50 Output: Drainage 40 50 Left Abdomen 30 40 Right Abdomen 10 10 Other: Voiding Method Toilet Toilet # Voids 7 2 # Bowel Movements 5 - Constitutional General appearance: Present: average body habitus, cooperative - EENT Eyes: Present: PERRLA ENT: Present: hearing grossly normal - Neck Thyroid: negative: normal size - Respiratory Respiratory: negative: CTA - Cardiovascular Rhythm: regular - Gastrointestinal Gastrointestinal Comment(s): Incision clean and dry, intact, josh present. No rebound or guarding. Scant CASIE drainage. - Integumentary Integumentary: Present: normal - Neurologic Neurologic: Present: CNII-XII intact - Musculoskeletal Musculoskeletal: Present: strength equal bilaterally - Psychiatric Psychiatric: Present: A&O x's 3, appropriate affect, intact judgment & insight - Labs CBC & Chem 7: 10/27/22 05:23 10/27/22 05:23 Labs: Abnormal Lab Results - Last 24 Hours (Table) 10/27/22 10/27/22 Range/Units 05:23 05:23 RBC 2.94 L (4.10-5.20) X 10*6/uL Hgb 8.4 L (12.0-15.0) g/dL Hct 25.9 L (37.2-46.3) % RDW 15.3 H (11.5-14.5) % Plt Count 652 H (140-440) X 10*3/uL MPV 9.0 L (9.5-12.2) fL Immature Gran # 0.08 H (0.00-0.04) X 10*3/uL Potassium 3.0 L (3.5-5.5) mmol/L Carbon Dioxide 19.3 L (20.0-27.5) mmol/L BUN <1.4 L (9.0-27.0) mg/dL Creatinine 0.4 L (0.6-1.5) mg/dL Glucose 66 L (70-110) mg/dL Calcium 8.2 L (8.7-10.3) mg/dL Assessment and Plan Assessment: Continued clinical improvement noted. Plan: Continue slow dietary advancement. Likely home on oral antibiotics per infectious disease. CASIE drain management per Dr. Meyers. We will continue to follow. Time with Patient: Less than 30
[2022-10-28] MEDS: HEPARIN SODIUM,PORCINE/PF 5,000 UNIT/0.5 ML SYRINGE SQ SCH ×2 (08:58→16:12)
[2022-10-28] MEDS: PANTOPRAZOLE 40 MG/10 ML VIAL IVP SCH ×2 (08:58→21:12)
[2022-10-28 10:55] LABS: Basophils # (A) 0.02 X 10*3/uL (0.00-0.10); Basophils % (A) 0.3 %; Eosinophils # (A) 0.22 X 10*3/uL (0.04-0.35); Immature Grans, Automated 1.2 %; Lymphocytes # (A) 1.51 X 10*3/uL (0.90-5.00); Lymphocytes % (A) 20.8 %; MCH 28.4 pg (27.0-32.0); MCHC 32.1 g/dL (32.0-37.0); MCV 88.3 fL (80.0-97.0); Mean Platelet Volume 8.9 fL (9.5-12.2); Monocytes # (A) 0.61 X 10*3/uL (0.20-1.00); Monocytes % (A) 8.4 %; NRBC Per 100 WBC 0 /100 WBCS (0.0-0.0); Neutrophils # (A) 4.82 X 10*3/uL (1.80-7.70); Neutrophils % (A) 66.3 %; Platelet Count 639 X 10*3/uL (140-440); RBC 3.17 X 10*6/uL (4.10-5.20); RDW 15.9 % (11.5-14.5); WBC 7.27 X 10*3/uL (4.50-10.00)
[2022-10-28 12:04] LABS: Magnesium 1.6 mg/dL (1.5-2.4)
[2022-10-28 12:10] LABS: African American GFR (CKD) 140.8 (60.0-200.0); Blood Urea Nitrogen <1.4 mg/dL (9.0-27.0); Calcium 8.5 mg/dL (8.7-10.3); Carbon Dioxide 16.6 mmol/L (20.0-27.5); Chloride 103 mmol/L (96-109); Glucose 70 mg/dL (70-110); Non-African American GFR(CKD) 121.4 (60.0-200.0); Potassium 3.3 mmol/L (3.5-5.5); Sodium 139 mmol/L (135-145)
--- NOTE | 2022-10-28 14:24 | P.PN ---
Subjective Progress Note Date: 10/28/22 Principal diagnosis: Intra-abdominal abscess Patient is a 52-year-old female with a past medical history pertinent for hypertension reflux, patient recently did have a total abdominal hysterectomy, postop day 2 patient did have a exploratory laparoscopic with evacuation of hematoma, patient subsequently presenting back to the hospital on 10/13/2022 for evaluation of worsening right lower quadrant abdominal pain, patient did have a abnormal CT concerning for possible abscess status post CT- guided drainage culture did grew E. coli and anaerobes, concern for possible bowel trauma repeat CAT scan with rectal contrast did not show any leakage. Patient is status post laparotomy on 10/20/2022. No evidence of any perforation patient is status post lysis of adhesion On today's evaluation that is 10/28/2022, the patient denies any fever or any chills, the patient is breathing comfortably on room air, patient abdominal/incisional pain is controlled with current pain medication, patient denies having any nausea or vomiting has been started on a clear liquid diet with the patient has been tolerating so far Objective - Vital Signs Vital signs: Vital Signs Temp 97.9 F 10/28/22 07:56 Pulse 87 10/28/22 07:56 Resp 15 10/28/22 07:56 BP 131/85 10/28/22 07:56 Pulse Ox 97 10/28/22 08:29 FiO2 21 10/28/22 08:29 Intake & Output 10/27/22 10/28/22 10/28/22 18:59 06:59 18:59 Output Total 40 50 Balance -40 -50 Output: Drainage 40 50 Left Abdomen 30 40 Right Abdomen 10 10 Other: Voiding Method Toilet Toilet # Voids 7 2 # Bowel Movements 5 - Exam GENERAL DESCRIPTION: Middle-age female up in bed in no distress RESPIRATORY SYSTEM: Unlabored breathing , decreased breath sounds at bases HEART: S1 S2 regular rate and rhythm , ABDOMEN: Soft , no distention did have bowel sounds EXTREMITIES: No edema feet - Labs CBC & Chem 7: 10/28/22 07:22 10/28/22 07:22 Labs: Abnormal Lab Results - Last 24 Hours (Table) 10/27/22 10/27/22 10/28/22 Range/Units 05: 05: 07:22 RBC 2.94 L 3.17 L (4.10-5.20) X 10*6/uL Hgb 8.4 L 9.0 L (12.0-15.0) g/dL Hct 25.9 L 28.0 L (37.2-46.3) % RDW 15.3 H 15.9 H (11.5-14.5) % Plt Count 652 H 639 H (140-440) X 10*3/uL MPV 9.0 L 8.9 L (9.5-12.2) fL Immature Gran # 0.08 H 0.09 H (0.00-0.04) X 10*3/uL Potassium 3.0 L (3.5-5.5) mmol/L Carbon Dioxide 19.3 L (20.0-27.5) mmol/L BUN <1.4 L (9.0-27.0) mg/dL Creatinine 0.4 L (0.6-1.5) mg/dL Glucose 66 L (70-110) mg/dL Calcium 8.2 L (8.7-10.3) mg/dL Assessment and Plan (1) Postoperative intra-abdominal abscess Current Visit: Yes Status: Acute Code(s): T81.43XA - INFCT FOL A PROCEDURE, ORGAN AND SPACE SURGICAL SITE, INIT SNOMED Code(s): 3695097 Plan: 1patient with infected intra-abdominal hematoma/abscess in this patient who did have a history of total vaginal hysterectomy followed by laparoscopic drainage of hematoma subsequent presented to hospital with abdominal pain and evidence of large fluid collection that has been drained on 10/14/2022 culture now growing E. coli patient did have a CT abdominal pelvis with rectal contrast completed this afternoon and did not show any leakage of the bowel content and surgery has seen the patient recommending conservative approach and possible outpatient antibiotic therapy, cultures currently growing E. coli and anaerobic gram- negative bacilli 2-Patient remains to be afebrile the patient white count has normalized, patient will be continued on Zosyn while in a patient however plan is to switch her to oral Cipro and Flagyl on discharge Patient questions concerned were answered Time with Patient: Less than 30
[2022-10-28] MEDS ORDERED: POTASSIUM BICARBONATE/CIT AC 20 MEQ TABLET.EFF PO ONE (15:38)
[2022-10-28] MEDS ORDERED: MAGNESIUM SULFATE-D5W PMX 1 GM in DEXTROSE/WATER 1 100ML.BAG IVPB ONE (15:45)
--- NOTE | 2022-10-28 15:45 | P.PN ---
Subjective Progress Note Date: 10/28/22 Tolerating PO. Having BMs. K is 3.3 Gen: awake, alert HEENT: normocephalic, atraumatic, good hearing acuity, moist mucous membranes Resp: good air exchange, breathing comfortably with no accessory muscle use CVS: good distal perfusion x 4, GI: soft, NTTP, ND : no SPT, no CVAT, siegel catheter not present MSK: no pitting edema, no clubbing Neuro: non-focal, moving all extremities Psych: cooperative, euthymic mood Assessment: Postoperative intra-abdominal abscess/hemtoma with sepsis status post surgery Acute blood loss anemia and his anticipated outcome of the procedure, improving GERD Thrombocytosis, suspect reactive Postoperative ileus Hypokalemia Hypomagnesemia GERD Abnormal urinalysis, suspect related to post surgical state patient without dysuria. Plan: Today, patient is afebrile, 135/86, heart rate 95, 98% on room air Hemoglobin is 9, platelets of 639 Potassium is 3.3 CBC, basic metabolic panel, magnesium ordered for tomorrow OB note reviewed from 10/27, management per surgery Continue CASIE drain Replete 40 mEq of potassium today Continue Dilaudid 1 mg every 3 hours when necessary, 1000 mg Tylenol every 6 hours Continue Zosyn 3.375 g every 8 hours Continue normal saline at 130 mL per hour Patient is full code Objective - Vital Signs Vital signs: Vital Signs Temp 98.0 F 10/28/22 14:07 Pulse 95 10/28/22 14:07 Resp 14 10/28/22 14:07 BP 135/86 10/28/22 14:07 Pulse Ox 98 10/28/22 14:07 FiO2 21 10/28/22 08:29 Intake & Output 10/27/22 10/28/22 10/28/22 18:59 06:59 18:59 Output Total 40 50 50 Balance -40 -50 -50 Output: Drainage 40 50 50 Left Abdomen 30 40 40 Right Abdomen 10 10 10 Other: Voiding Method Toilet Toilet # Voids 7 2 3 # Bowel Movements 5 - Labs CBC & Chem 7: 10/28/22 07:22 10/28/22 07:22 Labs: Abnormal Lab Results - Last 24 Hours (Table) 10/28/22 10/28/22 Range/Units 07:22 07:22 RBC 3.17 L (4.10-5.20) X 10*6/uL Hgb 9.0 L (12.0-15.0) g/dL Hct 28.0 L (37.2-46.3) % RDW 15.9 H (11.5-14.5) % Plt Count 639 H (140-440) X 10*3/uL MPV 8.9 L (9.5-12.2) fL Immature Gran # 0.09 H (0.00-0.04) X 10*3/uL Potassium 3.3 L (3.5-5.5) mmol/L Carbon Dioxide 16.6 L (20.0-27.5) mmol/L Anion Gap 19.40 H (10.00-18.00) mmol/L BUN <1.4 L (9.0-27.0) mg/dL Creatinine 0.4 L (0.6-1.5) mg/dL Calcium 8.5 L (8.7-10.3) mg/dL
--- NOTE | 2022-10-28 15:46 | P.PN ---
Subjective Progress Note Date: 10/28/22 CHIEF COMPLAINT: Infected pelvic hematoma HISTORY OF PRESENT ILLNESS: Patient is postop day #8 status post exploratory laparotomy with lysis of adhesions for infected pelvic hematoma, intra-abdominal adhesions and small bowel obstruction. Patient continues to feel better each day. She does report some mild abdominal cramping at times. Denies any nausea or vomiting. She is having bowel movements just not as frequent. Afebrile. CASIE drain with 40 mL output to the left and 10 ML output to the right. Afebrile. WBC is 7.27 Hgb is 9.0 potassium 3.3 magnesium 1.6 PHYSICAL EXAM: VITAL SIGNS: Reviewed. GENERAL: Well-developed in no acute distress. ABDOMEN: Soft. Nondistended. Incisional dressing clean dry and intact. Abdominal binder in place. 2 CASIE drains noted NEUROLOGIC: Alert and oriented. Cranial nerves II through XII grossly intact. ASSESSMENT: 1. Infected pelvic hematoma, intra-abdominal adhesions, small bowel obstruction status post exploratory laparotomy with lysis of adhesions PLAN: -Advance diet to full liquids -Continue CASIE drains -Potassium and magnesium being replaced -Continue pain management -Encourage patient to ambulate -Encourage patient to use incentive spirometer -DVT prophylaxis subcu heparin and GI prophylaxis Protonix Physician Loom Inspector note has been reviewed by physician. Signing provider agrees with the documented findings, assessment, and plan of care. I have personally seen and examined the patient, reviewed the DIAMOND SETTER /PAs history, exam and MDM and agree with the assessment and plan as written. Based on total visit time, I have performed more than 50% of the visit. As above: Patient doing well today. Tolerating full liquids. Continue a dvancing diet. Keep drains in place. Possible discharge tomorrow. Objective - Vital Signs Vital signs: Vital Signs Temp 97.9 F 10/28/22 07:56 Pulse 87 10/28/22 07:56 Resp 15 10/28/22 07:56 BP 131/85 10/28/22 07:56 Pulse Ox 97 10/28/22 08:29 FiO2 21 10/28/22 08:29 Intake & Output 10/27/22 10/28/22 10/28/22 18:59 06:59 18:59 Output Total 40 50 Balance -40 -50 Output: Drainage 40 50 Left Abdomen 30 40 Right Abdomen 10 10 Other: Voiding Method Toilet Toilet # Voids 7 2 # Bowel Movements 5 - Labs CBC & Chem 7: 10/28/22 07:22 10/28/22 07:22 Labs: Abnormal Lab Results - Last 24 Hours (Table) 10/27/22 10/27/22 10/28/22 Range/Units 05: 05: 07:22 RBC 2.94 L 3.17 L (4.10-5.20) X 10*6/uL Hgb 8.4 L 9.0 L (12.0-15.0) g/dL Hct 25.9 L 28.0 L (37.2-46.3) % RDW 15.3 H 15.9 H (11.5-14.5) % Plt Count 652 H 639 H (140-440) X 10*3/uL MPV 9.0 L 8.9 L (9.5-12.2) fL Immature Gran # 0.08 H 0.09 H (0.00-0.04) X 10*3/uL Potassium 3.0 L (3.5-5.5) mmol/L Carbon Dioxide 19.3 L (20.0-27.5) mmol/L Anion Gap (10.00-18.00) mmol/L BUN <1.4 L (9.0-27.0) mg/dL Creatinine 0.4 L (0.6-1.5) mg/dL Glucose 66 L (70-110) mg/dL Calcium 8.2 L (8.7-10.3) mg/dL 10/28/22 Range/Units 07:22 RBC (4.10-5.20) X 10*6/uL Hgb (12.0-15.0) g/dL Hct (37.2-46.3) % RDW (11.5-14.5) % Plt Count (140-440) X 10*3/uL MPV (9.5-12.2) fL Immature Gran # (0.00-0.04) X 10*3/uL Potassium 3.3 L (3.5-5.5) mmol/L Carbon Dioxide 16.6 L (20.0-27.5) mmol/L Anion Gap 19.40 H (10.00-18.00) mmol/L BUN <1.4 L (9.0-27.0) mg/dL Creatinine 0.4 L (0.6-1.5) mg/dL Glucose (70-110) mg/dL Calcium 8.5 L (8.7-10.3) mg/dL
[2022-10-28] MEDS: ZOLPIDEM 5 MG TAB PO PRN (21:19)
[2022-10-29] MEDS: MIRTAZAPINE 15 MG TAB PO SCH (00:07)
[2022-10-29] MEDS: ACETAMINOPHEN IV (For NPO) 1,000 MG in EMPTY BAG 1 BAG IVPB SCH ×3 (00:16→08:34)
[2022-10-29] MEDS: HEPARIN SODIUM,PORCINE/PF 5,000 UNIT/0.5 ML SYRINGE SQ SCH ×3 (00:17→16:31)
[2022-10-29] MEDS: HYDROmorphone 1 MG/ML 1 ML SYRINGE IVP PRN ×5 (00:17→22:43)
[2022-10-29] MEDS: SODIUM CHLORIDE 0.9% 1,000 ML IV SCH ×2 (02:29→05:45)
[2022-10-29] MEDS: IBUPROFEN IV 800 MG in SODIUM CHLORIDE 0.9% 250 ML IV SCH (03:25)
[2022-10-29] MEDS: PIPERACILLIN-TAZOBACTAM 3.375 GM in SODIUM CHLORIDE 0.9% 100 ML IVPB SCH ×2 (04:01→14:20)
[2022-10-29] MEDS ORDERED: ACETAMINOPHEN TAB 500 MG TAB PO PRN (08:30)
[2022-10-29] MEDS: IBUPROFEN 800 MG TAB PO SCH ×3 (08:40→22:42)
[2022-10-29] MEDS: PANTOPRAZOLE 40 MG/10 ML VIAL IVP SCH ×2 (08:41→22:42)
[2022-10-29 08:54] LABS: Basophils # (A) 0.04 X 10*3/uL (0.00-0.10); Basophils % (A) 0.5 %; Eosinophils # (A) 0.26 X 10*3/uL (0.04-0.35); Eosinophils % (A) 3.5 %; HCT 27.1 % (37.2-46.3); HGB 8.6 g/dL (12.0-15.0); Immature Grans, Automated 1.1 %; Lymphocytes # (A) 1.88 X 10*3/uL (0.90-5.00); Lymphocytes % (A) 25.4 %; MCH 28.1 pg (27.0-32.0); MCHC 31.7 g/dL (32.0-37.0); MCV 88.6 fL (80.0-97.0); Mean Platelet Volume 8.9 fL (9.5-12.2); Monocytes # (A) 0.66 X 10*3/uL (0.20-1.00); Monocytes % (A) 8.9 %; NRBC Per 100 WBC 0 /100 WBCS (0.0-0.0); Neutrophils # (A) 4.49 X 10*3/uL (1.80-7.70); Neutrophils % (A) 60.6 %; Platelet Count 558 X 10*3/uL (140-440); RBC 3.06 X 10*6/uL (4.10-5.20); RDW 16.1 % (11.5-14.5); WBC 7.41 X 10*3/uL (4.50-10.00)
--- NOTE | 2022-10-29 09:06 | P.DS ---
Providers Date of admission: 10/14/22 02:23 Expected date of discharge: 10/29/22 Attending physician: Smita Rutherford Consults: 10/14/22 08:30 Consult Physician Routine Consulting Provider: Claire Dejesus Consult Reason/Comments: med management Do you want consulting provider notified?: Yes 10/18/22 09:22 Consult Physician Urgent Consulting Provider: Joni Banda Consult Reason/Comments: Possible bowel perforation Do you want consulting provider notified?: Yes 10/18/22 12:20 Consult Physician Urgent Consulting Provider: Raghav Chahal Consult Reason/Comments: post-op peritonitis Do you want consulting provider notified?: Yes Primary care physician: Hamzah Weeks MD Hospital Course: This is a 52-year-old female status post vaginal hysterectomy, anterior and po sterior colporrhaphy's, who was readmitted on 10/14/2022 with pelvic hematoma, abscess. Computed tomography scan confirmed same. Patient had had a diagnostic laparoscopy 2 days prior at which time the pelvis appeared stable. She was started on antibiotics and taken to the operating room by Dr. Meyers where an exploratory laparotomy was performed, evacuation of the pelvic hematoma/abscess, and placement of 2 CASIE drains. NG tube was placed. Please see operative note for details. Patient had slow return to bowel function as a post operative ileus was encountered. Potassium was low and supplemented as appropriate. She remained afebrile throughout the course. Antibiotics were continued intravenously and infectious disease was consulted. Ultimately bowel sounds returned and the NG tube was removed. Patient was tolerating full liquid diet last night, and regular diet for breakfast this morning. She denies any nausea, there has been no emesis. She has had several small bowel movements and is passing flatus now freely. The vertical incision is clean and dry with josh applied. CASIE drains are draining minimal drainage at this time, management per Dr. Meyers. Initially the thought was for home IV antibiotics, however the plan now per infectious disease is to go home on oral antibiotics for 10 days. Patient is to follow-up with Dr. Banda in the office next week for partial staple removal and likely CASIE drain removal. Careful postoperative instructions have been reviewed. I will see her in the office the following week, and I have provided the patient with my private cell phone to use if any issues should occur postoperatively. At this time the patient is in good condition for discharge home. No intercourse tampons or douching, no heavy lifting, call with any vaginal bleeding, any pain not alleviated by [id number] products, with any issues with defecation or urination, or indeed with any concerns. Assessment: Doing well now 2 weeks status post exploratory laparotomy and evacuation of pelvic hematoma/abscess. Ileus resolved Patient Condition at Discharge: Stable Plan - Discharge Summary New Discharge Prescriptions: No Action Famotidine [Pepcid] 20 mg PO DAILY Acetaminophen Tab [Tylenol] 325 mg PO Q6H PRN PRN Reason: Pain HYDROcodone/APAP 5-325MG [Athelstane 5-325] 1 tab PO Q4-6H PRN PRN Reason: Pain Discharge Medication List Famotidine [Pepcid] 20 mg PO DAILY 04/16/21 [History] Acetaminophen Tab [Tylenol] 325 mg PO Q6H PRN 10/14/22 [History] HYDROcodone/APAP 5-325MG [Athelstane 5-325] 1 tab PO Q4-6H PRN 10/14/22 [History] Follow up Appointment(s)/Referral(s): Joni Banda MD [Medical Doctor] - 1 Week Hamzah Weeks MD [Primary Care Provider] - 1 Week
[2022-10-29 09:17] LABS: Magnesium 1.9 mg/dL (1.5-2.4)
[2022-10-29 09:28] LABS: African American GFR (CKD) 140.8 (60.0-200.0); Blood Urea Nitrogen <1.4 mg/dL (9.0-27.0); Calcium 8.4 mg/dL (8.7-10.3); Carbon Dioxide 21.7 mmol/L (20.0-27.5); Chloride 101 mmol/L (96-109); Glucose 79 mg/dL (70-110); Non-African American GFR(CKD) 121.4 (60.0-200.0); Potassium 2.9 mmol/L (3.5-5.5); Sodium 138 mmol/L (135-145)
--- NOTE | 2022-10-29 10:49 | P.PN ---
Subjective Progress Note Date: 10/29/22 Tolerating PO. Having BMs. Pt cleared for d/c Gen: awake, alert HEENT: normocephalic, atraumatic, good hearing acuity, moist mucous membranes Resp: good air exchange, breathing comfortably with no accessory muscle use CVS: good distal perfusion x 4, GI: soft, NTTP, ND : no SPT, no CVAT, siegel catheter not present MSK: no pitting edema, no clubbing Neuro: non-focal, moving all extremities Psych: cooperative, euthymic mood Assessment: Postoperative intra-abdominal abscess/hemtoma with sepsis status post surgery Acute blood loss anemia and his anticipated outcome of the procedure, improving GERD Thrombocytosis, suspect reactive Postoperative ileus Hypokalemia Hypomagnesemia GERD Abnormal urinalysis, suspect related to post surgical state patient without dysuria. Plan: Today, patient is afebrile, 130/65, heart rate 92, 96% on room air Pt medically cleared for discharge. Medication reconcilation addressed. Discussed case with ID, prescribed cipro/flagyl on discharge Objective - Vital Signs Vital signs: Vital Signs Temp 98.5 F 10/29/22 07:00 Pulse 92 10/29/22 08:42 Resp 18 10/29/22 08:42 BP 130/65 10/29/22 07:00 Pulse Ox 96 10/29/22 07:00 FiO2 21 10/28/22 08:29 Intake & Output 10/28/22 10/29/22 10/29/22 18:59 06:59 18:59 Output Total 110 30 Balance -110 -30 Output: Drainage 110 30 Left Abdomen 80 20 Right Abdomen 30 10 Other: Voiding Method Toilet # Voids 5 3 - Labs CBC & Chem 7: 10/29/22 04:30 10/29/22 04:30 Labs: Abnormal Lab Results - Last 24 Hours (Table) 10/28/22 10/28/22 10/29/22 Range/Units 07:22 07:22 04:30 RBC 3.17 L 3.06 L (4.10-5.20) X 10*6/uL Hgb 9.0 L 8.6 L (12.0-15.0) g/dL Hct 28.0 L 27.1 L (37.2-46.3) % MCHC 31.7 L (32.0-37.0) g/dL RDW 15.9 H 16.1 H (11.5-14.5) % Plt Count 639 H 558 H (140-440) X 10*3/uL MPV 8.9 L 8.9 L (9.5-12.2) fL Immature Gran # 0.09 H 0.08 H (0.00-0.04) X 10*3/uL Potassium 3.3 L (3.5-5.5) mmol/L Carbon Dioxide 16.6 L (20.0-27.5) mmol/L Anion Gap 19.40 H (10.00-18.00) mmol/L BUN <1.4 L (9.0-27.0) mg/dL Creatinine 0.4 L (0.6-1.5) mg/dL Calcium 8.5 L (8.7-10.3) mg/dL 10/29/22 Range/Units 04:30 RBC (4.10-5.20) X 10*6/uL Hgb (12.0-15.0) g/dL Hct (37.2-46.3) % MCHC (32.0-37.0) g/dL RDW (11.5-14.5) % Plt Count (140-440) X 10*3/uL MPV (9.5-12.2) fL Immature Gran # (0.00-0.04) X 10*3/uL Potassium 2.9 L (3.5-5.5) mmol/L Carbon Dioxide (20.0-27.5) mmol/L Anion Gap (10.00-18.00) mmol/L BUN <1.4 L (9.0-27.0) mg/dL Creatinine 0.4 L (0.6-1.5) mg/dL Calcium 8.4 L (8.7-10.3) mg/dL
[2022-10-29] MEDS ORDERED: IBUPROFEN IV 800 MG in SODIUM CHLORIDE 0.9% 250 ML IV SCH (11:00)
[2022-10-29] MEDS: POTASSIUM CHLORIDE 10 MEQ in WATER FOR INJECTION 1 100ML.BAG IVPB SCH ×5 (12:01→22:43)
--- NOTE | 2022-10-29 12:13 | P.PN ---
Subjective Progress Note Date: 10/29/22 CHIEF COMPLAINT: Infected pelvic hematoma HISTORY OF PRESENT ILLNESS: Patient is postop day #9 status post exploratory laparotomy with lysis of adhesions for infected pelvic hematoma, intra-abdominal adhesions and small bowel obstruction. Patient continues to feel better. She is tired after her shower. She is having bowel movements. Denies any nausea or vomiting. Potassium remains low and is being replaced. She is scheduled for possible discharge later today. Left CASIE drain with 120 mL output during the day yesterday and 20 this morning. The right lower CASIE drain with 40 mL output to the day yesterday and 10ml this morning. PHYSICAL EXAM: VITAL SIGNS: Reviewed. GENERAL: Well-developed in no acute distress. ABDOMEN: Soft. Nondistended. Incisional dressing clean dry and intact. 2 CASIE drains noted NEUROLOGIC: Alert and oriented. Cranial nerves II through XII grossly intact. ASSESSMENT: 1. Infected pelvic hematoma, intra-abdominal adhesions, small bowel obstruction status post exploratory laparotomy with lysis of adhesions 2. Hypokalemia PLAN: -Patient can be discharged from surgical standpoint when medically cleared -Keep CASIE drains at discharge -Antibiotics per ID service -Continue chopped diet -Potassium replacement per medicine service -Continue pain management -Encourage patient to ambulate -Encourage patient to use incentive spirometer -DVT prophylaxis subcu heparin and GI prophylaxis Protonix Physician Assistant Store Leader note has been reviewed by physician. Signing provider agrees with the documented findings, assessment, and plan of care. I have personally seen and examined the patient, reviewed the ROUGH RICE TENDER /PAs history, exam and MDM and agree with the assessment and plan as written. Based on total visit time, I have performed more than 50% of the visit. As above: Patient doing well today. Unfortunately hypokalemia somewhat worse. Continue electrolyte imbalance management per medicine. Continue antibiotics. Keep drains in place. Discharge when cleared by medical team. Objective - Vital Signs Vital signs: Vital Signs Temp 98.5 F 10/29/22 07:00 Pulse 92 10/29/22 08:42 Resp 18 10/29/22 08:42 BP 130/65 10/29/22 07:00 Pulse Ox 96 10/29/22 07:00 FiO2 21 10/28/22 08:29 Intake & Output 10/28/22 10/29/22 10/29/22 18:59 06:59 18:59 Output Total 110 30 Balance -110 -30 Output: Drainage 110 30 Left Abdomen 80 20 Right Abdomen 30 10 Other: Voiding Method Toilet # Voids 5 3 - Labs CBC & Chem 7: 10/29/22 04:30 10/29/22 10:37 Labs: Abnormal Lab Results - Last 24 Hours (Table) 10/28/22 10/29/22 10/29/22 Range/Units 07:22 04:30 04:30 RBC 3.06 L (4.10-5.20) X 10*6/uL Hgb 8.6 L (12.0-15.0) g/dL Hct 27.1 L (37.2-46.3) % MCHC 31.7 L (32.0-37.0) g/dL RDW 16.1 H (11.5-14.5) % Plt Count 558 H (140-440) X 10*3/uL MPV 8.9 L (9.5-12.2) fL Immature Gran # 0.08 H (0.00-0.04) X 10*3/uL Potassium 3.3 L 2.9 L (3.5-5.5) mmol/L Carbon Dioxide 16.6 L (20.0-27.5) mmol/L Anion Gap 19.40 H (10.00-18.00) mmol/L BUN <1.4 L <1.4 L (9.0-27.0) mg/dL Creatinine 0.4 L 0.4 L (0.6-1.5) mg/dL Calcium 8.5 L 8.4 L (8.7-10.3) mg/dL
[2022-10-29] MEDS: CIPROFLOXACIN HCL 500 MG TAB PO SCH ×2 (14:43→22:42)
--- NOTE | 2022-10-29 15:31 | P.PN ---
Subjective Progress Note Date: 10/29/22 Principal diagnosis: Intra-abdominal abscess Patient is a 52-year-old female with a past medical history pertinent for hypertension reflux, patient recently did have a total abdominal hysterectomy, postop day 2 patient did have a exploratory laparoscopic with evacuation of hematoma, patient subsequently presenting back to the hospital on 10/13/2022 for evaluation of worsening right lower quadrant abdominal pain, patient did have a abnormal CT concerning for possible abscess status post CT- guided drainage culture did grew E. coli and anaerobes, concern for possible bowel trauma repeat CAT scan with rectal contrast did not show any leakage. Patient is status post laparotomy on 10/20/2022. No evidence of any perforation patient is status post lysis of adhesion On today's evaluation that is 10/29/2022, the patient remains to be afebrile, the patient is breathing comfortably on room air, patient abdominal/incisional pain has decreased in intensity, patient denies having any nausea or vomiting has been started on a clear liquid diet with the patient has been tolerating so far, patient did have low potassium currently getting IV potassium and did have poor IV access per the nursing staff Objective - Vital Signs Vital signs: Vital Signs Temp 98.5 F 10/29/22 07:00 Pulse 92 10/29/22 08:42 Resp 18 10/29/22 08:42 BP 130/65 10/29/22 07:00 Pulse Ox 96 10/29/22 07:00 FiO2 21 10/28/22 08:29 Intake & Output 10/28/22 10/29/22 10/29/22 18:59 06:59 18:59 Output Total 110 30 Balance -110 -30 Weight 84.368 kg Output: Drainage 110 30 Left Abdomen 80 20 Right Abdomen 30 10 Other: Voiding Method Toilet # Voids 5 3 - Exam GENERAL DESCRIPTION: Middle-age female up in bed in no distress RESPIRATORY SYSTEM: Unlabored breathing , decreased breath sounds at bases HEART: S1 S2 regular rate and rhythm , ABDOMEN: Soft , no distention did have bowel sounds EXTREMITIES: No edema feet - Labs CBC & Chem 7: 10/29/22 04:30 10/29/22 10:37 Labs: Abnormal Lab Results - Last 24 Hours (Table) 10/29/22 10/29/22 10/29/22 Range/Units 04:30 04:30 10:37 RBC 3.06 L (4.10-5.20) X 10*6/uL Hgb 8.6 L (12.0-15.0) g/dL Hct 27.1 L (37.2-46.3) % MCHC 31.7 L (32.0-37.0) g/dL RDW 16.1 H (11.5-14.5) % Plt Count 558 H (140-440) X 10*3/uL MPV 8.9 L (9.5-12.2) fL Immature Gran # 0.08 H (0.00-0.04) X 10*3/uL Potassium 2.9 L 2.8 L (3.5-5.5) mmol/L BUN <1.4 L (9.0-27.0) mg/dL Creatinine 0.4 L (0.6-1.5) mg/dL Calcium 8.4 L (8.7-10.3) mg/dL Assessment and Plan (1) Postoperative intra-abdominal abscess Current Visit: Yes Status: Acute Code(s): T81.43XA - INFCT FOL A PROCEDURE, ORGAN AND SPACE SURGICAL SITE, INIT SNOMED Code(s): 0884407 Plan: 1patient with infected intra-abdominal hematoma/abscess in this patient who did have a history of total vaginal hysterectomy followed by laparoscopic drainage of hematoma subsequent presented to hospital with abdominal pain and evidence of large fluid collection that has been drained on 10/14/2022 culture now growing E. coli patient did have a CT abdominal pelvis with rectal contrast completed this afternoon and did not show any leakage of the bowel content and surgery has seen the patient recommending conservative approach and possible outpatient antibiotic therapy, cultures currently growing E. coli and anaerobic gram- negative bacilli 2-Patient remains to be afebrile the patient white count has normalized, patient has received adequate Zosyn currently requiring her more IV potassium and only one IV line we will switch her over to oral Cipro and Flagyl and monitor clinical course closely Time with Patient: Less than 30
[2022-10-29] MEDS: metroNIDAZOLE 500 MG TAB PO SCH ×2 (16:29→22:42)
[2022-10-29] MEDS: ZOLPIDEM 5 MG TAB PO PRN (22:43)
[2022-10-30] MEDS: SODIUM CHLORIDE 0.9% 1,000 ML IV SCH ×3 (00:56→04:35)
[2022-10-30] MEDS: MIRTAZAPINE 15 MG TAB PO SCH (00:57)
[2022-10-30 02:05] VITALS: TEMP 98.5
[2022-10-30] MEDS ORDERED: POTASSIUM CHLORIDE 10 MEQ in WATER FOR INJECTION 1 100ML.BAG IVPB SCH (03:15)
[2022-10-30] MEDS: HEPARIN SODIUM,PORCINE/PF 5,000 UNIT/0.5 ML SYRINGE SQ SCH ×2 (03:21→08:21)
[2022-10-30] MEDS: POTASSIUM CHLORIDE 10 MEQ in WATER FOR INJECTION 1 100ML.BAG IVPB SCH (03:25)
[2022-10-30 07:18] VITALS: BP 120/81; PULSE 90; RESP 18
[2022-10-30] MEDS: IBUPROFEN 800 MG TAB PO SCH (08:20)
[2022-10-30] MEDS: metroNIDAZOLE 500 MG TAB PO SCH (08:21)
[2022-10-30] MEDS: PANTOPRAZOLE 40 MG/10 ML VIAL IVP SCH (08:21)
[2022-10-30] MEDS: CIPROFLOXACIN HCL 500 MG TAB PO SCH (08:21)
[2022-10-30] MEDS: HYDROmorphone 1 MG/ML 1 ML SYRINGE IVP PRN (08:28)
== END 2022-10-30 10:43 | disposition home or self-care (01) | DRG 856 ==
LOC: EC 21:31 → 4SSUR 10-14 02:23
PROVIDERS: ADMIT Obstetrics & Gynecology; ATTEND Obstetrics & Gynecology
PROC: 0W9G30Z Drainage of Peritoneal Cavity with Drainage Device, Percutaneous Approach (ICD-10-PCS; 2022-10-14)
PROC: 05HA33Z Insertion of Infusion Device into Left Brachial Vein, Percutaneous Approach (ICD-10-PCS; 2022-10-18)
PROC: 0WCG0ZZ Extirpation of Matter from Peritoneal Cavity, Open Approach (ICD-10-PCS; 2022-10-20)
PROC: 0W9G00Z Drainage of Peritoneal Cavity with Drainage Device, Open Approach (ICD-10-PCS; 2022-10-20)
PROC: 0D9670Z Drainage of Stomach with Drainage Device, Via Natural or Artificial Opening (ICD-10-PCS; 2022-10-20)
PROC: 3E0T3BZ Introduction of Anesthetic Agent into Peripheral Nerves and Plexi, Percutaneous Approach (ICD-10-PCS; 2022-10-20)
PROC: 0DNW0ZZ Release Peritoneum, Open Approach (ICD-10-PCS; principal; 2022-10-20 08:40)
DX: T81.44XA Sepsis following a procedure, initial encounter (principal); A41.4 Sepsis due to anaerobes; A41.51 Sepsis due to Escherichia coli [E. coli]; K56.50 Intestinal adhesions [bands], unspecified as to partial versus complete obstruction; D62 Acute posthemorrhagic anemia; K56.7 Ileus, unspecified; K91.89 Other postprocedural complications and disorders of digestive system; T81.43XA Infection following a procedure, organ and space surgical site, initial encounter; K66.8 Other specified disorders of peritoneum; I10 Essential (primary) hypertension; D75.839 Thrombocytosis, unspecified; E87.6 Hypokalemia; K21.9 Gastro-esophageal reflux disease without esophagitis; R00.0 Tachycardia, unspecified; N93.9 Abnormal uterine and vaginal bleeding, unspecified; N94.89 Other specified conditions associated with female genital organs and menstrual cycle; K52.9 Noninfective gastroenteritis and colitis, unspecified; B96.20 Unspecified Escherichia coli [E. coli] as the cause of diseases classified elsewhere; E83.42 Hypomagnesemia; S30.1XXA Contusion of abdominal wall, initial encounter; Z87.891 Personal history of nicotine dependence; Z79.899 Other long term (current) drug therapy; Z88.1 Allergy status to other antibiotic agents; Z90.710 Acquired absence of both cervix and uterus
CPT/HCPCS: 36410; 36415; 72170; 74018; 74019; 74177; 75989; 76937; 80048; 80053; 81001; 83605; 83690; 83735; 84100; 84132; 85025; 85027; 85384; 85610; 85730; 86850; 86900; 86901; 87040; 87070; 87075; 87077; 87186; 87205; 88173; 88305; 94760; 96361; 96365; 96367; 96375; 96376; 99291

== ENCOUNTER → 2022-11-02 | Outpatient (CLI) | payer OTHER ==
[2022-11-02 17:37] LABS: BUN/Creat Ratio 7.33 Ratio; Blood Urea Nitrogen 4.4 mg/dL; Calcium 9.6 mg/dL; Carbon Dioxide 30.2 mmol/L; Chloride 99 mmol/L; Glucose 97 mg/dL; Potassium 3.2 mmol/L; Sodium 144 mmol/L
== END | disposition home or self-care (01) ==
LOC: LABWHC1 10:05
PROVIDERS: ATTEND Internal Medicine
DX: E87.6 Hypokalemia (principal)
CPT/HCPCS: 36415; 80048

== ENCOUNTER → 2022-11-06 | Outpatient (CLI) | payer OTHER ==
[2022-11-06 13:38] LABS: Basophils # (A) 0.07 X 10*3/uL (0.00-0.10); Basophils % (A) 1.2 %; Eosinophils # (A) 0.32 X 10*3/uL (0.04-0.35); Eosinophils % (A) 5.5 %; HCT 40.5 % (37.2-46.3); HGB 12.5 d/dL (12.0-15.0); Lymphocytes # (A) 1.64 X 10*3/uL (0.90-5.00); Lymphocytes % (A) 28.3 %; MCH 28.8 pg (27.0-32.0); MCHC 30.9 d/dL (32.0-37.0); MCV 93.3 FL (80.0-97.0); Mean Platelet Volume 10.9 FL (9.5-12.2); Monocytes # (A) 0.44 X 10*3/uL (0.20-1.00); Monocytes % (A) 7.6 %; NRBC Per 100 WBC 0 X 10*3/uL (0.00-0.01); Neutrophils # (A) 3.29 X 10*3/uL (1.80-7.70); Neutrophils % (A) 56.9 %; Platelet Count 301 X 10*3/uL (140-440); RBC 4.34 X 10*6/uL (4.10-5.20); WBC 5.79 X 10*3/uL (4.50-10.00)
[2022-11-06 14:04] LABS: % Iron Saturation 17.45 (12.00-45.00); BUN/Creat Ratio 10.43 Ratio (12.00-20.00); Blood Urea Nitrogen 7.3 mg/dL (9.0-27.0); Carbon Dioxide 26.3 mmol/L (21.6-31.8); Chloride 102 mmol/L (96-109); Glucose 96 mg/dL (70-110); Iron 52 UG/DL (50-170); Magnesium 2.1 mg/dL (1.5-2.4); Potassium 4.2 mmol/L (3.5-5.5); Sodium 138 mmol/L (135-145); Total Iron Binding Capacity 298 UG/DL (228-460)
== END | disposition home or self-care (01) ==
LOC: LABWHC1 08:25
PROVIDERS: ATTEND Internal Medicine
DX: E87.6 Hypokalemia (principal); E53.8 Deficiency of other specified B group vitamins
CPT/HCPCS: 36415; 80048; 82607; 82728; 82746; 83540; 83550; 83735; 85025

== ENCOUNTER → 2023-06-09 | Outpatient (CLI) | payer OTHER ==
--- NOTE | 2023-06-11 16:13 | MM ---
Reason for Exam: Screening (asymptomatic). Last screening mammogram was performed 12 month(s) ago. Patient History: Menarche at age 13. First Full-Term at age 21. Hysterectomy at age 52. Postmenopausal. Paternal aunt had breast cancer, age 68. Risk Values: Vaishnavi 5 year model risk: 0.8%. NCI Lifetime model risk: 7.1%. Prior Study Comparison: 05/04/2021 Bilateral Screening Mammogram, [facility]. 07/20/2021 Left Diagnostic Mammogram, [facility]. 06/02/2022 Bilateral MG 3D screening mammo w/cad, [facility]. Tissue Density: The breast tissue is heterogeneously dense. This may lower the sensitivity of mammography. Findings: Analyzed By CAD. The pattern is symmetrical. There is some subtle change with possible spiculation in the lateral craniocaudal projection. Additional evaluation with compression view is recommended. No suspicious groups of microcalcifications, spiculated or lobular masses, architectural distortion or other secondary signs of malignancy are mammographically apparent. Overall Assessment: Incomplete: need additional imaging evaluation, BI-RAD 0 Management: Diagnostic Mammogram of the right breast. A negative mammogram report should not preclude additional follow up of suspicious palpable abnormalities. Patient should continue monthly self breast exam. A clinical breast exam by your physician is recommended on an annual basis and results should be correlated with mammographic findings. Electronically signed and approved by: Parminder Jones D.O. Radiologis
== END | disposition home or self-care (01) ==
LOC: RADMAMWWP 10:33
PROVIDERS: ATTEND Obstetrics & Gynecology
DX: Z12.31 Encounter for screening mammogram for malignant neoplasm of breast (principal); Z78.0 Asymptomatic menopausal state; Z80.3 Family history of malignant neoplasm of breast
CPT/HCPCS: 77063; 77067

== ENCOUNTER → 2023-06-14 | Outpatient (CLI) | payer OTHER ==
--- NOTE | 2023-06-14 09:02 | MM ---
Reason for Exam: Additional evaluation requested from abnormal screening. Last screening mammogram was performed less than 1 month ago. Patient History: Menarche at age 13. First Full-Term at age 21. Hysterectomy at age 52. Postmenopausal. Paternal aunt had breast cancer, age 68. Risk Values: Vaishnavi 5 year model risk: 0.8%. NCI Lifetime model risk: 7.1%. Prior Study Comparison: 07/20/2021 Left Diagnostic Mammogram, [facility]. 06/02/2022 Bilateral MG 3D screening mammo w/cad, [facility]. 06/09/2023 Bilateral MG 3D screening mammo w/cad, [facility]. Tissue Density: Right: There are scattered fibroglandular densities. Findings: Analyzed By CAD. There is no suspicious group of microcalcifications or new suspicious mass. No new suspicious masses, calcifications or distortions. Overall Assessment: Benign, BI-RAD 2 Management: Screening Mammogram of both breasts in 1 year. Results were given to the patient verbally at the time of exam. Patient should continue monthly self-breast exams. A clinical breast exam by your physician is recommended on an annual basis. This exam should not preclude additional follow-up of suspicious palpable abnormalities. Note on Vaishnavi scores and lifetime risk: 1. A Vaishnavi score greater than 3% is considered moderate risk. If this is the case, consider specialist referral to assess eligibility for a risk reducing agent. 2. If overall lifetime risk for the development of breast cancer is 20% or higher, the patient may qualify for future screening with alternating mammogram and breast MRI. Electronically signed and approved by: Farhat Ocasio DO
== END | disposition home or self-care (01) ==
LOC: RADMAMWWP 08:15
PROVIDERS: ATTEND Obstetrics & Gynecology
DX: R92.321 Mammographic fibroglandular density, right breast (principal); R92.2 Inconclusive mammogram; Z80.3 Family history of malignant neoplasm of breast; Z78.0 Asymptomatic menopausal state
CPT/HCPCS: 77061; 77065

== ENCOUNTER → 2024-02-28 | Outpatient (CLI) | payer OTHER ==
[2024-02-28 15:34] LABS: ALT 14 U/L (8-44); AST 19 U/L (13-35); Albumin 4.8 g/dL (3.8-4.9); Albumin/Globulin Ratio 2.09 Ratio (1.60-3.17); Alkaline Phosphatase 79 U/L (41-126); BUN/Creat Ratio 10.57 Ratio (12.00-20.00); Blood Urea Nitrogen 7.4 mg/dL (9.0-27.0); Calcium 9.5 mg/dL (8.7-10.3); Carbon Dioxide 25.5 mmol/L (21.6-31.8); Chloride 103 mmol/L (96-109); Chol/HDL Ratio 3.36 Ratio; Globulin 2.3 g/dL (1.6-3.3); Glucose 76 mg/dL (70-110); LDL Cholesterol,Calculated 118.1 mg/dL (0.0-131.0); Potassium 4.4 mmol/L (3.5-5.5); Sodium 142 mmol/L (135-145); Total Bilirubin 0.6 mg/dL (0.3-1.2); Total Protein 7.1 g/dL (6.2-8.2)
[2024-02-28 15:37] LABS: Appearance,Urine Clear (Clear); Bilirubin,Urine Negative (Negative); Blood,Urine Negative (Negative); Color,Urine Yellow (Yellow); Ketones,Urine Negative (Negative); Nitrite,Urine Negative (Negative); PH, Urine 7.5; Specific Gravity,Urine 1.015 (1.001-1.030); Urobilinogen,Urine 0.2 E.U./DL
[2024-02-28 16:35] LABS: HCT 43.1 % (37.2-46.3); HGB 14.7 g/dL (12.0-15.0); MCH 30.1 pg (27.0-32.0); MCHC 34.1 g/dL (32.0-37.0); MCV 88.3 FL (80.0-97.0); Mean Platelet Volume 10.5 FL (9.5-12.2); NRBC Per 100 WBC 0 X 10*3/uL (0.00-0.01); Platelet Count 282 X 10*3/uL (140-440); RBC 4.88 X 10*6/uL (4.10-5.20); RDW 12.5 % (11.5-14.5); WBC 6.13 X 10*3/uL (4.50-10.00)
== END | disposition home or self-care (01) ==
LOC: LABWHC1 09:34
PROVIDERS: ATTEND Family Medicine
DX: Z00.00 Encounter for general adult medical examination without abnormal findings (principal)
CPT/HCPCS: 36415; 80053; 80061; 81003; 82306; 83036; 84443; 85027

== ENCOUNTER → 2024-08-27 | Outpatient (CLI) | payer BC ==
[2024-08-27 14:58] LABS: HCT 43.9 % (37.2-46.3); HGB 14.6 g/dL (12.0-15.0); MCH 30.2 pg (27.0-32.0); MCHC 33.3 g/dL (32.0-37.0); MCV 90.9 FL (80.0-97.0); Mean Platelet Volume 10.4 FL (9.5-12.2); NRBC Per 100 WBC 0 X 10*3/uL (0.00-0.01); Platelet Count 276 X 10*3/uL (140-440); RBC 4.83 X 10*6/uL (4.10-5.20); RDW 12.2 % (11.5-14.5); WBC 6.65 X 10*3/uL (4.50-10.00)
[2024-08-27 15:27] LABS: ALT 12 U/L (8-44); AST 21 U/L (13-35); Albumin 4.5 g/dL (3.8-4.9); Albumin/Globulin Ratio 1.73 Ratio (1.60-3.17); Alkaline Phosphatase 77 U/L (41-126); BUN/Creat Ratio 15.67 Ratio (12.00-20.00); Blood Urea Nitrogen 9.4 mg/dL (9.0-27.0); Calcium 9.3 mg/dL (8.7-10.3); Carbon Dioxide 26.1 mmol/L (21.6-31.8); Chloride 102 mmol/L (96-109); Chol/HDL Ratio 3.45 Ratio; Globulin 2.6 g/dL (1.6-3.3); Glucose 84 mg/dL (70-110); LDL Cholesterol,Calculated 128.3 mg/dL (0.0-131.0); Potassium 4.1 mmol/L (3.5-5.5); Sodium 140 mmol/L (135-145); Total Bilirubin 0.4 mg/dL (0.3-1.2); Total Protein 7.1 g/dL (6.2-8.2)
[2024-08-27 15:36] LABS: INR <0.93 sec (0.93-1.11); Prothrombin Time 10.3 sec (9.9-11.9)
== END | disposition home or self-care (01) ==
LOC: LABWHC1 08:03
PROVIDERS: ATTEND Family Medicine
DX: Z00.00 Encounter for general adult medical examination without abnormal findings (principal); E78.5 Hyperlipidemia, unspecified; E55.9 Vitamin D deficiency, unspecified; Z79.890 Hormone replacement therapy
CPT/HCPCS: 36415; 80053; 80061; 81241; 84443; 85027; 85610; 86038; 86039

== ENCOUNTER → 2024-09-26 | Outpatient (CLI) | payer BC ==
[2024-09-27 04:57] LABS: Anti-DNA, DS unit <1.0 IU/mL; DNA Double-Stranded Negative (Negative)
[2024-09-27 05:01] LABS: Cyclic Citrull Pep IgG Unit <1.5 U/mL (<=3.9); Cyclic Citrullinated Pep IgG Negative
== END | disposition home or self-care (01) ==
LOC: LABWHC1 15:58
PROVIDERS: ATTEND Family Medicine
DX: R76.0 Raised antibody titer (principal); I73.9 Peripheral vascular disease, unspecified
CPT/HCPCS: 36415; 85652; 86140; 86200; 86225

== ENCOUNTER → 2024-10-01 | Outpatient (CLI) | payer BC ==
--- NOTE | 2024-10-01 10:12 | US ---
EXAMINATION TYPE: US arterial LE single level DATE OF EXAM: 10/01/2024 9:57 AM COMPARISONS: None. CLINICAL INDICATION: Female, 54 years old with history of G57.93 NEUROPATHY I73.9 LEG PAIN; Pt states bilateral numbness to feet TECHNIQUE: Systolic pressures were taken of the upper and lower extremity arteries with ankle-brachia l indices and toe brachial indices calculated bilaterally. History of: Smoker: Previous Hypertension: Yes Diabetic: No Hyperlipidemia: No TIA/CVA: No Previous Vascular Surgery: No CAD: No WI: No Vascular Ulcers: No Claudication: No Gangrene: No FINDINGS: Doppler Waveforms: Right: Multiphasic Left: Multiphasic Brachial Artery systolic pressure: Right: 153 Left: 146 Posterior Tibial artery systolic pressure: Right: 165 Left: 176 Dorsalis Pedis artery systolic pressure: Right: 171 Left: 168 Ankle-Brachial Indices: Right: 1.1 Left: 1.2 IMPRESSION: PAULINA: Right: Normal 0.9 - 1.4, Recommendation: None Left: Normal 0.9 - 1.4, Recommendation: None [facility], , 10/01/2024 10:10 AM
== END | disposition home or self-care (01) ==
LOC: RADUSWWP 09:13
PROVIDERS: ATTEND Family Medicine
DX: G57.93 Unspecified mononeuropathy of bilateral lower limbs (principal); I73.9 Peripheral vascular disease, unspecified
CPT/HCPCS: 93922

== ENCOUNTER 2024-10-02 04:58 | Emergency (ER) | payer BC ==
[2024-10-02 05:02] VITALS: TEMP 97.8
[2024-10-02] MEDS ORDERED: IOPAMIDOL CONTRAST (ORAL USE) VIAL PO PRN (05:29)
--- NOTE | 2024-10-02 05:37 | ED ---
ENT HPI - General Chief complaint: ENT Stated complaint: Trouble swallowing Time Seen by Provider: 10/02/24 05:06 Source: patient, RN notes reviewed, old records reviewed Mode of arrival: ambulatory Limitations: no limitations - History of Present Illness Initial comments: This is a 54-year-old female to the ER for evaluation who presents today for evaluation regards to abdominal pain patient presents today for evaluation of severe epigastric abdominal pain feelings of fullness in her throat this been going on for days, patient has long history of abdominal surgery with resection and hysterectomy MD complaint: sore throat, foreign body (Sensation of foreign body in the esophagus) -: days(s) Location: throat Severity: severe Worsens with: swallowing Context-Epistaxis: history of similar (Been going on for a few days) Associated Symptoms: pain with swallowing, sore throat - Related Data Home Medications Medication Instructions Recorded Confirmed Famotidine [Pepcid] 20 mg PO DAILY 04/16/21 10/14/22 Acetaminophen Tab [Tylenol] 325 mg PO Q6H PRN 10/14/22 10/14/22 HYDROcodone/APAP 5-325MG [[place] 1 tab PO Q4-6H PRN 10/14/22 10/14/22 5-325] Previous Rx's Medication Instructions Recorded Calcium Carbonate [Tums] 500 mg PO TID PRN tab 10/29/22 Ciprofloxacin HCl [Cipro] 500 mg PO BID 14 Days #28 tab 10/29/22 Ibuprofen [Motrin] 800 mg PO TID PRN #30 tab 10/29/22 Mirtazapine [Remeron] 15 mg PO HS #30 tab 10/29/22 Pantoprazole [Protonix] 40 mg PO DAILY #30 tab 10/29/22 metroNIDAZOLE [Flagyl] 500 mg PO TID 14 Days #42 tab 10/29/22 Allergies Allergy/AdvReac Type Severity Reaction Status Date / Time No Known Allergies Allergy Verified 10/02/24 05:02 Review of Systems ROS Statement: Those systems with pertinent positive or pertinent negative responses have been documented in the HPI. ROS Other: All systems not noted in ROS Statement are negative. Past Medical History Past Medical History: GERD/Reflux, Hypertension Additional Past Medical History / Comment(s): kidney stones 20 years ago, no medication for hypertension History of Any Multi-Drug Resistant Organisms: None Reported Past Surgical History: Cholecystectomy, Hysterectomy, Uterine Ablation Additional Past Surgical History / Comment(s): oral surgery. Colonoscopy 20 15(next age 52) Past Anesthesia/Blood Transfusion Reactions: Motion Sickness Past Psychological History: Anxiety Smoking Status: Former smoker Past Alcohol Use History: None Reported Past Drug Use History: Marijuana - Past Family History Father Family Medical History: Cancer Additional Family Medical History / Comment(s): Lung cancer. An uncle had lung cancer as well. Brother(s) Family Medical History: Cancer Additional Family Medical History / Comment(s): Beavers sarcoma. Mother Family Medical History: Pulmonary Embolus Aunt Family Medical History: Cancer Additional Family Medical History / Comment(s): Breast cancer. General Exam Limitations: no limitations General appearance: alert, in no apparent distress Head exam: Present: atraumatic, normocephalic, normal inspection Eye exam: Present: normal appearance, PERRL, EOMI. Absent: scleral icterus, conjunctival injection, periorbital swelling ENT exam: Present: normal exam, mucous membranes moist Neck exam: Present: normal inspection. Absent: tenderness, meningismus, lymphadenopathy Respiratory exam: Present: normal lung sounds bilaterally. Absent: respiratory distress, wheezes, rales, rhonchi, stridor Cardiovascular Exam: Present: regular rate, normal rhythm, normal heart sounds. Absent: systolic murmur, diastolic murmur, rubs, gallop, clicks GI/Abdominal exam: Present: soft, normal bowel sounds. Absent: distended, tenderness, guarding, rebound, rigid Extremities exam: Present: normal inspection, full ROM, normal capillary refill. Absent: tenderness, pedal edema, joint swelling, calf tenderness Back exam: Present: normal inspection Neurological exam: Present: alert, oriented X3, CN II-XII intact Psychiatric exam: Present: normal affect, normal mood Skin exam: Present: warm, dry, intact, normal color. Absent: rash Course Vital Signs 10/02/24 10/02/24 04:59 07:43 Temperature 97.8 F 97.8 F Pulse Rate 81 69 Respiratory 16 18 Rate Blood Pressure 139/99 127/83 O2 Sat by Pulse 99 96 Oximetry - Reevaluation(s) Reevaluation #1: 10/02/24 05:37 Medical record is reviewed Reevaluation #2: Patient symptoms improved here in the ER Reevaluation #3: Patient informed of results and questions answered Reevaluation #4: Was pt. sent in by a medical professional or institution (, PA, GLOBAL IMPLEMENTATION MANAGER, urgent care, hospital, or fci...) When possible be specific @ -no Did you speak to anyone other than the patient for history (EMS, parent, family, police, friend...)? What history was obtained from this source @ -no Did you review nursing and triage notes (agree or disagree)? Why? @ -agree Are old charts reviewed (outside hosp., previous admission, EMS record, old EKG, old radiological studies, urgent care reports/EKG's, fci records)? Report findings @ -yes Differential Diagnosis (chest pain, altered mental status, abdominal pain women, abdominal pain men, vaginal bleeding, weakness, fever, dyspnea, syncope, headache, dizziness, GI bleed, back pain, seizure, CVA, palpatations, mental health, musculoskeletal)? @ -prior EKG interpreted by me (3pts min.). @ -no X-rays interpreted by me (1pt min.). @ -no CT interpreted by me (1pt min.). @ -yes negative for acute disease U/S interpreted by me (1pt. min.). @ -no What testing was considered but not performed or refused? (CT, X-rays, U/S, lab s)? Why? @ -none What meds were considered but not given or refused? Why? @ -none Did you discuss the management of the patient with other professionals (professionals i.e. , PA, GLOBAL IMPLEMENTATION MANAGER, lab, RT, psych nurse, social and human services assistant, cleater, teacher, supply requirements officer, complex case manager)? Give summary @ -no Was smoking cessation discussed for >3mins.? @ -no Was critical care preformed (if so, how long)? @ -no Were there social determinants of health that impacted care today? How? (Homelessness, low income, unemployed, alcoholism, drug addiction, transportation, low edu. Level, literacy, decrease access to med. care, fci, rehab)? @ -none Was there de-escalation of care discussed even if they declined (Discuss DNR or withdrawal of care, Hospice)? DNR status @ -no What co-morbidities impacted this encounter? (DM, HTN, Smoking, COPD, CAD, Cancer, CVA, ARF, Chemo, Hep., AIDS, mental health diagnosis, sleep apnea, morbid obesity)? @ -none Was patient admitted / discharged? Hospital course, mention meds given and route, prescriptions, significant lab abnormalities, going to OR and other pertinent info. @ - 54 female to ER for abdominal pain chest pain significant persistent symptoms here in the ER although improved failure states CT scan of chest and pelvis negative for acute disease patient feels improved here in the ER and can be discharged Discharge abdominal pain no chest pain Undiagnosed new problem with uncertain prognosis? @ -no Drug Therapy requiring intensive monitoring for toxicity (Heparin, Nitro, Insulin, Cardizem)? @ -no Were any procedures done? @ -no Diagnosis/symptom? @ - Acute, or Chronic, or Acute on Chronic? @ -Acute Uncomplicated (without systemic symptoms) or Complicated (systemic symptoms)? @ -Complicated Side effects of treatment? @ -no Exacerbation, Progression, or Severe Exacerbation? @ -exacerbation Poses a threat to life or bodily function? How? (Chest pain, USA, ID, pneumonia, PE, COPD, DKA, ARF, appy, cholecystitis, CVA, Diverticulitis, Homicidal, Suicidal, threat to staff... and all critical care pts) @ -no Reevaluation #5: Differential Abdominal Pain Women: Appendicitis, Cholecystitis, diverticulosis, ischemic bowel, pancreatitis, hepatitis, UTI, gastroenteritis, AAA, incarcerated hernia, bowel obstruction, c onstipation, inflammatory bowel, hepatitis, peptic ulcer disease, splenic infarction, perforated viscus, vulvitis, ovarian torsion, PID, kidney stone, placenta abruption, this is not meant to be an all-inclusive list Medical Decision Making - Medical Decision Making 54 female to ER for abdominal pain chest pain significant persistent symptoms here in the ER although improved failure states CT scan of chest and pelvis negative for acute disease patient feels improved here in the ER and can be discharged - Lab Data Result diagrams: 10/02/24 06:01 10/02/24 06:01 Lab Results 10/02/24 10/02/24 10/02/24 Range/Units 06:01 06:01 06:01 WBC 5.97 (4.50-10.00) 10*3/uL RBC 5.32 H (4.10-5.20) 10*6/uL Hgb 16.3 H (12.0-15.0) g/dL Hct 46.1 (37.2-46.3) % MCV 86.7 (80.0-97.0) fL MCH 30.6 (27.0-32.0) pg MCHC 35.4 (32.0-37.0) g/dL Plt Count 294 (140-440) 10*3/uL MPV 9.6 (9.5-12.2) fL Immature Gran % (Auto) 0.2 % Neutrophils % 64.7 % Lymphocytes % 28.6 % Monocytes % 5.7 % Eosinophils % 0.3 % Basophils % 0.5 % Immature Gran # 0.01 (0.00-0.04) 10*3/uL Neutrophils # 3.86 (1.80-7.70) 10*3/uL Lymphocytes # 1.71 (0.90-5.00) 10*3/uL Monocytes # 0.34 (0.20-1.00) 10*3/uL Eosinophils # 0.02 L (0.04-0.35) 10*3/uL Basophils # 0.03 (0.00-0.10) 10*3/uL Sodium 140 (137-145) mmol/L Potassium 3.7 (3.5-5.1) mmol/L Chloride 102 (98-107) mmol/L Carbon Dioxide 27 (22-30) mmol/L Anion Gap 11 mmol/L BUN 10 (7-17) mg/dL Creatinine 0.63 (0.52-1.04) mg/dL Est GFR (CKD-EPI)AfAm >90 (>60 ml/min/1.73 sqM) Est GFR (CKD-EPI)NonAf >90 (>60 ml/min/1.73 sqM) Glucose 101 H (74-99) mg/dL Plasma Lactic Acid Rory 0.9 (0.7-2.0) mmol/L Calcium 9.9 (8.4-10.2) mg/dL Phosphorus 2.9 (2.5-4.5) mg/dL Magnesium 1.8 (1.6-2.3) mg/dL Total Bilirubin 1.3 (0.2-1.3) mg/dL AST 23 (14-36) U/L ALT 15 (4-34) U/L Alkaline Phosphatase 83 (38-126) U/L Troponin I (0.000-0.034) ng/mL Total Protein 8.6 H (6.3-8.2) g/dL Albumin 5.2 H (3.5-5.0) g/dL Amylase 53 (30-110) U/L Lipase 65 (23-300) U/L 10/02/24 Range/Units 06:01 WBC (4.50-10.00) 10*3/uL RBC (4.10-5.20) 10*6/uL Hgb (12.0-15.0) g/dL Hct (37.2-46.3) % MCV (80.0-97.0) fL MCH (27.0-32.0) pg MCHC (32.0-37.0) g/dL Plt Count (140-440) 10*3/uL MPV (9.5-12.2) fL Immature Gran % (Auto) % Neutrophils % % Lymphocytes % % Monocytes % % Eosinophils % % Basophils % % Immature Gran # (0.00-0.04) 10*3/uL Neutrophils # (1.80-7.70) 10*3/uL Lymphocytes # (0.90-5.00) 10*3/uL Monocytes # (0.20-1.00) 10*3/uL Eosinophils # (0.04-0.35) 10*3/uL Basophils # (0.00-0.10) 10*3/uL Sodium (137-145) mmol/L Potassium (3.5-5.1) mmol/L Chloride (98-107) mmol/L Carbon Dioxide (22-30) mmol/L Anion Gap mmol/L BUN (7-17) mg/dL Creatinine (0.52-1.04) mg/dL Est GFR (CKD-EPI)AfAm (>60 ml/min/1.73 sqM) Est GFR (CKD-EPI)NonAf (>60 ml/min/1.73 sqM) Glucose (74-99) mg/dL Plasma Lactic Acid Rory (0.7-2.0) mmol/L Calcium (8.4-10.2) mg/dL Phosphorus (2.5-4.5) mg/dL Magnesium (1.6-2.3) mg/dL Total Bilirubin (0.2-1.3) mg/dL AST (14-36) U/L ALT (4-34) U/L Alkaline Phosphatase (38-126) U/L Troponin I <0.012 (0.000-0.034) ng/mL Total Protein (6.3-8.2) g/dL Albumin (3.5-5.0) g/dL Amylase (30-110) U/L Lipase (23-300) U/L - Radiology Data Radiology results: report reviewed (CT chest abdomen pelvis is negative for acute disease), image reviewed Disposition Clinical Impression: Abdominal pain, Post-op pain Disposition: HOME SELF-CARE Instructions (If sedation given, give patient instructions): Abdominal Pain (ED) Is patient prescribed a controlled substance at d/c from ED?: No Referrals: Vern Garcia MD [Primary Care Provider] - 1-2 days Time of Disposition: 07:00
[2024-10-02 06:10] LABS: Basophils # (A) 0.03 10*3/uL (0.00-0.10); Basophils % (A) 0.5 %; Eosinophils # (A) 0.02 10*3/uL (0.04-0.35); Eosinophils % (A) 0.3 %; HCT 46.1 % (37.2-46.3); HGB 16.3 g/dL (12.0-15.0); Lymphocytes # (A) 1.71 10*3/uL (0.90-5.00); Lymphocytes % (A) 28.6 %; MCH 30.6 pg (27.0-32.0); MCHC 35.4 g/dL (32.0-37.0); MCV 86.7 fL (80.0-97.0); Mean Platelet Volume 9.6 fL (9.5-12.2); Monocytes # (A) 0.34 10*3/uL (0.20-1.00); Monocytes % (A) 5.7 %; Neutrophils # (A) 3.86 10*3/uL (1.80-7.70); Neutrophils % (A) 64.7 %; Platelet Count 294 10*3/uL (140-440); RBC 5.32 10*6/uL (4.10-5.20); RDW 11.9 % (11.5-14.5); WBC 5.97 10*3/uL (4.50-10.00)
[2024-10-02] MEDS: diphenhydrAMINE 50 MG/ML 1 ML VIAL IVP STA (06:11)
[2024-10-02] MEDS: PANTOPRAZOLE 40 MG/10 ML VIAL IVP STA (06:11)
[2024-10-02] MEDS: LORazepam 2 MG/ML INJ IV STA (06:11)
[2024-10-02] MEDS: METOCLOPRAMIDE 5 MG/ML 2 ML VIAL IVP STA (06:11)
[2024-10-02] MEDS: SODIUM CHLORIDE 0.9% 1,000 ML IV SCH (06:12)
[2024-10-02] MEDS: ONDANSETRON 4 MG/2 ML VIAL IVP STA (06:15)
[2024-10-02 06:27] LABS: ALT 15 U/L (4-34); AST 23 U/L (14-36); African American GFR (CKD) >90 (>60 ml/min/1.73 sqM); Albumin 5.2 g/dL (3.5-5.0); Alkaline Phosphatase 83 U/L (38-126); Amylase 53 U/L (30-110); Anion Gap 11 mmol/L; Blood Urea Nitrogen 10 mg/dL (7-17); Calcium 9.9 mg/dL (8.4-10.2); Carbon Dioxide 27 mmol/L (22-30); Chloride 102 mmol/L (98-107); Glucose 101 mg/dL (74-99); Lipase 65 U/L (23-300); Magnesium 1.8 mg/dL (1.6-2.3); Non-African American GFR(CKD) >90 (>60 ml/min/1.73 sqM); Phosphorus 2.9 mg/dL (2.5-4.5); Potassium 3.7 mmol/L (3.5-5.1); Sodium 140 mmol/L (137-145); Total Bilirubin 1.3 mg/dL (0.2-1.3); Total Protein 8.6 g/dL (6.3-8.2)
--- NOTE | 2024-10-02 06:48 | CT ---
EXAM: CT Chest With Intravenous Contrast CLINICAL HISTORY: ITS.REASON CT Reason: pain,nv TECHNIQUE: Axial computed tomography images of the chest with intravenous contrast. CTDI is 9.5 mGy and DLP is 719.1 mGy-cm. This CT exam was performed using one or more of the following dose reduction techniques: automated exposure control, adjustment of the mA and/or kV according to patient size, and/or use of iterative reconstruction technique. COMPARISON: No relevant prior studies available. FINDINGS: Lungs: Unremarkable. No mass. No consolidation. Pleural space: Unremarkable. No pneumothorax. No significant effusion. Heart: Unremarkable. No cardiomegaly. No significant pericardial effusion. No significant coronary artery calcifications. Bones/joints: Degenerative changes are seen within the spine and shoulders. No acute fracture. No dislocation. Soft tissues: Unremarkable. Vasculature: Unremarkable. No thoracic aortic aneurysm. Lymph nodes: Unremarkable. No enlarged lymph nodes. IMPRESSION: No acute findings in the chest. EXAM: CT Abdomen and Pelvis With Intravenous Contrast CLINICAL HISTORY: ITS.REASON CT Reason: pain,nv TECHNIQUE: Axial computed tomography images of the abdomen and pelvis with intravenous contrast. CTDI is 8.7 mGy and DLP is 292.8 mGy-cm. This CT exam was performed using one or more of the following dose reduction techniques: automated exposure control, adjustment of the mA and/or kV according to patient size, and/or use of iterative reconstruction technique. COMPARISON: CT dated 10/18/2022. FINDINGS: Lung bases: Unremarkable. No mass. No consolidation. ABDOMEN: Liver: Left hepatic cyst which does not require follow-up. Hepatomegaly and hepatic steatosis. Gallbladder and bile ducts: The gallbladder is surgically absent. No ductal dilation. Pancreas: Unremarkable. No mass. No ductal dilation. Spleen: The spleen is enlarged without evidence of mass. Adrenals: Unremarkable. No mass. Kidneys and ureters: Unremarkable. No solid mass. No hydronephrosis. Stomach and bowel: Wall thickening of the colon extending from the ascending colon through the distal transverse colon. No evidence of obstruction. PELVIS: Appendix: No findings to suggest acute appendicitis. Bladder: Unremarkable. No mass. Reproductive: Unremarkable as visualized. ABDOMEN and PELVIS: Intraperitoneal space: Unremarkable. No free air. No significant fluid collection. Bones/joints: No acute fracture. No dislocation. Soft tissues: Unremarkable. Vasculature: Unremarkable. No abdominal aortic aneurysm. Lymph nodes: Unremarkable. No enlarged lymph nodes. IMPRESSION: Findings likely representing infectious or inflammatory colitis without evidence of obstruction.
[2024-10-02 07:45] VITALS: BP 127/83; PULSE 69; RESP 18
== END 2024-10-02 07:44 | disposition home or self-care (01) ==
LOC: EC 04:58
DX: R10.13 Epigastric pain (principal); G89.18 Other acute postprocedural pain; Z87.891 Personal history of nicotine dependence; W44.9XXA Unspecified foreign body entering into or through a natural orifice, initial encounter
CPT/HCPCS: 36415; 80053; 82150; 83605; 83690; 83735; 84100; 84484; 85025; 71260; 74177; 99283; 96374; 96375; 96361; J2060; J1200; J2765; Q9967; J2470

== ENCOUNTER → 2024-11-06 | Outpatient (CLI) | payer BC ==
--- NOTE | 2024-11-06 09:07 | MR ---
MR MRCP INDICATION: Patient age:Female; 54 years old; Reason for study: R10.11 RUQ PAIN K91.5 POSTCHOLECYSTECTOMY SYNDROME; [facility]. COMPARISON: CT chest abdomen pelvis 10/02/2024, CT abdomen and pelvis 10/18/2022, 10/11/2022, 02/01/2021. TECHNIQUE: Multi planar, T2-weighted imaging with and without fat saturation and chemical shift imag ing was performed of the abdomen. Then, heavily T2 weighted imaging was utilized in order to study th e biliary system. Maximum intensity projection images were reconstructed from the original data of t he biliary tree. No Gadolinium given. FINDINGS: MRCP: The intrahepatic ducts have a normal appearance. The common bile duct at the level of the bar creatic head measures 6 mm in size. The common hepatic duct measures 6 mm in size. These are normal caliber. The pancreatic duct is normal. The gallbladder is surgically absent. Abdomen: The spleen, adrenal glands, kidneys, and pancreas have a normal noncontrast appearance. Left hepatic dome T2 hyperintense thin-walled 1.9 cm simple cyst. IMPRESSION: 1. No evidence to suggest ductal stricture, choledocholithiasis, or biliary ductal dilatation. 2. Post cholecystectomy changes. [facility], , 11/06/2024 9:05 AM
== END | disposition home or self-care (01) ==
LOC: RADMRIMAIN 07:46
PROVIDERS: ATTEND Family Medicine
DX: K91.5 Postcholecystectomy syndrome (principal); K58.9 Irritable bowel syndrome, unspecified; Z90.49 Acquired absence of other specified parts of digestive tract
CPT/HCPCS: 74181